=== PATIENT | female | born 1940 | race Caucasian/White ===

== ENCOUNTER 2018-06-25 12:18 | Observation (INO) | payer MEDICARE, OTHER ==
[~2018-06-25] VITALS: Ht 157.5 cm; Wt 79.8 kg
--- NOTE | 2018-06-25 13:24 | Diagnostic Imaging Report ---
EXAMINATION: CHEST SINGLE (PORTABLE) INDICATION: Fall, hit forehead \S\ERMD ORDER \S\[id number] \S\1300 \S\Y COMPARISON: None FINDINGS: AP view TUBES and LINES: None. LUNGS: Lungs are well inflated. Lungs are clear. There is no evidence of pneumonia or pulmonary edema. PLEURA: No pleural effusion or pneumothorax. HEART AND MEDIASTINUM: The cardiomediastinal silhouette is unremarkable. Mild aortic arch calcifications. BONES AND SOFT TISSUES: No acute osseous lesion. Rightward curvature of the visualized lumbar spine. UPPER ABDOMEN: No free air under the diaphragm. IMPRESSION: No acute thoracic abnormality. Signed by: DR. Murray Escobar MD on 06/25/2018 1:20 PM
--- NOTE | 2018-06-25 13:58 | Diagnostic Imaging Report ---
Examination: CT BRAIN WITHOUT CONTRAST History:Dizziness. Fall. Head injury Comparison studies:None Technique: Axial images were obtained from the skull base to the vertex. Coronal and sagittal images reconstructed from the axial data. Dose modulation, iterative reconstruction, and/or weight based adjustment of the mA/kV was utilized to reduce the radiation dose to as low as reasonably achievable. Intravenous contrast: None Findings: Scalp: Small right frontal scalp hematoma. Bones: No fractures, blastic or lytic lesions. Brain sulci: Appropriate for age. Ventricles: The ventricular size is out of proportion with respect to cerebral convexity sulci, concerning for a communicating type of hydrocephalus, such as normal pressure hydrocephalus. Extra-axial space: No abnormalities. Parenchyma: No masses, hemorrhage, or acute or chronic cortical based vascular insults. Sellar/suprasellar region: No abnormalities. Craniocervical junction: Patent foramen magnum. No Chiari one malformation. Incidental findings: Atherosclerotic calcification of the cavernous and supraclinoid internal carotid and V4 segments of the bilateral vertebral arteries. Impression: 1. Small right frontal scalp hematoma without radiopaque foreign body or associated calvarial fracture. 2. No acute intracranial abnormalities. 3. Findings as described above are concerning for normal pressure hydrocephalus. Signed by: Dr. Airam Drew M.D. on 06/25/2018 1:55 PM
[2018-06-25 14:27] LABS: BASOPHILS # (AUTO) 0.1 (0.0-0.1); BASOPHILS % 0.7 % (0.0-1.0); EOSINOPHILS # (AUTO) 0.1 (0.0-0.4); EOSINOPHILS % 1.7 % (0.0-6.0); HEMATOCRIT 42.7 % (34.2-44.1); HEMOGLOBIN 13.7 g/dL (12.0-16.0); LYMPHOCYTES # (AUTO) 1.1 (1.0-3.2); LYMPHOCYTES % 13.9 % (18.0-39.1); MEAN CORPUSCULAR HEMOGLOBIN 29.5 pg (28-32); MEAN CORPUSCULAR HGB CONC 32.1 g/dL (31-35); MONOCYTES # (AUTO) 0.8 (0.2-0.8); MONOCYTES % 9.9 % (4.4-11.3); NEUTROPHILS # (AUTO) 5.9 (2.1-6.9); NEUTROPHILS % 73.6 % (38.7-80.0); PLATELET COUNT 233 x10e3/uL (140-360); RED BLOOD COUNT 4.64 x10e6/uL (3.6-5.1); RED CELL DISTRIBUTION WIDTH 14.7 % (11.7-14.4)
--- NOTE | 2018-06-25 14:35 | Diagnostic Imaging Report ---
CTs of the pelvis and right hip were obtained WITHOUT contrast. TECHNIQUE: Standard departmental protocols were used. Sagittal and coronal reformations were obtained. Coronal and sagittal reconstructions were reformatted separately for each exam. Dose modulation, iterative reconstruction, and/or weight based adjustment of the mA/kV was utilized to reduce the radiation dose to as low as reasonably achievable. Total DLP = 329.47 HISTORY: Fall, hematoma, pain COMPARISON: None. FINDINGS: Bones: No acute displaced fracture. No aggressive osseous lesion. Joints: Multifocal degenerative changes, including moderate of the pubic symphysis, sacroiliac joints. Mild subchondral cystic changes of the right femoral head greater than the left. Trace nonspecific right hip effusion. Also, chondrocalcinosis of the pubic symphysis. Soft tissues: There is no evidence of lymphadenopathy or other soft tissue mass. Other: Severe degenerative disc changes at L4-5 and L5-S1. Severe facet arthrosis at L4-5 and L5-S1. Multiple metallic surgical clips in the posterior aspect of the pelvis. IMPRESSION: 1. No acute displaced fracture. 2. Trace nonspecific right hip effusion. 3. Multifocal degenerative changes, most notably severe of the visualized lumbosacral spine. Signed by: Dr. Ike Khan D.O., M.M.M. on 06/25/2018 2:32 PM
[2018-06-25 14:41] LABS: INR 1.03; PROTHROMBIN TIME 12.7 seconds (11.9-14.5)
[2018-06-25 14:44] LABS: PARTIAL THROMBOPLASTIN TIME 21.6 seconds (23.8-35.5)
[2018-06-25 14:48] LABS: ALANINE AMINOTRANSFERASE 19 IU/L (0-55); ALBUMIN 3.9 g/dL (3.5-5.0); ALBUMIN/GLOBULIN RATIO 1.1 (0.8-2.0); ALKALINE PHOSPHATASE 41 IU/L (40-150); ANION GAP 13.2 mmol/L (8-16); BLOOD UREA NITROGEN 12 mg/dL (7-26); BUN/CREATININE RATIO 15 (6-25); CARBON DIOXIDE 26 mmol/L (22-29); CHLORIDE 102 mmol/L (98-107); CREATINE KINASE 54 IU/L (29-168); CREATININE, SERUM 0.82 mg/dL (0.57-1.11); EST GLOMERULAR FILTRATION RATE > 60 ML/MIN (60-); GLUCOSE 78 mg/dL (74-118); LIPASE 30 U/L (8-78); POTASSIUM 4.2 mmol/L (3.5-5.1); SODIUM 137 mmol/L (136-145)
[2018-06-25] MEDS ORDERED: OMEPRAZOLE40 MG PO (14:51)
[2018-06-25] MEDS ORDERED: FAMOTIDINE20 MG PO (14:51)
[2018-06-25] MEDS ORDERED: FOLIC ACID1 MG PO (14:51)
[2018-06-25] MEDS ORDERED: FERREX 28 TABL1 EACH PO (14:51)
[2018-06-25] MEDS ORDERED: ALPRAZOLAM0.5 MG PO (14:51)
[2018-06-25] MEDS ORDERED: SENNA LAX8.6 MG PO (14:51)
[2018-06-25] MEDS ORDERED: CALTRATE 600 W1 EACH PO (14:51)
[2018-06-25] MEDS ORDERED: FISH OIL 1,0001 EAC3 PO (14:51)
[2018-06-25] MEDS ORDERED: CARVEDILOL3.125 MG PO (14:51)
[2018-06-25] MEDS ORDERED: ATORVASTATIN CA10 MG PO (14:51)
[2018-06-25] MEDS ORDERED: BUPROPION HCL100 MG PO (14:51)
[2018-06-25] MEDS ORDERED: DESLORATADINE5 MG PO (14:51)
[2018-06-25] MEDS ORDERED: LEVOXYL88 MCG PO (14:51)
[2018-06-25] MEDS ORDERED: METFORMIN HCL500 MG PO (14:51)
[2018-06-25] MEDS ORDERED: HYDROCODON-ACE1 EA11 PO (14:51)
[2018-06-25] MEDS ORDERED: METHOTREXATE2.5 MG PO (14:51)
[2018-06-25] MEDS ORDERED: PREDNISONE5 MG PO (14:51)
[2018-06-25] MEDS ORDERED: VITAMIN B-121000 MCG PO (14:51)
[2018-06-25] MEDS ORDERED: VENLAFAXINE H37.5 MG PO (14:51)
[2018-06-25] MEDS ORDERED: OCUVITE TABLET1 EAC1 PO (14:51)
[2018-06-25] MEDS ORDERED: MIRALAX17 GM PO (14:51)
[2018-06-25 14:58] LABS: BILIRUBIN,URINE NEGATIVE (NEGATIVE); CLARITY,URINE SL CLOUDY (CLEAR); COLOR,URINE YELLOW (YELLOW); KETONES,URINE NEGATIVE (NEGATIVE); LEUKOCYTE ESTERASE ,URINE TRACE (NEGATIVE); NITRITE,URINE NEGATIVE (NEGATIVE); PROTEIN,URINE DIPSTICK NEGATIVE (NEGATIVE); URINE UROBILINOGEN 0.2 mg/dL (0.2 - 1)
[2018-06-25 15:03] LABS: EPITHELIAL CELLS,URINE FEW /LPF; RENAL EPITHELIAL CELLS,URINE RARE; TRANSITIONAL EPI CELLS,URINE RARE
[2018-06-25 15:10] LABS: THYROID STIMULATING HORMONE 0.665 uIU/mL (0.350-4.940)
[2018-06-25] MEDS ORDERED: ASPIRIN 81 MG CHEW TAB PO ONE (15:30)
[2018-06-25] MEDS ORDERED: DEXTROSE 50% SYRINGE 50 ML IV PRN (15:45)
--- NOTE | 2018-06-25 15:55 | Diagnostic Imaging Report ---
History: Fall Comparison studies: None Technique: Axial images were obtained through the cervical region.. Coronal and sagittal images reconstructed from the axial data.. Intravenous contrast: None Findings: Fractures: None. Soft tissues: No gross abnormalities. Atlantoaxial articulation: Degenerative changes without acute abnormality. Alignment: Reversal of the cervical spine lordosis at C5. Grade 1 anterolisthesis of C3 over C4 and grade 1 retrolistheses of C5 over C6. No scoliosis. Cervicomedullary junction: No abnormalities. The foramen magnum is patent. Vertebrae: No infection or neoplasm. Degenerative changes: Decreased intervertebral space with endplate sclerosis from C4 through C6. Fused right facet joint at C2-3 At C3-4 right facet hypertrophy results in moderate right foraminal narrowing Uncinate process hypertrophy and facet hypertrophy results in [id number] foraminal narrowing at C4-5 and C5-6. Atherosclerotic calcifications of the carotid bulbs. IMPRESSION: 1. No acute cervical spine abnormalities. 2. Cannot exclude ligament, spinal cord and or vascular abnormalities on the basis of this examination. Signed by: DR Michael Allison M.D. on 06/25/2018 3:51 PM
[2018-06-25] MEDS: INSULIN REGULAR, HUMAN 100 UNIT/1 ML 3ML VIAL SQ SCH ×2 (16:30→21:00)
[2018-06-25 17:00] VITALS: BP 190/74
[2018-06-25 17:40] VITALS: BP_SYST 163; BP_SYST 190; BP_DIAS 70; BP_DIAS 74
[2018-06-25] MEDS: SODIUM CHLORIDE 0.9% 1000ML 1,000 ML IV SCH (19:21)
--- NOTE | 2018-06-25 19:49 | Consultation ---
DATE OF CONSULTATION: June 25, 2018 CARDIOLOGY CONSULTATION ATTENDING PHYSICIAN: Dr. Db Mak CLINICAL HISTORY: This is an 78-year-old white woman, a patient Dr. Db Mak, admitted via the emergency room because of syncope and fall, striking her head. This patient apparently has had near syncopal spells for approximately 20 years. However, she never had an episode where she had to fall to the ground. She has had CT scan of the head in the past which showed normal pressure hydrocephalus. She has had a Holter study done because of palpitations with rapid heart beat, but no specific findings that the patient can tell me. Nevertheless, the patient was placed on Coreg with some symptomatic improvement. Other medical conditions include hypothyroidism, diabetes, indigestion. She is chronically taking prednisone. There is history of hyperlipidemia. MEDICATIONS: Included: 1. Alprazolam 0.5 mg p.o. q.12 h. 2. Atorvastatin 10 mg p.o. daily. 3. Bupropion 100-mg tablet p.o. daily. 4. Calcium carbonate. 5. Coreg 3.125 mg p.o. b.i.d. 6. Vitamin B12. 7. Desloratadine 5 mg p.o. daily. 8. Pepcid 20 mg p.o. daily. 9. Folic acid 1 mg p.o. daily. 10. Hydrocodone q.6 h. p.r.n. 11. Vitamin tablets. 12. Levothyroxine 88 mcg p.o. daily. 13. Metformin 500 mg p.o. b.i.d. 14. Methotrexate 2.5 mg p.o. daily. 15. [place] 3 fatty acid. 16. Omeprazole 40 mg daily. 17. Polyethylene glycol. 18. Prednisone 5 mg p.o. daily. 19. Senna 8.6 mg p.o. daily. 20. Venlafaxine 37.5 mg p.o. daily. 21. Vitamins A and C. PERSONAL / SOCIAL HISTORY: Noncontributory. PHYSICAL EXAMINATION GENERAL: She is alert and coherent. VITALS: Stable. Orthostatic readings are still pending. CARDIAC: Jugular veins are not distended. S1, S2 are regular. There is no appreciable murmur. LUNGS: Clear. ABDOMEN: Soft. Bowel sounds are present. EXTREMITIES: No cyanosis, clubbing or edema. IMPRESSION 1. Syncope, with the patient describing momentary unconsciousness but recovered before she hit the ground. She remembers hitting the ground. 2. History of normal pressure hydrocephalus with chronic imbalance. 3. Chronic pain. 4. Hypothyroidism. 5. Hyperlipidemia. 6. History of rapid palpitations on Coreg. 7. Immunosuppressed with methotrexate and prednisone. 8. Normal pressure hydrocephalus. RECOMMENDATIONS: Cardiac monitoring. Check orthostatic vital signs. Consider electrophysiology testing. Echocardiogram to rule out cardiomyopathy. Carotid Doppler scan. Neurology consultation is pending. Thus far, the CT scans of the head and cervical spine as well as the hip and pelvis were unrevealing. Chest x-ray was negative. EKG showed no acute changes. The patient had no complaint of chest pain. Job#: [id number] cc:DB MAK MD
[2018-06-25 20:00] VITALS: BP 160/72
[2018-06-25 20:52] LABS: CREATINE KINASE 51 IU/L (29-168)
[2018-06-26] VITALS (10 sets, daily range): BP systolic 135–176; BP diastolic 60–77
[2018-06-26] MEDS: SODIUM CHLORIDE 0.9% 1000ML 1,000 ML IV SCH ×2 (05:15→18:08)
[2018-06-26 05:53] LABS: BASOPHILS % 0.5 % (0.0-1.0); EOSINOPHILS # (AUTO) 0.2 (0.0-0.4); EOSINOPHILS % 2.7 % (0.0-6.0); HEMATOCRIT 41.1 % (34.2-44.1); LYMPHOCYTES # (AUTO) 1.4 (1.0-3.2); LYMPHOCYTES % 24.3 % (18.0-39.1); MEAN CORPUSCULAR HEMOGLOBIN 29.3 pg (28-32); MEAN CORPUSCULAR HGB CONC 31.6 g/dL (31-35); MEAN CORPUSCULAR VOLUME 92.8 fL (81-99); MONOCYTES % 16.4 % (4.4-11.3); NEUTROPHILS # (AUTO) 3.3 (2.1-6.9); NEUTROPHILS % 55.9 % (38.7-80.0); PLATELET COUNT 120 x10e3/uL (140-360); RED BLOOD COUNT 4.43 x10e6/uL (3.6-5.1); RED CELL DISTRIBUTION WIDTH 14.6 % (11.7-14.4)
[2018-06-26 06:30] LABS: CREATINE KINASE 57 IU/L (29-168)
[2018-06-26] MEDS: INSULIN REGULAR, HUMAN 100 UNIT/1 ML 3ML VIAL SQ SCH ×4 (07:30→21:00)
[2018-06-26 07:58] LABS: ALANINE AMINOTRANSFERASE 14 IU/L (0-55); ALBUMIN 3.5 g/dL (3.5-5.0); ALBUMIN/GLOBULIN RATIO 1.2 (0.8-2.0); ALKALINE PHOSPHATASE 37 IU/L (40-150); ANION GAP 13.7 mmol/L (8-16); BLOOD UREA NITROGEN 13 mg/dL (7-26); BUN/CREATININE RATIO 18 (6-25); CALCIUM 9.3 mg/dL (8.4-10.2); CARBON DIOXIDE 23 mmol/L (22-29); CHLORIDE 105 mmol/L (98-107); CREATININE, SERUM 0.73 mg/dL (0.57-1.11); EST GLOMERULAR FILTRATION RATE > 60 ML/MIN (60-); GLUCOSE 104 mg/dL (74-118); POTASSIUM 3.7 mmol/L (3.5-5.1); SODIUM 138 mmol/L (136-145)
[2018-06-26 08:48] LABS: PLATELET ESTIMATE SLIGHTLY DECREASED; PLATELET MORPHOLOGY COMMENT NORMAL
[2018-06-26 08:49] LABS: ANISOCYTOSIS SLIGHT; HYPOCHROMASIA SLIGHT; RBC MORPHOLOGY COMMENT NORMAL
[2018-06-26] MEDS: ASPIRIN 325 MG TAB EC PO SCH (09:20)
--- NOTE | 2018-06-26 14:50 | Consultation ---
DATE OF CONSULTATION: June 26, 2018 NEUROLOGY CONSULTATION HISTORY OF PRESENT ILLNESS: Ms. Rainey is an 78-year-old right hand dominant woman with past medical history significant for hyperlipidemia, diabetes mellitus type 2, and previously diagnosed tachycardia, admitted to [facility] on June 25, 2018, status post syncopal event. At approximately 1000 on the morning of admission, the patient was standing at her kitchen counter, taking her vitamins. Ms. Rainey then experienced the abrupt onset of dizziness, which is further described as lightheadedness. The patient does not report chest pain or tightness, shortness of breath, numbness or tingling, or an abnormal abdominal sensation. Immediately after the onset of lightheadedness, the patient briefly lost consciousness and fell towards her right, hitting her head and the right side of her body on ceramic tile. As indicated, the period of unconsciousness was brief, lasting only seconds. Upon regaining consciousness, Ms. Rainey was oriented to person, place, time, and situation. Ms. Rainey reports experiencing similar events over the past several years. The patient does not report a visual field cut or other disturbance, dysarthria, aphasia, facial droop, hemiparesis, hemihypesthesia, or confusion. She does endorse impairment of gait and balance but states these are chronic. At home, she ambulates with a cane. In the community, the patient ambulates with a rolling walker. Upon arrival in the emergency center at [facility], the patient was afebrile with a blood pressure of 161/85 mmHg and a pulse of 73 beats per minute. Her neurological examination was documented as being nonfocal. A CT of the brain without contrast was performed while the patient was in the emergency center. This study did not show evidence of recent large territorial ischemia or hemorrhage. Ms. Rainey was admitted to [facility] for further evaluation and treatment of her symptoms. REVIEW OF SYSTEMS: Palpitations, shortness of breath, chronic constipation, dizziness which is further described as lightheadedness, syncope, and impairment of balance and gait (chronic). Otherwise the 12 point review of systems is negative. PAST MEDICAL HISTORY: Hyperlipidemia, diabetes mellitus type 2, tachycardia, thyroid disease, rheumatoid arthritis, urinary incontinence, chronic constipation, depression, colon cancer (in remission). PAST SURGICAL HISTORY: Partial hysterectomy, cholecystectomy, bilateral knee replacements, colon resection, hemorrhoidectomy, appendectomy, bilateral cataract removal. PAST HOSPITALIZATIONS: Surgeries/procedures as listed, childbirth times 3, pneumonia. FAMILY MEDICAL HISTORY: The patient's paternal and maternal grandparents are . Their medical histories are unknown. The patient's father is from emphysema. Her mother is from breast cancer. Ms. Rainey had 5 brothers and 2 sisters. One sister is from lung cancer. A brother is from metastatic cancer. A second brother is from lung cancer. A second sister is from pulmonary fibrosis. One brother is alive and has chronic obstructive pulmonary disease. Two other brothers are alive and have prostate cancer. Ms. Rainey has 3 children, all boys. All are living. Her eldest son has benign prostatic hypertrophy. Her 2 younger sons are healthy. SOCIAL HISTORY: Ms. Rainey is a . She is retired. She endorses a remote history of tobacco use but quit smoking cigarettes approximately 50 years ago. The patient does not report current or prior alcohol or recreational drug use. HOME MEDICATIONS: Please see the list available on the electronic medical record. ALLERGIES: BACITRACIN, LEVOFLOXACIN. NO KNOWN FOOD ALLERGIES. THE PATIENT DOES REPORT AN ALLERGY TO LATEX. MS. RAINEY REPORTS AN ALLERGY TO IODINE WELL. PHYSICAL EXAMINATION: VITAL SIGNS: Height 62 inches, weight 178 pounds, BMI 32.6 kg per meter squared. Blood pressure 147/66 mmHg. Pulse 101 beats per minute. Respiratory rate 18 breaths per minute. Oxygen saturation 93% on room air. GENERAL: The patient is awake and alert, does not appear distressed. Obese. HEENT: Bruising over the right side of the forehead, above the right eye and near the right methodist. Pupils are surgical. Moist mucous membranes. NECK: Supple. No appreciable thyromegaly. No appreciable carotid bruits. CARDIOVASCULAR: S1, S2, regular rate and rhythm. No murmurs, rubs, or gallops. RESPIRATORY: Clear to auscultation bilaterally. No wheezes, rhonchi, or rales. EXTREMITIES: The skin is warm and dry. No clubbing, cyanosis, or edema. The posterior tibial and dorsalis pedis pulses are 1+ and symmetric. SKIN: No rashes or lesions. NEUROLOGIC: Memory/Attention: The patient is awake and alert. Oriented to person, place, time, and situation. Cranial Nerves: Cranial nerve 1--Not tested. Cranial nerve 2, 3, 4 and 6--Pupils are surgical. Extraocular movements intact. No nystagmus. Cranial nerve 5--Sensation to light touch and pinprick is intact in the bilateral V1 through V3 distributions. Strength of the temporalis and masseter muscles is within normal limits. Cranial nerve 7--The face is symmetric as are all facial movements. Strength is within normal limits. Cranial nerve 8--Hearing is diminished to finger rub bilaterally. Cranial nerve 9, 10--The soft palate elevates equally and symmetrically. Cranial nerve 11--Normal strength of the bilateral sternocleidomastoid and trapezius muscles. Cranial nerve 12--The tongue protrudes midline and moves symmetrically from side to side. Strength: Bulk is normal. Strength is 5/5 in the bilateral deltoids, biceps, triceps, wrist flexors and extensors, finger flexors and extensors, intrinsic hand muscles, hip flexors, knee flexors and extensors, ankle dorsiflexion and plantar flexion, and intrinsic foot muscles. Tone is normal. DTRs: Deep tendon reflexes are 1+ and symmetric at the triceps, biceps, brachial radialis, and patellas. Deep tendon reflexes are absent and symmetric at the Achilles. Plantar responses are flexor bilaterally. Sensation: Sensation is intact to light touch and pinprick in both arms and both legs. Cerebellar: Ymdeix-hsdj-louudt and heel-boyle movements are intact without dysmetria or other impairment. Gait: Deferred. Speech: Spontaneous speech is normal without appreciable dysarthria or aphasia. Repetition is intact. Involuntary Movements: None. Pronator Drift: None. LABORATORY DATA: The patient's complete metabolic panel is unremarkable. Cardiac enzymes are negative times 3. B-natriuretic peptide is 47.6. Lipase 30. TSH 0.665. The CBC with differential and platelets reveals a white blood cell count of 5.92 with 55.9% neutrophils, 24.3% lymphocytes, 16.4% monocytes, 2.7% eosinophils, and 0.5% basophils. The hemoglobin and hematocrit are 13.0 and 41.1, respectively. The platelet count is 120. PT 12.7, INR 1.03, PTT 21.6. A urinalysis reveals trace leukocyte esterase, rare transition epithelials cells, rare renal epithelials cells, no bacteria. A preliminary urine culture reveals no growth at 18 to 24 hours. DIAGNOSTIC STUDIES: Electrocardiogram June 25, 2018: Normal sinus rhythm at 77 beats per minute. Pelvis CT June 25, 2018: (1) No acute displaced fracture. (2) Trace nonspecific right hip effusion. (3) Multifocal degenerative changes, most notably severe of the visualized lumbosacral spine. Hip CT June 25, 2018: (1) No acute displaced fracture. (2) Trace nonspecific right hip effusion. (3) Multifocal degenerative changes, most notably severe of the visualized lumbosacral spine. Chest x-ray June 25, 2018: No acute thoracic abnormality. CT of the brain without contrast June 25, 2008: On my review, there is no evidence of recent large territorial ischemia, hemorrhage, mass, or mass effect. There is diffuse cerebral atrophy which appears appropriate for age. There is ventriculomegaly out of proportion to cerebral atrophy, concerning for normal pressure hydrocephalus. There are no findings suspicious for chronic small vessel ischemic disease. There is a small right frontal scalp hematoma without associated fracture. CT of the cervical spine June 25, 2018: (1) No acute cervical spine abnormalities. (2) Cannot exclude ligament, spinal cord, or vascular abnormalities on the basis of this examination. Echocardiogram June 25, 2018: Ejection fraction 60% to 65%. Trace tricuspid and mitral regurgitation. Bilateral carotid artery ultrasound with Doppler June 25, 2018: There is no atherosclerosis in either carotid artery system. Antegrade flow is present in the bilateral vertebral arteries. ASSESSMENT AND PLAN: Ms. Rainey is an 78-year-old right hand dominant woman with past medical history as detailed, admitted to [facility] on June 25, 2018, following a syncopal event. At present, the patient's neurological examination is nonfocal. Her laboratory data and other diagnostic studies have been reviewed and are documented above. Based on the patient's history and neurological examination, there is very low suspicion for an underlying neurological disorder as the cause of Ms. Rainey's syncopal event. Continued cardiac evaluation is recommended. Thank you for this consultation. There are no recommendations from the neurology service at this time. Time spent: 70 minutes. Job#: [id number] [place]
[2018-06-26] MEDS ORDERED: ACETAMINOPHEN 325 MG TAB PO PRN (21:00)
[2018-06-27] VITALS (7 sets, daily range): BP systolic 125–161; BP diastolic 61–74
[2018-06-27] MEDS: INSULIN REGULAR, HUMAN 100 UNIT/1 ML 3ML VIAL SQ SCH (07:30)
[2018-06-27] MEDS: ASPIRIN 325 MG TAB EC PO SCH (09:40)
[2018-06-27] MEDS ORDERED: ALPRAZOLAM 0.5 MG TAB PO PRN (09:45)
[2018-06-27] MEDS ORDERED: FAMOTIDINE 20 MG TAB PO SCH (17:00)
[2018-06-27] MEDS ORDERED: POLYETHYLENE GLYCOL 3350 17 GM PACK PO SCH (17:00)
[2018-06-27] MEDS ORDERED: CARVEDILOL 3.125 MG TAB PO SCH (17:00)
[2018-06-27] MEDS ORDERED: METFORMIN HCL 500 MG TAB PO SCH (17:00)
[2018-06-27] MEDS ORDERED: ATORVASTATIN 10 MG TAB PO SCH (21:00)
[2018-06-28] MEDS ORDERED: LEVOTHYROXINE SODIUM 88 MCG TAB PO SCH (06:00)
[2018-06-28] MEDS ORDERED: SENNOSIDES 8.6 MG TAB PO SCH (09:00)
[2018-06-28] MEDS ORDERED: OMEGA 3 POLYUNSAT FATTY ACIDS 1000 MG SOFTGEL PO SCH (09:00)
[2018-06-28] MEDS ORDERED: VENLAFAXINE HCL 37.5 MG TAB PO SCH (09:00)
[2018-06-28] MEDS ORDERED: OCUVITE PRESERVISION TABLET PO SCH (09:00)
[2018-06-28] MEDS ORDERED: BUPROPION HCL 100 MG TAB PO SCH (09:00)
[2018-06-28] MEDS ORDERED: PREDNISONE 5 MG TAB PO SCH (09:00)
[2018-06-28] MEDS ORDERED: CYANOCOBALAMIN 1,000 MCG TAB PO SCH (09:00)
[2018-06-28] MEDS ORDERED: PANTOPRAZOLE SOD 40 MG TABEC PO SCH (09:00)
[2018-06-28] MEDS ORDERED: FOLIC ACID 1 MG TAB PO SCH (09:00)
[2018-06-30] MEDS ORDERED: METHOTREXATE SOD 2.5 MG TAB PO SCH (09:00)
== END 2018-06-27 13:00 | disposition home or self-care (01) ==
LOC: ER 12:18 → ERHOLD 15:42 → INTOOBSV 15:42 → MED/SURG 16:44
PROVIDERS: ADMIT Internal Medicine; ATTEND Internal Medicine
DX: R55 Syncope and collapse (principal); S70.01XA Contusion of right hip, initial encounter; S00.83XA Contusion of other part of head, initial encounter; W18.39XA Other fall on same level, initial encounter; Y93.89 Activity, other specified; E11.9 Type 2 diabetes mellitus without complications; M54.9 Dorsalgia, unspecified; M06.9 Rheumatoid arthritis, unspecified; Z79.52 Long term (current) use of systemic steroids; E78.5 Hyperlipidemia, unspecified; Z88.1 Allergy status to other antibiotic agents; Z91.040 Latex allergy status; Z91.048 Other nonmedicinal substance allergy status; E03.9 Hypothyroidism, unspecified; G91.2 (Idiopathic) normal pressure hydrocephalus; G89.29 Other chronic pain; R00.2 Palpitations
CPT/HCPCS: 36415 ×3; 70450; 71045; 72125; 72192; 73700; 80053 ×2; 81001; 82550 ×2; 82553 ×2; 82948 ×3; 83690; 83735; 83880; 84443; 84484 ×2; 85025 ×2; 85610; 85730; 87086; 93005; 93306; 93880; 97116; 97161; 99284; G0378 ×3; J7030 ×2

== ENCOUNTER 2018-09-04 16:35 | Emergency (ER) | payer MEDICARE, OTHER ==
[~2018-09-04] VITALS: Ht 154.9 cm; Wt 79.4 kg
[~2018-09-04 16:35] MED LIST: ALPRAZOLAM0.5 MG PO; ATORVASTATIN CA10 MG PO; BUPROPION HCL100 MG PO; CALTRATE 600 W1 EACH PO; CARVEDILOL3.125 MG PO; DESLORATADINE5 MG PO; FAMOTIDINE20 MG PO; FERREX 28 TABL1 EACH PO; FISH OIL 1,0001 EAC3 PO; FOLIC ACID1 MG PO; HYDROCODON-ACE1 EA11 PO; LEVOXYL88 MCG PO; METFORMIN HCL500 MG PO; METHOTREXATE2.5 MG PO; MIRALAX17 GM PO; OCUVITE TABLET1 EAC1 PO; OMEPRAZOLE40 MG PO; PREDNISONE5 MG PO; SENNA LAX8.6 MG PO; VENLAFAXINE H37.5 MG PO; VITAMIN B-121000 MCG PO
--- OUTSIDE RECORDS SUMMARY | 2018-09-04 16:39 | XMS REPORT | Continuity of Care Document ---
Author Author [facility] Interface Address Unknown Phone Unavailable Problems Problem Status Onset Date Classification Date Reported Comments Source R13.10 Active 08/12/2017 [facility] D64.9 *XRAY ESOPHAGRAM BARIUM SWALLOW W Active 07/05/2017 [facility] D64.9 - "ANEMIA, UNSPECIFIED" Active 06/26/2017 [facility] [place] DIZZINESS AND GIDDINESS Active 05/06/2017 [facility] R09.89 - OTH SYMPTOMS AND SIGNS INVOLVI Active 04/11/2017 [facility] Anemia Resolved Problem 09/06/2017 [facility] Anxiety Resolved Problem 09/06/2017 [facility] Constipation Resolved Problem 09/06/2017 [facility] Diabetes Resolved Problem 09/06/2017 [facility] Gastric reflux Resolved Problem 09/06/2017 [facility] Hyperlipidemia Resolved Problem 09/06/2017 [facility] Hypothyroidism Resolved Problem 09/06/2017 [facility] Cancer of colon Resolved Problem 09/06/2017 [facility] Depression Resolved Problem 09/06/2017 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 Active Problem 08/22/2018 Deven Chand Degenerative arthritis of cervical spine Active Problem 08/22/2018 Deven Chand Encounter for long-term use of other high-risk medications Active Problem 08/22/2018 Deven Ellsworther Pharyngitis Active Problem 03/07/2017 Deven Ellsworther Neck pain Active Problem 08/22/2018 Deven Chand Lumbago with sciatica, unspecified side Active Problem 08/22/2018 Deven Chand Spasm of muscle Active Problem 06/12/2016 Deven Chand Follow-up examination following completed treatment with high-risk medications, not elsewhere classified Active Problem 06/12/2016 Deven Chand Rash and other nonspecific skin eruption Active Problem 06/12/2016 Deven Chand Pain in joint, wrist Active Problem 06/12/2016 Deven Chand Long-term use of other medications - High Risk Active Problem 06/12/2016 Deven Chand Bursitis, Hip Active Problem 06/12/2016 Deven Chand Vasculitis Active Problem 06/12/2016 Deven Chand Osteopenia Active Problem 06/12/2016 Deven Chand Rheumatoid arthritis Active Problem 06/12/2016 Deven Chand Rib pain Active Diagnosis 11/19/2015 Deven Chand Contusion of right hip Active Problem 06/27/2018 [facility] Head injury Active Problem 06/27/2018 [facility] Syncope Active Problem 06/27/2018 [facility] Traumatic hematoma of head Active Problem 06/27/2018 [facility] Medications Medication Details Route Status Patient Instructions Ordering Provider Order Date Source Methotrexate 2 tablets Orally Active 2.5 MG Orally Once a week [place] 08/05/2018 Deven Chand Folic Acid 1 tablet Orally Active 1 MG Orally Once a day [place] 03/26/2018 Deven Chand Methotrexate 2 tablets Orally Active 2.5mg Orally Once a week [place] 03/24/2018 Deven Chand Folic Acid 1 tablet Orally Active 1 MG Orally Once a day [place] 06/21/2017 Deven Chand Hydrocodone-Acetaminophen take 1 tablet by mouth every 6 hours Orally Active 5-325 MG Orally every 6 hrs [place] 01/23/2017 Deven Chand Hydrocodone-Acetaminophen take 1 tablet Orally Active 5-325 MG Orally once a day as needed [place] 01/23/2017 Deven Chand Hydrocodone-Acetaminophen take 1 tablet by mouth every 6 hours Orally Active 5-325 MG Orally every 6 hrs [place] 05/11/2016 Deven Chand Prilosec OTC 1 tablet Orally Active 20 MG Orally Once a day [place] 09/27/2015 Deven Chand Folic Acid 1 tablet Orally Active 1 MG Orally Once a day [place] 09/27/2015 Deven Chand Senokot 2 tablets at bedtime as needed Orally Active 8.6 MG Orally Once a day [place] Deven Chand Ocuvite as directed Orally Active Orally [place] Deven Chand BuPROPion HCl 1 tablet Orally Active 100 MG Orally once a day Chand Deven Chand Effexor XR 1 capsule with food Orally Active 37.5 MG Orally Once a day [facility] Deven Chand Iron 1 tablet Orally Active 325 (65 Fe) MG Orally Once a day [facility] Deven Chand PredniSONE 1 tablet Orally Active 5 MG Orally Once a day [place] Deven Chand Levothyroxine Sodium 1 Orally Active 100 MCG Orally qd [place] Deven Chand Clotrimazole 1 tammy Mouth/Throat Active 10 MG Mouth/Throat Three times a day [facility] Deven Chand Metamucil as directed Orally Active 48.57 % Orally [place] Deven Chand Methotrexate TAKE 3 TABLETS BY MOUTH ONCE A WEEK NA Active 2.5 MG [facility] Deven Chand Folic Acid 1 tablet Orally Active 1 MG Orally Once a day Chand Deven Chand Valsartan 1/2 tablet Orally Active 40 MG Orally Once a day [facility] Deven Chand Xanax 1 tablet Orally Active 0.5 MG Orally twice a day [facility] Deven Chand Citracal + D 1 tablet with meals Orally Active 1500-200 MG-IU Orally Twice a day Chand Deven Chand Rituxan 1000MG IV NA Active 1000MG q 4monthly Chand Deven Chand Tylenol Arthritis Pain 2 tablets as needed Orally Active 650 MG Orally every 8 hrs Chand Deven Chand Mucinex 1 tablet as needed Orally Active 600 MG Orally every 12 hrs Chand Deven Chand Fish Oil 1 CAP Orally Active 1000 MG Orally TWICE DAILY [place] Deven Chand Omeprazole 1 capsule Orally Active 40 MG Orally Once a day [place] Deven Chand Desloratadine 1 tablet Orally Active 5 MG Orally Once a day [place] Deven Chand Famotidine 1 tablet at bedtime Orally Active 20 MG Orally BID Chand Deven Chand Metformin & Diet Manage Prod 1 tablet Orally Active 500 MG Orally BID [place] Deven Chand Carvedilol 1 tablet with food Orally Active 3.125 MG Orally Twice a day Chand Deven Chand MiraLax as directed Orally Active - Orally Chand Deven Chand Alprazolam 1 tablet Orally Active 0.5 MG Orally Twice a day [place] Deven Chand Omeprazole 1 capsule Orally Active 40 MG [facility] Deslorat[facility]ine 1 tablet Orally Active 5 MG Orally Once a day [facility] Fish Oil 1 CAP Orally Active 1000 MG Orally TWICE DAILY [facility] AleksanderTopelon Delica Lancets 33G as directed NA Active - [facility] Tylenol Arthritis Pain 2 tablets as needed Orally Active 650 MG Orally every 8 hrs [facility] Venlafaxine HCl 1 tablet with food Orally Active 37.5 MG Orally Once a day [facility] Atorvastatin Calcium 1 tablet Orally Active 10 MG Orally Once a day [facility] Levothyroxine Sodium 1 Orally Active 100 MCG Orally qd [facility] Famotidine 1 tablet at bedtime Orally Active 20 MG Orally BID [facility] Metamucil as directed Orally Active 48.57 % Orally [facility] Ocuvite as directed Orally Active Orally [facility] Rituxan 1000MG IV NA Active 1000MG q 4monthly [facility] Mucinex 1 tablet as needed Orally Active 600 MG Orally every 12 hrs [facility] Senokot 2 tablets at bedtime as needed Orally Active 8.6 MG Orally Once a day [facility] Methotrexate 2 tablets Orally Active 2.5mg Orally Once a week [facility] Carvedilol 1 tablet with food Orally Active 3.125 MG Orally Twice a day [facility] BuPROPion HCl 1 tablet Orally Active 100 MG Orally once a day [facility] MiraLax as directed Orally Active - Orally [facility] Alprazolam 1 tablet Orally Active 0.5 MG Orally Twice a day [facility] Sandhya Delica Lancets 33G as directed NA Active - [facility] Atorvastatin Calcium 1 tablet Orally Active 10 MG Orally Once a day [facility] Venlafaxine HCl 1 tablet with food Orally Active 37.5 MG Orally Once a day [facility] Vitamin B12 1 tablet Orally Active 1000 MCG Orally Once a day [facility] Naproxen 1 tablet Orally Active 250 MG Orally PRN [facility] Tylenol 1 Orally Active otc Orally prn [facility] Citracal +D3 as directed Orally Active 250-107-500 MG-MG-UNIT Orally [facility] Metformin & Diet Manage Prod as directed Orally Active 500 MG Orally [place] Deven Chand Omeprazole 1 capsule Orally Active 20 MG Orally Once a day Yoav Chand PredniSONE TAKE 1 TO 2 TABLETS WITH FOOD OR MILK ONCE DAILY NA Active 5MG Yoav Chand Biotin 1 tablet Orally Active 300 MCG Orally Once a day Jagruti Chand Xolair INJECTION ONCE A MONTH Subcutaneous Active 150 MG Subcutaneous EVERY MONTH Jagruti Chand Calcium + D 1 tablet Orally Active 600-200 MG-UNIT Orally TWICE A DAY Jagruti Chand Hydrocodone-Acetaminophen TAKE 1 TABLET BY MOUTH EVERY 6 HOURS NA Active 5-325 MG Jagruti Chand Naproxen TAKE 1 TABLET NEEDED EVERY 12 HOURS NA Active 500MG Jagruti Chand Vitamin E 1 capsule Orally Active 100 UNIT Orally Once a day Jagruti Chand Furosemide 1 tablet Orally Active 20 MG Orally Once a day Jagruti Chand Nasonex 2 sprays in each nostril Nasally Active 50 MCG/ACT Nasally Once a day Jagruti Chand Venlafaxine HCl 1 tablet with food Orally Active 75 MG Orally Twice a day Jagruti Chand Mucinex 1 tablet for chest congestion Orally Active 600 MG Orally prn Jagruti Chand Methotrexate once a week Orally Active 2.5 MG Orally once a week Jagruti Chand Citracal + D 1 tablet with meals Orally Active 1500-200 MG-IU Orally Twice a day Karl Chand Hydrocodone-Acetaminophen take 1 tablet by mouth every 6 hours Orally Active 5-325 MG Orally every 6 hrs Yoav Chand Alprazolam 0.5 Mg Tablet Every 12 Hours as needed for Anxiety Active [facility] Atorvastatin Calcium 10 Mg Tablet Bedtime Active [facility] Bupropion Hcl 100 Mg Tablet Daily Active [facility] Calcium Carbonate/Vitamin D3 (Caltrate 600 W-D Tablet) 1 Each Tablet Daily Active [facility] Carvedilol 3.125 Mg Tablet Twice A Day Active [facility] Cyanocobalamin (Vitamin B-12) 1,000 Mcg Tab Daily Active [facility] Desloratadine 5 Mg Tablet Daily Active [facility] Famotidine 20 Mg Tab Twice A Day Active [facility] Folic Acid 1 Mg Tablet Daily Active [facility] Hydrocodone Bit/Acetaminophen (Hydrocodon-Acetaminophen 5-325) 1 Each Tablet Every 6 Hours Active [facility] Iron Ag&Fum/C/Fa/Mv Cmb11/Ca-T (Ferrex 28 Tablet) 1 Each Tablet Daily Active [facility] Levothyroxine Sodium (Levoxyl) 88 Mcg Tablet Daily Active [facility] Metformin Hcl 500 Mg Tablet Twice A Day Active [facility] Methotrexate Sodium (Methotrexate) 2.5 Mg Tablet Q7days Active [facility] [place]-3 Fatty Acids/Fish Oil (Fish Oil 1,000 Mg Softgel) 1 Each Capsule Daily Active [facility] Omeprazole 40 Mg Capsule.dr Daily Active [facility] Polyethylene Glycol 3350 (Miralax) 17 Gm Powd.pack Twice A Day Active [facility] Prednisone 5 Mg Tablet Daily Active [facility] Sennosides (Senna Lax) 8.6 Mg Tablet Daily Active [facility] Venlafaxine Hcl 37.5 Mg Tablet Daily Active [facility] Vit A,C & E/Lutein/Minerals (Ocuvite Tablet) 1 Each Tablet Daily Active [facility] Allergies, Adverse Reactions, Alerts Substance Category Reaction Severity Reaction type Status Date Reported Comments Source Levofloxacin RASH Mild Allergy to Substance Active 11/28/2010 [facility] Iodine Adverse Reaction Info Not Available Adverse Reaction Active 05/13/2018 Deven Chand Daypro Adverse Reaction Info Not Available Adverse Reaction Active 05/13/2018 Deven Chand Levaquin Adverse Reaction Info Not Available Adverse Reaction Active 05/13/2018 Deven Chand Leflunomide Adverse Reaction Info Not Available Adverse Reaction Active 05/13/2018 Deven Chand Xeljanz Adverse Reaction Info Not Available Adverse Reaction Active 05/13/2018 Deven Chand Actemra Adverse Reaction Info Not Available Adverse Reaction Active 05/13/2018 Deven Chand Gold Sodium Thiosulfate Adverse Reaction Info Not Available Adverse Reaction Active 05/13/2018 Deven Chand Thiuram Mix Adverse Reaction Info Not Available Adverse Reaction Active 05/13/2018 Deven Chand Humira Adverse Reaction Info Not Available Adverse Reaction Active 05/13/2018 Deven Chand Remicade Adverse Reaction Info Not Available Adverse Reaction Active 05/13/2018 Deven Chand Enbrel Adverse Reaction Info Not Available Adverse Reaction Active 05/13/2018 Deven Chand Kineret Adverse Reaction Info Not Available Adverse Reaction Active 05/13/2018 Deven Chand Fosamax Adverse Reaction fatigue, dental issues Adverse Reaction Active 05/13/2018 Deven Chand Latex Unknown Allergy to Substance Active 06/25/2018 [facility] Bacitracin Unknown Allergy to Substance Active 06/25/2018 [facility] Bacitracin, Topical Assertion Drug allergy Active [facility] iodine Assertion Drug allergy Active [facility] Immunizations Immunization Date Given Site Status Last Updated Comments Source Results Order Name Results Value Reference Range Date Interpretation Comments Source Ext Lower Venous Doppler [facility] LEFT LOWER EXTREMITY VENOUS DOPPLER DATE: 08/27/2018 9:33 AM [facility]RI[facility] INDICATION: - I80.9 Phlebitis and thrombophlebitis of unspecified site ADDITIONAL INFORMATION: None. COMPARISON: None. TECHNIQUE: Multiplanar grayscale, color Doppler and spectral Doppler ultrasound images of the left lower extremity veins. DISCUSSION: Left Thigh Veins: Common Femoral: Patent. Femoral (SFV): Patent. Popliteal: Patent. Proximal Greater Saphenous: Patent. Deep Femoral Veins: Patent. Left Calf Veins: Paired Peroneal: Patent. Posterior Tibial Calf: Patent. 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 IMPRESSION 1. No left lower extremity deep venous thrombosis (DVT). 2. 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 08/27/2018 - - Read by: Lori Funez MD Dictated Date/time: 08/27/18 11:25 Electronically Signed by: Lori Funez MD 08/27/18 11:28 FINAL REPORT [facility] Barium Swallow w Esophagus Function DX Barium Swallow w Esophagus Function DX Patient Name: EDGARDO HUNTLEY : 1940; Age: 77 years y/o Female MR: [id number] Study: Barium Swallow w Esophagus Function DX 07/11/2017 9:15 AM CDT Clinical Indication: FT: 3.4 min / DOse: 77.31 mGy / DAP: 18.029 Gycm2 - D64.9- Anemia COMPARISON: None TECHNIQUE: Thin barium was utilized for recumbent prone oblique and LPO images. Thick barium was utilized for upright imaging of the esophagus and pharynx. Evangelina cracker mixed with barium was given to evaluate motility with solids. FINDINGS: There is no delay in passage of the barium bolus from the pharynx into the esophagus. The cricopharyngeus relaxes normally. There is a small Zenker's diverticulum. Prone images of the esophagus reveal tertiary waves with mild to moderate delay in contrast passage. LPO image demonstrates severe delay in contrast passage. Upright images demonstrate tertiary waves with minimal delay in contrast passage. Subsequently 2 separate swallows of a small piece of evangelina cracker and barium were fluoroscopically followed through the length of the esophagus. There is no significant delay in passage of both solid boluses from the pharynx to the esophagus and subsequently into the stomach. IMPRESSION: 1. Small Zenker's diverticulum. 2. Esophageal dysmotility with mild to moderate delay in contrast passage on the prone views. 3. Severe delay in contrast passage in the LPO position. [id number] 07/11/2017 - - Read by: Keith Ocampo MD Dictated Date/time: 07/11/17 12:27 Electronically Signed by: Keith Ocampo MD 07/11/17 12:32 FINAL REPORT [facility] Brain wo contrast CT Brain wo contrast CT EXAM: CT BRAIN WITHOUT CONTRAST DATE: 04/19/2017 INDICATION: R42 Dizziness and giddiness COMPARISON: No prior imaging is available for comparison TECHNIQUE: Axial noncontrast CT images of the head were obtained. Sagittal and coronal reconstructions were provided. IV contrast: None. DLP: 471.12 mGy-cm FINDINGS: There is no evidence of mass effect, midline shift or acute intracranial hemorrhage. Martin-white matter differentiation is preserved in the large territorial infarction is identified. The ventricles are diffusely prominent and are in disproportion to the size of the cerebral sulci. No extra-axial fluid collection is identified. The orbits, imaged paranasal sinuses and mastoid air cells are unremarkable. The skull base and calvarium are intact. IMPRESSION: 1. No acute intracranial abnormality. 2. Prominence of the ventricular system in disproportion to the size of the cerebral sulci may indicate a component of normal pressure hydrocephalus. Clinical correlation is recommended. 04/19/2017 - - This report was dictated by a Activities Specialist/Fellow. I have personally reviewed the images as well as the Resident's interpretation and agree with the findings. Read by: Veronica Gomez MD Resident: Veronica Gomez MD Dictated Date/time: 04/19/17 14:13 Electronically Signed by: Damian Herr MD 04/19/17 20:03 FINAL REPORT [facility] Carotid artery Doppler bilat US Carotid artery Doppler bilat US EXAM: US EXTRACRANIAL ARTERIAL DOPPLER DATE: 04/19/2017 12:55 PM CDT INDICATION: - R42 Dizziness and giddiness,R09.89 Other specified symptoms and signs involving the circulatory and respiratory systems, I10 Essential (primary) hypertension ADDITIONAL INFORMATION: None. COMPARISON: None. TECHNIQUE: Multiplanar grayscale, color Doppler and spectral Doppler ultrasound images of the carotid and vertebral arteries. DISCUSSION: Right Carotid System: Normal arterial waveforms. Right Common Carotid Artery (RCCA): 86 / 17 cm/s Right Internal Carotid Artery (MONET): 86 / 22 cm/s calcified atherosclerotic plaque formation in the right carotid bulb. Right External Carotid Artery (RECA): 72 cm/s Right Vertebral Artery (RVA): 50 cm/s. Antegrade flow with normal waveform. Right internal carotid artery/CCA peak systolic velocity ratio: 1.0 Left Carotid System: Normal arterial waveforms. Left Common Carotid Artery (LCCA): 93 / 19] cm/s Left Internal Carotid Artery (LICA): 97 / 22 cm/s calcified hyperechoic plaque formation in the left carotid bulb. Left External Carotid Artery (LECA): 57 cm/s Left Vertebral Artery (LVA): 32 cm/s. Antegrade flow with normal waveform. Left internal carotid artery/CCA peak systolic velocity ratio: 1.0 IMPRESSION: 1. Right internal carotid artery: Mild calcified plaque in the right carotid bulb with no hemodynamically significant stenosis. 2. Left internal carotid artery: Moderate calcified plaque in the left carotid bulb with no hemodynamically significant stenosis. 3. Vertebral arteries: Antegrade flow with normal waveforms bilaterally. According to the 2003 Consensus criteria: <50% stenosis: PSV <125 cm/sec, EDV <40cm/sec, ICA:CCA ratio <2 50-69% stenosis: PSV 125-230cm/sec, EDV 40-100cm/sec, ICA:CCA ratio 2-4 >70% stenosis: PSV >230cm/sec, EDV >100cm/sec, ICA:CCA ratio >4 Reference: Radiology. [phone]:[id number]. Carotid Artery Stenosis: Martin-scale and Doppler US diagnosis- Society of Radiologists in Ultrasound Consensus Conference. Kyle EG, Don CB, Bright GL, et. al. 04/19/2017 - - Read by: Efren Hwang MD Dictated Date/time: 04/19/17 14:03 Electronically Signed by: Efren Hwang MD 04/19/17 14:06 FINAL REPORT [facility] Vital Signs Vital Sign Value Date Comments Source Weight 177.4 05/13/2018 Deven Chand Height 62 05/13/2018 Deven Chand Temperature Oral (F) 97.2 F 05/13/2018 Deven Chand Heart Rate 81 05/13/2018 Deven Chand Diastolic (mm Hg) 83 05/13/2018 Deven Chand Systolic (mm Hg) 145 05/13/2018 Deven Chand Weight 173.9 12/25/2017 Deven Chand Height 62 12/25/2017 Deven Chand Temperature Oral (F) 97.2 F 12/25/2017 Deven Chand Heart Rate 78 12/25/2017 Deven Chand Diastolic (mm Hg) 70 12/25/2017 Deven Chand Systolic (mm Hg) 126 12/25/2017 Deven Chand Weight 174 11/21/2017 Deven Chand Height 62 11/21/2017 Deven Chand Temperature Oral (F) 96.9 F 11/21/2017 Deven Chand Heart Rate 80 11/21/2017 Deven Chand Diastolic (mm Hg) 70 11/21/2017 Deven Chand Systolic (mm Hg) 134 11/21/2017 Deven Chand Weight 171.4 05/28/2017 Deven Chand Height 62 05/28/2017 Deven Chand Temperature Oral (F) 97.9 F 05/28/2017 Deven Chand Heart Rate 80 05/28/2017 Deven Chand Diastolic (mm Hg) 74 05/28/2017 Deven Chand Systolic (mm Hg) 126 05/28/2017 Deven Chand Height 157.48 cm 05/07/2017 [facility] BMI Calculated 30.79 05/07/2017 [facility] Weight 76.364 05/07/2017 [facility] Weight 162.4 01/23/2017 Deven Chand Height 62 01/23/2017 Deven Chand Temperature Oral (F) 99.4 F 01/23/2017 Deven Chand Heart Rate 88 01/23/2017 Deven Chand Diastolic (mm Hg) 72 01/23/2017 Deven Chand Systolic (mm Hg) 128 01/23/2017 Deven Chand Diastolic (mm Hg) 80 05/29/2016 Deven Chand Systolic (mm Hg) 150 05/29/2016 Deven Chand Weight 167 05/29/2016 Deven Chand Temperature Oral (F) 97.6 F 05/29/2016 Deven Chand Heart Rate 78 05/29/2016 Deven Chand Weight 162 04/11/2016 Deven Chand Height 62 04/11/2016 Deven Chand Temperature Oral (F) 98.1 F 04/11/2016 Deven Chand Heart Rate 80 04/11/2016 Deven Chand Diastolic (mm Hg) 67 01/10/2016 Deven Chand Systolic (mm Hg) 145 01/10/2016 Deven Chand Weight 160 01/10/2016 Deven Chand Temperature Oral (F) 97.4 F 01/10/2016 Deven Chand Heart Rate 82 01/10/2016 Deven Chand Weight 162 09/27/2015 Deven Chand Height 62 09/27/2015 Deven Chand Temperature Oral (F) 97.7 F 09/27/2015 Deven Chand Heart Rate 80 09/27/2015 Deven Chand Diastolic (mm Hg) 72 09/27/2015 Deven Chand Systolic (mm Hg) 128 09/27/2015 Deven Chand Encounters Location Location Details Encounter Type Encounter Number Reason For Visit Attending Provider ADM Date DC Date Status Source Chuy Chand MD 3 month follow up [id number] 02/22/2014 02/22/2014 Deven Chand MD 3 month follow up [id number] 02/22/2014 02/22/2014 Deven Chand MD 3 month follow up [id number] 02/22/2014 02/22/2014 Deven Chand MD 3 month follow up [id number] 02/22/2014 02/22/2014 Deven Chand MD 3 month follow up [id number] 02/22/2014 02/22/2014 Deven Chand MD 3 month follow up [id number] 02/22/2014 02/22/2014 Deven Chand MD 3 month follow up [id number] 02/22/2014 02/22/2014 Deven Chand MD 3 month follow up [id number] 02/22/2014 02/22/2014 Deven Chand MD 3 month follow up [id number] 02/22/2014 02/22/2014 Deven Chand MD 3 month follow up [id number] 02/22/2014 02/22/2014 Deven Chand MD 3 month follow up [id number] 02/22/2014 02/22/2014 Deven Chand MD 3 month follow up [id number] 02/22/2014 02/22/2014 Deven Chand MD START Simponi Aria [id number] 02/22/2014 02/22/2014 Deven Chand MD START [facility] 141p7c62-4rs8-047v-kj86-qkl728b0s2y8 02/22/2014 02/22/2014 Deven Chand MD START [employer] [facility] jxoq25f4-mpfr-4723-d06y-t676638xy75f 02/22/2014 02/22/2014 Deven Chand MD START [employer] 904r0ggr-8qr5-670h-q781-jr22h9840ym9 02/22/2014 02/22/2014 Deven Chand MD START [employer] 97x126n7-057w-0i4m-5uq8-36u58putv675 02/22/2014 02/22/2014 Deven Chand MD START [employer]poni [employer] x4jwrv99-7xiv-80w2-pvhp-aw3379428204 02/22/2014 02/22/2014 Deven Chand MD START [employer]poni [employer]ria 2a33q21p-552m-1wh3-33t9-f23l3w55k10i 02/22/2014 02/22/2014 Deven Chand MD START [employer] f65t8915-34w7-4gu0-et69-3k1611zq0068 02/22/2014 02/22/2014 Deven Chand MD START Simponi [employer]ria 01736m4g-9nd5-89m0-mho1-0qc19v2lm5z8 02/22/2014 02/22/2014 Deven Chand MD START [employer] y867g4p9-k439-2649-2k6n-4208bxr57h03 02/22/2014 02/22/2014 Deven Chand MD START [employer]annickp[facility] u4q30u93-0g20-996o-v1u2-161t1765zg4m 02/22/2014 02/22/2014 Deven Chand MD START [facility]annickp[facility] 1g61w40j-j2b2-0329-2729-0a71k7q22tud 02/22/2014 02/22/2014 Deven Chand MD MTX SCRIPT [id number]-xi6m-9972828x16d3 02/24/2014 02/24/2014 Deven Chand MD MTX SCRIPT [id number] 02/24/2014 02/24/2014 Deven Chand MD MTX SCRIPT [id number]-[id number] 02/24/2014 02/24/2014 Deven Chand MD MTX SCRIPT [id number]-914ra8wzr81z 02/24/2014 02/24/2014 Deven Chand MD MTX SCRIPT [id number] 02/24/2014 02/24/2014 Deven Chand MD MTX SCRIPT [id number]-gll5-pf188ts5w597 02/24/2014 02/24/2014 Deven Chand MD MTX SCRIPT [id number]-h7o3n3x690or 02/24/2014 02/24/2014 Deven Chand MD MTX SCRIPT [id number] 02/24/2014 02/24/2014 Deven Chand MD MTX SCRIPT [id number]-i6pp-770r4osn86xo 02/24/2014 02/24/2014 Deven Chand MD MTX SCRIPT [id number]-f3s5-8acd7y246585 02/24/2014 02/24/2014 Deven Chand MD MTX SCRIPT 50r3t8dz-0p83-79q1-ej7q-0b2e1a77f0t9 02/24/2014 02/24/2014 Deven Chand MD MTX SCRIPT [id number]-[id number] 02/24/2014 02/24/2014 Deven Chand MD Vicodin refill [id number]-[id number]-[id number] 03/02/2014 03/02/2014 Deven Chand MD Vicodin refill [id number]-x473-23q7-gye2-n5m011215o3e 03/02/2014 03/02/2014 Deven Chand MD Vicodin refill 2b6d3e73-q008-3dxw-x623-2x315p5694k6 03/02/2014 03/02/2014 Deven Chand MD Vicodin refill 7r174g0j-el65-60l4-cebw-ndew961l9rka 03/02/2014 03/02/2014 Deven Chand MD Vicodin refill [id number]-188y-1xbv-at08-66j376p3mvb8 03/02/2014 03/02/2014 Deven Chand MD Vicodin refill [id number]-i908-[id number] 03/02/2014 03/02/2014 Deven Chand MD Vicodin refill gm4i1b37-9v9i-650g-9x12-7356133k9d73 03/02/2014 03/02/2014 Deven Chand MD Vicodin refill 83cq995e-v862-9577-25at-iq1127q38kb1 03/02/2014 03/02/2014 Deven Chand MD Vicodin refill [id number]-[id number]-ia74-7an81u928963 03/02/2014 03/02/2014 Deven Chand MD Vicodin refill [id number]-8h54-w558-9n5z2h5866yb 03/02/2014 03/02/2014 Deven Chand MD Vicodin refill 0434ppc3-784b-6225-pw73-519fr86d0yy0 03/02/2014 03/02/2014 Deven Chand MD Vicodin refill [id number]-95x2-iy17-c4w6e33pz4sb 03/02/2014 03/02/2014 Deven Chand MD medication dx code [id number] 03/02/2014 03/02/2014 Deven Chand MD medication dx code [id number] 03/02/2014 03/02/2014 Deven Chand MD medication dx code [id number]-w00b-07r0w09t418g 03/02/2014 03/02/2014 Deven Chand MD medication dx code [id number] 03/02/2014 03/02/2014 Deven Chand MD medication dx code [id number] 03/02/2014 03/02/2014 Deevn Chand MD medication dx code [id number] 03/02/2014 03/02/2014 Deven Chand MD medication dx code [id number]-[id number] 03/02/2014 03/02/2014 Deven Chand MD medication dx code [id number]-9a2l-7434-7r62-2v02l26kje25 03/02/2014 03/02/2014 Deven Chand MD medication dx code [id number] 03/02/2014 03/02/2014 Deven Chand MD medication dx code [id number]-6q83-0420-3651-h9uslxb6l30s 03/02/2014 03/02/2014 Deven Chand MD medication dx code [id number]-zur5j9w26f1l 03/02/2014 03/02/2014 Deven Chand MD medication dx code [id number] 03/02/2014 03/02/2014 Deven Chand MD Done with antibiotics [id number]-[id number] 03/03/2014 03/03/2014 Deven Chand MD Done with antibiotics [id number]-vhl7-e9m1c516g36f 03/03/2014 03/03/2014 Deven Chand MD Done with antibiotics 5l06g949-w33j-8l78-p31i-z864898r90s0 03/03/2014 03/03/2014 Deven Chand MD Done with antibiotics -qkb9-5s70-3wd2-685s91n2z82t 03/03/2014 03/03/2014 Deven Chand MD Done with antibiotics [id number]-a91y-5je147l85551 03/03/2014 03/03/2014 Deven Chand MD Done with antibiotics [id number]-s0q4-t0a178x93511 03/03/2014 03/03/2014 Deven Chand MD Done with antibiotics [id number]-3047-2xy1-s9as-703a183132dd 03/03/2014 03/03/2014 Deven Chand MD Done with antibiotics [id number]-rh62-5r98o9093828 03/03/2014 03/03/2014 Deven Chand MD Done with antibiotics d65aw03p-mod8-2h47-r592-0nacg4t09j6x 03/03/2014 03/03/2014 Deven Chand MD Done with antibiotics [id number]-91i3-946l-qn10-9uzrzj338tu9 03/03/2014 03/03/2014 Deven Chand MD Done with antibiotics [id number]-5odu-1042-m85w-d223nc1hj284 03/03/2014 03/03/2014 Deven Chand MD Done with antibiotics [id number]-t033-3827625x0a35 03/03/2014 03/03/2014 Deven Chand MD MRI Bi-WRist [id number]-l7t5-869eg4n9868z 03/04/2014 03/04/2014 Deven Chand MD MRI Bi-WRist [id number]-b2rb-579f01769vb8 03/04/2014 03/04/2014 Deven Chand MD MRI Bi-WR[facility] 49nqd362-8akz-62i6-y269-9954o78x8w96 03/04/2014 03/04/2014 Deven Chand MD MRI Bi-WRist [id number]-p7gm-0o3c-t139-v01g30d8xb2d 03/04/2014 03/04/2014 Deven Chand MD MRI Bi-WR[facility] jvr598zt-73fa-73s3-gb5l-5ioz00107w94 03/04/2014 03/04/2014 Deven Chand MD MRI Bi-WRist 231k9m5i-vmt4-35l6-h4x9-pb1a3935xzn3 03/04/2014 03/04/2014 Deven Chand MD MRI Bi-WR[facility] [id number]-314v-k524-9t3n7n0075ye 03/04/2014 03/04/2014 Deven Chand MD MRI Bi-WR[facility] s7md8rg6-p13w-7i3d-0z83-78s53y1397r2 03/04/2014 03/04/2014 Deven Chand MD MRI Bi-WR[facility] p642uh6h-9885-0040-9k15-54bb8xi362f0 03/04/2014 03/04/2014 Deven Chand MD MRI Bi-WR[facility] 1o4cz2ed-a32j-4860-qfr3-627898i32n89 03/04/2014 03/04/2014 Deven Chand MD MRI Bi-WR[facility] [id number]-20d2-75w7-57411m191205 03/04/2014 03/04/2014 Deven Chand MD MRI Bi-WRist [id number]-h3bh-8xec-qoh8-78ru0649j059 03/04/2014 03/04/2014 Deven Chand MD Refill- xeljanz 40929p07-jo23-2fft-e440-w9do74545r0h 03/04/2014 03/04/2014 Deven Chand MD Refill- xeljanz 1st1019r-8688-82t1-464u-25x11z422437 03/04/2014 03/04/2014 Deven Chand MD Refill- xeljanz wr7486nx-078n-6942-5jx7-e1951698ld3c 03/04/2014 03/04/2014 Deven Chand MD Refill- xeljanz 7n95iwc8-i168-0w0i-83a2-14c0id735wji 03/04/2014 03/04/2014 Deven Chand MD Refill- xeljanz 74ei37r2-77gi-7516-b9j1-vm2x36pf79yz 03/04/2014 03/04/2014 Deven Chand MD Refill- xeljanz m2v40e71-3c81-15v4-lp4a-t9pm6q1qmn0g 03/04/2014 03/04/2014 Deven Chand MD Refill- xeljanz s3iq8e51-5568-7afh-r4lq-49n6fl1962y2 03/04/2014 03/04/2014 Deven Chand MD Refill- xeljanz 42x3j204-5xu2-1405-tl2c-076f250zrs78 03/04/2014 03/04/2014 Deven Chand MD Refill- xeljanz 6ey3568h-t613-4239-dca1-u60056ra0r63 03/04/2014 03/04/2014 Deven Chand MD Refill- prosper 2plg05v4-6om5-164t-7776-541pt5877i60 03/04/2014 03/04/2014 Deven Chand MD Refill- prosper 8985g9kx-0wbz-25h0-f2q0-0425863x073i 03/04/2014 03/04/2014 Deven Chand MD Refill- prosper kc6ts115-990l-7eiz-2h4o-1pg4m808g346 03/04/2014 03/04/2014 MD ANTHONY Krause a4cpf2w3-4k69-063o-36x6-s5d7c2990d50 03/17/2014 03/17/2014 MD ANTHONY Krause 46j88ty7-q476-0756-qze8-565va007248v 03/17/2014 03/17/2014 MD ANTHONY Krause bfv11081-4818-2a2e-5052-0t8wr624h4po 03/17/2014 03/17/2014 MD ANTHONY Krause 415l89f6-8w0v-283q-h37e-054a4e93p4p7 03/17/2014 03/17/2014 MD ANTHONY Krause 7mf6101e-f90w-7857-0r47-9e9uj688e87e 03/17/2014 03/17/2014 MD ANTHONY Krause dy361f9o-3830-7e15-r8e6-26c60l19360w 03/17/2014 03/17/2014 MD ANTHONY Krause s8ju90rn-i16o-1556-j49j-y60301n15un9 03/17/2014 03/17/2014 MD ANTHONY KrauseA rx8ih3n8-m9f4-7q4f-1n35-3v68a9i833vi 03/17/2014 03/17/2014 MD ANTHONY Krause 9720u609-5ri7-9660-g913-1w2o8121u626 03/17/2014 03/17/2014 MD ANTHONY Krause 2588331u-6992-4351-f928-p12q7u67hr68 03/17/2014 03/17/2014 MD ANTHONY Krause bl6a0530-rz4q-4800-6942-825a70261u79 03/17/2014 03/17/2014 MD ANTHONY Krause 90592we9-836c-8521-xn8y-021656hk449z 03/17/2014 03/17/2014 Deven Chand MD high BP 5s99gr1l-u642-13qg-a152-5b8l26g8d30m 03/19/2014 03/19/2014 Deven Chand MD high BP 700i802x-334q-17w3-4eoi-505t8973542a 03/19/2014 03/19/2014 Deven Chand MD high BP 568706e7-3w6l-34af-5172-0mbz48833fek 03/19/2014 03/19/2014 Deven Chand MD high BP 6o8w1806-601z-64xs-8d12-161jkj932351 03/19/2014 03/19/2014 Deven Chand MD high BP 396f42ln-ip64-6ix1-8398-gh43c1663g55 03/19/2014 03/19/2014 Deven Chand MD high BP k9955znp-4559-5vs1-k770-uw85s5jaa3yj 03/19/2014 03/19/2014 Deven Chand MD high BP j8r6z54j-9604-07x9-p112-9d437lszyi66 03/19/2014 03/19/2014 Deven Chand MD high BP 97y98011-v874-9u5q-g450-9q0r36465476 03/19/2014 03/19/2014 Deven Chand MD high BP 72lm98h4-7sz0-6qe3-s71i-8pd18u46898k 03/19/2014 03/19/2014 Deven Chand MD high BP hy9ggcr7-wo05-7680-00i3-5fz84qia763u 03/19/2014 03/19/2014 Deven Chand MD high BP 36064du0-6d4o-5014-tc33-861qw8e3moro 03/19/2014 03/19/2014 Deven Chand MD high BP ud4rlx49-021h-0e36-6z67-3j96v40586fb 03/19/2014 03/19/2014 Deven Chand MD 3 month follow up 2k77w60y-45ey-5891-8335-2o3l21pv0lrj 04/27/2014 04/27/2014 Deven Chand MD 3 month follow up 758j8n7z-896v-7892-942t-2ik9b9171i85 04/27/2014 04/27/2014 Deven Chand MD 3 month follow up m9i4r29y-24to-6952-l551-wm71yc9466e1 04/27/2014 04/27/2014 Deven Chand MD 3 month follow up ffz50292-7hb2-4y0f-746q-4xe902928943 04/27/2014 04/27/2014 Deven Chand MD 3 month follow up kbx14340-d6g1-8u42-b4t4-06s8210c8643 04/27/2014 04/27/2014 Deven Chand MD 3 month follow up 5hqn4co9-zy4u-0995-7854-80w788382ibv 04/27/2014 04/27/2014 Deven Chand MD 3 month follow up 424q4vx8-2923-6j33-1rps-9v0940yh048h 04/27/2014 04/27/2014 Deven Chand MD 3 month follow up s4092oe7-06x8-0396-0443-804wi2m612k5 04/27/2014 04/27/2014 Deven Chand MD 3 month follow up 5k64y666-2088-3fo8-5v6m-t2o22a0577k4 04/27/2014 04/27/2014 Deven Chand MD 3 month follow up r5dfh91d-gm53-6633-8o9t-3496602558w0 04/27/2014 04/27/2014 Deven Chand MD 3 month follow up 53g4cl00-l247-5c9l-5s6n-1s9hj0rs57yq 04/27/2014 04/27/2014 Deven Chand MD 3 month follow up 937660jw-9sol-25s4-77mg-3io77u0n3j33 04/27/2014 04/27/2014 Deven Chand MD PATIENT QUESTION 40846d8p-7752-3ph7-94bb-w8hh0276ic9q 07/08/2014 07/08/2014 Deven Chand MD PATIENT QUESTION [id number]-2949-120o-374jgu5c0i65 07/08/2014 07/08/2014 Deven Chadn MD PATIENT QUESTION [id number]-321c-332d-6zf3w5z50931 07/08/2014 07/08/2014 Deven Chand MD PATIENT QUESTION e9ugxy3z-ig72-541q-u37z-d6a1nz452q6b 07/08/2014 07/08/2014 Deven Chand MD PATIENT QUESTION [id number]-lp09-18707u8slw96 07/08/2014 07/08/2014 Deven Chand MD PATIENT QUESTION [id number]-2fbf-uw35-63bv93329d01 07/08/2014 07/08/2014 Deven Chand MD PATIENT QUESTION [id number]-7cu4-2p4r-46z6r0l806l8 07/08/2014 07/08/2014 Deven Chand MD PATIENT QUESTION q413v5x2-13vd-79a3-wg72-lk04pp34001b 07/08/2014 07/08/2014 Deven Chand MD PATIENT QUESTION [id number]-82c14n4b4228 07/08/2014 07/08/2014 Deven Chand MD PATIENT QUESTION nnqpa7o0-750w-96h0-19za-vrjt337c652k 07/08/2014 07/08/2014 Deven Chand MD PATIENT QUESTION [id number]-z7470kw66q9o 07/08/2014 07/08/2014 Deven Chand MD PATIENT QUESTION [id number]-o73j-25sp-gy2m-141z12806333 07/08/2014 07/08/2014 Deven Chand MD Unknown [id number]-y9e7-0533-lkr4-71663r42111v 07/13/2014 07/13/2014 Deven Chand MD Unknown 1fc0u4b3-5i31-9il4-j115-538rzlw74f14 07/13/2014 07/13/2014 Deven Chand MD Unknown 83d9xa17-k1r1-6135-6a38-wjj0ftbs3209 07/13/2014 07/13/2014 Deven Chand MD Unknown [id number]-15w0-03y1-wk67-cs88791rw56m 07/13/2014 07/13/2014 Deven Chand MD Unknown 8f96r34g-2305-1w01-fosf-5n1j647m9g69 07/13/2014 07/13/2014 Deven Chand MD Unknown [id number] 07/13/2014 07/13/2014 Deven Chand MD Unknown [id number]-x8i3-a34049f38nqi 07/13/2014 07/13/2014 Deven Chand MD Unknown [id number]-31q3-[id number] 07/13/2014 07/13/2014 Deven Chand MD Unknown shj7u61z-0ozn-9o00-[id number] 07/13/2014 07/13/2014 Deven Chand MD Unknown [id number]-69k6-06vj-2vn7-0343147qh0x4 07/13/2014 07/13/2014 Deven Chand MD Unknown 02u3815g-ot9o-720s-3839-6z04yj869a4r 07/13/2014 07/13/2014 Deven Chand MD Unknown [id number]-0144-uk0d-t59c8w80221b 07/13/2014 07/13/2014 Deven Chand MD Prednisone Start xn3k0467-z265-9cki-880d-0r85bza9090t 08/02/2014 08/02/2014 Deven Chand MD Prednisone Start 5l6w6bq3-x52h-1356-mssw-ohugc7vi8zv1 08/02/2014 08/02/2014 Deven Chand MD Prednisone Start 4csei560-08m5-1721-vpz6-h7x3935mn471 08/02/2014 08/02/2014 Deven Chand MD Prednisone Start b1vn1w91-lx0m-3486-vy0j-60i3t244182s 08/02/2014 08/02/2014 Deven Chand MD Prednisone Start 3ng8v3c8-h54t-6866-64e0-3682qc0j0118 08/02/2014 08/02/2014 Deven Chand MD Prednisone Start 5q36xl7h-743n-85kr-waz5-4pq67jm58y17 08/02/2014 08/02/2014 Deven Chand MD Prednisone Start j4f357t1-7952-4659-981t-4ki8r5hx1y9v 08/02/2014 08/02/2014 Deven Chand MD Prednisone Start 8254ilcv-060v-57hc-9777-a497aj9n9772 08/02/2014 08/02/2014 Deven Chand MD Prednisone Start 5kh850d0-744v-4m25-uh27-918a55fqt140 08/02/2014 08/02/2014 Deven Chand MD Prednisone Start q67tb52v-nw85-2k7o-f1s9-7t15lno01v32 08/02/2014 08/02/2014 Deven Chand MD Prednisone Start 96p40167-wk6e-4717-drr2-u9bm11ms0436 08/02/2014 08/02/2014 Deven Chand MD Prednisone Start 0t9212j6-6750-5044-7yx1-xv0437862522 08/02/2014 08/02/2014 Deven Chand MD Predisone Update/ [facility] rp9p7k59-8m70-7683-mc76-ji2rt8j38738 08/09/2014 08/09/2014 Deven Chand MD Predisone Update/ [facility] 64632id0-2oy4-7431-0269-195knl1399t7 08/09/2014 08/09/2014 Deven Chand MD Predisone Update/ [facility] 585p5g0n-3x36-36x8-u45d-k6r09e1v25j8 08/09/2014 08/09/2014 Deven Chand MD Predisone Update/ [facility] [id number]-s602-3414-p3q7-j702728s7554 08/09/2014 08/09/2014 Deven Chand MD Predisone Update/ [facility] [id number]-358z-a676-1366p63l5327 08/09/2014 08/09/2014 Deven Chand MD Predisone Update/ [facility] [id number]-x128-69sg-9k64-0ad9b6g7c135 08/09/2014 08/09/2014 Deven Chand MD Predisone Update/ [facility] [id number]-hp77-ki8u153482i2 08/09/2014 08/09/2014 Deven Chand MD Predisone Update/ [facility] hm49k4to-kc00-54l3-3j76-t7v37v508717 08/09/2014 08/09/2014 Deven Chand MD Predisone Update/ [facility] 3s04yod3-5o65-41rz-4mt7-y796899o1836 08/09/2014 08/09/2014 Deven Chand MD Predisone Update/ [facility] [id number]-0z0wf4017fp4 08/09/2014 08/09/2014 Deven Chand MD Predisone Update/ [facility] 13g685j0-y733-0n02-cd85-wv25993qho34 08/09/2014 08/09/2014 Deven Chand MD Predisone Update/ [facility] 4z1782d1-vv3a-9k32-0kwa-8e6xql7a1grk 08/09/2014 08/09/2014 Deven Chand MD F/U [id number]-u5k8xu4435k7 09/13/2014 09/13/2014 Deven Chand MD F/U 52u4l914-ju6d-309t-f039-23gx827015p9 09/13/2014 09/13/2014 Deven Chand MD F/U 2tb17hd6-b72h-8665-046v-1h8w39o1jf66 09/13/2014 09/13/2014 Dveen Chand MD F/U o4059b7g-2mf8-877p-s6ou-095lnr4l73oa 09/13/2014 09/13/2014 Deven Chand MD F/U 6k6tz0t7-z020-404g-s3dz-3ji6r8110ui2 09/13/2014 09/13/2014 Deven Chand MD F/U fk2o588s-834b-7u92-6332-h5y4495o8n4t 09/13/2014 09/13/2014 Deven Chand MD F/U [id number]-t8k2-t3h4rx47421v 09/13/2014 09/13/2014 Deven Chand MD F/U 4od65354-l2q5-63u6-t28v-f341j8u49060 09/13/2014 09/13/2014 Deven Chand MD F/U 6430m03p-88oj-1583-wm36-75y66xmstbn0 09/13/2014 09/13/2014 Deven Chand MD F/U [id number]-[id number] 09/13/2014 09/13/2014 Deven Chand MD F/U 79wd3dz3-fy6l-0b4a-5z02-g0958b7v1665 09/13/2014 09/13/2014 Deven Chand MD F/U 21f389gw-o2dc-601c-5757-w31p1s3yy776 09/13/2014 09/13/2014 Deven Chand MD dexa 4w3f2t0x-29eu-3911-wh0z-805w7h9f28id 11/02/2014 11/02/2014 Deven Chand MD dexa 16l9wyi6-bzkp-3295-le80-0d3k2i38n3z3 11/02/2014 11/02/2014 Deven Chand MD dexa 944szqmo-62ec-4w4z0j8o-s881-417qm4g3pq9f 11/02/2014 11/02/2014 Deven Chand MD dexa 25yp9t49-567i-581i-63i1-0q598n91j7u7 11/02/2014 11/02/2014 Deven Chand MD dexa 06jj5354-4u5k-25i1-00g0-18u38te9xsy7 11/02/2014 11/02/2014 Deven Chand MD dexa 3494319b-54r6-7z04-j31d-f8xwt62p904h 11/02/2014 11/02/2014 Deven Chand MD dexa 4x9eg04m-7171-8995-sd4m-n6mv3nebm01r 11/02/2014 11/02/2014 Deven Chand MD dexa [id number] 11/02/2014 11/02/2014 Deven Chand MD dexa [id number] 11/02/2014 11/02/2014 Deven Chand MD dexa [id number] 11/02/2014 11/02/2014 Deven Chand MD dexa [id number] 11/02/2014 11/02/2014 Deven Chand MD dexa [id number] 11/02/2014 11/02/2014 Deven Chand MD F/U [id number] 11/08/2014 11/08/2014 Deven Chand MD F/U [id number]-gb608bcn789i 11/08/2014 11/08/2014 Deven Chand MD F/U [id number] 11/08/2014 11/08/2014 Deven Chand MD F/U [id number] 11/08/2014 11/08/2014 Deven Chand MD F/U [id number] 11/08/2014 11/08/2014 Deven Chand MD F/U [id number] 11/08/2014 11/08/2014 Deven Chand MD Unknown [id number] 11/08/2014 11/08/2014 Deven Chand MD Unknown [id number] 11/08/2014 11/08/2014 Deven Chand MD Unknown [id number] 11/08/2014 11/08/2014 Deven Chand MD Unknown [id number] 11/08/2014 11/08/2014 Deven Chand MD Unknown [id number] 11/08/2014 11/08/2014 Deven Chand MD Unknown [id number] 11/08/2014 11/08/2014 Deven Chand MD F/U [id number] 11/08/2014 11/08/2014 Deven Chand MD F/U [id number] 11/08/2014 11/08/2014 Deven Chand MD F/U [id number] 11/08/2014 11/08/2014 Deven Chand MD F/U [id number] 11/08/2014 11/08/2014 Deven Chand MD F/U [id number] 11/08/2014 11/08/2014 Deven Chand MD F/U [id number] 11/08/2014 11/08/2014 Deven Chand MD Unknown [id number] 11/08/2014 11/08/2014 Deven Chand MD Unknown [id number] 11/08/2014 11/08/2014 Deven Chand MD Unknown [id number] 11/08/2014 11/08/2014 Deven Chand MD Unknown [id number] 11/08/2014 11/08/2014 Deven Chand MD Unknown [id number] 11/08/2014 11/08/2014 Deven Chand MD Unknown [id number] 11/08/2014 11/08/[address] [id number] 11/23/2014 11/23/[address] [id number]-m3mn315s657z 11/23/2014 11/23/[address] [id number]-[id number] 11/23/2014 11/23/[address] [id number] 11/23/2014 11/23/[address] [id number] 11/23/2014 11/23/[address] [id number] 11/23/2014 11/23/[address] [id number] 11/23/2014 11/23/[address] [id number] 11/23/2014 11/23/[address] [id number]-[id number] 11/23/2014 11/23/[address] [id number] 11/23/2014 11/23/[address] [id number] 11/23/2014 11/23/[address] [id number]-19g7m3l3itbr 11/23/2014 11/23/2014 Deven Chand MD U/S abdomen [id number] 12/16/2014 12/16/2014 Deven Chand MD U/S abdomen [id number] 12/16/2014 12/16/2014 Deven Chand MD U/S abdomen [id number]-[id number] 12/16/2014 12/16/2014 Deven Chand MD U/S abdomen [id number] 12/16/2014 12/16/2014 Deven Chand MD U/S abdomen [id number]-[id number] 12/16/2014 12/16/2014 Deven Chand MD U/S abdomen [id number]-[id number] 12/16/2014 12/16/2014 Deven Chand MD U/S abdomen [id number] 12/16/2014 12/16/2014 Deven Chand MD U/S abdomen [id number] 12/16/2014 12/16/2014 Deven Chand MD U/S abdomen [id number] 12/16/2014 12/16/2014 Deven Chand MD U/S abdomen [id number]-no23n054ff65 12/16/2014 12/16/2014 Deevn Chand MD U/S abdomen [id number]-j338gev842nh 12/16/2014 12/16/2014 Deven Chand MD U/S abdomen [id number] 12/16/2014 12/16/2014 Deven Chand MD PT Update [id number] 12/27/2014 12/27/2014 Deven Chand MD PT Update [id number]-6n9m-520w-2az28735bli2 12/27/2014 12/27/2014 Deven Chand MD PT Update [id number]-0h27-1254-5t391y4t255l 12/27/2014 12/27/2014 Deven Chand MD PT Update [id number]-5862-2e7x-3840dx2979v9 12/27/2014 12/27/2014 Deven Chand MD PT Update cut7ifuy-0n13-52p6-c51e-840uxc33078x 12/27/2014 12/27/2014 Deven Chand MD PT Update [id number]-3312c9d75g48 12/27/2014 12/27/2014 Deven Chand MD PT Update zjqe78nh-1gfl-3cdp-q78b-1kf40r679me5 12/27/2014 12/27/2014 Deven Chand MD PT Update [id number] 12/27/2014 12/27/2014 Deven Chand MD PT Update [id number]-84s3-23g8-3aa9ji57hg0o 12/27/2014 12/27/2014 Deven Chand MD PT Update 103c1z4m-1ftu-1s29-bz31-485313xl5tfe 12/27/2014 12/27/2014 Deven Chand MD PT Update [id number]-rl6g52qg3891 12/27/2014 12/27/2014 Deven Chand MD PT Update [id number]-32d5-7670-s2j5-b6n23r475h2d 12/27/2014 12/27/2014 Deven Chand MD Unknown [id number] 01/03/2015 01/03/2015 Deven Chand MD Unknown [id number] 01/03/2015 01/03/2015 Deven Chand MD Unknown [id number] 01/03/2015 01/03/2015 Deven Chand MD Unknown [id number] 01/03/2015 01/03/2015 Deven Chand MD Unknown [id number] 01/03/2015 01/03/2015 Deven Chand MD Unknown [id number] 01/03/2015 01/03/2015 Deven Chand MD Unknown [id number] 01/03/2015 01/03/2015 Deven Chand MD Unknown [id number] 01/03/2015 01/03/2015 Deven Chand MD Unknown [id number]-je3y-[id number] 01/03/2015 01/03/2015 Deven Chand MD Unknown [id number] 01/03/2015 01/03/2015 Deven Chand MD Unknown [id number] 01/03/2015 01/03/2015 Deven Chand MD [facility] [id number] 01/03/2015 01/03/2015 Deven Chand MD Abdominal US/Rit[facility] [id number] 01/11/2015 01/11/2015 Deven Chand MD Abdominal US/[facility] [id number]-[id number] 01/11/2015 01/11/2015 Deven Chand MD Abdominal US/[facility] [id number]-[id number] 01/11/2015 01/11/2015 Deven Chand MD Abdominal US/[facility] [id number] 01/11/2015 01/11/2015 Deven Chand MD Abdominal US/[facility] [id number] 01/11/2015 01/11/2015 Deven Chand MD Abdominal US/[facility] [id number] 01/11/2015 01/11/2015 Deven Chand MD Abdominal US/[facility] [id number] 01/11/2015 01/11/2015 Deven Chand MD Abdominal US/[facility] [id number] 01/11/2015 01/11/2015 Deven Chand MD Abdominal US/[facility] 5uu56t2g-[id number] 01/11/2015 01/11/2015 Deven Chand MD Abdominal US/Rituxan 196a6f69-42k8-03j4-9x0d-24928t9a92v4 01/11/2015 01/11/2015 Deven Chand MD Abdominal US/Rituxan k81b6954-68tx-5717-d981-535v05e88a9m 01/11/2015 01/11/2015 Deven Chand MD Abdominal US/Rituxan wj82pb7p-07xq-4l1a-42zy-7d6qp5o70r00 01/11/2015 01/11/2015 Deven Cahnd MD Rituxan [id number]-pu6h-9pk726030h6i 01/17/2015 01/17/2015 Deven Chand MD Rituxan av112e0q-9s82-9784-80k9-2715zh3b4011 01/17/2015 01/17/2015 Deven Chand MD Rituxan 129yhs92-3e97-36e8-05my-1i2628cm19t3 01/17/2015 01/17/2015 Deven Chand MD Rituxan 551qcr7k-7774-6aw1-5sw8-519398n58963 01/17/2015 01/17/2015 Deven Chand MD Rituxan a67f8y32-hitp-2780-0hg9-8112041vb721 01/17/2015 01/17/2015 Deven Chand MD Rituxan 44ijk82d-7769-7f3b-o1h9-45sps52v9300 01/17/2015 01/17/2015 Deven Chand MD Rituxan 3u32is07-t327-6qmx-b63l-j8m56492v5uj 01/17/2015 01/17/2015 Deven Chand MD Rituxan 519b80fc-257g-1893-v3b8-7z5soz3yk07w 01/17/2015 01/17/2015 Deven Chand MD Rituxan 1825pf10-8991-0309-sh96-lyfz00881809 01/17/2015 01/17/2015 Deven Chand MD Ritualec 4q03o53o-fnx1-61u8-5ki6-5c4910mnf7h8 01/17/2015 01/17/2015 Deven Chand MD Rituxan 2709r096-4ip0-2xzg-8861-291n621xyrxr 01/17/2015 01/17/2015 Deven Chand MD Ritujuliocesarn 5c9ud425-2b99-1m6r-lx89-o6zmacn7g63y 01/17/2015 01/17/2015 Deven Chand MD Pt on antibiotics 243w07e2-c0po-6025-9u11-5jk6510v19js 01/28/2015 01/28/2015 Deven Chand MD Pt on antibiotics yl180313-438i-262p-8k9d-rz4w29yd97x1 01/28/2015 01/28/2015 Deven Chand MD Pt on antibiotics 14y53381-3r65-5fy0-cos9-668miw92mpd5 01/28/2015 01/28/2015 Deven Chnad MD Pt on antibiotics gg690q93-119x-0cz8-e792-1n18t2i9f548 01/28/2015 01/28/2015 Deven Chand MD Pt on antibiotics 0or9xz61-434n-6t25-6dir-nxyj6wi9u1k3 01/28/2015 01/28/2015 Deven Chand MD Pt on antibiotics 3s59p8su-9709-98v9-2527-06e0id369sef 01/28/2015 01/28/2015 Deven Chand MD Pt on antibiotics 2p20h8d3-0849-8rnp-8310-86c20hxz001y 01/28/2015 01/28/2015 Deven Chand MD Pt on antibiotics 5632lcs3-03si-75y8-9693-3k7wfjj86z48 01/28/2015 01/28/2015 Deven Chand MD Pt on antibiotics 567n0f1e-48e2-4f13-t8i0-4207v1ah8zb8 01/28/2015 01/28/2015 Deven Chand MD Pt on antibiotics 0202ka0m-wfu7-31h3-t06y-c50c345g56h2 01/28/2015 01/28/2015 Deven Chand MD Pt on antibiotics n471560p-9e3d-33c5-v114-a8p5r419l926 01/28/2015 01/28/2015 Dveen Chand MD Pt on antibiotics s7ut556s-1d6x-4a96-t7h6-z393z40c4742 01/28/2015 01/28/2015 Deven Chand MD 1 mo f/u 550mrkq9-3051-7f2f-5061-h3uo5ev042h2 02/02/2015 02/02/2015 Deven Chand MD 1 mo f/u 51585zb7-2788-1286-k157-076m1t1163iy 02/02/2015 02/02/2015 Deven Chand MD 1 mo f/u 194vd2y1-r8j9-03ry-h6zh-y57u4923f224 02/02/2015 02/02/2015 Deven Chand MD 1 mo f/u 94k23502-9134-90u4-wj9y-m5c2r74g83e8 02/02/2015 02/02/2015 Deven Chand MD 1 mo f/u gv9k767z-d72e-1m08-328a-11617fh2d8eu 02/02/2015 02/02/2015 Deven Chand MD 1 mo f/u 44j13jyu-231g-4b2o-oc61-91prp118i71h 02/02/2015 02/02/2015 Deven Chand MD 1 mo f/u 81q2h87s-053c-592s-yz43-967wmm6m83p6 02/02/2015 02/02/2015 Deven Chand MD 1 mo f/u q9e83n2f-d214-58ne-9111-d4v2a6gld6v2 02/02/2015 02/02/2015 Deven Chand MD 1 mo f/u 84488n25-0m32-2924-ri3f-2731gl414539 02/02/2015 02/02/2015 Deven Chand MD 1 mo f/u 4l096f41-xnka-53xa-19j8-7dd23cw1837z 02/02/2015 02/02/2015 Deven Chand MD 1 mo f/u 264n3d54-9e54-8406-p7p4-296149w70977 02/02/2015 02/02/2015 Deven Chand MD 1 mo f/u du2kl6kh-0419-908j-h8r5-427156q57957 02/02/2015 02/02/2015 Deven Chand MD MRI x7zj0gdo-l1tc-3d4d-4xo8-760b29guzg20 02/08/2015 02/08/2015 Deven Chand MD MRI 508158q7-66o0-7824-um10-bgj53d6nnke5 02/08/2015 02/08/2015 Deven Chand MD MRI 0f2m0829-87c4-0465-9hi6-15bk76871982 02/08/2015 02/08/2015 Deven Chand MD MRI u6a379i4-g729-3252-928i-2svz3718lev4 02/08/2015 02/08/2015 Deven Chand MD MRI 687uk30k-596p-968r-84g2-4c8okhbd54qu 02/08/2015 02/08/2015 Deven Chand MD MRI 4k547ocp-9008-7x61-7i9w-wrt641obw8w8 02/08/2015 02/08/2015 Deven Chand MD MRI 730213w3-r788-6o71-c557-348254h9c60y 02/08/2015 02/08/2015 Deven Chand MD MRI 5gobo254-k719-0702-6993-9419707d9i94 02/08/2015 02/08/2015 Deven Chand MD MRI 7mv7s286-n37y-4ig1-9520-u63174y041sx 02/08/2015 02/08/2015 Deven Chand MD MRI s561iv96-75q3-2pwd-3arj-062426o83s88 02/08/2015 02/08/2015 Deven Chand MD MRI 235p5361-4g90-9212-0c6h-415p2739qri7 02/08/2015 02/08/2015 Deven Chand MD MRI 6543s907-8o4c-2573-1kh3-owp02s4618c1 02/08/2015 02/08/2015 Deven Chand MD MRI 4j0s8686-45y8-37f9-t17x-8e868i676202 02/08/2015 02/08/2015 Deven Chand MD MRI 1gtt7g96-6271-0c47-x74q-x7s2b7620ulh 02/08/2015 02/08/2015 Deven Chand MD MRI qwgec1y6-6138-687p-1453-i801xr9k7963 02/08/2015 02/08/2015 Deven Chand MD MRI 1n95886x-5fa9-0600-h845-o2s124792231 02/08/2015 02/08/2015 Deven Chand MD MRI mh6qw89e-l5f2-2s8q-z141-c80029h035n4 02/08/2015 02/08/2015 Deven Chand MD MRI 2cu59342-q7f8-60p2-i38p-467522q672ap 02/08/2015 02/08/2015 Deven Chand MD MRI xm7xmwn9-6874-9327-mr0p-t6djt948066i 02/08/2015 02/08/2015 Deven Chand MD MRI 50xl496u-p7cb-9p30-iw20-160o3qfrof36 02/08/2015 02/08/2015 Deven Chand MD MRI 9sx27s3s-o941-6649-9p9k-zb81k13vf966 02/08/2015 02/08/2015 Deven Chand MD MRI q652dorp-5x2t-24i9-xn8m-92yeoo0y9157 02/08/2015 02/08/2015 Deven Chand MD MRI 7ts68v5w-b7w1-3v7k-4ecx-br6004837237 02/08/2015 02/08/2015 Deven Chand MD MRI 9543g248-ftx2-8okh-4980-u646832tk580 02/08/2015 02/08/2015 Deven Chand MD Research 3k7ogc7y-8a41-7dn2-622d-0d85uw8yw45m 02/21/2015 02/21/2015 Deven Chand MD Research 60f7s307-jlz4-360m-1301-054s891v57ld 02/21/2015 02/21/2015 Deven Chand MD Research 8opf4j74-651y-65aq-827h-p9467oem0put 02/21/2015 02/21/2015 Deven Chand MD Research [id number]-950c-3xb2-g6f92tgh806h 02/21/2015 02/21/2015 Deven Chand MD Research [id number]-c49g-12v1088h1456 02/21/2015 02/21/2015 Deven Chand MD Research [id number]-p1aj-9w04-txa5-m24b1i9e687y 02/21/2015 02/21/2015 Deven Chand MD Right wrist pain and swelling y713r777-68ne-9128-1719-xc486l4qu43v 02/21/2015 02/21/2015 Deven Chand MD Right wrist pain and swelling gpq8ox6p-5k41-2l2w-uon9-b172p2rb986u 02/21/2015 02/21/2015 Deven Chand MD Right wrist pain and swelling dj3s5b8i-sn15-7188-oi54-m601448h4b83 02/21/2015 02/21/2015 Deven Chand MD Right wrist pain and swelling 0ebp3gxx-kn52-8j89-13be-wd824p0302z7 02/21/2015 02/21/2015 Deven Chand MD Right wrist pain and swelling 66s00m20-97u4-2502-z4g4-xg3ki5b3zfj2 02/21/2015 02/21/2015 Deven Chand MD Right wrist pain and swelling 831179y9-56p3-12se-8s34-428bdyj8p7i5 02/21/2015 02/21/2015 Deven Chand MD Research 41dwp171-n24i-3837-6d93-a10p1e059u28 02/21/2015 02/21/2015 Deven Chand MD Research [id number]-x08y-6878-7143-cz1807m0mzey 02/21/2015 02/21/2015 Deven Chand MD Research [id number]-03gh-1ky3-o4j9-mb424ijn2582 02/21/2015 02/21/2015 Deven Chand MD Research [id number]-z60q-x1p776wz2326 02/21/2015 02/21/2015 Deven Chand MD Research [id number] 02/21/2015 02/21/2015 Deven Chand MD Research [id number] 02/21/2015 02/21/2015 Deven Chand MD Right wrist pain and swelling 027fnk14-8295-326g-57o9-c00ny4f4ww7v 02/21/2015 02/21/2015 Deven Chand MD Right wrist pain and swelling 1d49lvj8-ze79-9m79-e7r3-mty03tpj1918 02/21/2015 02/21/2015 Deven Chand MD Right wrist pain and swelling 495838s8-gq30-3613-72qm-1606p4br976m 02/21/2015 02/21/2015 Deven Chand MD Right wrist pain and swelling 1zfe5o91-4543-5191-u0m8-1e6v7316p925 02/21/2015 02/21/2015 Deven Chand MD Right wrist pain and swelling 369pj77q-p7s9-5454-2485-53a811f48tj9 02/21/2015 02/21/2015 Deven Chand MD Right wrist pain and swelling f14j54j5-0ta0-4001-18do-047q70ldk820 02/21/2015 02/21/2015 Deven Chand MD Unknown ddo0cyb4-p791-6tv0-7vr3-z6g0dzp7lw8q 02/22/2015 02/22/2015 Deven Chand MD Unknown df85k99x-7086-02u3-8b14-18g9u86sw754 02/22/2015 02/22/2015 Deven Chand MD Unknown 23m821y7-dj0r-2409-4ch8-06hs45l1p2q5 02/22/2015 02/22/2015 Deven Chand MD Unknown 1b29s080-dd16-2721-79zw-v08nlt5mb6ms 02/22/2015 02/22/2015 Deven Chand MD Unknown [id number] 02/22/2015 02/22/2015 Deven Chand MD Unknown 0yj1xhc8-0195-2o32-i6c4-k7s19n319e1t 02/22/2015 02/22/2015 Deven Chand MD Unknown n0z9v39x-lta9-7925-4968-8uk8k8ngt504 02/22/2015 02/22/2015 Deven Chand MD Unknown 4pb1o770-9490-5t7i-m255-405b958760o6 02/22/2015 02/22/2015 Deven Chand MD Unknown [id number]-0137-346k-z475-17a9b8zc7n65 02/22/2015 02/22/2015 Deven Chand MD Unknown [id number]-1680-600o-t4gm57909qo3 02/22/2015 02/22/2015 Deven Chand MD Unknown 5h6xam8e-5170-2921-pc7l-u9h44t2g1953 02/22/2015 02/22/2015 Deven Chand MD Unknown 3x0wxi85-qt4k-2p17-s0d3-t161s9268n42 02/22/2015 02/22/2015 Deven Chand MD [facility] Injection c7nb9wqt-tw03-4d01-5jt2-o2870306upp5 03/09/2015 03/09/2015 Deven Chand MD [facility] Injection r7jo4u32-i9k7-6vn3-a9pg-p021i7l799s7 03/09/2015 03/09/2015 Deven Chand MD [facility] Injection if83g173-ope0-8137-0h9k-6n19j2ib7744 03/09/2015 03/09/2015 Deven Chand MD [facility] Injection vz34w463-84b9-0k14-q6o2-y938l814js68 03/09/2015 03/09/2015 Deven Chand MD [facility] Injection 192khy4h-s2ns-7x9h-1s81-2b123bww1094 03/09/2015 03/09/2015 Deven Chand MD [facility] Injection f7j655c6-zit5-8744-n30j-fmt067q970ce 03/09/2015 03/09/2015 Deven Chand MD [facility] Injection 79799r35-61cv-71hp-8847-552602y06e7e 03/09/2015 03/09/2015 Deven Chand MD [facility] Injection r3gngs73-lzrk-873m-f1l9-p6q6595ye61w 03/09/2015 03/09/2015 Deven Chand MD [facility] Injection t1s7g9jf-6m8l-9265-97j4-uybfcie98743 03/09/2015 03/09/2015 Deven Chand MD [facility] Injection 8z4487it-718q-35c3-yp90-5o2rv907g373 03/09/2015 03/09/2015 Deven Chand MD [facility] Injection dq0716i5-48wz-75qi-mt93-918h24334243 03/09/2015 03/09/2015 Deven Chand MD [facility] Injection 4k1046h7-eh82-027j-33b1-fq1p9015t354 03/09/2015 03/09/2015 Deven Chand MD Refill 2t7k0732-819c-0598-u351-73u0l3a82d53 05/05/2015 05/05/2015 Deven Chand MD Refill 5w3g701w-2hpj-0dl4-gsge-2l8g606vdvp1 05/05/2015 05/05/2015 Deven Chand MD Refill vqj6r959-g9f2-4111-4sq4-69549z7e526w 05/05/2015 05/05/2015 Deven Chand MD Refill 8d46991b-5ud8-5y10-szl7-1982q46t0t58 05/05/2015 05/05/2015 Deven Chand MD Refill 18028702-i2a0-6031-20n6-0pi56t2wf98z 05/05/2015 05/05/2015 Deven Chand MD Refill b8c66181-0f7k-021p-i332-m6vv0g6002i6 05/05/2015 05/05/2015 Deven Chand MD add on p125n9ii-o3hs-770v-poj4-48h8gy61h9ct 05/05/2015 05/05/2015 Deven Chand MD add on y6vj0oup-9593-4m36-p7p0-i19868d0mywj 05/05/2015 05/05/2015 Deven Chand MD add on 9960318q-927b-8pm2-7y72-2652u7h6808r 05/05/2015 05/05/2015 Deven Chand MD add on 614bm846-6417-43mb-fl0t-7wxt37n80mx8 05/05/2015 05/05/2015 Deven Chand MD add on 9k9t5q1n-109q-0u59-q605-22795232q56h 05/05/2015 05/05/2015 Deven Chand MD add on 482g8220-cd58-762v-0583-87370t7ohb18 05/05/2015 05/05/2015 Deven Chand MD Refill pw176o19-l141-2909-03rw-o74s2c37806u 05/05/2015 05/05/2015 Deven Chand MD Refill 7p333f00-1o20-3e1p-v2wi-060n3q2nu6v2 05/05/2015 05/05/2015 Deven Chand MD Refill 8mr9m549-5804-3137-m158-0843h941s898 05/05/2015 05/05/2015 Deven Chand MD Refill 16oe7630-0991-533a-3y99-4544573d0115 05/05/2015 05/05/2015 Deven Chand MD Refill 64bd3e84-okc7-43b0-3o42-c6361249o7mv 05/05/2015 05/05/2015 Deven Chand MD Refill 8ig2602k-37a3-9wq3-808o-wz9s8f1tv147 05/05/2015 05/05/2015 Deven Chand MD add on 67p69i32-0e20-0x59-55l4-06690825bd0z 05/05/2015 05/05/2015 Deven Chand MD add on 4p7i8265-u7o4-2658-4r63-4n95l570817d 05/05/2015 05/05/2015 Deven Chand MD add on 1383g7ph-o6o4-985h-6nc6-4st1709dwrfz 05/05/2015 05/05/2015 Deven Chand MD add on 93w180cv-8p95-9bx0-8qu1-9yw1gd99gn7t 05/05/2015 05/05/2015 Deven Chand MD add on 3uw0v0k0-96zk-68hx-x3wu-698h5op1640z 05/05/2015 05/05/2015 Deven Chand MD add on c0bh31ei-9603-453e-fuv3-ijrb1s09d425 05/05/2015 05/05/2015 Deven hCand MD Unknown w15fn2h6-sch3-2433-sx27-4t12f71u2208 05/09/2015 05/09/2015 Deven Chand MD Unknown [id number]-58n3684u922o 05/09/2015 05/09/2015 Deven Chand MD Unknown [id number]-74jc-[id number] 05/09/2015 05/09/2015 Deven Chand MD Unknown [id number]-al6k013o72n7 05/09/2015 05/09/2015 Deven Chand MD Unknown [id number] 05/09/2015 05/09/2015 Deven Chand MD Unknown [id number]-0a05-3001-f48078908xve 05/09/2015 05/09/2015 Deven Chand MD Unknown [id number] 05/09/2015 05/09/2015 Deven Chand MD Unknown [id number] 05/09/2015 05/09/2015 Deven Chand MD Unknown [id number] 05/09/2015 05/09/2015 Deven Chand MD Unknown [id number]-[id number]-[id number] 05/09/2015 05/09/2015 Deven Chand MD Unknown f262se0h-xc12-5g8n-4fi1-33362k74l9pf 05/09/2015 05/09/2015 Deven Chand MD Unknown [id number]-p6mhd9pyf6ke 05/09/2015 05/09/2015 Deven Chand MD Unknown [id number]-[id number]-wt1k-05w7e9t07v22 05/09/2015 05/09/2015 Deven Chand MD Unknown [id number]-[id number] 05/09/2015 05/09/2015 Deven Chand MD Unknown [id number] 05/09/2015 05/09/2015 Deven Chand MD Unknown [id number]-[id number] 05/09/2015 05/09/2015 Deven Chand MD Unknown [id number]-740z-7ur0-nz42-z9kd3403yd06 05/09/2015 05/09/2015 Deven Chand MD Unknown [id number] 05/09/2015 05/09/2015 Deven Chand MD Unknown gm0bxq1g-795s-0520-u8vi-m43slfpil494 05/09/2015 05/09/2015 Deven Chand MD Unknown [id number]-v19i-1536l4m0x9dr 05/09/2015 05/09/2015 Deven Chand MD Unknown [id number]-3r2u-6mp2-f214-0towyv4nyhh1 05/09/2015 05/09/2015 Deven Chand MD Unknown [id number]-767s-ik3i-64tazh0jt4vt 05/09/2015 05/09/2015 Deven Chand MD Unknown [id number]-k4p4-24a7lu10622s 05/09/2015 05/09/2015 Deven Chand MD Unknown [id number] 05/09/2015 05/09/2015 Deven Chand MD Unknown [id number]-588h-g1f7446o0016 05/09/2015 05/09/2015 Deven Chand MD Unknown [id number] 05/09/2015 05/09/2015 Deven Chand MD Unknown [id number]-[id number] 05/09/2015 05/09/2015 Deven Chand MD Unknown [id number]-f6z8-1k9h-0773-ud33bby06dj1 05/09/2015 05/09/2015 Deven Chand MD Unknown [id number]-w71ts4t45eh9 05/09/2015 05/09/2015 Deven Chand MD Unknown [id number] 05/09/2015 05/09/2015 Deven Chand MD Unknown [id number]-[id number] 05/09/2015 05/09/2015 Deven hCand MD Unknown [id number] 05/09/2015 05/09/2015 Deven Chand MD Unknown [id number] 05/09/2015 05/09/2015 Deven Chand MD Unknown [id number]-[id number]-4847q5u5i9d5 05/09/2015 05/09/2015 Deven Chand MD Unknown [id number] 05/09/2015 05/09/2015 Deven Chand MD Unknown [id number]-duoeu08c107r 05/09/2015 05/09/2015 Deven Chand MD sodium 43317vp1-8042-4ep4-6720-z244h5o0u47k 05/18/2015 05/18/2015 Deven Chand MD sodium 9127z4ne-7yq9-9657-9zbs-30dx75h35io7 05/18/2015 05/18/2015 Deven Chand MD sodium 46u24q77-3i7i-1dg3-q645-00t8ihq3558g 05/18/2015 05/18/2015 Deven Chand MD sodium t917s107-600l-1106-4108-75961nw683m8 05/18/2015 05/18/2015 Deven Chand MD sodium mn3rz8v0-9395-9q7d-crbi-7jhn80l9p1m3 05/18/2015 05/18/2015 Deven Chand MD sodium 2711zhl7-54m0-346g-aa9v-66kg967q2mwa 05/18/2015 05/18/2015 Deven Chand MD sodium lh3np998-4wq2-7nf3-x407-216mv4126328 05/18/2015 05/18/2015 Deven Chand MD sodium p3534447-3365-1991-29u3-i45e8fj9l317 05/18/2015 05/18/2015 Deven Chand MD sodium x57v5101-k78v-9393-ns87-7e7i65h8unlq 05/18/2015 05/18/2015 Deven Chand MD sodium l0a89nnc-859s-057r-9367-z93bbo9c07ld 05/18/2015 05/18/2015 Deven Chand MD sodium 7885q1bz-540p-6h50-8028-7x0y8a4nqk29 05/18/2015 05/18/2015 Deven Chand MD sodium mnt17hz6-x4f3-828i-7d66-v4w71242451s 05/18/2015 05/18/2015 Deven Chand MD MRI x179jzs0-wk84-9ts5-6i25-imogfj500012 06/02/2015 06/02/2015 Deven Chand MD MRI 7gkm960t-h8y9-4122-h6m3-025ita5n051o 06/02/2015 06/02/2015 Deven Chand MD MRI 3zld76l9-3408-15wx-kq80-26u9m271j338 06/02/2015 06/02/2015 Deven Chand MD MRI ff62252v-6205-09c0-x646-38c58n5839e4 06/02/2015 06/02/2015 Deven Chand MD MRI [id number]-j0k6-131l6q2x2113 06/02/2015 06/02/2015 Deven Chand MD MRI q45590es-k683-6m9q-bs73-n159ug21at99 06/02/2015 06/02/2015 Deven Chand MD MRI 1d9i6byr-411p-6sl8-se5x-4rdg33b6f3tf 06/02/2015 06/02/2015 Deven Chand MD MRI 4bp90rxp-360k-2o07-z36p-4n03eemx682s 06/02/2015 06/02/2015 Deven Chand MD MRI 8hna5ig7-0701-2qhy-3xst-7620980t70vv 06/02/2015 06/02/2015 Deven Chand MD MRI n3c6d150-41f9-798l-12m1-s3z328317404 06/02/2015 06/02/2015 Devne Chand MD MRI [id number]-766q-d21f-097g3j4vov97 06/02/2015 06/02/2015 Deven Chand MD MRI 48kniu7h-e9wd-2hv7-jwb7-8j285rl24jx4 06/02/2015 06/02/2015 Deven Chand MD Unknown [id number]-5ou6-k22873qw0whh 06/28/2015 06/28/2015 Deven Chand MD Unknown [id number]-225q-355j-[id number] 06/28/2015 06/28/2015 Deven Chand MD Unknown [id number] 06/28/2015 06/28/2015 Deven Chand MD Unknown [id number] 06/28/2015 06/28/2015 Deven Chand MD Unknown [id number] 06/28/2015 06/28/2015 Deven Chand MD Unknown [id number] 06/28/2015 06/28/2015 Deven Chand MD Unknown [id number] 06/28/2015 06/28/2015 Deven Chand MD Unknown [id number] 06/28/2015 06/28/2015 Deven Chand MD Unknown [id number] 06/28/2015 06/28/2015 Deven Chand MD Unknown [id number] 06/28/2015 06/28/2015 Deven Chand MD Unknown [id number] 06/28/2015 06/28/2015 Deven Chand MD Unknown [id number] 06/28/2015 06/28/2015 Deven Chand MD Unknown [id number] 09/27/2015 09/27/2015 Deven Chand MD Unknown [id number] 09/27/2015 09/27/2015 Deven Chand MD Unknown [id number] 09/27/2015 09/27/2015 Deven Chand MD Unknown [id number] 09/27/2015 09/27/2015 Deven Chand MD Unknown [id number] 09/27/2015 09/27/2015 Deven Chand MD Unknown [id number] 09/27/2015 09/27/2015 Deven Chand MD Unknown [id number] 09/27/2015 09/27/2015 Deven Chand MD Unknown [id number] 09/27/2015 09/27/2015 Deven Chand MD Unknown [id number] 09/27/2015 09/27/2015 Deven Chand MD Unknown [id number] 09/27/2015 09/27/2015 Deven Chand MD Unknown [id number] 09/27/2015 09/27/2015 Deven Chand MD [facility] [id number] 09/27/2015 09/27/2015 Deven Chand MD [facility] order [id number] 10/10/2015 10/10/2015 Deven Chand MD [facility] order [id number] 10/10/2015 10/10/2015 Deven Chand MD [facility] order [id number] 10/10/2015 10/10/2015 Deven Chand MD [facility] order [id number] 10/10/2015 10/10/2015 Deven Chand MD [facility] order [id number] 10/10/2015 10/10/2015 Deven Chand MD [facility] order [id number] 10/10/2015 10/10/2015 Deven Chand MD [facility] order [id number] 10/10/2015 10/10/2015 Deven Chand MD [facility] order [id number] 10/10/2015 10/10/2015 Deven Chand MD [facility] order [id number] 10/10/2015 10/10/2015 Deven Chand MD [facility] order [id number] 10/10/2015 10/10/2015 Deven Chand MD [facility] order [id number] 10/10/2015 10/10/2015 Deven Chand MD [facility] lab order [id number] 10/10/2015 10/10/2015 Deven Chand MD Refill- MTX [id number] 10/24/2015 10/24/2015 Deven Chand MD Refill- MTX [id number] 10/24/2015 10/24/2015 Deven Chand MD Refill- MTX [id number] 10/24/2015 10/24/2015 Deven Chand MD Refill- MTX [id number] 10/24/2015 10/24/2015 Deven Chand MD Refill- MTX [id number] 10/24/2015 10/24/2015 Deven Chand MD Refill- MTX [id number] 10/24/2015 10/24/2015 Deven Chand MD Refill- MTX [id number] 10/24/2015 10/24/2015 Deven Chand MD Refill- MTX [id number] 10/24/2015 10/24/2015 Deven Chand MD Refill- MTX [id number] 10/24/2015 10/24/2015 Deven Chand MD Refill- MTX [id number] 10/24/2015 10/24/2015 Deven Chand MD Refill- MTX [id number] 10/24/2015 10/24/2015 Deven Chand MD Refill- MTX [id number] 10/24/2015 10/24/2015 Deven Chand MD repeat cmp [id number] 10/26/2015 10/26/2015 Deven Chand MD repeat cmp [id number] 10/26/2015 10/26/2015 Deven Chand MD repeat cmp [id number] 10/26/2015 10/26/2015 Deven Chand MD repeat cmp [id number] 10/26/2015 10/26/2015 Deven Chand MD repeat cmp [id number] 10/26/2015 10/26/2015 Deven Chand MD repeat cmp [id number] 10/26/2015 10/26/2015 Deven Chand MD repeat [facility] [id number] 10/26/2015 10/26/2015 Deven Chand MD repeat [facility] [id number] 10/26/2015 10/26/2015 Deven Chand MD repeat [facility] [id number] 10/26/2015 10/26/2015 Deven Chand MD repeat [facility] [id number] 10/26/2015 10/26/2015 Deven Chand MD repeat [facility] [id number] 10/26/2015 10/26/2015 Deven Chand MD repeat [facility] [id number] 10/26/2015 10/26/2015 Deven Chand MD MRI [id number] 10/30/2015 10/30/2015 Deven Chand MD MRI [id number] 10/30/2015 10/30/2015 Deven Chand MD MRI [id number] 10/30/2015 10/30/2015 Deven Chand MD MRI [id number] 10/30/2015 10/30/2015 Deven Chand MD MRI [id number] 10/30/2015 10/30/2015 Deven Chand MD MRI [id number] 10/30/2015 10/30/2015 Deven Chand MD MRI [id number] 10/30/2015 10/30/2015 Deven Chand MD MRI [id number] 10/30/2015 10/30/2015 Deven Chand MD [facility] [id number] 10/30/2015 10/30/2015 Deven Chand MD [facility] [id number] 10/30/2015 10/30/2015 Deven Chand MD [facility] [id number] 10/30/2015 10/30/2015 Deevn Chand MD [facility] [id number] 10/30/2015 10/30/2015 Deven Chand MD Unknown [id number] 01/10/2016 01/10/2016 Deven Chand MD Unknown [id number] 01/10/2016 01/10/2016 Deven Chand MD Unknown [id number] 01/10/2016 01/10/2016 Deven Chand MD Unknown [id number] 01/10/2016 01/10/2016 Deven Chand MD Unknown [id number] 01/10/2016 01/10/2016 Deven Chand MD labs [id number] 01/10/2016 01/10/2016 Deven Chand MD labs [id number] 01/10/2016 01/10/2016 Deven Chand MD labs [id number] 01/10/2016 01/10/2016 Deven Chand MD labs [id number] 01/10/2016 01/10/2016 Deven Chand MD labs [id number] 01/10/2016 01/10/2016 Deven Chand MD labs [id number] 01/10/2016 01/10/2016 Deven Chand MD Unknown [id number] 01/10/2016 01/10/2016 Deven Chand MD Unknown [id number] 01/10/2016 01/10/2016 Deven Chand MD Unknown [id number] 01/10/2016 01/10/2016 Deven Chand MD labs [id number] 01/10/2016 01/10/2016 Deven Chand MD labs [id number] 01/10/2016 01/10/2016 Deven Chand MD labs [id number] 01/10/2016 01/10/2016 Deven Chand MD Unknown [id number] 04/11/2016 04/11/2016 Deven Chand MD Unknown [id number] 04/11/2016 04/11/2016 Deven Chand MD Unknown [id number] 04/11/2016 04/11/2016 Deven Chand MD Unknown [id number] 04/11/2016 04/11/2016 Deven Chand MD Unknown [id number] 04/11/2016 04/11/2016 Deven Chand MD Unknown [id number] 04/11/2016 04/11/2016 MD Alexa Krausexafelipe [id number] 04/11/2016 04/11/2016 MD Alexa Krausexafelipe [id number] 04/11/2016 04/11/2016 MD Alexa Krausexafelipe [id number] 04/11/2016 04/11/2016 Deven Chand MD Rit[employer] [id number] 04/11/2016 04/11/2016 Deven Chand MD R[employer]an [id number] 04/11/2016 04/11/2016 Deven Chand MD Rituxan [id number] 04/11/2016 04/11/2016 Deven Chand MD R[employer] [id number] 04/11/2016 04/11/2016 Deven Chand MD Unknown [id number] 05/29/2016 05/29/2016 Deven Chand MD Unknown [id number] 05/29/2016 05/29/2016 Deven Chand MD Unknown [id number] 05/29/2016 05/29/2016 Deven Chand MD Unknown [id number] 05/29/2016 05/29/2016 Deven Chand MD 3 mth follow up [id number] 10/03/2016 10/03/2016 Deven Chand MD 3 mth follow up [id number] 10/03/2016 10/03/2016 Deven Chand MD 3 mth follow up [id number] 10/03/2016 10/03/2016 Deven Chand MD NEW INSURANCE [id number] 10/26/2016 10/26/2016 Deven Chand MD [employer] INS[employer]ANCE [id number] 10/26/2016 10/26/2016 Deven Chand MD [id number] 10/30/2016 10/30/2016 Deven Chand [facility] Outpatient Imaging - [facility] Diag Services [id number] Juve Collins 04/19/2017 04/20/2017 [facility] Outpatient [id number] Alphonso Horner 05/07/2017 05/08/2017 [facility] Outpatient [id number] Gabrielle Carrero 07/11/2017 07/12/2017 [facility] Bedded Outpatient [id number] Ike Casas 09/03/2017 09/03/2017 [facility] Discharged Inpatient (obs) [id number] JUVE COLLINS MD 06/25/2018 06/27/2018 [facility] Procedures Procedure Code Date Perfomer Comments Source Computed tomography of brain without radiopaque contrast 012268069 06/25/2018 [facility] Computed tomography of pelvis without contrast 149116205831013 06/25/2018 [facility] [address] extremity lower wo contrast 436399178974963 06/25/2018 [facility] Computed tomography of cervical spine without contrast 550773531280191 06/25/2018 [facility] Right hemicolectomy 074454310 10/14/1989 [facility] Right hemicolectomy 456469013 10/14/1989 [facility] Right hemicolectomy 836010759 10/14/1989 [facility] Colonoscopy [id number] [facility] Colonoscopy [id number] [facility] Colonoscopy [id number] [facility]
--- OUTSIDE RECORDS SUMMARY | 2018-09-04 16:40 | XMS REPORT ---
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 Problem Neck pain M54.2 Active Problem Normal pressure hydrocephalus G91.2 Active Problem Lumbago with sciatica, unspecified side M54.40 Active Problem Degenerative arthritis of cervical spine M47.812 Active Problem Encounter for long-term (current) use of other high-risk medications Z79.899 Active Problem Pain in throat R07.0 Active Problem Osteoarthritis M19.90 Active Medications Medication Code System Code Instructions Start Date End Date Status Dosage Methotrexate [facility] 66843594731 2.5 MG Orally Once a week Aug 05, 2018 Active 2 tablets Results No Known Results Summary Purpose [employer] Submission
--- OUTSIDE RECORDS SUMMARY | 2018-09-04 16:40 | XMS REPORT ---
Author Author Chuy Chand Organization [employer] Address Unknown Phone Unavailable Care Team Providers Care Metal Fitter Name Role Phone Chuy Chand CP Unavailable [...] R07.0 Active Problem Osteoarthritis M19.90 Active Medications No Known Medications Results No Known Results Summary Purpose [employer] Submission
--- OUTSIDE RECORDS SUMMARY | 2018-09-04 16:40 | XMS REPORT ---
Author Author Chuy Chand Organization [employer] Address Unknown Phone Unavailable Care Team Providers Care Singing Telegram Performer Name Role Phone Chuy Chand CP Unavailable [...] Instructions Start Date End Date Status Dosage Folic Acid [facility] 08608063998 1 MG Orally Once a day Active 1 tablet Results No Known Results Summary Purpose [employer] Submission
--- OUTSIDE RECORDS SUMMARY | 2018-09-04 16:41 | XMS REPORT ---
Author Author [facility] Address Unknown Phone Unavailable Care Team Providers Care High [employer] Art Teacher Name Role Phone Jarvis HITCHCOCK Unavailable Unavailable Payers Payer Name Policy Type Policy Number Effective Date Expiration Date Problems This patient has no known problems. Allergies, Adverse Reactions, Alerts Allergy Name Allergy Type Status Severity Reaction(s) Onset Date Inactive Date Treating Clinician Comments levofloxacin DA Active U 2018-07-22 00:00:00 iodine DA Active U 2018-07-22 00:00:00 gold sodium thiomalate DA Active U 2018-07-22 00:00:00 bacitracin DA Active U 2018-07-22 00:00:00 latex DA Active U 2018-07-22 00:00:00 sulfamethoxazole DA Active U 2018-07-21 00:00:00 trimethoprim DA Active U 2018-07-21 00:00:00 iodine DA Active U 2018-04-23 00:00:00 gold sodium thiomalate DA Active U 2018-04-23 00:00:00 bacitracin DA Active U 2018-04-23 00:00:00 latex DA Active U 2018-04-23 00:00:00 .TUNA DA Active U 2005-11-12 00:00:00 LEVAQUIN DA Active U 2005-11-12 00:00:00 PEPPERS DA Active U 2005-11-12 00:00:00 WHEAT DA Active U 2005-11-12 00:00:00 Medications This patient has no known medications. Results Test Description Test Time Test Comments Text Results Atomic Results Result Comments SCR MAMM BILATERAL KANU CAD DIGITAL 2018-08-29 14:09:22 - SCR MAMM BILATERAL KANU CAD DIGITALBILATERAL DIGITAL SCREENING MAMMOGRAM 3D/2D WITH CAD: 08/28/2018CLINICAL: Asymptomatic. Digital breast tomosynthesis was performed in addition to routine CC and MLO views. Current mammographic images were evaluated by either a [employer] M-Vu or a [employer] Image[employer]er CAD (computer aided detection system). Comparison is made to exams dated 08/19/2017 mammogram, 08/15/2016 mammogram, and 08/11/2015 mammogram - [facility]-. The tissue of both breasts is heterogeneously dense. This may lower the sensitivity of mammography. There are benign vascular calcifications and calcifications in both breasts. No suspicious mass, architectural distortion, malignant type calcification, or lymph node abnormality detected. Breast architecture is stable compared to prior exams.IMPRESSION: BENIGNThere is no mammographic evidence of malignancy. Resume annual screening mammography in one year. Ofe zuniga/manasa:08/29/2018 14:09:22 Attending Technologist: Cici MEANS, [facility]-Imaging Technologist: Rika MEANS, [facility]-letter sent: BIRADS 1-2 Normal Mammogram BI-RADS: [address] CERVICAL SPINE WO 2018-06-25 15:36:00 [place] [address] Patient Name: ZULEYKA RAINEY MR #: [id number] : 1940 Age/Sex: 78/F Req #: [id number] Adm Physician: RANJIT HITCHCOCK MD Ordered by: EDA GOMEZ SENIOR MASTER SCHEDULER Report #: [id number] Location: [facility] Room/Bed: [place] [address] Procedure: CT/CT CERVICAL SPINE WO Exam Date: 06/25/18 Exam Time: 1447 REPORT STATUS: Signed History: Fall Comparison studies: None Technique: Axial images were obtained through the cervical region.. Coronal and sagittal images reconstructed from the axial data.. Intravenous contrast: None Findings: Fractures: None. Soft tissues: No gross abnormalities. Atlantoaxial articulation: Degenerative changes without acute abnormality. Alignment: Reversal of the cervical spine lordosis at C5. Grade 1 anterolisthesis of C3 over C4 and grade 1 retrolistheses of C5 over C6. No scoliosis. Cervicomedullary junction: No abnormalities. The foramen magnum is patent. Vertebrae: No infection or neoplasm. Degenerative changes: Decreased intervertebral space with endplate sclerosis from C4 through C6. Fused right facet joint at C2-3 At C3-4 right facet hypertrophy results in moderate right foraminal narrowing Uncinate process hypertrophy and facet hypertrophy results in [id number]-ur-lfmiafug foraminal narrowing at C4-5 and C5-6. Atherosclerotic calcifications of the carotid bulbs. IMPRESSION: 1. No acute cervical spine abnormalities. 2. Cannot exclude ligament, spinal cord and or vascular abnormalities on the basis of this exami nation. Signed by: DR Michael Allison M.D. on 06/25/2018 3:51 PM Dictated By: MICHAEL SULLIVAN MD 50 Transcribed By: KATHY on 06/25/181550 COPY TO: EDA GOMEZ SENIOR MASTER SCHEDULER CT HIP RIGHT WO 2018-06-25 14:25:00 [place] [address] Patient Name: ZULEYKA RAINEY MR #: [id number] : 1940 Age/Sex: 78/F Req #: [id number] Adm Physician: Ordered by: EDA GOMEZ NP Report #: [id number] Location: ER Room/Bed: Procedure: [id number] CT/CT HIP RIGHT WO Exam Date: 06/25/18 Exam Time: 1300 REPORT STATUS: Signed CTs of the pelvis and right hip were obtained WITHOUT contrast. TECHNIQUE: Standard departmental protocols were used. Sagittal and coronal reformations were obtained. Coronal and sagittal reconstructions were reformatted separately for each exam. Dose modulation, iterative reconstruction, and/or weight based adjustment of the mA/kV was utilized to reduce the radiation dose to as low as reasonably achievable. Total DLP=3 29.47 HISTORY: Fall, hematoma, pain COMPARISON: None. FINDINGS: Bones: No acute displaced fracture. No aggressive osseous lesion. Joints: Multifocal degenerative changes, including moderate of the pubic symphysis, sacroiliac joints. Mild subchondral cystic changes of the right femoral head greater than the left. Trace nonspecific right hip effusion. Also, chondrocalcinosis of the pubic symphysis. Soft tissues: There is no evidence of lymphadenopathy or other soft tissue mass. Other: Severe degenerative disc changes at L4-5 and L5-S1. Severe facet arthrosis at L4-5 and L5-S1. Multiple metallic surgical clips in the posterior aspect of the pelvis. IMPRESSION: 1. No acute displaced fracture. 2. Trace nonspecific right hip effusion. 3. Multifocal degenerative changes, most notably severe of the visualized lumbosacral spine. Signed by: Dr. Ike Mendez D.O., M.M.M. on 06/25/2018 2:32 PM Dictated By: IKE MENDEZ DO 1432 Transcribed By: KATHY on 06/25/18 1432 COPY TO: EDA GOMEZ SENIOR MASTER SCHEDULER CT PELVIS WO 2018-06-25 14:25:00 [place] [address] Patient Name: ZULEYKA RAINEY MR #: [id number] : 1940 Age/Sex: 78/F Req #: [id number] Adm Physician: Ordered by: EDA GOMEZ SENIOR MASTER SCHEDULER Report #: [id number] Location: ER Room/Bed: Procedure: [id number] CT/CT PELVIS WO Exam Date: 06/25/18 Exam Time: 1300 REPORT STATUS: Signed CTs of the pelvis and right hip were obtained WITHOUT contrast. TECHNIQUE: Standard departmental protocols were used. Sagittal and coronal reformations were obtained. Coronal and sagittal reconstructions were reformatted separately for each exam. Dose modulation, iterative reconstruction, and/or weight based adjustment of the mA/kV was utilized to reduce the radiation dose to as low as reasonably achievable. Total CRN=551. 47 HISTORY: Fall, hematoma, pain COMPARISON: None. FINDINGS: Bones: No acute displaced fracture. No aggressive osseous lesion. Joints: Multifocal degenerative changes, including moderate of the pubic symphysis, sacroiliac joints. Mild subchondral cystic changes of the right femoral head greater than the left. Trace nonspecific right hip effusion. Also, chondrocalcinosis of the pubic symphysis. Soft tissues: There is no evidence of lymphadenopathy or other soft tissue mass. Other: Severe degenerative disc changes at L4-5 and L5-S1. Severe facet arthrosis at L4-5 and L5-S1. Multiple metallic surgical clips in the posterior aspect of the pelvis. IMPRESSION: 1. No acute displaced fracture. 2. Trace nonspecific right hip effusion. 3. Multifocal degenerative changes, most notably severe of the visualized lumbosacral spine. Signed by: Catrachito TranORena, M.M.M. on 06/25/2018 2:32 PM Dictated By: IKE MENDEZ DO 1432 Transcribed By: KATHY on 06/25/18 1432 COPY TO: EDA GOMEZ NP CT BRAIN WO 2018-06-25 13:53:00 [place] [address] Patient Name: ZULEYKA RAINEY MR #: [id number] : 1940 Age/Sex: 78/F Req #: [id number] Adm Physician: Ordered by: EDA GOMEZ NP Report #: [id number] Location: Room/Bed: Procedure: [id number] CT/CT BRAIN WO Exam Date: 06/25/18 Exam Time: 1300 REPORT STATUS: Signed Examination: CT BRAIN WITHOUT CONTRAST History:Dizziness. Fall. Head injury Comparison studies:None Technique: Axial images were obtained from the skull base to the vertex. Coronal and sagittal images reconstructed from the axial data. Dose modulation, iterative reconstruction, and/or weight based adjustment of the mA/kV was utilized to reduce the radiation dose to as low as reasonably achievable. Intravenous contrast: None Findings: Scalp: Small right frontal scalp hematoma. Bones: No fractures, blastic or lytic lesions. Brain sulci: Appropriate for age. Ventricles: The ventricular size is out of proportion with respect to cerebral convexity sulci, concerning for a communicating type of hydrocephalus, such as normal pressure hydrocephalus. Extra-axial space: No abnormalities. Pa renchyma: No masses, hemorrhage, or acute or chronic cortical based vascular insults. Sellar/suprasellar region: No abnormalities. Craniocervical junction: Patent foramen magnum. No Chiari one malformation. Incidental findings: Atherosclerotic calcification of the cavernous and supraclinoid internal carotid and V4 segments of the bilateral vertebral arteries. Impression: 1. Small right frontal scalp hematoma without radiopaque foreign body or associated calvarial fracture. 2. No acute intracranial abnormalities. 3. Findings as described above are concerning for normal pressure hydrocephalus. Signed by: Dr. Kanchan Drew M.D. on 06/25/2018 1:55 PM Dictated By: KANCHAN MILLER MD 1355 Transcribed By: KATHY on 06/25/18 1355 COPY TO: EDA GOMEZ NP CHEST SINGLE (PORTABLE) 2018-06-25 13:18:00 [place] [address] Patient Name: ZULEYKA RAINEY MR #: [id number] : 1940 Age/Sex: 78/F Req #: [id number] Adm Physician: Ordered by: EDA GOMEZ NP Report #: [id number] Location: ER Room/Bed: Procedure: [id number] DX/CHEST SINGLE (PORTABLE) Exam Date: 06/25/18 Exam Time: 1300 REPORT STATUS: Signed EXAMINATION: CHEST SINGLE (PORTABLE) INDICATION: Fall, hit forehead COMPARISON: None FINDINGS: AP view TUBES and LINES: None. LUNGS: Lungs are well inflated. Lungs are clear. There is no evidence of pneumonia or pulmonary edema. PLEURA: No pleural effusion or pneumothorax. HEART AND MEDIASTINUM: The cardiomediastinal silhouette is unremarkable. Mild aortic arch calcifications. BONES AND SOFT TISSUES: No acute osseous lesion. Rightward curvature of the visualized lumbar spine. UPPER ABDOMEN: No free air under the diaphragm. IMPRESSION: No acute thoracic abnormality. Signed by: DR. Murray Auguste MD on 06/25/2018 1:20 PM Dictated By: MURRAY AUGUSTE MD 1320 Transcribed By: KATHY on 06/25/18 1320 COPY TO: EDA GOMEZ NP
[2018-09-04] MEDS ORDERED: TRAMADOL HCL 50 MG TAB PO ONE (17:00)
[2018-09-04 17:16] LABS: BASOPHILS # (AUTO) 0.1 (0.0-0.1); BASOPHILS % 0.6 % (0.0-1.0); EOSINOPHILS % 0.3 % (0.0-6.0); HEMOGLOBIN 13.5 g/dL (12.0-16.0); LYMPHOCYTES # (AUTO) 1.1 (1.0-3.2); LYMPHOCYTES % 10.8 % (18.0-39.1); MEAN CORPUSCULAR HEMOGLOBIN 28.5 pg (28-32); MEAN CORPUSCULAR HGB CONC 30.7 g/dL (31-35); MONOCYTES # (AUTO) 0.5 (0.2-0.8); MONOCYTES % 4.6 % (4.4-11.3); NEUTROPHILS # (AUTO) 8.2 (2.1-6.9); NEUTROPHILS % 83.2 % (38.7-80.0); PLATELET COUNT 337 x10e3/uL (140-360); RED BLOOD COUNT 4.73 x10e6/uL (3.6-5.1); RED CELL DISTRIBUTION WIDTH 15.4 % (11.7-14.4)
[2018-09-04 17:28] LABS: INR 0.89; PARTIAL THROMBOPLASTIN TIME 26.4 seconds (23.8-35.5); PROTHROMBIN TIME 12.9 seconds (11.9-14.5)
[2018-09-04 17:35] LABS: ALBUMIN/GLOBULIN RATIO 1.1 (0.8-2.0); ANION GAP 15.1 mmol/L (8-16); CALCIUM 10.2 mg/dL (8.4-10.2); POTASSIUM 4.1 mmol/L (3.5-5.1)
[2018-09-04 17:41] LABS: CREATINE KINASE MB 1.6 ng/mL (0-5.0)
--- NOTE | 2018-09-04 18:08 | Diagnostic Imaging Report ---
Exam: Left Knee Series. History: Left medial posterior knee pain for 3 weeks Comparison: None. Findings: 3 views of the left knee. There is decreased bone mineralization. Status post left total knee replacement, with orthopedic hardware in satisfactory alignment. No associated lucencies. No abnormal soft tissue calcification or mass. No significant effusion. Impression: 1. Status post total knee replacement. No acute abnormalities. Signed by: Dr. Greg Lopez M.D. on 09/04/2018 6:05 PM
[2018-09-04] MEDS ORDERED: ULTRAM 50MG50 MG PO (19:05)
[2018-09-04] MEDS ORDERED: CLINDAMYCIN HC150 MG PO (19:05)
[2018-09-04 19:06] VITALS: BP 154/88
== END 2018-09-04 19:12 | disposition home or self-care (01) ==
LOC: ER 16:35
DX: M25.562 Pain in left knee (principal); L03.116 Cellulitis of left lower limb; R26.2 Difficulty in walking, not elsewhere classified; I10 Essential (primary) hypertension; E11.9 Type 2 diabetes mellitus without complications
CPT/HCPCS: 36415; 80053; 82550; 82553; 84484; 85025; 85379; 85610; 85730; 93971; 99284

== ENCOUNTER → 2018-10-13 | Outpatient (RCR) | payer MEDICARE, OTHER ==
[~2018-10-13] MED LIST changes: +CLINDAMYCIN HC150 MG PO; +ULTRAM 50MG50 MG PO
== END ==
LOC: PT 09-30 14:55
PROVIDERS: ATTEND Internal Medicine
DX: R26.81 Unsteadiness on feet (principal); R26.89 Other abnormalities of gait and mobility
CPT/HCPCS: 97110 ×3; 97162; 97530; G8978; G8979

== ENCOUNTER → 2018-11-13 | Outpatient (RCR) | payer MEDICARE | LOC: PT 10-15 11:03 | PROVIDERS: ATTEND Internal Medicine | DX: R26.89 Other abnormalities of gait and mobility (principal); R26.81 Unsteadiness on feet; M62.81 Muscle weakness (generalized); R26.2 Difficulty in walking, not elsewhere classified | CPT/HCPCS: 97139 ==

== ENCOUNTER 2018-12-08 11:00 | Outpatient (RCR) | payer MEDICARE | END 2018-12-11 | LOC: PT 11:00 | PROVIDERS: ATTEND Internal Medicine | DX: R26.89 Other abnormalities of gait and mobility (principal); R26.81 Unsteadiness on feet; R26.2 Difficulty in walking, not elsewhere classified; M62.81 Muscle weakness (generalized) | CPT/HCPCS: 97139 ==

== ENCOUNTER 2018-12-19 14:00 | Outpatient (RCR) | payer MEDICARE ==
[2019-01-09] MEDS ORDERED: CEFUROXIME250 MG PO (09:14)
[2019-01-09] MEDS ORDERED: MUCINEX600 MG PO (09:14)
== END 2019-01-11 ==
LOC: PT 14:00
PROVIDERS: ATTEND Internal Medicine
DX: R26.89 Other abnormalities of gait and mobility (principal); R26.81 Unsteadiness on feet; R26.2 Difficulty in walking, not elsewhere classified; M62.81 Muscle weakness (generalized)
CPT/HCPCS: 97139

== ENCOUNTER 2019-01-05 08:06 | Observation (INO) | payer MEDICARE, OTHER ==
[~2019-01-05] VITALS: Ht 162.6 cm; Wt 79.2 kg
--- OUTSIDE RECORDS SUMMARY | 2019-01-05 08:12 | XMS REPORT | Continuity of Care Document ---
Author Author [facility] Organization Interface Address Unknown Phone Unavailable Problems Problem Status Onset Date Classification Date Reported Comments Source R13.10 Active 08/12/2017 [facility] D64.9 *XRAY ESOPHAGRAM BARIUM SWALLOW W Active 07/05/2017 [facility] D64.9 - "ANEMIA, UNSPECIFIED" Active 06/26/2017 MIKAEL [place] DIZZINESS AND GIDDINESS Active 05/06/2017 [facility] R09.89 - OTH SYMPTOMS AND SIGNS INVOLVI Active 04/11/2017 [facility] Anemia Resolved Problem 11/23/2018 MIKAEL [place],[facility] Anxiety Resolved Problem 11/23/2018 MIKAEL [place],[facility] Constipation Resolved Problem 11/23/2018 [facility] [place] Diabetes Resolved Problem 11/23/2018 [facility] [place] Gastric reflux Resolved Problem 11/23/2018 [facility] BarriosDass[place],[facility] Hyperlipidemia Resolved Problem 11/23/2018 [facility] [place] Hypothyroidism Resolved Problem 11/23/2018 [facility] [place] Cancer of colon Resolved Problem 11/23/2018 MIKAEL Mckeon,[facility] Depression Resolved Problem 11/23/2018 MIKAEL [place],[facility] Pain in throat Active Problem 12/20/2018 Deven Chand Osteoarthritis Active Problem 12/20/2018 Deven Chand Normal pressure hydrocephalus Active Problem 12/20/2018 Deven Chand Degenerative arthritis of cervical spine Active Problem 12/20/2018 Deven Chand 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 Active Problem 12/20/2018 Deven Chand Encounter for long-term use of other high-risk medications Active Problem 12/20/2018 Deven Chand Pharyngitis Active Problem 03/07/2017 Deven Chand Neck pain Active Problem 12/20/2018 Deven Chand Lumbago with sciatica, unspecified side Active Problem 12/20/2018 Deven Chand Osteopenia of multiple sites Active Problem 12/20/2018 Deven Chand Spasm of muscle Active Problem [...] Chand Contusion of right hip Active Problem 09/05/2018 [facility] Head injury Active Problem 09/05/2018 [facility] Syncope Active Problem 09/05/2018 [facility] Traumatic hematoma of head Active Problem 09/05/2018 [facility] Medications Medication Details Route Status Patient Instructions Ordering Provider Order Date Source PredniSONE 1 tablet Orally Active 5 Orally Once a day Chand 12/18/2018 Deven Chand Methotrexate 2 tablets Orally Active 2.5 MG Orally Once a week Chand 10/23/2018 Deven Chand Methotrexate 2 tablets Orally Active 2.5 MG Orally Once a week Chand 08/05/2018 Deven Chand Folic Acid 1 tablet Orally Active 1 MG Orally Once a day Chand 03/26/2018 Deven Chand Methotrexate 2 tablets Orally Active 2.5mg Orally Once a week Chand 03/24/2018 Deven Chand Methotrexate 2 tablets Orally Active 2.5mg Orally Once a week Chand 03/24/2018 Deven Chand Folic Acid 1 tablet Orally Active 1 MG Orally Once a day Chand 06/21/2017 Deven Chand Hydrocodone-Acetaminophen take 1 tablet Orally Active 5-325 MG Orally once a day as needed [place] 01/23/2017 Deven Chand Hydrocodone-Acetaminophen take 1 tablet by mouth every 6 hours Orally Active 5-325 MG Orally every 6 hrs [place] 01/23/2017 Deven Chand Hydrocodone-Acetaminophen take 1 tablet by mouth every 6 hours Orally Active 5-325 MG Orally every 6 hrs [place] 05/11/2016 Devenveronica Chand Folic Acid 1 tablet Orally Active 1 MG Orally Once a day [place] 09/27/2015 Deven Chand Prilosec OTC 1 tablet Orally Active 20 MG Orally Once a day [place] 09/27/2015 Deven Chand MiraLax as directed Orally Active - Orally [place] Deven Chand Alprazolam 1 tablet Orally Active 0.5 MG Orally Twice a day [place] Deven Chand Omeprazole 1 capsule Orally Active 40 MG Orally Once a day [place] Deven Chand Desloratadine 1 tablet Orally Active 5 MG Orally Once a day [place] Deven Chand Fish Oil 1 CAP Orally Active 1000 MG Orally TWICE DAILY [place] Deven Chand OneTouch Delica Lancets 33G as directed NA Active - [place] Deven Chand Tylenol Arthritis Pain 2 tablets as needed Orally Active 650 MG Orally every 8 hrs [place] Deven Chand Venlafaxine HCl 1 tablet with food Orally Active 37.5 MG Orally Once a day [place] Deven Chand Folic Acid 1 tablet Orally Active 1 MG Orally Once a day [place] Deven Chand Atorvastatin Calcium 1 tablet Orally Active 10 MG Orally Once a day [place] Deven Chand Levothyroxine Sodium 1 Orally Active 100 MCG Orally qd [place] Deven Chand Famotidine 1 tablet at bedtime Orally Active 20 MG Orally BID [place] Deven Chand PredniSONE 1 tablet Orally Active 5 MG Orally Once a day [place] Deven Chand Metamucil as directed Orally Active 48.57 % Orally [place] Deven Chand Ocuvite as directed Orally Active Orally [place] Deven Chand Rituxan 1000MG IV NA Active 1000MG q 4monthly [place] Deven Chand Citracal + D 1 tablet with meals Orally Active 1500-200 MG-IU Orally Twice a day [place] Deven Chand Mucinex 1 tablet as needed Orally Active 600 MG Orally every 12 hrs [place] Deven Chand Senokot 2 tablets at bedtime as needed Orally Active 8.6 MG Orally Once a day [place] Deven Chand Metformin & Diet Manage Prod 1 tablet Orally Active 500 MG Orally BID [facility] Methotrexate 2 tablets Orally Active 2.5mg Orally Once a week [facility] Carvedilol 1 tablet with food Orally Active 3.125 MG Orally Twice a day [facility] BuPROPion HCl 1 tablet Orally Active 100 MG Orally once a day [facility] Vitamin B12 1 tablet Orally Active 1000 MCG Orally Once a day [facility] Mucinex 1 tablet as needed Orally Active 600 MG Orally every 12 hrs [facility] Senokot 2 tablets at bedtime as needed Orally Active 8.6 MG Orally Once a day [facility] BuPROPion HCl 1 tablet Orally Active 100 MG Orally once a day [facility] Ocuvite as directed Orally Active Orally [facility] Fish Oil 1 CAP Orally Active 1000 MG Orally TWICE DAILY [facility] MiraLax as directed Orally Active - Orally [facility] Alprazolam 1 tablet Orally Active 0.5 MG Orally Twice a day [facility] Tylenol Arthritis Pain 2 tablets as needed Orally Active 650 MG Orally every 8 hrs [facility] Metamucil as directed Orally Active 48.57 % Orally [facility] OneTouch Delica Lancets 33G as directed NA Active - [facility] Levothyroxine Sodium 1 Orally Active 100 MCG Orally qd [facility] Atorvastatin Calcium 1 tablet Orally Active 10 MG Orally Once a day [facility] Rituxan 1000MG IV NA Active 1000MG q 4monthly [facility] Desloratadine 1 tablet Orally Active 5 MG Orally Once a day [facility] Venlafaxine HCl 1 tablet with food Orally Active 37.5 MG Orally Once a day [facility] Carvedilol 1 tablet with food Orally Active 3.125 MG Orally Twice a day [facility] Famotidine 1 tablet at bedtime Orally Active 20 MG Orally BID [facility] Omeprazole 1 capsule Orally Active 40 MG Orally Once a day [facility] Effexor XR 1 capsule with food Orally Active 37.5 MG Orally [facility] a [facility] Iron 1 tablet Orally Active 325 (65 Fe) MG Orally Once a day [facility] Clotrimazole 1 tammy Mouth/Throat Active 10 MG Mouth/Throat Three times a day [facility] Deven Chand Methotrexate TAKE 3 TABLETS BY MOUTH ONCE A WEEK NA Active 2.5 MG [facility] Deven Chand Valsartan 1/2 tablet Orally Active 40 MG Orally Once a day [facility] Deven Chand Xanax 1 tablet Orally Active 0.5 MG Orally twice a day [facility] Deven Chand Rituxan 1000mg Intravenous Active 500 MG/50ML Intravenous at day 1 and 15 then repeat q 4 mths Jagruti Chand Mucinex 1 tablet for chest congestion Orally Active 600 MG Orally prn Jagruti Chand Furosemide 1 tablet Orally Active 20 MG Orally Once a day Jagruti Chand Methotrexate once a week Orally Active 2.5 MG Orally once a week Jagruti Chand Xolair INJECTION ONCE A MONTH Subcutaneous Active 150 MG Subcutaneous EVERY MONTH Jagruti Chand Naproxen TAKE 1 TABLET NEEDED EVERY 12 HOURS NA Active 500MG Jagruti Chand Nasonex 2 sprays in each nostril Nasally Active 50 MCG/ACT Nasally Once a day Jagruti Chand Venlafaxine HCl 1 tablet with food Orally Active 75 MG Orally Twice a day Jagruti Chand Hydrocodone-Acetaminophen TAKE 1 TABLET BY MOUTH EVERY 6 HOURS NA Active 5-325 MG Jagruti Chand Metformin & Diet Manage Prod as directed Orally Active 500 MG Orally [facility] Deven Chand Calcium + D 1 tablet Orally Active 600-200 MG-UNIT Orally TWICE A DAY Jagruti Chand Biotin 1 tablet Orally Active 300 MCG Orally Once a day Jagruti Chand Tylenol 1 Orally Active otc Orally prn Yoav Chand PredniSONE TAKE 1 TO 2 TABLETS WITH FOOD OR MILK ONCE DAILY NA Active 5MG Yoav Chand Vitamin E 1 capsule Orally Active 100 UNIT Orally Once a day Jagruti Chand Naproxen 1 tablet Orally Active 250 MG Orally PRN Yoav Chand Citracal +D3 as directed Orally Active 250-107-500 MG-MG-UNIT Orally Yoav Chand Omeprazole 1 capsule Orally Active 20 MG Orally Once a day Yoav Chand Citracal + D 1 tablet with meals Orally Active 1500-200 MG-IU Orally Twice a day [facility] Deven Chand Hydrocodone-Acetaminophen take 1 tablet by mouth every 6 hours Orally Active 5-325 MG Orally every 6 hrs Yoav Chand Alprazolam 0.5 Mg Tablet Every 12 Hours as needed for Anxiety Active [facility] Atorvastatin Calcium 10 Mg Tablet Bedtime Active [facility] Bupropion Hcl 100 Mg Tablet Daily Active [facility] Calcium Carbonate/Vitamin D3 (Caltrate 600 W-D Tablet) 1 Each Tablet Daily Active [facility] Carvedilol 3.125 Mg Tablet Twice A Day Active [facility] Cyanocobalamin (Vitamin B-12) 1,000 Mcg Tab Daily Active [facility] Desloratadine 5 Mg Tablet Daily Active [facility] Famotidine 20 Mg Tab Twice A Day Active [facility] Folic Acid 1 Mg Tablet Daily Active [facility] Hydrocodone Bit/Acetaminophen (Hydrocodon-Acetaminophen 5-325) 1 Each Tablet Every 6 Hours Active [facility] Iron Ag&Fum/C/Fa/Mv Cmb11/Ca-T (Ferrex 28 Tablet) 1 Each Tablet Daily Active [facility] Levothyroxine Sodium (Levoxyl) 88 Mcg Tablet Daily Active [facility] Metformin Hcl 500 Mg Tablet Twice A Day Active [facility] Methotrexate Sodium (Methotrexate) 2.5 Mg Tablet Q7days Active [facility] [place]-3 Fatty Acids/Fish Oil (Fish Oil 1,000 Mg Softgel) 1 Each Capsule Daily Active [facility] Omeprazole 40 Mg Capsule. Daily Active [facility] Polyethylene Glycol 3350 (Miralax) 17 Gm Powd.pack Twice A Day Active [facility] Prednisone 5 Mg Tablet Daily Active [facility] Sennosides (Senna Lax) 8.6 Mg Tablet Daily Active [facility] Venlafaxine Hcl 37.5 Mg Tablet Daily Active [facility] Vit A,C & E/Lutein/Minerals (Ocuvite Tablet) 1 Each Tablet Daily Active [facility] Alprazolam 0.5 Mg Tablet Every 12 Hours as needed for Anxiety Active [facility] Atorvastatin Calcium 10 Mg Tablet Bedtime Active [facility] Bupropion Hcl 100 Mg Tablet Daily Active [facility] Calcium Carbonate/Vitamin D3 (Caltrate 600 W-D Tablet) 1 Each Tablet Daily Active [facility] Carvedilol 3.125 Mg Tablet Twice A Day Active [facility] Clindamycin Hcl 150 Mg Capsule Four Times Daily Active [facility] Cyanocobalamin (Vitamin B-12) 1,000 Mcg Tab Daily Active [facility] Desloratadine 5 Mg Tablet Daily Active [facility] Famotidine 20 Mg Tab Twice A Day Active [facility] Folic Acid 1 Mg Tablet Daily Active [facility] Hydrocodone Bit/Acetaminophen (Hydrocodon-Acetaminophen 5-325) 1 Each Tablet Every 6 Hours Active [facility] Levothyroxine Sodium (Levoxyl) 88 Mcg Tablet Daily Active [facility] Metformin Hcl 500 Mg Tablet Twice A Day Active [facility] Methotrexate Sodium (Methotrexate) 2.5 Mg Tablet Q7days Active [facility] Omeprazole 40 Mg Capsule.dr Daily Active [facility] Polyethylene Glycol 3350 (Miralax) 17 Gm Powd.pack Twice A Day Active [facility] Prednisone 5 Mg Tablet Daily Active [facility] Sennosides (Senna Lax) 8.6 Mg Tablet Daily Active [facility] Tramadol Hcl (Ultram 50MG*) 50 Mg Tab Every 6 Hours as needed for Pain Active 1-2 tablets [facility] Venlafaxine Hcl 37.5 Mg Tablet Daily Active [facility] Allergies, Adverse Reactions, Alerts Substance Category Reaction Severity Reaction type Status Date Reported Comments Source Levofloxacin RASH Mild Allergy to Substance Active 09/04/2018 [facility] GOLD Unknown Allergy to Substance Active 09/04/2018 [facility] Iodine Adverse Reaction Info Not Available Adverse Reaction Active 10/02/2018 Deven Chand Daypro Adverse Reaction Info Not Available Adverse Reaction Active 10/02/2018 Deven Chand Levaquin Adverse Reaction Info Not Available Adverse Reaction Active 10/02/2018 Deven Chand Leflunomide Adverse Reaction Info Not Available Adverse Reaction Active 10/02/2018 Deven Chand Xeljanz Adverse Reaction Info Not Available Adverse Reaction Active 10/02/2018 Deven Chand Actemra Adverse Reaction Info Not Available Adverse Reaction Active 10/02/2018 Deven Chand Gold Sodium Thiosulfate Adverse Reaction Info Not Available Adverse Reaction Active 10/02/2018 Deven Chand Thiuram Mix Adverse Reaction Info Not Available Adverse Reaction Active 10/02/2018 Deven Chand Bacitracin Adverse Reaction Info Not Available Adverse Reaction Active 10/02/2018 Deven Chand Humira Adverse Reaction Info Not Available Adverse Reaction Active 10/02/2018 Deven Chand Remicade Adverse Reaction Info Not Available Adverse Reaction Active 10/02/2018 Deven Chand Enbrel Adverse Reaction Info Not Available Adverse Reaction Active 10/02/2018 Deven Chand Kineret Adverse Reaction Info Not Available Adverse Reaction Active 10/02/2018 Deven Chand Fosamax Adverse Reaction fatigue, dental issues Adverse Reaction Active 10/02/2018 Deven Chand Bacitracin, Topical Assertion Drug allergy Active OPID [place] iodine Assertion Drug allergy Active [facility]ID [place] Latex Assertion Drug allergy Active [facility] [place] Immunizations Immunization Date Given Site Status Last Updated Comments Source Results Order Name Results Value Reference Range Date Interpretation Comments Source Chest 2 views DX Chest 2 views DX EXAM: XR CHEST 2 VIEWS DATE: 11/20/2018 3:46 PM ADMINISTRATIVE ASSISTANT DATA ENTRY INDICATION: - J20.9 Acute bronchitis, unspecified COMPARISON: None TECHNIQUE: PA and lateral chest radiographs FINDINGS: Lungs are symmetrically well expanded. Probable bibasilar atelectasis. No pulmonary or pleural-based abnormality is identified. The cardiomediastinal silhouette is normal. The descending thoracic aorta is ectatic and tortuous. No acute osseous abnormality is identified. IMPRESSION: No acute cardiopulmonary abnormality. Probable bibasilar atelectatic changes. 11/20/2018 - - Read by: Riccardo Rubalcava MD Dictated Date/time: 11/20/18 17:25 Electronically Signed by: Riccardo Rubalcava MD 11/20/18 17:26 FINAL REPORT [facility] Blood leukocytes automated count (number/volume) 9.86 4.8 - 10.8 09/04/2018 [facility] Blood erythrocytes automated count (number/volume) 4.73 3.6 - 5.1 09/04/2018 [facility] Blood hemoglobin measurement (moles/volume) 13.5 12.0 - 16.0 09/04/2018 [facility] Automated blood hematocrit (volume fraction) 44.0 34.2 - 44.1 09/04/2018 [facility] Automated erythrocyte mean corpuscular volume 93.0 81 - 99 09/04/2018 [facility] Automated erythrocyte mean corpuscular hemoglobin (mass per erythrocyte) 28.5 28 - 32 09/04/2018 [facility] Automated erythrocyte mean corpuscular hemoglobin concentration measurement (mass/volume) 30.7 31 - 35 09/04/2018 [facility] RDW BldCo-Rto 15.4 11.7 - 14.4 09/04/2018 [facility] Automated blood platelet count (count/volume) 337 140 - 360 09/04/2018 [facility] Automated blood segmented neutrophil count as percentage of total leukocytes 83.2 38.7 - 80.0 09/04/2018 [facility] Automated blood lymphocyte count as percentage ot total leukocytes 10.8 18.0 - 39.1 09/04/2018 [facility] Automated blood monocyte count as percentage of total leukocytes 4.6 4.4 - 11.3 09/04/2018 [facility] Automated blood eosinophil count as percentage of total leukocytes 0.3 0.0 - 6.0 09/04/2018 [facility] Automated blood basophil count as percentage of total leukocytes 0.6 0.0 - 1.0 09/04/2018 [facility] IM GRANULOCYTES % 0.5 0.0 - 1.0 09/04/2018 [facility] Automated blood neutrophil count 8.2 2.1 - 6.9 09/04/2018 [facility] Blood lymphocytes count (number/volume) 1.1 1.0 - 3.2 09/04/2018 [facility] Blood monocytes automated count (number/volume) 0.5 0.2 - 0.8 09/04/2018 [facility] Automated blood eosinophil count 0.0 0.0 - 0.4 09/04/2018 [facility] Automated blood basophil count (count/volume) 0.1 0.0 - 0.1 09/04/2018 [facility] Absolute Immature Granulocyte (auto 0.05 0 - 0.1 09/04/2018 [facility] Prothrombin time (PT) in platelet poor plasma by coagulation assay 12.9 11.9 - 14.5 09/04/2018 [facility] INR in Platelet poor plasma by Coagulation assay 0.89 09/04/2018 [facility] Activated partial thromboplastin time (aPTT) in platelet poor plasma bycoagulation assay 26.4 23.8 - 35.5 09/04/2018 [facility] Fibrin D-dimer DDU measurement in platelet poor plasma (mass/volume) 1.06 0.00 - 0.45 09/04/2018 [facility] Serum or plasma sodium measurement (moles/volume) 141 136 - 145 09/04/2018 [facility] Serum or plasma potassium measurement (moles/volume) 4.1 3.5 - 5.1 09/04/2018 [facility] Serum or plasma chloride measurement (moles/volume) 102 98 - 107 09/04/2018 [facility] Serum or plasma carbon dioxide, total measurement (moles/volume) 28 22 - 29 09/04/2018 [facility] Serum or plasma anion gap 15.1 8 - 16 09/04/2018 [facility] Serum or plasma urea nitrogen measurement (mass/volume) 16 7 - 26 09/04/2018 [facility] Serum or plasma creatinine measurement (mass/volume) 1.00 0.57 - 1.11 09/04/2018 [facility] Serum or plasma urea nitrogen/creatinine mass ratio 16 6 - 25 09/04/2018 [facility] Estimated glomerular filtration rate (GFR) determination 53 60 09/04/2018 [facility] Glucose measurement 153 74 - 118 09/04/2018 [facility] Serum or plasma calcium measurement (mass/volume) 10.2 8.4 - 10.2 09/04/2018 [facility] Serum or plasma total bilirubin measurement (mass/volume) 0.4 0.2 - 1.2 09/04/2018 [facility] Aspartate Amino Transf (AST/SGOT) 19 5 - 34 09/04/2018 [facility] Serum or plasma alanine aminotransferase measurement (enzymatic activity/volume) 14 0 - 55 09/04/2018 [facility] Serum or plasma protein measurement (mass/volume) 7.8 6.5 - 8.1 09/04/2018 [facility] Serum or plasma albumin measurement (mass/volume) 4.0 3.5 - 5.0 09/04/2018 [facility] Plasma globulin measurement (mass/volume) 3.8 2.3 - 3.5 09/04/2018 [facility] Serum or plasma albumin/globulin mass ratio 1.1 0.8 - 2.0 09/04/2018 [facility] Serum or plasma alkaline phosphatase measurement (enzymatic activity/volume) 44 40 - 150 09/04/2018 [facility] Serum or plasma creatine kinase measurement (enzymatic activity/volume) 107 29 - 168 09/04/2018 [facility] Serum or plasma creatine kinase MB measurement (mass/volume) 1.60 0 - 5.0 09/04/2018 [facility] Troponin I measurement by highly sensitive enzyme immunoassay 0.003 0 - 0.300 09/04/2018 [facility] Ext Lower Venous Doppler Unilat US Ext Lower Venous Doppler Unilat US EXAM: US LEFT LOWER EXTREMITY VENOUS DOPPLER DATE: 08/27/2018 9:33 AM ADMINISTRATIVE ASSISTANT DATA ENTRY INDICATION: - I80.9 Phlebitis and thrombophlebitis of [...] Lori Funez MD 08/27/18 11:28 FINAL REPORT [facility] Capillary blood glucose measurement by glucometer (mass/volume) 107 70 - 120 06/27/2018 [facility] Capillary blood glucose measurement by glucometer (mass/volume) Capillary blood glucose measurement by glucometer (mass/volume) 107 70 - 120 06/27/2018 [facility] Estimated glomerular filtration rate (GFR) determination Estimated glomerular filtration rate (GFR) determination null 60 06/26/2018 [facility] Glucose measurement Glucose measurement 104 74 - 118 06/26/2018 [facility] Plasma globulin measurement (mass/volume) Plasma globulin measurement (mass/volume) 2.9 2.3 - 3.5 06/26/2018 [facility] Serum or plasma alanine aminotransferase measurement (enzymatic activity/volume) Serum or plasma alanine aminotransferase measurement (enzymatic activity/volume) 14 0 - 55 06/26/2018 [facility] Serum or plasma albumin measurement (mass/volume) Serum or plasma albumin measurement (mass/volume) 3.5 3.5 - 5.0 06/26/2018 [facility] Serum or plasma albumin/globulin mass ratio Serum or plasma albumin/globulin mass ratio 1.2 0.8 - 2.0 06/26/2018 [facility] Serum or plasma alkaline phosphatase measurement (enzymatic activity/volume) Serum or plasma alkaline phosphatase measurement (enzymatic activity/volume) 37 40 - 150 06/26/2018 [facility] [facility] Serum or plasma anion gap Serum or plasma anion gap 13.7 8 - 16 06/26/2018 [facility] Serum or plasma calcium measurement (mass/volume) Serum or plasma calcium measurement (mass/volume) 9.3 8.4 - 10.2 06/26/2018 [facility] Serum or plasma carbon dioxide, total measurement (moles/volume) Serum or plasma carbon dioxide, total measurement (moles/volume) 23 22 - 29 06/26/2018 [facility] Serum or plasma chloride measurement (moles/volume) Serum or plasma chloride measurement (moles/volume) 105 98 - 107 06/26/2018 [facility] Serum or plasma creatine kinase MB measurement (mass/volume) Serum or plasma creatine kinase MB measurement (mass/volume) 1.00 0 - 5.0 06/26/2018 [facility] Serum or plasma creatine kinase measurement (enzymatic activity/volume) Serum or plasma creatine kinase measurement (enzymatic activity/volume) 57 29 - 168 06/26/2018 [facility] Serum or plasma creatinine measurement (mass/volume) Serum or plasma creatinine measurement (mass/volume) 0.73 0.57 - 1.11 06/26/2018 [facility] Serum or plasma potassium measurement (moles/volume) Serum or plasma potassium measurement (moles/volume) 3.7 3.5 - 5.1 06/26/2018 [facility] Serum or plasma protein measurement (mass/volume) Serum or plasma protein measurement (mass/volume) 6.4 6.5 - 8.1 06/26/2018 [facility] Serum or plasma sodium measurement (moles/volume) Serum or plasma sodium measurement (moles/volume) 138 136 - 145 06/26/2018 [facility] Serum or plasma total bilirubin measurement (mass/volume) Serum or plasma total bilirubin measurement (mass/volume) 0.6 0.2 - 1.2 06/26/2018 [facility] Serum or plasma urea nitrogen measurement (mass/volume) Serum or plasma urea nitrogen measurement (mass/volume) 13 7 - 26 06/26/2018 [facility] Serum or plasma urea nitrogen/creatinine mass ratio Serum or plasma urea nitrogen/creatinine mass ratio 18 6 - 25 06/26/2018 [facility] Troponin I measurement by highly sensitive enzyme immunoassay Troponin I measurement by highly sensitive enzyme immunoassay null 0 - 0.300 06/26/2018 [facility] Aspartate Amino Transf (AST/SGOT) 16 5 - 34 06/26/2018 [facility] Blood platelets count by estimate (number/volume) SLIGHTLY DECREASED 06/26/2018 [facility] Platelet morphology NORMAL 06/26/2018 [facility] Blood hypochromia detection by light microscopy SLIGHT 06/26/2018 [facility] Blood anisocytosis detection by light microscopy SLIGHT 06/26/2018 [facility] RBC morphology NORMAL 06/26/2018 [facility] Automated blood basophil count (count/volume) Automated blood basophil count (count/volume) 0.0 0.0 - 0.1 06/26/2018 [facility] Automated blood basophil count as percentage of total leukocytes Automated blood basophil count as percentage of total leukocytes 0.5 0.0 - 1.0 06/26/2018 [facility] Automated blood eosinophil count Automated blood eosinophil count 0.2 0.0 - 0.4 06/26/2018 [facility] Automated blood eosinophil count as percentage of total leukocytes Automated blood eosinophil count as percentage of total leukocytes 2.7 0.0 - 6.0 06/26/2018 [facility] Automated blood hematocrit (volume fraction) Automated blood hematocrit (volume fraction) 41.1 34.2 - 44.1 06/26/2018 [facility] Automated blood lymphocyte count as percentage ot total leukocytes Automated blood lymphocyte count as percentage ot total leukocytes 24.3 18.0 - 39.1 06/26/2018 [facility] Automated blood monocyte count as percentage of total leukocytes Automated blood monocyte count as percentage of total leukocytes 16.4 4.4 - 11.3 06/26/2018 [facility] Automated blood neutrophil count Automated blood neutrophil count 3.3 2.1 - 6.9 06/26/2018 [facility] Automated blood platelet count (count/volume) Automated blood platelet count (count/volume) 120 140 - 360 06/26/2018 [facility] Automated blood segmented neutrophil count as percentage of total leukocytes Automated blood segmented neutrophil count as percentage of total leukocytes 55.9 38.7 - 80.0 06/26/2018 [facility] Automated erythrocyte mean corpuscular hemoglobin (mass per erythrocyte) Automated erythrocyte mean corpuscular hemoglobin (mass per erythrocyte) 29.3 28 - 32 06/26/2018 [facility] Automated erythrocyte mean corpuscular hemoglobin concentration measurement (mass/volume) Automated erythrocyte mean corpuscular hemoglobin concentration measurement (mass/volume) 31.6 31 - 35 06/26/2018 [facility] Automated erythrocyte mean corpuscular volume Automated erythrocyte mean corpuscular volume 92.8 81 - 99 06/26/2018 [facility] Blood anisocytosis detection by light microscopy Blood anisocytosis detection by light microscopy SLIGHT 06/26/2018 [facility] Blood erythrocytes automated count (number/volume) Blood erythrocytes automated count (number/volume) 4.43 3.6 - 5.1 06/26/2018 [facility] Blood hemoglobin measurement (moles/volume) Blood hemoglobin measurement (moles/volume) 13.0 12.0 - 16.0 06/26/2018 [facility] Blood hypochromia detection by light microscopy Blood hypochromia detection by light microscopy SLIGHT 06/26/2018 [facility] Blood leukocytes automated count (number/volume) Blood leukocytes automated count (number/volume) 5.92 4.8 - 10.8 06/26/2018 [facility] Blood lymphocytes count (number/volume) Blood lymphocytes count (number/volume) 1.4 1.0 - 3.2 06/26/2018 [facility] Blood monocytes automated count (number/volume) Blood monocytes automated count (number/volume) 1.0 0.2 - 0.8 06/26/2018 [facility] Blood platelets count by estimate (number/volume) Blood platelets count by estimate (number/volume) SLIGHTLY DECREASED 06/26/2018 [facility] Platelet morphology Platelet morphology NORMAL 06/26/2018 [facility] RBC morphology RBC morphology NORMAL 06/26/2018 [facility] Red Cell Distribution Width 14.6 11.7 - 14.4 06/26/2018 [facility] IM GRANULOCYTES % 0.2 0.0 - 1.0 06/26/2018 [facility] Absolute Immature Granulocyte (auto 0.01 0 - 0.1 06/26/2018 [facility] Serum or plasma magnesium measurement (mass/volume) 2.0 1.3 - 2.1 06/25/2018 [facility] BNP Bld-mCnc 47.6 0 - 100 06/25/2018 [facility] Serum or plasma lipase measurement (enzymatic activity/volume) 30 8 - 78 06/25/2018 [facility] Serum or plasma thyrotropin measurement by detection limit <=0.005 miu/l (units/volume) 0.665 0.350 - 4.940 06/25/2018 [facility] Activated partial thromboplastin time (aPTT) in platelet poor plasma bycoagulation assay Activated partial thromboplastin time (aPTT) in platelet poor plasma bycoagulation assay 21.6 23.8 - 35.5 06/25/2018 [facility] INR in Platelet poor plasma by Coagulation assay INR in Platelet poor plasma by Coagulation assay 1.03 06/25/2018 [facility] Prothrombin time (PT) in platelet poor plasma by coagulation assay Prothrombin time (PT) in platelet poor plasma by coagulation assay 12.7 11.9 - 14.5 06/25/2018 [facility] Serum or plasma lipase measurement (enzymatic activity/volume) Serum or plasma lipase measurement (enzymatic activity/volume) 30 8 - 78 06/25/2018 [facility] Serum or plasma magnesium measurement (mass/volume) Serum or plasma magnesium measurement (mass/volume) 2.0 1.3 - 2.1 06/25/2018 [facility] Serum or plasma thyrotropin measurement by detection limit <=0.005 miu/l (units/volume) Serum or plasma thyrotropin measurement by detection limit <=0.005 miu/l (units/volume) 0.665 0.350 - 4.940 06/25/2018 [facility] B-Type Natriuretic Peptide 47.6 0 - 100 06/25/2018 [facility] Urine color determination YELLOW YELLOW 06/25/2018 [facility] Urine clarity SL CLOUDY CLEAR 06/25/2018 [facility] Specific gravity of Urine by Test strip 1.005 1.010 - 1.025 06/25/2018 [facility] Urine pH measurement by automated test strip 7 5 - 7 06/25/2018 [facility] Urine leukocyte esterase detection by dipstick TRACE NEGATIVE 06/25/2018 [facility] Urine nitrite detection NEGATIVE NEGATIVE 06/25/2018 [facility] Urine protein measurement by test strip (mass/volume) NEGATIVE NEGATIVE 06/25/2018 [facility] Urine glucose detection NEGATIVE NEGATIVE 06/25/2018 [facility] Urine ketones detection by automated test strip NEGATIVE NEGATIVE 06/25/2018 [facility] Urine urobilinogen measurement by test strip (mass/volume) 0.2 0.2 - 1 06/25/2018 [facility] Urine total bilirubin measurement (mass/volume) NEGATIVE NEGATIVE 06/25/2018 [facility] Urine erythrocytes detection NEGATIVE NEGATIVE 06/25/2018 [facility] Automated urine sediment leukocyte count by microscopy (number/high power field) NONE 0 - 5 06/25/2018 [facility] Erythrocytes detection in urine sediment by light microscopy NONE 0 - 5 06/25/2018 [facility] Bacteria detection in urine sediment by light microscopy NONE NONE 06/25/2018 [facility] Epithelial cells detection in urine sediment by light microscopy FEW NONE 06/25/2018 [facility] Transitional cells detection in urine sediment by light microscopy RARE NONE 06/25/2018 [facility] Renal epithelial cells detection in urine sediment by light microscopy RARE NONE 06/25/2018 [facility] Automated urine sediment leukocyte count by microscopy (number/high power field) Automated urine sediment leukocyte count by microscopy (number/high power field) NONE 0 - 5 06/25/2018 [facility] Bacteria detection in urine sediment by light microscopy Bacteria detection in urine sediment by light microscopy NONE NONE 06/25/2018 [facility] Epithelial cells detection in urine sediment by light microscopy Epithelial cells detection in urine sediment by light microscopy FEW NONE 06/25/2018 [facility] Erythrocytes detection in urine sediment by light microscopy Erythrocytes detection in urine sediment by light microscopy NONE 0 - 5 06/25/2018 [facility] Renal epithelial cells detection in urine sediment by light microscopy Renal epithelial cells detection in urine sediment by light microscopy RARE NONE 06/25/2018 [facility] Specific gravity of Urine by Test strip Specific gravity of Urine by Test strip 1.005 1.010 - 1.025 06/25/2018 [facility] Transitional cells detection in urine sediment by light microscopy Transitional cells detection in urine sediment by light microscopy RARE NONE 06/25/2018 [facility] Urine clarity Urine clarity SL CLOUDY CLEAR 06/25/2018 [facility] Urine color determination Urine color determination YELLOW YELLOW 06/25/2018 [facility] Urine erythrocytes detection Urine erythrocytes detection NEGATIVE NEGATIVE 06/25/2018 [facility] Urine glucose detection Urine glucose detection NEGATIVE NEGATIVE 06/25/2018 [facility] Urine ketones detection by automated test strip Urine ketones detection by automated test strip NEGATIVE NEGATIVE 06/25/2018 [facility] Urine leukocyte esterase detection by dipstick Urine leukocyte esterase detection by dipstick TRACE NEGATIVE 06/25/2018 [facility] Urine nitrite detection Urine nitrite detection NEGATIVE NEGATIVE 06/25/2018 [facility] Urine pH measurement by automated test strip Urine pH measurement by automated test strip 7 5 - 7 06/25/2018 [facility] Urine protein measurement by test strip (mass/volume) Urine protein measurement by test strip (mass/volume) NEGATIVE NEGATIVE 06/25/2018 [facility] Urine total bilirubin measurement (mass/volume) Urine total bilirubin measurement (mass/volume) NEGATIVE NEGATIVE 06/25/2018 [facility] Urine urobilinogen measurement by test strip (mass/volume) Urine urobilinogen measurement by test strip (mass/volume) 0.2 0.2 - 1 06/25/2018 [facility] Barium Swallow w Esophagus Function DX Barium Swallow w Esophagus Function DX Patient Name: EDGARDO HUNTLEY : 1940; Age: 77 years y/o Female MR: [id number] Study: Barium Swallow w Esophagus Function DX [...] in contrast passage in the LPO position. [id number] 07/11/2017 - - Read by: Keith Ocampo [...] - This report was dictated by a Extra Hand/Fellow. I have personally reviewed the images as well as the Resident's interpretation and agree with the findings. Read by: Veronica Gomez MD Resident: Veronica Gomez MD Dictated Date/time: 04/19/17 14:13 Electronically Signed by: Dmaian Herr MD 04/19/17 20:03 FINAL REPORT [facility] Carotid artery Doppler bilat US Carotid artery [...] Efren Hwang MD 04/19/17 14:06 FINAL REPORT [facility] Vital Signs Vital Sign Value Date Comments Source Weight 171.3 10/02/2018 [facility] Height 62 10/02/2018 [facility] Temperature Oral (F) 97.7 F 10/02/2018 [facility] Heart Rate 79 10/02/2018 [facility] Diastolic (mm Hg) 81 10/02/2018 [facility] Systolic (mm Hg) 140 10/02/2018 [facility] Weight 177.4 05/13/2018 [facility]en Chand Height 62 [...] 05/28/2017 Deven Chand Height 157.48 cm 05/07/2017 [facility] BMI Calculated 30.79 05/07/2017 [facility] Weight 76.364 05/07/2017 [facility] Weight 162.4 01/23/2017 [facility]en Chand Height 62 [...] Chuy Chand MD 3 month follow up [id number] 02/22/2014 02/22/2014 Deven Chand MD 3 month follow up [id number] 02/22/2014 02/22/2014 Deven Chand MD 3 month follow up [id number] 02/22/2014 02/22/2014 Deven Chand MD 3 month follow up [id number] 02/22/2014 02/22/2014 Deven Chand MD 3 month follow up [id number] 02/22/2014 02/22/2014 Deven Chand MD 3 month follow up [id number] 02/22/2014 02/22/2014 Deven Chand MD 3 month follow up [id number] 02/22/2014 02/22/2014 Deven Chand MD 3 month follow up [id number] 02/22/2014 02/22/2014 Deven Chand MD 3 month follow up [id number] 02/22/2014 02/22/2014 Deven Chand MD 3 month follow up [id number] 02/22/2014 02/22/2014 Deven Chand MD 3 month follow up [id number] 02/22/2014 02/22/2014 Deven Chand MD 3 month follow up [id number] 02/22/2014 02/22/2014 Deven Chand MD START Simponi Aria [id number] 02/22/2014 02/22/2014 Deven Chand MD START Simponi Aria [id number] 02/22/2014 02/22/2014 Deven Chand MD START Simponi Aria [id number] 02/22/2014 02/22/2014 Deven Chand MD START Simponi Aria [id number] 02/22/2014 02/22/2014 Deven Chand MD START Simponi Aria [id number] 02/22/2014 02/22/2014 Deven Chand MD START Simponi Aria [id number] 02/22/2014 02/22/2014 Deven Chand MD START Simponi Aria [id number] 02/22/2014 02/22/2014 Deven Chand MD START Simponi Aria [id number] 02/22/2014 02/22/2014 Deevn Chand MD START Simponi Aria [id number] 02/22/2014 02/22/2014 Deven Chand MD START Simponi Aria [id number] 02/22/2014 02/22/2014 Deven Chand MD START Simponi Aria [id number] 02/22/2014 02/22/2014 Deven Chand MD START Anthony Wright [id number] 02/22/2014 02/22/2014 Deven Chand MD MTX SCRIPT [id number] 02/24/2014 02/24/2014 Deven Chand MD MTX SCRIPT [id number] 02/24/2014 02/24/2014 Deven Chand MD MTX SCRIPT [id number] 02/24/2014 02/24/2014 Deven Chand MD MTX SCRIPT [id number] 02/24/2014 02/24/2014 Deven Chand MD MTX SCRIPT [id number] 02/24/2014 02/24/2014 Deven Chand MD MTX SCRIPT [id number] 02/24/2014 02/24/2014 Deven Chand MD MTX SCRIPT [id number] 02/24/2014 02/24/2014 Deven Chand MD MTX SCRIPT [id number] 02/24/2014 02/24/2014 Deven Chand MD MTX SCRIPT [id number] 02/24/2014 02/24/2014 Deven Chand MD MTX SCRIPT [id number] 02/24/2014 02/24/2014 Deven Chand MD MTX SCRIPT [id number] 02/24/2014 02/24/2014 Deven Chand MD MTX SCRIPT [id number] 02/24/2014 02/24/2014 Deven Chand MD Vicodin refill [id number] 03/02/2014 03/02/2014 Deven Chand MD Vicodin refill [id number] 03/02/2014 03/02/2014 Deven Chand MD Vicodin refill [id number] 03/02/2014 03/02/2014 Deven Chand MD Vicodin refill [id number] 03/02/2014 03/02/2014 Deven Chand MD Vicodin refill [id number] 03/02/2014 03/02/2014 Deven Chand MD Vicodin refill [id number] 03/02/2014 03/02/2014 Deven Chand MD Vicodin refill [id number] 03/02/2014 03/02/2014 Deven Chand MD Vicodin refill [id number] 03/02/2014 03/02/2014 Deven Chand MD Vicodin refill [id number] 03/02/2014 03/02/2014 Deven Chand MD Vicodin refill [id number] 03/02/2014 03/02/2014 Deven Chand MD Vicodin refill [id number] 03/02/2014 03/02/2014 Deven Chand MD Vicodin refill [id number] 03/02/2014 03/02/2014 Deven Chand MD medication dx code [id number] 03/02/2014 03/02/2014 Deven Chand MD medication dx code [id number] 03/02/2014 03/02/2014 Deven Chand MD medication dx code [id number] 03/02/2014 03/02/2014 Deven Chand MD medication dx code [id number] 03/02/2014 03/02/2014 Deven Chand MD medication dx code [id number] 03/02/2014 03/02/2014 Deven Chand MD medication dx code [id number] 03/02/2014 03/02/2014 Deven Chand MD medication dx code [id number] 03/02/2014 03/02/2014 Deven Chand MD medication dx code [id number] 03/02/2014 03/02/2014 Deven Chand MD medication dx code [id number] 03/02/2014 03/02/2014 Deven Chand MD medication dx code [id number] 03/02/2014 03/02/2014 Deven Chand MD medication dx code [id number] 03/02/2014 03/02/2014 Deven Chand MD medication dx code [id number] 03/02/2014 03/02/2014 Deven Chand MD Done with antibiotics [id number] 03/03/2014 03/03/2014 Deven Chand MD Done with antibiotics [id number] 03/03/2014 03/03/2014 Deven Chand MD Done with antibiotics [id number] 03/03/2014 03/03/2014 Deven Chand MD Done with antibiotics [id number] 03/03/2014 03/03/2014 Deven Chand MD Done with antibiotics [id number] 03/03/2014 03/03/2014 Deven Chand MD Done with antibiotics [id number] 03/03/2014 03/03/2014 Deven Chand MD Done with antibiotics [id number] 03/03/2014 03/03/2014 Deven Chand MD Done with antibiotics [id number] 03/03/2014 03/03/2014 Deven Chand MD Done with antibiotics [id number] 03/03/2014 03/03/2014 Deven Chand MD Done with antibiotics [id number] 03/03/2014 03/03/2014 Deven Chand MD Done with antibiotics [id number] 03/03/2014 03/03/2014 Deven Chand MD Done with antibiotics [id number] 03/03/2014 03/03/2014 Deven Chand MD MRI Bi-WRist [id number] 03/04/2014 03/04/2014 Deven Chand MD MRI Bi-WRist [id number] 03/04/2014 03/04/2014 Deven Chand MD MRI Bi-WRist [id number] 03/04/2014 03/04/2014 Deven Chand MD MRI Bi-WRist [id number] 03/04/2014 03/04/2014 Deven Chand MD MRI Bi-WRist [id number] 03/04/2014 03/04/2014 Deven Chand MD MRI Bi-WRist [id number] 03/04/2014 03/04/2014 Deven Chand MD MRI Bi-WR[facility] [id number] 03/04/2014 03/04/2014 Deven Chand MD MRI Bi-WR[facility] [id number] 03/04/2014 03/04/2014 Deven Chand MD MRI Bi-WR[facility] [id number] 03/04/2014 03/04/2014 Deven Chand MD MRI Bi-WR[facility] [id number] 03/04/2014 03/04/2014 Deven Chand MD MRI Bi-WR[facility] [id number] 03/04/2014 03/04/2014 Deven Chand MD MRI Bi-WRist [id number] 03/04/2014 03/04/2014 Deven Chand MD Refill- prosper [id number] 03/04/2014 03/04/2014 Deven Chand MD Refill- prosper [id number] 03/04/2014 03/04/2014 Deven Chand MD Refill- xeljanz [id number] 03/04/2014 03/04/2014 Deven Chand MD Refill- xeljanz [id number] 03/04/2014 03/04/2014 Deven Chand MD Refill- xeljanz [id number] 03/04/2014 03/04/2014 Deven Chand MD Refill- xeljanz [id number] 03/04/2014 03/04/2014 Deven Chand MD Refill- xeljanz [id number] 03/04/2014 03/04/2014 Deven Chand MD Refill- xeljanz [id number] 03/04/2014 03/04/2014 Deven Chand MD Refill- xeljanz [id number] 03/04/2014 03/04/2014 Deven Chand MD Refill- xeljanz [id number] 03/04/2014 03/04/2014 Deven Chand MD Refill- xeljanz [id number] 03/04/2014 03/04/2014 Deven Chand MD Refill- xeljanz [id number] 03/04/2014 03/04/2014 MD ANTHONY Krause [id number] 03/17/2014 03/17/2014 MD ANTHONY Krause [id number] 03/17/2014 03/17/2014 MD ANTHONY Krause [id number] 03/17/2014 03/17/2014 MD ANTHONY Krause [id number] 03/17/2014 03/17/2014 MD ANTHONY Krause [id number]-7522-3g3kc261w9qq 03/17/2014 03/17/2014 MD ANTHONY Krause eu595g8c-[id number]-o1l3-51f57d32638e 03/17/2014 03/17/2014 MD ANTHONY Krause ce6xx4h5-x5l2-6k6m-0n58-0c86u2q619xs 03/17/2014 03/17/2014 MD ANTHONY Krause [id number]-r14d-8745-v45d-m98000g49pw0 03/17/2014 03/17/2014 MD ANTHONY Krause [id number]-y818-2y5f3962n493 03/17/2014 03/17/2014 MD ANTHONY Krause [id number]-3088-6020-270o91702a89 03/17/2014 03/17/2014 MD ANTHONY Krause [id number]-0450-4551-n681-g88w1t24ef19 03/17/2014 03/17/2014 MD ANTHONY Krause 31409wr4-999k-5371-dk5i-699712dn460i 03/17/2014 03/17/2014 Deven Chand MD high BP 3r17ca5u-g628-60jg-j883-8m7j70c5n21e 03/19/2014 03/19/2014 Deven Chand MD high BP 2g0z0913-175r-36rg-8x36-438uux792577 03/19/2014 03/19/2014 Deven Chand MD high BP 209l841e-760z-09g5-7izx-524f1283990m 03/19/2014 03/19/2014 Deven Chand MD high BP [id number]-ha06-6yh0-5981-kl27g3336d30 03/19/2014 03/19/2014 Deven Chand MD high BP 572609m3-0h1k-07la-2485-6jrk74824kpj 03/19/2014 03/19/2014 Deven Chand MD high BP r2807tkc-5967-3sd7-j855-ah04v6krw7ol 03/19/2014 03/19/2014 Deven Chand MD high BP 53n98598-j031-1o8d-z413-4c2h99685239 03/19/2014 03/19/2014 Deven Chand MD high BP w2d0i77u-9804-12m2-u219-1z260jzebr62 03/19/2014 03/19/2014 Deven Chand MD high BP 99rz57j8-7it6-8iy6-w67y-7mv45q13027l 03/19/2014 03/19/2014 Deven Chand MD high BP 70339va7-0a4g-7326-cx35-469eg7v4flvo 03/19/2014 03/19/2014 Deven Chand MD high BP ln9ptsk4-rn36-6239-19i4-7rt66gcl680f 03/19/2014 03/19/2014 Deven Chand MD high BP el8qyx38-249l-8q40-1w69-2g90l34522zn 03/19/2014 03/19/2014 Deven Chand MD 3 month follow up 9c81w16c-10yz-3641-7010-8t0m08vn3jwr 04/27/2014 04/27/2014 Deven Chand MD 3 month follow up [id number]-956j-4vi743424076 04/27/2014 04/27/2014 Deven Chand MD 3 month follow up 692y8r7x-632g-7462-341l-1zh2l5430o64 04/27/2014 04/27/2014 Deven Chand MD 3 month follow up [id number]-n7z7-41n6256n9111 04/27/2014 04/27/2014 Deven Chand MD 3 month follow up t9w9w75l-52nd-3903-a516-hi03zi3314e0 04/27/2014 04/27/2014 Deven Chand MD 3 month follow up 2ndr8fm9-cc7p-4537-5332-28l139629sxw 04/27/2014 04/27/2014 Deven Chand MD 3 month follow up v4225hs3-72u2-3929-9113-957jf6p048l9 04/27/2014 04/27/2014 Deven Chand MD 3 month follow up 037c5az8-7569-4p31-7pme-9r5798xt980p 04/27/2014 04/27/2014 Deven Chand MD 3 month follow up 6g75w975-4251-4um4-8o0l-x7o73k3274f7 04/27/2014 04/27/2014 Deven Chand MD 3 month follow up 61a6pq85-j920-7d0x-5v8y-6c2zu2tw47ar 04/27/2014 04/27/2014 Deven Chand MD 3 month follow up e4jvc41x-wp95-2029-2u1o-6355785447n4 04/27/2014 04/27/2014 Deven Chand MD 3 month follow up [id number]-86z2-01fz-7cy77h7k2z13 04/27/2014 04/27/2014 Deven Chand MD PATIENT QUESTION [id number]-h0cz1181bw4q 07/08/2014 07/08/2014 Deven Chand MD PATIENT QUESTION f5btpl3s-oh97-727z-s23k-p6x7vf003i1i 07/08/2014 07/08/2014 Deven Chand MD PATIENT QUESTION [id number]-284sti3l0a73 07/08/2014 07/08/2014 Deven Chand MD PATIENT QUESTION [id number]-zn87-79129j0apx31 07/08/2014 07/08/2014 Deven Chand MD PATIENT QUESTION [id number]-328r-6it9k2l42818 07/08/2014 07/08/2014 Deven Chand MD PATIENT QUESTION [id number]-[id number] 07/08/2014 07/08/2014 Deven Chand MD PATIENT QUESTION f091m5a5-03ke-51q1-yc60-dy90ot75731n 07/08/2014 07/08/2014 Deven Chand MD PATIENT QUESTION [id number]-07q6s2x628f5 07/08/2014 07/08/2014 Deven Chand MD PATIENT QUESTION [id number]-[id number] 07/08/2014 07/08/2014 Deven Chand MD PATIENT QUESTION [id number]-j1095cu02q0i 07/08/2014 07/08/2014 Deven Chand MD PATIENT QUESTION esbkh2y2-628a-97r9-45lq-dzcy653t114d 07/08/2014 07/08/2014 Deven Chand MD PATIENT QUESTION [id number] 07/08/2014 07/08/2014 Deven Chand MD Unknown [id number]-c6x7-9379-bii1-46350y29217s 07/13/2014 07/13/2014 Deven Chand MD Unknown [id number] 07/13/2014 07/13/2014 Deven hCand MD Unknown [id number]-t560-365btwc67i58 07/13/2014 07/13/2014 Deven Chand MD Unknown [id number]-[id number]-mfxj-0y5q746b6m61 07/13/2014 07/13/2014 Deven Chand MD Unknown [id number]-bsv7ydqx7619 07/13/2014 07/13/2014 Deven Chand MD Unknown [id number] 07/13/2014 07/13/2014 Deven Chand MD Unknown [id number]-t32y-[id number] 07/13/2014 07/13/2014 Deven Chand MD Unknown [id number]-j83014l06eed 07/13/2014 07/13/2014 Deven Chand MD Unknown [id number]-5mnj-1p76-a7s7-1309r086a638 07/13/2014 07/13/2014 Deven Chand MD Unknown [id number]-pu5b-374x-9618-3z15oc728t9c 07/13/2014 07/13/2014 Deven Chand MD Unknown [id number]-[id number] 07/13/2014 07/13/2014 Deven Chand MD Unknown [id number]-096q-[id number]-v28g6t80809b 07/13/2014 07/13/2014 Deven Chand MD Prednisone Start ub1p3106-h527-5mey-193y-0l98evs7119h 08/02/2014 08/02/2014 Deven Chand MD Prednisone Start o6ip3w47-is7o-0830-dd8b-46b4i225930h 08/02/2014 08/02/2014 Deven Chand MD Prednisone Start 5m1e0ic0-c21n-0230-trez-tvyza4yw1rj5 08/02/2014 08/02/2014 Deven Chand MD Prednisone Start 5hr3e5y3-j54j-4684-15r1-0378dt6v5129 08/02/2014 08/02/2014 Deven Chand MD Prednisone Start 1wawj436-76d5-3538-rjc4-e2w4962ev350 08/02/2014 08/02/2014 Deven Chand MD Prednisone Start 9h75wf1a-857v-13mm-kga1-6ma42ow90e94 08/02/2014 08/02/2014 Deven Chand MD Prednisone Start 2133bcmm-673y-80nk-9777-v920nq3y6291 08/02/2014 08/02/2014 Deven Chand MD Prednisone Start z3s787j2-2662-8239-504k-5py2l9cf9c2j 08/02/2014 08/02/2014 Deven Chand MD Prednisone Start 8rj254p9-869y-7e28-kg44-510g75nns456 08/02/2014 08/02/2014 Deven Chand MD Prednisone Start 24y49861-ry1l-5938-ceu4-y2mi94ly3546 08/02/2014 08/02/2014 Deven Chand MD Prednisone Start d59co50c-bs85-8n5w-o9q2-7h15lwe25g81 08/02/2014 08/02/2014 Deven Chand MD Prednisone Start 7c2590u0-2295-3568-0hx3-vd9262137710 08/02/2014 08/02/2014 Deven Chand MD Predisone Update/ [facility] mi5v9w35-1x83-2730-ox98-ml8iq6g33588 08/09/2014 08/09/2014 Deven Chand MD Predisone Update/ [facility] [id number]-r123-8514-e2x2-l251004q0681 08/09/2014 08/09/2014 Deven Chand MD Predisone Update/ [facility] [id number] 08/09/2014 08/09/2014 Deven Chand MD Predisone Update/ [facility] [id number]-[id number] 08/09/2014 08/09/2014 Deven Chand MD Predisone Update/ [facility] 808f1j3d-4j15-20t5-i24z-i6d07t9d27e6 08/09/2014 08/09/2014 Deven Chand MD Predisone Update/ [facility] [id number] 08/09/2014 08/09/2014 Deven Chand MD Predisone Update/ [facility] [id number]-p2j89s466610 08/09/2014 08/09/2014 Deven Chand MD Predisone Update/ [facility] [id number]-lv08-ii2i902525x5 08/09/2014 08/09/2014 Deven Chand MD Predisone Update/ [facility] [id number]-4yq6-u012351s6515 08/09/2014 08/09/2014 Deven Chand MD Predisone Update/ [facility] [id number]-[id number]-gq39-km00308uyw19 08/09/2014 08/09/2014 Deven Chand MD Predisone Update/ [facility] [id number]-5o1mb7499ni7 08/09/2014 08/09/2014 Deven Chand MD Predisone Update/ [facility] 3t3096w8-et6o-9p96-4ioh-8q8xyy6v0sqp 08/09/2014 08/09/2014 Deven Chand MD F/U [id number]-1o46-o9j9xu9365k3 09/13/2014 09/13/2014 Deven Chand MD F/U e4175g0o-6ld8-990k-l1vp-371kmq3k35ze 09/13/2014 09/13/2014 Deven Chand MD F/U 20v7h047-fo0v-744v-b330-60kc890157z1 09/13/2014 09/13/2014 Deven Chand MD F/U 4c7vg8e0-q519-449v-r5fd-7lm3u4133qk4 09/13/2014 09/13/2014 Deven Chand MD F/U 2ot49me4-d58x-9699-350f-0q2t78z1mh37 09/13/2014 09/13/2014 Deven Chand MD F/U jy9z681d-843p-3r63-4411-q9x4787h9w3a 09/13/2014 09/13/2014 Deven Chand MD F/U 9ie66846-t4n1-21b1-f04e-m684d4a63350 09/13/2014 09/13/2014 Deven Chand MD F/U [id number]-a3x6-n2d1za34934q 09/13/2014 09/13/2014 Deven Chand MD F/U 8943j86x-79vh-8466-pp27-74k36jllinc4 09/13/2014 09/13/2014 Deven Chand MD F/U 72bf5mh8-kf0b-8c5a-1z41-v2136u2z7580 09/13/2014 09/13/2014 Deven Chand MD F/U ij430uv3-769v-9889-6uj5-526xt5fy1b29 09/13/2014 09/13/2014 Deven Chand MD F/U 82z028qi-y0em-457j-3759-u62p3r7oe321 09/13/2014 09/13/2014 Deven Chand MD dexa 2r6g0z0z-69jm-6714-md1n-286y6u0x33fu 11/02/2014 11/02/2014 Deven Chand MD dexa 57ku7z10-168t-496g-10z9-8j433w23d4z8 11/02/2014 11/02/2014 Deven Chand MD dexa 81o3qvx2-xain-9943-pv36-5h1o4s47a9v2 11/02/2014 11/02/2014 Deven Chand MD dexa 83vp7833-6j0z-55n6-01q8-32t26zj8hzd1 11/02/2014 11/02/2014 Deven Chand MD dexa 963hdtvu-46zz-3n3b2w7e-e857-167rk5t6zg8h 11/02/2014 11/02/2014 Deven Chand MD dexa [id number]-19y3-6l94-b00e-v0ryk70g076s 11/02/2014 11/02/2014 Deven Chand MD dexa 4736z601-7q49-87x5-y856-958qibs8d92b 11/02/2014 11/02/2014 Deven Chand MD dexa 8x3lc72t-3872-2327-cb7q-e0mn0napo12h 11/02/2014 11/02/2014 Deven Chand MD dexa 93te5oi8-l921-1845-9i36-12brd9z57898 11/02/2014 11/02/2014 Deven Chand MD dexa 990c5vku-7k6n-08k6-w4fy-99r5j4u4944p 11/02/2014 11/02/2014 Deven Chand MD dexa lb4xy4t0-262l-1414-n424-22843l1o24y7 11/02/2014 11/02/2014 MD jeffrey Krause eq881g0o-cer7-450h-273c-9nb92m164536 11/02/2014 11/02/2014 Deven Chand MD F/U y9t3o968-329q-535q-0b7a-1roh5917oh19 11/08/2014 11/08/2014 Deven Chand MD F/U 4961115e-k081-8fl5-63le-6cnid8pol9kh 11/08/2014 11/08/2014 Deven Chand MD F/U 81s0sq0v-8191-6l26-37f8-wg778oik872f 11/08/2014 11/08/2014 Deven Chand MD F/U 3hn6ohi9-9878-4127-1hpz-8ab459589q05 11/08/2014 11/08/2014 Deven Chand MD F/U l0c8567h-l4fg-08xm-8qa6-18gw95095k74 11/08/2014 11/08/2014 Deven Chand MD F/U 58ko388h-acs4-4360-lf4r-c8a889383405 11/08/2014 11/08/2014 Deven Chand MD Unknown 5x563h5y-t73x-16us-o5g7-6935fv8508zs 11/08/2014 11/08/2014 Deven Chand MD Unknown xw6m5w85-3822-9o27-xmk8-n9i0460320k5 11/08/2014 11/08/2014 Deven Chand MD Unknown [id number]-0934g75f6t2x 11/08/2014 11/08/2014 Deven Chand MD Unknown [id number]-8e4u-[id number] 11/08/2014 11/08/2014 Deven Chand MD Unknown b3nx1ir1-4984-00w1-2582-6450n58nvs46 11/08/2014 11/08/2014 Deven Chand MD Unknown [id number]-n6d0-8c46-p5st-8h4r17o81060 11/08/2014 11/08/2014 Deven Chand MD F/U 2a996p5x-8y37-1n65-4pl6-7sg337gyj90d 11/08/2014 11/08/2014 Deven Chand MD F/U 22kw286j-3v17-5206-l56p-5ip5c827alv8 11/08/2014 11/08/2014 Deven Chand MD F/U 66u50849-06tt-7557-64h5-53p60me5n00u 11/08/2014 11/08/2014 Deven Chand MD F/U 2360z56n-2157-3264-7n1s-02oi3u875177 11/08/2014 11/08/2014 Deven Chand MD F/U n6s52516-6x2h-58m6-4us9-79r293p09ff1 11/08/2014 11/08/2014 Deven Chand MD F/U r94391e3-v1v0-9e50-4n16-2md3ta61b2j2 11/08/2014 11/08/2014 Deven Chand MD Unknown 78n6wll3-do8l-6gh0-fra9-77g4vqi0455u 11/08/2014 11/08/2014 Deven Chand MD Unknown g2rc6e80-29o4-51n8-70d4-05f5sdw29yi3 11/08/2014 11/08/2014 Deven Chand MD Unknown 2d47ooye-8d42-84a3-4u7i-5ix8iqejb05h 11/08/2014 11/08/2014 Deven Chand MD Unknown 7w5t95sa-5s56-2c93-3zai-4x73cpzw618i 11/08/2014 11/08/2014 Deven Chand MD Unknown 5lbnh85b-05tl-1jn5-4b9b-21k6512qdbk8 11/08/2014 11/08/2014 Deven Chand MD Unknown mso6fd3x-0ghp-22bw-002r-00370552m097 11/08/2014 11/08/[address] cw816b92-o2e5-9epu-629z-6lo02uu731p6 11/23/2014 11/23/[address] 06h2pp52-3656-6213-738f-6k235ioy8z90 11/23/2014 11/23/[address] h88m4rx6-3c64-96w2-w90y-o0tn796z189r 11/23/2014 11/23/[address] 05x008ua-40gq-578v-504h-8dxx5630l283 11/23/2014 11/23/[address] 402u241s-06pp-942s-h875-5uns61w301l3 11/23/2014 11/23/[address] 7591gb86-4c95-7940-935b-ji6m21z8p765 11/23/2014 11/23/[address] 445v76a7-uq9m-65ft-t928-pul550ou3z3c 11/23/2014 11/23/[address] x479g004-6u8g-9a13-ptf8-ru453e499d0e 11/23/2014 11/23/[address] 2154j794-1p93-0tr2-q3fy-31250wa48992 11/23/2014 11/23/[address] 3sn7y543-9w87-40n6-l7q4-5a22aivbh79y 11/23/2014 11/23/[address] [id number]-914a-4o66968548c8 11/23/2014 11/23/[address] 4f2s596w-o3dv-9359-6i5w-25n5c1d7ockq 11/23/2014 11/23/2014 Deven Chand MD U/S abdomen j4r75039-35nw-7773-eg37-9731440v3090 12/16/2014 12/16/2014 Deven Chand MD U/S abdomen fr3zlt64-j0c6-5026-0y5q-0232075e3x50 12/16/2014 12/16/2014 Deven Chand MD U/S abdomen 0545g1mc-x750-2365-19w7-97xa08a115mz 12/16/2014 12/16/2014 Deven Chand MD U/S abdomen t1a649wi-c473-44q0-e670-64xf4725k046 12/16/2014 12/16/2014 Deven Chand MD U/S abdomen 3t54m3p3-598p-665c-r345-712zr429721o 12/16/2014 12/16/2014 Deven Chand MD U/S abdomen 24cra731-9d23-34c5-j8su-309252271ygu 12/16/2014 12/16/2014 Deven Chand MD U/S abdomen 89jr1ra3-t16m-1136-0957-9ua20418ixwf 12/16/2014 12/16/2014 Deven Chand MD U/S abdomen m7261676-1884-8ymy-1dk2-mh046rx5n88k 12/16/2014 12/16/2014 Deven Chand MD U/S abdomen 2r259220-s042-2494-c093-1tm66a5z8105 12/16/2014 12/16/2014 Deven Chand MD U/S abdomen 08h773o7-8569-026b-82x5-z742amh483ut 12/16/2014 12/16/2014 Deven Chand MD U/S abdomen 78cye76x-20ok-9l2y-1em1-jy60k003td21 12/16/2014 12/16/2014 Deven Chand MD U/S abdomen 098jreon-e220-9a14o493-8l76-t073-y9j8239672f9 12/16/2014 12/16/2014 Deven Chand MD PT Update 839142jw-9ki9-0mci-ns80-7w724349941e 12/27/2014 12/27/2014 Deven Chand MD PT Update jz2u67jj-391a-8804-6m7r-0484kr7486u3 12/27/2014 12/27/2014 Deven Chand MD PT Update 00562d1z-tycm-1g8f-544k-5qp45134bep2 12/27/2014 12/27/2014 Deven Chand MD PT Update udy9mpxp-3j85-31k3-o55x-924nxt11523k 12/27/2014 12/27/2014 Deven Chand MD PT Update 4415hm4k-311w-5q73-1474-7p428g1f959i 12/27/2014 12/27/2014 Deven Chand MD PT Update 7id4w166-6666-82f6-5r4v-4360g1c30p97 12/27/2014 12/27/2014 Deven Chand MD PT Update n8767093-994v-612w-yob3-80rn4ek4g812 12/27/2014 12/27/2014 Deven Chand MD PT Update pcpf53hz-7wba-6alt-f83s-4iu14r656bb8 12/27/2014 12/27/2014 Deven Chand MD PT Update 8g9c3508-40ta-98i8-90u9-9sg2xr21nm8b 12/27/2014 12/27/2014 Deven Chand MD PT Update 1x77f27i-5930-4r38-2xm1-cj6f73mz0397 12/27/2014 12/27/2014 Deven Chand MD PT Update 010l8s2z-4ilm-6e89-sz12-535239jv7ztd 12/27/2014 12/27/2014 Deven Chand MD PT Update q9k2hcmy-77b2-0788-e7v8-r0c02p064a6w 12/27/2014 12/27/2014 Deven Chand MD Unknown k2j35w93-5ab0-0451-66n3-386m052304s6 01/03/2015 01/03/2015 Deven Chand MD Unknown [id number]-814p-035e-3i21x96hj5h6 01/03/2015 01/03/2015 Deven Chand MD Unknown [id number] 01/03/2015 01/03/2015 Deven Chand MD Unknown [id number]-tx2i-v638yl61pn44 01/03/2015 01/03/2015 Deven Chand MD Unknown [id number]-8d24-f9093275xv88 01/03/2015 01/03/2015 Deven Chand MD Unknown [id number]-qz5fx8854q29 01/03/2015 01/03/2015 Deven Chand MD Unknown iy9q6p67-964z-379a-pg8c-au4pr79f8i48 01/03/2015 01/03/2015 Deven Chand MD Unknown pu05g971-be78-2m3g-2v91-9981587d6cs4 01/03/2015 01/03/2015 Deven Chand MD Unknown ljyxj7y7-0j4r-03n5-pb2z-a478o5jb9a14 01/03/2015 01/03/2015 Deven Chand MD Unknown 216mib87-8w19-64wt-051n-2i1shwaxwtvn 01/03/2015 01/03/2015 Deven Chand MD Unknown [id number]-jm9x-7k4z-x91k-lq825t142v8m 01/03/2015 01/03/2015 Deven Chand MD Unknown 4s725kz6-0c83-195s-2c0v-6247376gdhx3 01/03/2015 01/03/2015 Deven Chand MD Abdominal US/[facility] 472190k1-a668-2289-fo09-ib97937op2jh 01/11/2015 01/11/2015 Deven Chand MD Abdominal US/[facility] 7780ou45-r2s5-5r47-6862-g42104633x28 01/11/2015 01/11/2015 Deven Chand MD Abdominal US/[facility] 8nx33913-4186-9v7m-76k1-zcvf6d95953x 01/11/2015 01/11/2015 Deven Chand MD Abdominal US/[facility] 3mm1j6lx-y1d9-373p-k662-g8wl4t5xv3s6 01/11/2015 01/11/2015 Deven Chand MD Abdominal US/[facility] 55da8lr3-t9w2-3b05-j2g3-z69ui50u8955 01/11/2015 01/11/2015 Deven Chand MD Abdominal US/[facility] 8803h3o3-gp56-0704-0029-8t2899l34c68 01/11/2015 01/11/2015 Deven Chand MD Abdominal US/[facility] [id number]-s96n69ug46nd 01/11/2015 01/11/2015 Deven Chand MD Abdominal US/[facility] 6583254h-97z2-297s-7j7t-96xneu14catl 01/11/2015 01/11/2015 Deven Chand MD Abdominal US/[facility] 9qm75g9q-8739-9a36-kdh9-752yir97ea6u 01/11/2015 01/11/2015 Deven Chand MD Abdominal US/[facility] e11j5951-55ny-0353-m506-073s52w71w6n 01/11/2015 01/11/2015 Deven Chand MD Abdominal US/[facility] 952g2e66-28m6-96d6-0i9a-25632b4m38a5 01/11/2015 01/11/2015 Deven Chand MD Abdominal US/[facility] qu71ar4y-99vi-8a2b-74eu-7p0ha1x24z16 01/11/2015 01/11/2015 Deven Chand MD [facility] 80791803-8fp5-407g-ic1m-6uw685871s4o 01/17/2015 01/17/2015 Deven Chand MD [facility] 764khv9r-4935-3ov7-2ga5-045336p45842 01/17/2015 01/17/2015 Deven Chand MD [facility] wd500z2s-4k81-0218-09p5-2038tx8m0960 01/17/2015 01/17/2015 Deven Chand MD [facility] [id number]-[id number] 01/17/2015 01/17/2015 Deven Chand MD [facility] [id number]-5r9887gm00d4 01/17/2015 01/17/2015 Deven Chand MD [facility] 39xtb43t-4424-4b5o-d1l4-25uuw12t3916 01/17/2015 01/17/2015 Deven Chand MD [facility] 312h56rt-442k-9366-o2y7-5z6eho8nh16a 01/17/2015 01/17/2015 Deven Chand MD [facility] [id number]-k186-1iir-u93x-w0z41684k6qz 01/17/2015 01/17/2015 Deven Chand MD [facility] [id number]-[id number] 01/17/2015 01/17/2015 Deven Chand MD [facility] [id number]-[id number] 01/17/2015 01/17/2015 Deven Chand MD [facility] 2j19x51c-emf2-32q0-4gm7-9s9011qhf2p7 01/17/2015 01/17/2015 Deven Chand MD [facility] 3w8ln495-4h12-6f5x-dx96-p8qkxvs8v28r 01/17/2015 01/17/2015 Deven Chand MD Pt on antibiotics 634s28p7-m6xz-[id number] 01/28/2015 01/28/2015 Deven Chand MD Pt on antibiotics [id number]-[id number] 01/28/2015 01/28/2015 Deven Chand MD Pt on antibiotics [id number]-yq4f50jf85o3 01/28/2015 01/28/2015 Deven Chand MD Pt on antibiotics 4rw3dy68-373s-5y52-7fcy-lcho0nn7t1k9 01/28/2015 01/28/2015 Deven Chand MD Pt on antibiotics [id number]-pww4-822qch23ylz2 01/28/2015 01/28/2015 Deven Chand MD Pt on antibiotics [id number]-1482-30u0-1571-32f0ks688qwj 01/28/2015 01/28/2015 Deven Chand MD Pt on antibiotics 0610flb3-66tt-27f4-8888-9j4anqy57z65 01/28/2015 01/28/2015 Deven Chand MD Pt on antibiotics [id number]-8862-15a83twm045p 01/28/2015 01/28/2015 Deven Chand MD Pt on antibiotics 379t6e8x-75s2-9o00-k2n5-7104t2eg2zy1 01/28/2015 01/28/2015 Deven Chand MD Pt on antibiotics [id number]-r3f5n636s411 01/28/2015 01/28/2015 Deven Chand MD Pt on antibiotics [id number]-rqe6-54x4-c72j-e32z655i96y3 01/28/2015 01/28/2015 Deven Chand MD Pt on antibiotics [id number]-7y67-e0k4-x815m71g3392 01/28/2015 01/28/2015 Deven Chand MD 1 mo f/u 917wpxe2-1146-8t3f-2296-n1rc7wt378u0 02/02/2015 02/02/2015 Deven Chand MD 1 mo f/u [id number]-hx3r-v1r3l70u55g2 02/02/2015 02/02/2015 Deven Chand MD 1 mo f/u 71938uy9-1924-3627-q508-050a4w5190gi 02/02/2015 02/02/2015 Deven Chand MD 1 mo f/u [id number]-h58z-5y85-572p-52999wu9t5mr 02/02/2015 02/02/2015 Deven Chand MD 1 mo f/u 424du3e6-h9g5-69hf-o8gi-a68t6699r339 02/02/2015 02/02/2015 Deven Chand MD 1 mo f/u 21i88vfl-607h-8w4n-dv18-22umx570n59h 02/02/2015 02/02/2015 Deven Chand MD 1 mo f/u u0j40l2e-v530-46vo-4993-v1l1l3zyn6w5 02/02/2015 02/02/2015 Deven Chand MD 1 mo f/u 00v7p77m-774d-248h-ko13-947kdo3z38w1 02/02/2015 02/02/2015 Deven Chand MD 1 mo f/u 13828f78-9p32-3442-to1o-5128vz892830 02/02/2015 02/02/2015 Deven Chand MD 1 mo f/u [id number]-k7e3-461935b25409 02/02/2015 02/02/2015 Deven Chand MD 1 mo f/u 8d017w65-ippx-10xm-50r1-2lx81rw2372j 02/02/2015 02/02/2015 Deven Chand MD 1 mo f/u fi3uc4ra-9458-070m-l7q5-298911l87983 02/02/2015 02/02/2015 Deven Chand MD MRI [id number]-[id number] 02/08/2015 02/08/2015 Deven Chand MD MRI [id number] 02/08/2015 02/08/2015 Deven Chand MD MRI [id number]-zsp63v8hfdu2 02/08/2015 02/08/2015 Deven Chand MD MRI 331tg50e-956s-982o-16l3-5z5wjkow60ok 02/08/2015 02/08/2015 Deven Chand MD MRI [id number] 02/08/2015 02/08/2015 Deven Chand MD MRI 3p487jwz-3008-4u11-9g0a-klw668mqu1u8 02/08/2015 02/08/2015 Deven Chand MD MRI [id number] 02/08/2015 02/08/2015 Deven Chand MD MRI [id number]-[id number] 02/08/2015 02/08/2015 Deven Chand MD MRI [id number]-y46v-1mb7-7568-i13624a525hx 02/08/2015 02/08/2015 Deven Chand MD MRI [id number] 02/08/2015 02/08/2015 Deven Chand MD MRI [id number] 02/08/2015 02/08/2015 Deven Chand MD MRI [id number]-[id number]-omk85o2880w7 02/08/2015 02/08/2015 Deven Chand MD MRI [id number]-c75i-3y728e876870 02/08/2015 02/08/2015 Deven Chand MD MRI [id number]-[id number] 02/08/2015 02/08/2015 Deven Chand MD MRI [id number]-b04v-x0p7c4847vhm 02/08/2015 02/08/2015 Deven Chand MD MRI [id number]-b0r4-0n2j-w062-[id number] 02/08/2015 02/08/2015 Deven Chand MD MRI kzgti9v6-6572-907c-2532-g253kl5z2080 02/08/2015 02/08/2015 Deven Chand MD MRI [id number]-r5j1-11p5-l30g-271629f036pg 02/08/2015 02/08/2015 Deven Chand MD MRI 08sv213c-z5sy-1j68-ki87-512z8liwbk61 02/08/2015 02/08/2015 Deven Chand MD MRI [id number]-qd3l-m1hux895969m 02/08/2015 02/08/2015 Deven Chand MD MRI [id number]-[id number]-yx53d87ce871 02/08/2015 02/08/2015 Deven Chand MD MRI [id number]-7bsm-[id number] 02/08/2015 02/08/2015 Deven Chand MD MRI i959mhzf-0f6p-28v7-vr7h-40wdip8b3217 02/08/2015 02/08/2015 Deven Chand MD MRI [id number] 02/08/2015 02/08/2015 Deven Chand MD Research [id number] 02/21/2015 02/21/2015 Deven Chand MD Research [id number] 02/21/2015 02/21/2015 Deven Chand MD Research [id number] 02/21/2015 02/21/2015 Deven Chand MD Research [id number] 02/21/2015 02/21/2015 Deven Chand MD Research [id number] 02/21/2015 02/21/2015 Deven Chand MD Research [id number] 02/21/2015 02/21/2015 Deven Chand MD Right wrist pain and swelling [id number] 02/21/2015 02/21/2015 Deven Chand MD Right wrist pain and swelling 3hbj1kxr-gq43-5a45-22gh-li882d9418f7 02/21/2015 02/21/2015 Deven Chand MD Right wrist pain and swelling jse2fl4s-8b91-9v3r-rsp2-n370c2za221z 02/21/2015 02/21/2015 Deven Chand MD Right wrist pain and swelling 19x81z60-54l0-1148-s4z0-cj5wu3t8gfx7 02/21/2015 02/21/2015 Deven Chand MD Right wrist pain and swelling uv2k4z5k-yo09-5168-pp36-w064724u9n59 02/21/2015 02/21/2015 Deven Chand MD Right wrist pain and swelling [id number]-6d45-959kgwl0b2b8 02/21/2015 02/21/2015 Deven Chand MD Research [id number] 02/21/2015 02/21/2015 Deven Chand MD Research [id number] 02/21/2015 02/21/2015 Deven Chand MD Research [id number] 02/21/2015 02/21/2015 Deven Chand MD Research [id number] 02/21/2015 02/21/2015 Deven Chand MD Research [id number] 02/21/2015 02/21/2015 Deven Chand MD Research [id number] 02/21/2015 02/21/2015 Deven Chand MD Right wrist pain and swelling 2t40flz5-nk73-3z18-m0e6-vcq03xgv6274 02/21/2015 02/21/2015 Deven Chand MD Right wrist pain and swelling [id number]-92m2-j19as5q6wz7w 02/21/2015 02/21/2015 Deven Chand MD Right wrist pain and swelling [id number] 02/21/2015 02/21/2015 Deven Chand MD Right wrist pain and swelling [id number] 02/21/2015 02/21/2015 Deven Chand MD Right wrist pain and swelling [id number] 02/21/2015 02/21/2015 Deven Chand MD Right wrist pain and swelling [id number]-664c57lvr759 02/21/2015 02/21/2015 Deven Chand MD Unknown [id number] 02/22/2015 02/22/2015 Deven Chand MD Unknown [id number] 02/22/2015 02/22/2015 Deven Chand MD Unknown [id number] 02/22/2015 02/22/2015 Deven Chand MD Unknown [id number] 02/22/2015 02/22/2015 Deven Chand MD Unknown [id number] 02/22/2015 02/22/2015 Deven Chand MD Unknown [id number] 02/22/2015 02/22/2015 Deven Chand MD Unknown [id number] 02/22/2015 02/22/2015 Deven Chand MD Unknown [id number] 02/22/2015 02/22/2015 Deven Chand MD Unknown [id number] 02/22/2015 02/22/2015 Deven Chand MD Unknown [id number]-k6g05a9n9830 02/22/2015 02/22/2015 Deven Chand MD Unknown [id number] 02/22/2015 02/22/2015 Deven Chand MD Unknown [id number]-z335q0923k21 02/22/2015 02/22/2015 Deven Chand MD [facility] q6ff5hws-nr45-9y92-7mb5-n8757527qds0 03/09/2015 03/09/2015 Deven Chand MD [facility] [id number]-n9f1-m632h955ts39 03/09/2015 03/09/2015 Deven Chand MD [facility] z1zb0e21-e1h9-8qr8-v6td-a784f7y561g4 03/09/2015 03/09/2015 Deven Chand MD [facility] 654idw2u-n5to-1a5y-8h79-5i578myo9586 03/09/2015 03/09/2015 Deven Chand MD [facility] [id number]-9z17b6pe4101 03/09/2015 03/09/2015 Deven Chand MD [facility] [id number]-e74f-ucm905c611gc 03/09/2015 03/09/2015 Deven Chand MD [facility] j4gime81-twri-554z-p4g1-r7i3966mz82t 03/09/2015 03/09/2015 Deven Chand MD [facility] [id number]-[id number] 03/09/2015 03/09/2015 Deven Chand MD [facility] t3b1e9rw-4r2s-0336-91z5-doupqhn15434 03/09/2015 03/09/2015 Deven Chand MD [facility] [id number]-[id number] 03/09/2015 03/09/2015 Deven Chand MD [facility] [id number]-752o-32i7-aw02-6e7fq855o123 03/09/2015 03/09/2015 Deven Chand MD [facility] [id number]-09o2-mo6m6357h405 03/09/2015 03/09/2015 Deven Chand MD Refill [id number]-0898-u070-65c0d1j38e37 05/05/2015 05/05/2015 Deven Chand MD Refill [id number]-gvl4-7196j42l7h06 05/05/2015 05/05/2015 Deven Chand MD Refill [id number]-4yp7-xkxc-5c3v208wanb9 05/05/2015 05/05/2015 Deven Chand MD Refill [id number] 05/05/2015 05/05/2015 Deven Chadn MD Refill [id number]-h4j2-0431-7aj0-40370s8s154l 05/05/2015 05/05/2015 Deven Chand MD Refill [id number]-476m-w666-i5vm5w7072t1 05/05/2015 05/05/2015 Deven Chand MD add on x306l6mp-a7sn-286s-cdp1-97a4rv28x5xe 05/05/2015 05/05/2015 Deven Chand MD add on 185xf852-2899-70pt-fp6v-3zop52f64le7 05/05/2015 05/05/2015 Deven Chand MD add on z2em9lhi-6453-0j92-t9t5-z53216f7nnnz 05/05/2015 05/05/2015 Deven Chand MD add on 9n6v8r9j-951v-1a17-i629-39284920x24j 05/05/2015 05/05/2015 Deven Chand MD add on [id number]-4cz5-0x93-0418y0t9958o 05/05/2015 05/05/2015 Deven Chand MD add on [id number]-8900-81565q3jmp63 05/05/2015 05/05/2015 Deven Chand MD Refill [id number]-c5tu-315z2o6iv7d8 05/05/2015 05/05/2015 Deven Chand MD Refill qu532p40-[id number]-z69l1r39881u 05/05/2015 05/05/2015 Deven Chand MD Refill [id number]-[id number] 05/05/2015 05/05/2015 Deven Chand MD Refill [id number]-uhp8-73l5-9r94-h4223191s7qf 05/05/2015 05/05/2015 Deven Chand MD Refill [id number] 05/05/2015 05/05/2015 Deven Chand MD Refill [id number]-lk1c4i2nb785 05/05/2015 05/05/2015 Deven Chand MD add on [id number]-m6h4-8617-4y68-9b69r580574y 05/05/2015 05/05/2015 Deven Chand MD add on 61r02l36-8c99-6w93-32n5-42914717un0u 05/05/2015 05/05/2015 Deven Chand MD add on 2821m7cd-n1c4-982c-6ke2-8sv8900ozash 05/05/2015 05/05/2015 Deven Chand MD add on 8tk2w8b3-89yr-51pf-d3ww-083n3rd7833d 05/05/2015 05/05/2015 Deven Chand MD add on [id number]-0l71-4vb1-4gh2-8un9va56gl6u 05/05/2015 05/05/2015 Deven Chand MD add on r6ha74qz-4403-138r-xto5-aaog5x31r985 05/05/2015 05/05/2015 Deven Chand MD Unknown [id number]-[id number] 05/09/2015 05/09/2015 Deven Chand MD Unknown [id number] 05/09/2015 05/09/2015 Deven Chand MD Unknown [id number] 05/09/2015 05/09/2015 Deven Chand MD Unknown [id number] 05/09/2015 05/09/2015 Deven Chand MD Unknown [id number]-5786-86endc9ko181 05/09/2015 05/09/2015 Deven Chand MD Unknown [id number]-j51351552spp 05/09/2015 05/09/2015 Deven Chand MD Unknown [id number] 05/09/2015 05/09/2015 Deven Chand MD Unknown [id number] 05/09/2015 05/09/2015 Deven Chand MD Unknown [id number] 05/09/2015 05/09/2015 Deven Chand MD Unknown [id number] 05/09/2015 05/09/2015 Deven Chand MD Unknown [id number] 05/09/2015 05/09/2015 Deven Chand MD Unknown [id number]-e5epa6dzg0kv 05/09/2015 05/09/2015 Deven Chand MD Unknown [id number] 05/09/2015 05/09/2015 Deven Chand MD Unknown [id number] 05/09/2015 05/09/2015 Deven Chand MD Unknown [id number] 05/09/2015 05/09/2015 Deven Chand MD Unknown [id number]-[id number] 05/09/2015 05/09/2015 Deven Chand MD Unknown [id number] 05/09/2015 05/09/2015 Deven Chand MD Unknown [id number] 05/09/2015 05/09/2015 Deven Chand MD Unknown [id number] 05/09/2015 05/09/2015 Deven Chand MD Unknown [id number]-e3rj-f69dnjnae189 05/09/2015 05/09/2015 Deven Chand MD Unknown [id number]-4dw9-x972-8kvxeu1mqgy3 05/09/2015 05/09/2015 Deven Chand MD Unknown [id number] 05/09/2015 05/09/2015 Deven Chand MD Unknown [id number] 05/09/2015 05/09/2015 Deven Chand MD Unknown [id number] 05/09/2015 05/09/2015 Deven Chand MD Unknown [id number] 05/09/2015 05/09/2015 Deven Chand MD Unknown [id number] 05/09/2015 05/09/2015 Deven Chand MD Unknown [id number] 05/09/2015 05/09/2015 Deven Chand MD Unknown [id number]-[id number] 05/09/2015 05/09/2015 Deven Chand MD Unknown [id number]-[id number] 05/09/2015 05/09/2015 Deven Chand MD Unknown [id number]-v4lac9auj657 05/09/2015 05/09/2015 Deven Chand MD Unknown [id number] 05/09/2015 05/09/2015 Deven Chand MD Unknown [id number] 05/09/2015 05/09/2015 Deven Chand MD Unknown [id number] 05/09/2015 05/09/2015 Deven Chand MD Unknown [id number] 05/09/2015 05/09/2015 Deven Chand MD Unknown [id number]-[id number]-0930u0h7b3p0 05/09/2015 05/09/2015 Deven Chand MD Unknown [id number] 05/09/2015 05/09/2015 Deven Chand MD sodium [id number]-n128y0u0n18f 05/18/2015 05/18/2015 Deven Chand MD sodium [id number] 05/18/2015 05/18/2015 Deven Chand MD sodium 7413r7qy-9qp6-4882-6lxv-42gu40u09as0 05/18/2015 05/18/2015 Deven Chand MD sodium gs3vb5l1-9504-5d8p-ikzb-0snl02f2n9j9 05/18/2015 05/18/2015 Deven Chand MD sodium 22x63k15-8k6k-7id4-s024-10w5utp1586w 05/18/2015 05/18/2015 Deven Chand MD sodium 1592ubs9-07b1-948o-mn0o-09cz383w5ael 05/18/2015 05/18/2015 Deven Chand MD sodium [id number]-t33r6lk5u983 05/18/2015 05/18/2015 Deven Chand MD sodium po9dd719-0pm3-7in6-z444-415wy2569447 05/18/2015 05/18/2015 Deven Chand MD sodium f92h2630-f77k-9586-xz32-8i7e15d6huoi 05/18/2015 05/18/2015 Deven Chand MD sodium 3113t9aw-701a-0n66-2543-7i7v3v6fnw42 05/18/2015 05/18/2015 Deven Chand MD sodium i3e02kkr-622i-385y-6753-d58htm9j05uy 05/18/2015 05/18/2015 Deven Chand MD sodium zdt61mt2-p5a0-598x-4p79-i3s61322416w 05/18/2015 05/18/2015 Deven Chand MD [facility] [id number] 06/02/2015 06/02/2015 Deven Chand MD MRI [id number] 06/02/2015 06/02/2015 Deven Chand MD MRI 7gqb143o-h9e5-4030-q0e5-777luh6w921t 06/02/2015 06/02/2015 Deven Chand MD MRI [id number]-b0z2-708x5m7x6058 06/02/2015 06/02/2015 Deven Chand MD MRI 3kys75m7-1597-85ii-yx43-93x3k017l198 06/02/2015 06/02/2015 Deven Chand MD MRI a16113gn-x855-2e2u-zb18-m240jj38zk59 06/02/2015 06/02/2015 Deven Chand MD MRI 5je05cfs-026g-8o70-m36s-0o04gmvv102k 06/02/2015 06/02/2015 Deven Chand MD MRI 4w5j5yrb-973z-7qy1-df2a-1chn00y8h2mn 06/02/2015 06/02/2015 Deven Chand MD MRI 2bre2jy4-1623-0mbl-2qqy-7276681g85bd 06/02/2015 06/02/2015 Deven Chand MD MRI [id number]-x78n-893x8h0ten33 06/02/2015 06/02/2015 Deven Chand MD [facility] [id number] 06/02/2015 06/02/2015 Deven Chand MD [facility] 04ugbm2r-m5xz-8ks0-pct3-5l686mt64ps2 06/02/2015 06/02/2015 Deven Chand MD Unknown [id number]-[id number] 06/28/2015 06/28/2015 Deven Chand MD Unknown [id number]-g19z55q2k4du 06/28/2015 06/28/2015 Deven Chand MD Unknown [id number]-o9a1-219g09h5czfi 06/28/2015 06/28/2015 Deven Chand MD Unknown [id number]-[id number] 06/28/2015 06/28/2015 Deven Chand MD Unknown [id number]-7j1226zv05z9 06/28/2015 06/28/2015 Deven Chand MD Unknown [id number] 06/28/2015 06/28/2015 Deven Chand MD Unknown [id number]-b163-88xpe885qxsk 06/28/2015 06/28/2015 Deven Chand MD Unknown [id number] 06/28/2015 06/28/2015 Deven Chand MD Unknown [id number]-[id number]-3937-j43jp8nt355w 06/28/2015 06/28/2015 Deven Chand MD Unknown [id number]-[id number] 06/28/2015 06/28/2015 Deven Chand MD Unknown [id number]-[id number] 06/28/2015 06/28/2015 Deven Chand MD Unknown [id number] 06/28/2015 06/28/2015 Deven Chand MD Unknown [id number] 09/27/2015 09/27/2015 Deven Chand MD Unknown [id number] 09/27/2015 09/27/2015 Deven Chand MD Unknown [id number] 09/27/2015 09/27/2015 Deven Chand MD Unknown [id number]-[id number]-a907-v196mamn1k59 09/27/2015 09/27/2015 Deven Chand MD Unknown [id number] 09/27/2015 09/27/2015 Deven Chand MD Unknown [id number]-[id number]-hsx97hmj74n8 09/27/2015 09/27/2015 Deven Chand MD Unknown [id number] 09/27/2015 09/27/2015 Deven Chand MD Unknown [id number] 09/27/2015 09/27/2015 Deven Chand MD Unknown [id number]-2221-30oz5928ef17 09/27/2015 09/27/2015 Deven Chand MD Unknown [id number]-83gc-7h85-la74-r2pr80id22n8 09/27/2015 09/27/2015 Deven Chand MD Unknown [id number] 09/27/2015 09/27/2015 Deven Chand MD Unknown [id number]-vmt0-62x3-37su-e26453040ce5 09/27/2015 09/27/2015 Deven Chand MD [facility] [id number]-g2l2kd8uq84y 10/10/2015 10/10/2015 Deven Chand MD [facility] [id number] 10/10/2015 10/10/2015 Deven Chand MD [facility] [id number]-i77c-b9p93iy5dor5 10/10/2015 10/10/2015 Deven Chand MD [facility] [id number] 10/10/2015 10/10/2015 Deven Chand MD [facility] [id number] 10/10/2015 10/10/2015 Deven Chand MD [facility] [id number] 10/10/2015 10/10/2015 Deven Chand MD [facility] [id number]-7x23-17m615kx7v81 10/10/2015 10/10/2015 Deven Chand MD [facility] [id number] 10/10/2015 10/10/2015 Deven Chand MD [facility] [id number]-c1kt195h10o8 10/10/2015 10/10/2015 Deven Chand MD [facility] [id number]-mbi4-02f45z4ez56n 10/10/2015 10/10/2015 Deven Chand MD [facility] [id number]-5msl4bk26h1n 10/10/2015 10/10/2015 Deven Chand MD [facility] [id number] 10/10/2015 10/10/2015 Deven Chand MD Refill- MTX [id number]-o9lo-25w4ek38r9z6 10/24/2015 10/24/2015 Deven Chand MD Refill- MTX [id number]-3202-h132-gn14aw34pq26 10/24/2015 10/24/2015 Deven Chand MD Refill- MTX [id number]-19278b87431y 10/24/2015 10/24/2015 Deven Chand MD Refill- MTX [id number]-a212-8861-1493-73150g4g521d 10/24/2015 10/24/2015 Deven Chand MD Refill- MTX 933z0hau-jm74-9x06-stv3-3zilhn6lv676 10/24/2015 10/24/2015 Deven Chand MD Refill- MTX [id number]-xn65-09s7q0863ivg 10/24/2015 10/24/2015 Deven Chand MD Refill- MTX [id number]-y534-67o6-l7f3-54e3in6r17h5 10/24/2015 10/24/2015 Deven Chand MD Refill- MTX [id number]-902u-4p5r-nqhsbw93t41n 10/24/2015 10/24/2015 Deven Chand MD Refill- MTX e4py224e-8cxk-35c2-4g1u-99909l6b1k1g 10/24/2015 10/24/2015 Deven Chand MD Refill- MTX [id number]-w232-8j3k-7911-5480x9d5k1x1 10/24/2015 10/24/2015 Deven Chand MD Refill- MTX 56u5o327-w411-825p-agp7-793ohw754vh0 10/24/2015 10/24/2015 Deven Chand MD Refill- MTX [id number]-b7c0-011197rs4b51 10/24/2015 10/24/2015 Deven Chand MD repeat cmp [id number]-r035-99o44x013681 10/26/2015 10/26/2015 Deven Chand MD repeat cmp [id number] 10/26/2015 10/26/2015 Deven Chand MD repeat cmp [id number]-ersk-p8n3x7r8809i 10/26/2015 10/26/2015 eDven Chand MD repeat cmp [id number] 10/26/2015 10/26/2015 Deven Chand MD repeat cmp h7tlpr6g-t8pt-9977-o75c-337pfuj20599 10/26/2015 10/26/2015 Deven Chand MD repeat cmp q8na4c71-[id number]-bv4d-70g6b7103703 10/26/2015 10/26/2015 Deven Chand MD repeat cmp [id number] 10/26/2015 10/26/2015 Deven Chand MD repeat cmp [id number]-fp9x-1nst85986w01 10/26/2015 10/26/2015 Deven Chand MD repeat cmp [id number]-r91j07j0153l 10/26/2015 10/26/2015 Deven Chand MD repeat [facility] [id number]-05k8-553p-44191fj416j9 10/26/2015 10/26/2015 Deven Chand MD repeat [facility] [id number]-9m03-02v0-6y496hzml6c8 10/26/2015 10/26/2015 Deven Chnad MD repeat [facility] [id number]-w817-i13131q51c76 10/26/2015 10/26/2015 Deven Chand MD MRI v3gbdjbw-7d66-38kd-0576-zz4hae203410 10/30/2015 10/30/2015 Deven Chand MD MRI 234p6tuz-s7y7-36c9-j43p-351q02534e5o 10/30/2015 10/30/2015 Deven Chand MD MRI 61ik8256-v13k-3997-u08h-847569xx3nh6 10/30/2015 10/30/2015 Deven Chand MD MRI 53856ggj-sir1-90nb-76e2-3512m826c8u8 10/30/2015 10/30/2015 Deven Chand MD MRI 60n86kq2-v4yw-7360-3k3h-16m028395604 10/30/2015 10/30/2015 Deven Chand MD MRI [id number] 10/30/2015 10/30/2015 Deven Chand MD MRI 39gyx207-rt68-8m5v-6l34-mb8554g407c2 10/30/2015 10/30/2015 Deven Chand MD MRI 3s99867k-7568-93t2-vf95-69xl8h7rto1n 10/30/2015 10/30/2015 Deven Chand MD MRI f50ke02c-h1j7-2078-09mr-r98w7o1qpe0y 10/30/2015 10/30/2015 Deven Chand MD MRI [id number]-h8jr68r6bvl8 10/30/2015 10/30/2015 Deven Chand MD MRI 52q6sx03-92l4-418u-1711-y98a5vr1f54s 10/30/2015 10/30/2015 Deven Chand MD MRI n5ow2140-70ur-46d1-aja4-455857n57778 10/30/2015 10/30/2015 Deven Chand MD Unknown 850esx3l-56i6-8m78-sop9-v5411kya8758 01/10/2016 01/10/2016 Deven Chand MD Unknown [id number]-difj-7764br3nub41 01/10/2016 01/10/2016 Deven Chand MD Unknown [id number]-iu38-gd024060qdun 01/10/2016 01/10/2016 Deven Chand MD Unknown [id number]-9330-86j9r749v913 01/10/2016 01/10/2016 Deven Chand MD Unknown [id number]-[id number]-[id number] 01/10/2016 01/10/2016 Deven Chand MD labs [id number] 01/10/2016 01/10/2016 Deven Chand MD labs [id number]-897bb08g11rk 01/10/2016 01/10/2016 Deven Chand MD labs [id number]-w776-ta5848ny4s2k 01/10/2016 01/10/2016 Deven Chand MD labs [id number]-b37j-mw50q0549it7 01/10/2016 01/10/2016 Deven Chand MD labs [id number]-699r-4c9i34u860yc 01/10/2016 01/10/2016 Deven Chand MD labs [id number]-zq0v877tnb0h 01/10/2016 01/10/2016 Deven Chand MD Unknown [id number]-21s6-221c-79b3-8l8ai035356e 01/10/2016 01/10/2016 Deven Chand MD Unknown [id number] 01/10/2016 01/10/2016 Deven Chand MD Unknown [id number]-bhy3z0o6cw02 01/10/2016 01/10/2016 Deven Chand MD labs [id number] 01/10/2016 01/10/2016 Deven Chand MD labs [id number]-w6b15p3cr236 01/10/2016 01/10/2016 Deven Chand MD labs [id number] 01/10/2016 01/10/2016 Deven Chand MD Unknown [id number]-1646-[id number] 04/11/2016 04/11/2016 Deven Chand MD Unknown [id number]-[id number] 04/11/2016 04/11/2016 Deven Chand MD Unknown [id number]-0j0g-59z4-6f58dr6z0mn9 04/11/2016 04/11/2016 Deven Chand MD Unknown [id number] 04/11/2016 04/11/2016 Deven Chand MD Unknown [id number]-[id number] 04/11/2016 04/11/2016 Deven Chand MD Unknown 92p2w0i4-2g6y-739u-0173-8m578gcnvat6 04/11/2016 04/11/2016 Deven Chand MD [facility] 83lkk771-56mf-9qtp-mneb-wx07d13kg5yr 04/11/2016 04/11/2016 Deven Chand MD [facility] uan870sw-44h5-6x8l-d55x-zx8e291a46b0 04/11/2016 04/11/2016 Deven Chand MD Rituxan [id number] 04/11/2016 04/11/2016 Deven Chand MD Rituxan [id number] 04/11/2016 04/11/2016 Deven Chand MD Rituxan [id number] 04/11/2016 04/11/2016 Deven Chand MD Rituxan [id number] 04/11/2016 04/11/2016 Deven Chand MD Rituxan [id number] 04/11/2016 04/11/2016 Deven Chand MD Unknown [id number] 05/29/2016 05/29/2016 Deven Chand MD Unknown [id number] 05/29/2016 05/29/2016 Deven Chand MD Unknown [id number] 05/29/2016 05/29/2016 Deven Chand MD Unknown [id number] 05/29/2016 05/29/2016 Deven Chand MD 3 mth follow up [id number] 10/03/2016 10/03/2016 Deven Chand MD 3 mth follow up [id number] 10/03/2016 10/03/2016 Deven Chand MD 3 mth follow up [id number] 10/03/2016 10/03/2016 Deven Chand MD NEW INSURANCE [id number] 10/26/2016 10/26/2016 Deven Chand MD NEW INSURANCE [id number] 10/26/2016 10/26/2016 Deven Chand MD OV [id number] 10/30/2016 10/30/2016 Deven Chand [facility] [place] [facility] [id number] Juve Collins 04/19/2017 04/20/2017 [facility] Outpatient [id number] Alphonso Horner 05/07/2017 05/08/2017 [facility] Outpatient [id number] Gabrielle Carrero 07/11/2017 07/12/2017 [facility] Bedded Outpatient [id number] Ike Casas 09/03/2017 09/03/2017 [facility] Discharged Inpatient (obs) [id number] JUVE COLLINS MD 06/25/2018 06/27/2018 [facility] Departed Emergency Room [id number] BETO SANCHEZ MD 09/04/2018 09/04/2018 [facility] [place] [facility] [id number] Juve Collins 11/20/2018 11/21/2018 [facility] Procedures Procedure Code Date Perfomer Comments Source Computed tomography of brain without radiopaque contrast [id number] 06/25/2018 [facility] Computed tomography of pelvis without contrast [id number] 06/25/2018 [facility] CT extremity lower wo contrast [id number] 06/25/2018 [facility] Computed tomography of cervical spine without contrast [id number] 06/25/2018 [facility] Right hemicolectomy [id number] 10/14/1989 [facility] Right hemicolectomy [id number] 10/14/1989 [facility] Right hemicolectomy [id number] 10/14/1989 [facility] Colonoscopy [id number] [facility] Colonoscopy [id number] [facility] Colonoscopy [id number] [facility]
--- OUTSIDE RECORDS SUMMARY | 2019-01-05 08:12 | XMS REPORT | Summary of Care ---
Author Author [facility] Outpatient Imaging [facility] Outpatient Imaging [facility] Address Unknown Phone Unavailable Encounter HQ Tino(FIN) [id number] Date(s): 11/20/18 - 11/20/18 [facility] Outpatient Imaging [facility] [address] [facility], [address] [place] [phone] Discharge Disposition: Home or Self Care Attending Physician: Db Collnis MD Referring Physician: Db Collins MD Vital Signs No data available for this section Problem List Condition Effective Dates Status Health Status Informant Anemia(Confirmed) Resolved Anxiety(Confirmed) Resolved Constipation(Confirm Resolved ed) Diabetes(Confirmed) Resolved Gastric Resolved reflux(Confirmed) Hyperlipidemia(Confi Resolved rmed) Hypothyroidism(Confi Resolved rmed) Cancer of Resolved colon(Confirmed) Depression(Confirmed Resolved ) Allergies, Adverse Reactions, Alerts Substance Reaction Severity Status Bacitracin, Topical Active iodine Active Latex Active Medications No data available for this section Results No data available for this section Immunizations No data available for this section Procedures Procedure Date Related Diagnosis Body Site Status Right hemicolectomy 1989 Completed Colonoscopy Completed Social History Social History Type Response Smoking Status Former smoker; Lives with someone who smokes; Cigarette Smoking Last 365 Days No; Reg Smoking Cessation Counseling No entered on: 12/03/16 Assessment and Plan No data available for this section
--- OUTSIDE RECORDS SUMMARY | 2019-01-05 08:13 | XMS REPORT ---
Author Author Chuy Chand Organization [employer] Address Unknown Phone Unavailable Care Team Providers Care Poultry Farm Supervisor Name Role Phone Chuy Chand CP Unavailable [...] Instructions Start Date End Date Status Dosage Rituxan [facility] [id number] 500 MG/50ML Intravenous at day 1 and 15 then repeat q 4 mths Active 1000mg Results No Known Results Summary Purpose [employer] Submission
--- OUTSIDE RECORDS SUMMARY | 2019-01-05 08:13 | XMS REPORT ---
Author Author Chuy Chand Organization [employer] Address Unknown Phone Unavailable Care Team Providers Care Log Cut Off Sawyer Name Role Phone Chuy Chand CP Unavailable [...]
--- OUTSIDE RECORDS SUMMARY | 2019-01-05 08:13 | XMS REPORT ---
Author Author Chuy Chand [facility] eClinicalWorks Address Unknown Phone Unavailable Care Team Providers Care Oil Well Shooter Name Role Phone Chuy Chand CP Unavailable Allergies, Adverse Reactions, Alerts Substance Reaction Event Type Iodine Info Not Available Drug Allergy Daypro Info Not Available Drug Allergy Levaquin Info Not Available Drug Allergy Leflunomide Info Not Available Drug Allergy Xeljanz Info Not Available Non Drug Allergy Actemra Info Not Available Non Drug Allergy Gold Sodium Thiosulfate Info Not Available Non Drug Allergy Thiuram Mix Info Not Available Non Drug Allergy Bacitracin Info Not Available Non Drug Allergy Humira Info Not Available Non Drug Allergy Remicade Info Not Available Non Drug Allergy Enbrel Info Not Available Non Drug Allergy Kineret Info Not Available Non Drug Allergy Fosamax fatigue, dental issues Non Drug Allergy Problems Problem Type Condition Code Onset Dates Condition Status Assessment 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 Problem Rheumatoid arthritis of multiple sites without [...] throat R07.0 Active Problem Osteoarthritis M19.90 Active Assessment Neck pain M54.2 Active Assessment Lumbago with sciatica, unspecified side M54.40 Active Assessment Encounter for long-term (current) use of other high-risk medications Z79.899 Active Assessment Osteoarthritis M19.90 Active Medications Medication Code System Code Instructions Start Date End Date Status Dosage Desloratadine [facility] 00944585244 5 MG Orally Once a day Active 1 tablet Fish Oil ND 68475182591 1000 MG Orally TWICE DAILY Active 1 CAP Carvedilol ND 17645990582 3.125 MG Orally Twice a day Active 1 tablet with food Omeprazole ND 18689610830 40 MG Orally Once a day Active 1 capsule Rituxan [facility] 77900315195 1000MG q 4monthly Active 1000MG IV MiraLax ND 40316445312 - Orally Active as directed Ocuvite ND 38806972573 Orally Active as directed Atorvastatin Calcium ND 13399020821 10 MG Orally Once a day Active 1 tablet Metformin & Diet Manage Prod NDC 0 500 MG Orally BID Active 1 tablet Methotrexate NDC 0 2.5mg Orally Once a week March 24, 2018 Active 2 tablets Metamucil ND 81766874494 48.57 % Orally Active as directed Venlafaxine HCl ND 67371521675 37.5 MG Orally Once a day Active 1 tablet with food PredniSONE ND 94672303490 5 MG Orally Once a day Active 1 tablet BuPROPion HCl ND 41655182874 100 MG Orally once a day Active 1 tablet Senokot [facility] 10093566381 8.6 MG Orally Once a day Active 2 tablets at bedtime as needed Famotidine ND 99692128713 20 MG Orally BID Active 1 tablet at bedtime Citracal + D ND 0 1500-200 MG-IU Orally Twice a day Active 1 tablet with meals Alprazolam ND 08904297692 0.5 MG Orally Twice a day Active 1 tablet OneTouch Delica Lancets 33G [facility] 76106223479 - Active as directed Folic Acid [facility] 37173333424 1 MG Orally Once a day Active 1 tablet Vitamin B12 [facility] 52779896376 1000 MCG Orally Once a day Active 1 tablet Levothyroxine Sodium ND 60156185648 100 MCG Orally qd Active 1 Tylenol Arthritis Pain ND 17181241537 650 MG Orally every 8 hrs Active 2 tablets as needed Mucinex ND 43528261960 600 MG Orally every 12 hrs Active 1 tablet as needed Vital Signs Date/Time: Oct 02, 2018 BMI 31.33 Index Weight 171.3 lbs Height 62 in Temperature 97.7 F Cardiac Monitoring Heart Rate 79 /min Blood Pressure Diastolic 81 mm Hg Blood Pressure Systolic 140 mm Hg Results No Known Results Summary Purpose eClinicalWorks Submission
--- OUTSIDE RECORDS SUMMARY | 2019-01-05 08:13 | XMS REPORT ---
Author Author Chuy Chand Organization eClinicalWorks Address Unknown Phone Unavailable Care Team Providers Care Research Manufacturing Operator Name Role Phone Chuy Chand CP Unavailable [...] Start Date End Date Status Dosage Methotrexate [facility] 49166122446 2.5 MG Orally Once a week Oct 23, 2018 Active 2 tablets Results No Known Results Summary Purpose eClinicalWorks Submission
--- OUTSIDE RECORDS SUMMARY | 2019-01-05 08:13 | XMS REPORT ---
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 Problem Degenerative arthritis of cervical spine M47.812 Active Problem Neck pain M54.2 Active Problem Lumbago with sciatica, unspecified side M54.40 Active Problem Osteopenia of multiple sites M85.89 Active Problem Osteoarthritis M19.90 Active Problem Encounter for long-term (current) use of other high-risk medications Z79.899 Active Problem Normal pressure hydrocephalus G91.2 Active Problem Pain in throat R07.0 Active Medications Medication Code System Code Instructions Start Date End Date Status Dosage PredniSONE [facility] 46402631740 5 Orally Once a day December 18, 2018 Active 1 tablet Results No Known Results Summary Purpose eClinicalWorks Submission
--- OUTSIDE RECORDS SUMMARY | 2019-01-05 08:13 | XMS REPORT ---
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 Problem Degenerative arthritis of cervical spine M47.812 Active Assessment Osteopenia of multiple sites M85.89 Active Problem Neck pain M54.2 Active Problem Lumbago with sciatica, unspecified side M54.40 Active Problem Osteopenia of multiple sites M85.89 Active Problem Osteoarthritis M19.90 Active Problem Encounter for long-term (current) use of other high-risk medications Z79.899 Active Problem Normal pressure hydrocephalus G91.2 Active Problem Pain in throat R07.0 Active Medications Medication Code System Code Instructions Start Date End Date Status Dosage Citracal + D ND 0 1500-200 MG-IU Orally Twice a day Active 1 tablet with meals Omeprazole ND 38352155586 40 MG Orally Once a day Active 1 capsule Levothyroxine Sodium ND 10261747082 100 MCG Orally qd Active 1 Methotrexate ND 04257828439 2.5mg Orally Once a week March 24, 2018 Active 2 tablets BuPROPion HCl ND 14978454239 100 MG Orally once a day Active 1 tablet PredniSONE ND 70490930800 5 MG Orally Once a day Active 1 tablet Ocuvite ND 03376003267 Orally Active as directed Alprazolam ND 41680698418 0.5 MG Orally Twice a day Active 1 tablet Desloratadine ND 61225894143 5 MG Orally Once a day Active 1 tablet Vitamin B12 ND 91443133044 1000 MCG Orally Once a day Active 1 tablet Senokot ND 27015201111 8.6 MG Orally Once a day Active 2 tablets at bedtime as needed Mucinex ND 78261267785 600 MG Orally every 12 hrs Active 1 tablet as needed Folic Acid [facility] 48835362967 1 MG Orally Once a day Active 1 tablet Methotrexate ND 13392316718 2.5 MG Orally Once a week Aug 05, 2018 Active 2 tablets Venlafaxine HCl ND 08721983300 37.5 MG Orally Once a day Active 1 tablet with food Carvedilol ND 85868637405 3.125 MG Orally Twice a day Active 1 tablet with food Metamucil [facility] 65565719680 48.57 % Orally Active as directed Metformin & Diet Manage Prod NDC 0 500 MG Orally BID Active 1 tablet Fish Oil ND 09011045185 1000 MG Orally TWICE DAILY Active 1 CAP Atorvastatin Calcium ND 52217680758 10 MG Orally Once a day Active 1 tablet Rituxan [facility] 75056987600 1000MG q 4monthly Active 1000MG IV OneTouch Delica Lancets 33G [facility] 79428481619 - Active as directed Tylenol Arthritis Pain ND 53349902037 650 MG Orally every 8 hrs Active 2 tablets as needed MiraLax ND 49845841179 - Orally Active as directed Famotidine [facility] 92589441363 20 MG Orally BID Active 1 tablet at bedtime Results No Known Results Summary Purpose eClinicalWorks Submission
[2019-01-05] MEDS ORDERED: SODIUM CHLORIDE 0.9% 1000ML 1,000 ML ONE (09:26)
[2019-01-05] MEDS ORDERED: SODIUM CHLORIDE 0.9% 1000ML 1,000 ML IV SCH (09:30)
[2019-01-05 09:43] LABS: BASOPHILS % 0.8 % (0.0-1.0); HEMATOCRIT 41.2 % (34.2-44.1); LYMPHOCYTES # (AUTO) 0.5 (1.0-3.2); LYMPHOCYTES % 19.4 % (18.0-39.1); MEAN CORPUSCULAR HGB CONC 31.6 g/dL (31-35); MEAN CORPUSCULAR VOLUME 91.8 fL (81-99); MONOCYTES # (AUTO) 0.7 (0.2-0.8); MONOCYTES % 28.9 % (4.4-11.3); NEUTROPHILS # (AUTO) 1.3 (2.1-6.9); NEUTROPHILS % 49.3 % (38.7-80.0); PLATELET COUNT 186 x10e3/uL (140-360); RED BLOOD COUNT 4.49 x10e6/uL (3.6-5.1); RED CELL DISTRIBUTION WIDTH 15.9 % (11.7-14.4)
[2019-01-05 09:57] LABS: ALANINE AMINOTRANSFERASE 11 IU/L (0-55); ALBUMIN 3.5 g/dL (3.5-5.0); ALBUMIN/GLOBULIN RATIO 1.1 (0.8-2.0); ALKALINE PHOSPHATASE 34 IU/L (40-150); ANION GAP 14.8 mmol/L (8-16); BLOOD UREA NITROGEN 10 mg/dL (7-26); BUN/CREATININE RATIO 13 (6-25); CALCIUM 8.7 mg/dL (8.4-10.2); CARBON DIOXIDE 23 mmol/L (22-29); CHLORIDE 98 mmol/L (98-107); EST GLOMERULAR FILTRATION RATE > 60 ML/MIN (60-); GLUCOSE 112 mg/dL (74-118); POTASSIUM 3.8 mmol/L (3.5-5.1); SODIUM 132 mmol/L (136-145)
[2019-01-05] MEDS ORDERED: IBUPROFEN 600 MG TAB PO STA (09:57)
[2019-01-05 09:58] LABS: CLARITY,URINE CLEAR (CLEAR); COLOR,URINE YELLOW (YELLOW); LEUKOCYTE ESTERASE ,URINE NEGATIVE (NEGATIVE); NITRITE,URINE NEGATIVE (NEGATIVE); PROTEIN,URINE DIPSTICK NEGATIVE (NEGATIVE)
[2019-01-05 09:59] LABS: BILIRUBIN,URINE NEGATIVE (NEGATIVE); KETONES,URINE 3+ (NEGATIVE); URINE UROBILINOGEN 0.2 mg/dL (0.2 - 1)
[2019-01-05] MEDS ORDERED: IBUPROFEN 400 MG TAB PO ONE (10:15)
[2019-01-05 10:23] LABS: EPITHELIAL CELLS,URINE FEW /LPF
[2019-01-05 10:24] LABS: WBC,URINE (MAN) 0-5 /HPF (0-5)
[2019-01-05 10:25] LABS: MUCUS,URINE FEW (RARE)
--- NOTE | 2019-01-05 10:51 | Diagnostic Imaging Report ---
EXAMINATION: PA and lateral views of the chest. COMPARISON: 06/25/2018 CLINICAL HISTORY: Cough, fever DISCUSSION: The lungs are well-inflated. No focal airspace consolidation, pleural effusion, or pneumothorax. Stable cardiomediastinal contour with tortuosity and atherosclerotic calcification of the thoracic aorta. No overt pulmonary edema. No acute osseous abnormality. IMPRESSION: No acute cardiopulmonary abnormality. No consolidative pneumonia. Signed by: Dr. Nickolas Melendez M.D. on 01/05/2019 10:47 AM
[2019-01-05] MEDS ORDERED: CEFTRIAXONE SOD 1 GM/NS 50 ML 50 ML IV ONE (11:00)
--- NOTE | 2019-01-05 12:29 | NUR ---
Emir banegas in [facility] - 01/05/19 at 1229 by JIMMY PT BREIF CHANGED
[2019-01-05] MEDS ORDERED: AZITHROMYCIN 500MG/SOD CHL 0.9% 250ML BAG IV SCH (13:15)
[2019-01-05] MEDS ORDERED: ALBUTEROL SULF 0.083% NEB SOLN 3 ML NEB NEB SCH (13:15)
[2019-01-05] MEDS: OSELTAMIVIR PHOSPHATE 75 MG CAP PO SCH ×2 (13:38→18:23)
[2019-01-05] MEDS: SODIUM CHLORIDE 0.9% 1000ML 1,000 ML IV SCH (13:54)
[2019-01-05] MEDS: AZITHROMYCIN 500MG/NS 250 ML 250 ML IV SCH (13:54)
[2019-01-05 14:04] LABS: CREATINE KINASE MB 0.7 ng/mL (0-5.0)
[2019-01-05] MEDS: IPRATROPIUM BROMIDE 0.02% 2.5 ML NEB NEB SCH ×2 (14:20→20:00)
[2019-01-05] MEDS: ALBUTEROL SULF 0.083% NEB SOLN 3 ML NEB NEB SCH ×2 (14:20→20:00)
[2019-01-05] MEDS ORDERED: ONDANSETRON HCL INJ 2MG/ML 2ML 2 MG/ML VIAL IV STA (15:03)
[2019-01-05] MEDS ORDERED: ONDANSETRON HCL INJ 2MG/ML 2ML 2 MG/ML VIAL IV PRN (15:15)
[2019-01-05 15:54] VITALS: BP 133/97
--- NOTE | 2019-01-05 16:10 | NUR ---
Recvd patient from ER, AAOx3, assisted her to bed, on O2 2L NC, denies any pain or SOB, skin intact, call light in reach
[2019-01-05 16:17] VITALS: BP 133/97
[2019-01-05] MEDS ORDERED: ALPRAZOLAM 0.5 MG TAB PO PRN (17:45)
[2019-01-05] MEDS ORDERED: IPRATROPIUM BROMIDE 0.02% 2.5 ML NEB NEB SCH (18:00)
[2019-01-05] MEDS: CARVEDILOL 3.125 MG TAB PO SCH (18:19)
[2019-01-05] MEDS: FAMOTIDINE 20 MG TAB PO SCH (18:20)
[2019-01-05 18:25] LABS: CREATINE KINASE MB 1.3 ng/mL (0-5.0)
--- NOTE | 2019-01-05 19:00 | NUR ---
Report and rounds completed. In bed with family at bedside. No issues or concerns at this time. Call light within reach. Will continue to monitor.
[2019-01-05 20:00] VITALS: BP 145/64
--- NOTE | 2019-01-05 22:00 | NUR ---
Resting in bed, resp even and unlabored, Call light within reach. Will continue to monitor.
[2019-01-06] VITALS (7 sets, daily range): BP systolic 141–166; BP diastolic 64–93
[2019-01-06] MEDS: IPRATROPIUM BROMIDE 0.02% 2.5 ML NEB NEB SCH ×4 (00:30→20:15)
[2019-01-06] MEDS: ALBUTEROL SULF 0.083% NEB SOLN 3 ML NEB NEB SCH ×6 (00:30→20:15)
[2019-01-06] MEDS: LEVOTHYROXINE SODIUM 88 MCG TAB PO SCH (05:45)
--- NOTE | 2019-01-06 07:03 | Diagnostic Imaging Report ---
EXAMINATION: CHEST SINGLE (PORTABLE) INDICATION: Pneumonia. COMPARISON: Chest x-ray 01/05/2019 FINDINGS: AP view TUBES and LINES: None. LUNGS: Mild bibasilar atelectasis. There is no evidence of pneumonia or pulmonary edema. PLEURA: No pleural effusion or pneumothorax. HEART AND MEDIASTINUM: The cardiomediastinal silhouette is unremarkable. There are atherosclerotic calcifications within the aorta. BONES AND SOFT TISSUES: No acute osseous lesion. Soft tissues are unremarkable. UPPER ABDOMEN: No free air under the diaphragm. IMPRESSION: No acute thoracic abnormality. Signed by: DR. Murray Escobar MD on 01/06/2019 7:00 AM
--- NOTE | 2019-01-06 07:20 | NUR ---
PATIENT IN BED WITH HEAD OF BED ELEVATED RECEIVING NEB TREATMENT. DENIED PAIN AT THIS TIME. SHABAZZ IN PLACE WITH CLEAR YELLOW URINE. BED IN LOWER POSITION, CALL LIGHT AT REACH.
[2019-01-06] MEDS: FAMOTIDINE 20 MG TAB PO SCH ×2 (08:00→16:30)
[2019-01-06] MEDS: PANTOPRAZOLE SOD 40 MG TABEC PO SCH (08:00)
[2019-01-06 08:43] LABS: BASOPHILS % 0.4 % (0.0-1.0); LYMPHOCYTES # (AUTO) 0.9 (1.0-3.2); LYMPHOCYTES % 35.9 % (18.0-39.1); MEAN CORPUSCULAR HEMOGLOBIN 28.6 pg (28-32); MEAN CORPUSCULAR HGB CONC 30.8 g/dL (31-35); MEAN CORPUSCULAR VOLUME 92.9 fL (81-99); MONOCYTES # (AUTO) 0.9 (0.2-0.8); MONOCYTES % 35.5 % (4.4-11.3); NEUTROPHILS # (AUTO) 0.7 (2.1-6.9); PLATELET COUNT 171 x10e3/uL (140-360); RED CELL DISTRIBUTION WIDTH 16.1 % (11.7-14.4)
[2019-01-06 08:58] LABS: ANION GAP 10.4 mmol/L (8-16); BLOOD UREA NITROGEN 5 mg/dL (7-26); BUN/CREATININE RATIO 8 (6-25); CALCIUM 8.1 mg/dL (8.4-10.2); CARBON DIOXIDE 24 mmol/L (22-29); CHLORIDE 100 mmol/L (98-107); CREATININE, SERUM 0.61 mg/dL (0.57-1.11); EST GLOMERULAR FILTRATION RATE > 60 ML/MIN (60-); GLUCOSE 83 mg/dL (74-118); POTASSIUM 3.4 mmol/L (3.5-5.1); SODIUM 131 mmol/L (136-145)
[2019-01-06] MEDS: DESLORATADINE 5 MG PO SCH (09:00)
[2019-01-06] MEDS ORDERED: VENLAFAXINE HCL PO SCH (09:00)
[2019-01-06] MEDS: SODIUM CHLORIDE 0.9% 1000ML 1,000 ML IV SCH (09:11)
[2019-01-06] MEDS: CEFTRIAXONE SOD 1 GM/NS 50 ML 50 ML IV SCH (09:11)
[2019-01-06] MEDS: PREDNISONE 5 MG TAB PO SCH (09:12)
[2019-01-06] MEDS: BUPROPION HCL 100 MG TAB PO SCH (09:12)
[2019-01-06] MEDS: CARVEDILOL 3.125 MG TAB PO SCH ×2 (09:12→17:35)
[2019-01-06] MEDS: SENNOSIDES 8.6 MG TAB PO SCH (09:12)
[2019-01-06] MEDS: CYANOCOBALAMIN 1,000 MCG TAB PO SCH (09:12)
[2019-01-06] MEDS: VENLAFAXINE HCL 75 MG TAB PO SCH (09:12)
[2019-01-06] MEDS: FOLIC ACID 1 MG TAB PO SCH (09:12)
[2019-01-06] MEDS ORDERED: POTASSIUM CHLORIDE 20 MEQ TAB CR PO STA (09:23)
[2019-01-06] MEDS ORDERED: POTASSIUM CHLORIDE 20 MEQ TAB CR PO ONE (10:18)
[2019-01-06] MEDS: OSELTAMIVIR PHOSPHATE 75 MG CAP PO SCH ×2 (10:26→20:40)
[2019-01-06 10:58] LABS: BAND NEUTROPHILS % (MANUAL) 1 %; LYMPHOCYTES % (MANUAL) 37 % (19-48); MONOCYTES % (MANUAL) 36 % (3.4-9.0); NEUTROPHILS % (MANUAL) 22 % (40-74); PLATELET ESTIMATE ADEQUATE; PLATELET MORPHOLOGY COMMENT NORMAL; RBC MORPHOLOGY COMMENT NORMAL
--- NOTE | 2019-01-06 11:16 | NUR ---
SHABAZZ CATHETER DISCONTINUE ORDERED, PATIENT IS DUE TO VOID. PO FLUID ENCOURAGED. BED IN LOWER POSITION, CALL LIGHT AT REACH.
[2019-01-06] MEDS: AZITHROMYCIN 500MG/NS 250 ML 250 ML IV SCH (14:25)
--- NOTE | 2019-01-06 14:27 | NUR ---
PATIENT VOIDED CLEAR YELLOW URINE TO TOILET. BACK IN BED WITH CALL LIGHT AT REACH.
--- NOTE | 2019-01-06 15:33 | NUR ---
SOCIAL WORK INITIAL ASSESSMENT [employer] Officer to bedside to discuss plan of care with patient/family. CM/SW role and care transitions discussed. Anticipated discharge plan discussed along with duration of care. CM/SW discussed patients right to make decisions in care. CM/SW work hours given. Patient lives: HOUSE WITH GRAND DAUGHTER Admit/Transfer: NONE POA/Emergency contact: AYANNA HUNTLEY [phone] Current/Previous Home Health: [facility] PCP/Follow-up Care: AUBREE Current/Previous DME:[facility] Other Services: NONE Employment Status: RETIRED Areas of Concerns: NONE Referral Needs: NONE Education Needs: NONE IMM/SEGOVIA given and signed (if applicable): UPON ADMISSION Goal for discharge: RETURN HOME CM/SW left business card at the bedside with contact information. Name and number was also written on the patients whiteboard. Patient verbalized understanding of discussion. CM will follow-up with ongoing discharge and transition of care needs.
[2019-01-07] VITALS (8 sets, daily range): BP systolic 120–156; BP diastolic 59–73
[2019-01-07] MEDS: ALBUTEROL SULF 0.083% NEB SOLN 3 ML NEB NEB SCH ×7 (01:30→22:00)
[2019-01-07] MEDS: IPRATROPIUM BROMIDE 0.02% 2.5 ML NEB NEB SCH ×4 (01:30→19:08)
[2019-01-07] MEDS: SODIUM CHLORIDE 0.9% 1000ML 1,000 ML IV SCH ×2 (04:28→23:55)
[2019-01-07 05:58] LABS: BASOPHILS % 0.8 % (0.0-1.0); EOSINOPHILS % 1.1 % (0.0-6.0); HEMATOCRIT 35.3 % (34.2-44.1); LYMPHOCYTES # (AUTO) 1.1 (1.0-3.2); LYMPHOCYTES % 41.1 % (18.0-39.1); MEAN CORPUSCULAR HEMOGLOBIN 28.8 pg (28-32); MEAN CORPUSCULAR HGB CONC 31.2 g/dL (31-35); MEAN CORPUSCULAR VOLUME 92.4 fL (81-99); MONOCYTES # (AUTO) 0.9 (0.2-0.8); MONOCYTES % 32.5 % (4.4-11.3); NEUTROPHILS # (AUTO) 0.5 (2.1-6.9); NEUTROPHILS % 19.6 % (38.7-80.0); PLATELET COUNT 162 x10e3/uL (140-360); RED BLOOD COUNT 3.82 x10e6/uL (3.6-5.1); RED CELL DISTRIBUTION WIDTH 15.9 % (11.7-14.4)
[2019-01-07] MEDS: LEVOTHYROXINE SODIUM 88 MCG TAB PO SCH (05:59)
[2019-01-07 06:17] LABS: ANION GAP 9.4 mmol/L (8-16); BLOOD UREA NITROGEN 7 mg/dL (7-26); BUN/CREATININE RATIO 11 (6-25); CALCIUM 8.3 mg/dL (8.4-10.2); CARBON DIOXIDE 25 mmol/L (22-29); CHLORIDE 107 mmol/L (98-107); CREATININE, SERUM 0.61 mg/dL (0.57-1.11); EST GLOMERULAR FILTRATION RATE > 60 ML/MIN (60-); GLUCOSE 124 mg/dL (74-118); POTASSIUM 3.4 mmol/L (3.5-5.1); SODIUM 138 mmol/L (136-145)
--- NOTE | 2019-01-07 07:10 | NUR ---
Walking rounds done and report received. patient is awake and alertx3 in NAD. POC discussed. Patient instructed to call for assistance as needed and verbalized understanding. Isolation maintained for Flu.
[2019-01-07 07:51] LABS: LYMPHOCYTES % (MANUAL) 52 % (19-48); METAMYELOCYTES % (MANUAL) 5 % (0-0); MONOCYTES % (MANUAL) 3 % (3.4-9.0); NEUTROPHILS % (MANUAL) 40 % (40-74); RBC MORPHOLOGY COMMENT NORMAL
[2019-01-07 07:52] LABS: ANISOCYTOSIS SLIGHT
[2019-01-07 07:53] LABS: HYPOCHROMASIA SLIG
[2019-01-07 07:54] LABS: PLATELET ESTIMATE ADEQUATE; PLATELET MORPHOLOGY COMMENT FEW LARGE
[2019-01-07] MEDS: FAMOTIDINE 20 MG TAB PO SCH ×2 (08:19→16:52)
[2019-01-07] MEDS: VENLAFAXINE HCL 75 MG TAB PO SCH (08:19)
[2019-01-07] MEDS: CYANOCOBALAMIN 1,000 MCG TAB PO SCH (08:19)
[2019-01-07] MEDS: PANTOPRAZOLE SOD 40 MG TABEC PO SCH (08:19)
[2019-01-07] MEDS: SENNOSIDES 8.6 MG TAB PO SCH (08:19)
[2019-01-07] MEDS: PREDNISONE 5 MG TAB PO SCH (08:19)
[2019-01-07] MEDS: CARVEDILOL 3.125 MG TAB PO SCH ×2 (08:19→16:52)
[2019-01-07] MEDS: DESLORATADINE 5 MG PO SCH (08:19)
[2019-01-07] MEDS: BUPROPION HCL 100 MG TAB PO SCH (08:19)
[2019-01-07] MEDS: FOLIC ACID 1 MG TAB PO SCH (08:19)
[2019-01-07] MEDS: OSELTAMIVIR PHOSPHATE 75 MG CAP PO SCH ×2 (08:19→20:18)
[2019-01-07] MEDS: CEFTRIAXONE SOD 1 GM/NS 50 ML 50 ML IV SCH (08:19)
[2019-01-07] MEDS ORDERED: POTASSIUM CHLORIDE 20 MEQ TAB CR PO STA (11:35)
[2019-01-07] MEDS: AZITHROMYCIN 500MG/NS 250 ML 250 ML IV SCH (14:44)
[2019-01-08] VITALS (8 sets, daily range): BP systolic 122–165; BP diastolic 58–78
[2019-01-08] MEDS: IPRATROPIUM BROMIDE 0.02% 2.5 ML NEB NEB SCH ×5 (02:55→23:00)
[2019-01-08] MEDS: ALBUTEROL SULF 0.083% NEB SOLN 3 ML NEB NEB SCH ×5 (02:55→23:00)
[2019-01-08] MEDS: LEVOTHYROXINE SODIUM 88 MCG TAB PO SCH (05:21)
[2019-01-08] MEDS: CARVEDILOL 3.125 MG TAB PO SCH ×2 (08:00→16:30)
[2019-01-08] MEDS: BUPROPION HCL 100 MG TAB PO SCH (08:05)
[2019-01-08] MEDS: PANTOPRAZOLE SOD 40 MG TABEC PO SCH (08:05)
[2019-01-08] MEDS: FAMOTIDINE 20 MG TAB PO SCH ×2 (08:05→16:30)
[2019-01-08] MEDS: CYANOCOBALAMIN 1,000 MCG TAB PO SCH (08:05)
[2019-01-08] MEDS: CEFTRIAXONE SOD 1 GM/NS 50 ML 50 ML IV SCH (08:05)
[2019-01-08] MEDS: OSELTAMIVIR PHOSPHATE 75 MG CAP PO SCH ×2 (08:05→21:40)
[2019-01-08] MEDS: SENNOSIDES 8.6 MG TAB PO SCH (08:05)
[2019-01-08] MEDS: FOLIC ACID 1 MG TAB PO SCH (08:05)
[2019-01-08] MEDS: PREDNISONE 5 MG TAB PO SCH (08:05)
[2019-01-08] MEDS: VENLAFAXINE HCL 75 MG TAB PO SCH (08:05)
[2019-01-08] MEDS: DESLORATADINE 5 MG PO SCH (08:10)
[2019-01-08] MEDS ORDERED: ACETAMINOPHEN 325 MG TAB PO PRN ×2 (09:15→09:30)
[2019-01-08] MEDS: ALPRAZOLAM 0.5 MG TAB PO SCH ×2 (10:20→21:40)
[2019-01-08] MEDS: AZITHROMYCIN 500MG/NS 250 ML 250 ML IV SCH (14:48)
[2019-01-08] MEDS: SODIUM CHLORIDE 0.9% 1000ML 1,000 ML IV SCH (19:03)
--- NOTE | 2019-01-08 19:10 | NUR ---
received patient aaox3, amb with walker- refusing assistance. denies any needs at this time. bed locked and in lowest position, call light within easy reach. will continue to monitor the patient.
[2019-01-09 00:30] VITALS: BP 149/68
[2019-01-09] MEDS: ALBUTEROL SULF 0.083% NEB SOLN 3 ML NEB NEB SCH ×3 (03:00→11:35)
[2019-01-09 04:30] VITALS: BP 147/67
[2019-01-09] MEDS: LEVOTHYROXINE SODIUM 88 MCG TAB PO SCH (05:28)
[2019-01-09 05:52] LABS: BASOPHILS % 0.6 % (0.0-1.0); EOSINOPHILS # (AUTO) 0.1 (0.0-0.4); HEMATOCRIT 42.7 % (34.2-44.1); HEMOGLOBIN 13.2 g/dL (12.0-16.0); LYMPHOCYTES # (AUTO) 2.3 (1.0-3.2); LYMPHOCYTES % 48.2 % (18.0-39.1); MEAN CORPUSCULAR HEMOGLOBIN 28.3 pg (28-32); MEAN CORPUSCULAR HGB CONC 30.9 g/dL (31-35); MEAN CORPUSCULAR VOLUME 91.6 fL (81-99); MONOCYTES % 21.6 % (4.4-11.3); NEUTROPHILS # (AUTO) 1.3 (2.1-6.9); NEUTROPHILS % 26.4 % (38.7-80.0); PLATELET COUNT 206 x10e3/uL (140-360); RED BLOOD COUNT 4.66 x10e6/uL (3.6-5.1); RED CELL DISTRIBUTION WIDTH 15.6 % (11.7-14.4)
[2019-01-09 06:15] LABS: ANION GAP 11.7 mmol/L (8-16); BLOOD UREA NITROGEN 7 mg/dL (7-26); BUN/CREATININE RATIO 10 (6-25); CALCIUM 9.3 mg/dL (8.4-10.2); CARBON DIOXIDE 29 mmol/L (22-29); CHLORIDE 103 mmol/L (98-107); CREATININE, SERUM 0.68 mg/dL (0.57-1.11); EST GLOMERULAR FILTRATION RATE > 60 ML/MIN (60-); GLUCOSE 90 mg/dL (74-118); POTASSIUM 3.7 mmol/L (3.5-5.1); SODIUM 140 mmol/L (136-145)
[2019-01-09] MEDS: IPRATROPIUM BROMIDE 0.02% 2.5 ML NEB NEB SCH (06:55)
[2019-01-09] MEDS: DESLORATADINE 5 MG PO SCH (09:00)
[2019-01-09] MEDS ORDERED: CEFUROXIME250 MG PO (09:14)
[2019-01-09] MEDS ORDERED: MUCINEX600 MG PO (09:14)
[2019-01-09] MEDS: CEFTRIAXONE SOD 1 GM/NS 50 ML 50 ML IV SCH (09:17)
[2019-01-09] MEDS: FAMOTIDINE 20 MG TAB PO SCH (09:17)
[2019-01-09] MEDS: PANTOPRAZOLE SOD 40 MG TABEC PO SCH (09:17)
[2019-01-09] MEDS: SENNOSIDES 8.6 MG TAB PO SCH (09:18)
[2019-01-09] MEDS: FOLIC ACID 1 MG TAB PO SCH (09:18)
[2019-01-09] MEDS: VENLAFAXINE HCL 75 MG TAB PO SCH (09:18)
[2019-01-09] MEDS: OSELTAMIVIR PHOSPHATE 75 MG CAP PO SCH (09:18)
[2019-01-09] MEDS: CARVEDILOL 3.125 MG TAB PO SCH (09:18)
[2019-01-09] MEDS: PREDNISONE 5 MG TAB PO SCH (09:18)
[2019-01-09] MEDS: BUPROPION HCL 100 MG TAB PO SCH (09:19)
[2019-01-09] MEDS: CYANOCOBALAMIN 1,000 MCG TAB PO SCH (09:19)
[2019-01-09 09:27] VITALS: BP 139/73
--- NOTE | 2019-01-09 10:05 | NUR ---
ORDERS REC'D FOR HOME HEALTH CARE CHOICE LETTER SIGNED FOR [facility]ING [phone]; [phone] COPY OF CHOICE LETTER GIVEN TO PT FAXED CLINICALS; CONFIRMATION REC'D
[2019-01-09 10:18] LABS: EOSINOPHILS % (MANUAL) 3 % (0-7); LYMPHOCYTES % (MANUAL) 47 % (19-48); MONOCYTES % (MANUAL) 17 % (3.4-9.0); NEUTROPHILS % (MANUAL) 33 % (40-74); PLATELET ESTIMATE ADEQUATE; PLATELET MORPHOLOGY COMMENT NORMAL; RBC MORPHOLOGY COMMENT NORMAL
[2019-01-09 12:00] VITALS: BP 136/72
[2019-01-09] MEDS: ALPRAZOLAM 0.5 MG TAB PO SCH (12:33)
--- NOTE | 2019-01-10 04:15 | Discharge Summary ---
DISCHARGE DIAGNOSES: 1. Influenza type A, improving. 2. Immunosuppressed status. 3. Rheumatoid arthritis. 4. Weakness and frailty. HOSPITAL COURSE: Ms. Rainey is a pleasant [id number], well known to me from the office, who was brought to the emergency department because of increasing weakness, malaise, and nonproductive cough. According to the patient, she was exposed to the flu from her great granddaughter the week before admission. At the time of presentation, it was positive for influenza A. The patient looked quiet ill, having nonproductive cough and subjective fever. She was admitted to the hospital. She was treated with Tamiflu and IV ceftriaxone and Zithromax. She also received her usual home medications with the exception of methotrexate. She was placed in isolation and was followed over the next few days. She had significant decrease of her white cell count to 2500. She was slightly hyponatremic and hypokalemic. Both electrolyte derangements were corrected and the patient has slowly improved. She worked with Physical Therapy with significant limitations because of her isolation status. She was offered the opportunity to go to a senior living facility to continue with physical therapy and occupational therapy, but she declined this option and asked to go home with home health. She is being discharged home in stable condition. She is getting prescription for 5 days of Cefuroxime Axetil and she is to follow up in the office on January 14. MD CHARLES Garcia/JULIOL /[id number]
== END 2019-01-09 13:01 ==
LOC: ER 08:06 → ERHOLD 13:15 → IMCU 15:32
PROVIDERS: ADMIT Internal Medicine; ATTEND Internal Medicine
DX: J11.1 Influenza due to unidentified influenza virus with other respiratory manifestations (principal); M06.9 Rheumatoid arthritis, unspecified; E86.0 Dehydration; E87.8 Other disorders of electrolyte and fluid balance, not elsewhere classified; E87.1 Hypo-osmolality and hyponatremia; E87.6 Hypokalemia
CPT/HCPCS: 36415 ×5; 71045; 71046; 80048 ×3; 80053; 81001; 82550 ×2; 82553 ×2; 82948 ×5; 84484 ×2; 85025 ×4; 87040; 87086; 87400; 93005; 94640 ×10; 97116; 97161; 99285; G0378 ×5; J0456 ×4; J0696 ×5; J7030 ×3; J7512 ×4; S0164 ×4

== ENCOUNTER 2020-02-23 18:09 | Inpatient (IN) | payer MEDICARE, OTHER ==
[~2020-02-23] VITALS: Ht 157.5 cm; Wt 76.3 kg
[~2020-02-23 18:09] MED LIST changes: +CEFUROXIME250 MG PO; +MUCINEX600 MG PO
--- OUTSIDE RECORDS SUMMARY | 2020-02-23 18:15 | XMS REPORT | Summary of Care ---
Author Author [facility] Organization [facility] Address Unknown Phone Unavailable Encounter ZULEMA Jiménez(FIN) [id number] Date(s): 03/04/19 - 03/04/19 [facility] [address], [address] [place] [phone] Discharge Disposition: Home or Self Care Attending Physician: Db Collins MD Referring Physician: Db Collins MD Vital Signs No data available for this section Problem List Condition Effective Dates Status Health Status Informan t Anemia(Confirmed) Resolved Anxiety(Confirmed) Resolved Constipation(Confirm Resolved ed) [...] Response Smoking Status Former smoker; Lives with s omeone who smokes; Cigarette Smoking Last 365 Days No; Reg Smoking Cessation Counseli ng No entered on: 12/03/16 Assessment and Plan No data available for this section
--- OUTSIDE RECORDS SUMMARY | 2020-02-23 18:15 | XMS REPORT ---
Author Author EDGARDO LOREDO Organization Unknown Address Unknown Phone Care Team Providers Care Threading Machine Operator Name Role Phone LOREDO, ETHEL PP Unavailable Reason for Referral No Reason for Referral was given. History of Present Illness No HPI available. Problems * Normal Routine History And Physical Senior Citizen (65-80) (V70.0); ( Active) * Thrombocytopenia (287.5); (Active) * Rheumatoid Arthritis (714.0); (Active) * Essential Hypertension (401.9); (Active) * Hypothyroidism (244.9); (Active) * Age-related Cognitive Decline (780.93); (Active) * Allergic Rhinitis (477.9); (Active) * Vaccines Prophylactic Need Against Influenza (V04.81); (Active) * Anxiety (Symptom) (300.00); (Active) Medication * ALPRAZolam 0.5 MG Oral Tablet; TAKE 1 TABLET Every twelve hours PRN anxiety; Start Date: 06/12/2013 (Active) * Levoxyl 100 MCG TABS; TAKE 1 TABLET DAILY. (Active) * Omeprazole 20 MG Oral Capsule Delayed Release; TAKE 1 CAPSULE DAILY (Active) * ALPRAZolam 0.5 MG Oral Tablet (Active) * Folic Acid 1 MG Oral Tablet; TAKE 1 TABLET TWICE DAILY (Active) * Carvedilol 3.125 MG Oral Tablet; TAKE 1 TABLET TWICE DAILY (Active) * Clarinex 5 MG Oral Tablet; TAKE 1 TABLET DAILY (Active) * Furosemide 20 MG Oral Tablet; TAKE 1 TABLET DAILY as needed (Active) * Arava 20 MG Oral Tablet; TAKE 1 TABLET DAILY. (Active) * Actemra SOLN; INFUSTION ONCE A MONTH (Active) * SM Vitamin E 200 UNIT Oral Capsule; TAKE 1 CAPSULE DAILY. (Active) * Caltrate 600 TABS; TAKE 1 TABLET TWICE DAILY (Active) * Fish Oil CAPS; 1400mg TAKE 1 CAPSULE TWICE DAILY (Active) * Ocuvite Oral Tablet; TAKE 1 TABLET DAILY. (Active) * MiraLax PACK; 1 SCOOP NEEDED (Active) * Biotin 5000 CAPS; TAKE 1 CAPSULE DAILY. (Active) * Citrucel Oral Powder; 1 TSP DAILY (Active) * Venlafaxine HCl ER 75 MG Oral Capsule Extended Release 24 Hour; TAKE 1 CAPSULE DAILY.; Start Date: 07/20/2013 (Active) * Nasonex 50 MCG/ACT Nasal Suspension; USE 1 SPRAY IN EACH NOSTRIL ONCE DAILY.; Start Date: 07/20/2013 (Active) Allergies and Adverse Reactions * Levaquin TABS (Active) * Iodine (Active) * Bacitracin OINT (Active) * Gold Sodium Thiomalate SOLN (Active) Past Medical History * History of Anxiety (Symptom) (300.00); (Resolved) * History of Colon Cancer (V10.05); (Resolved) * History of Rheumatoid Arthritis (714.0); (Resolved) * History of Hypothyroidism (244.9); (Resolved) * History of Esophageal Reflux (530.81); (Resolved) Procedures Procedure Procedure Date Date Completed Status Cholecystectomy - - Resolved Arthroscopy Knee - - Resolved Knee Replacement - - Resolved Colon Surgery - - Resolved Knee Replacement - - Resolved Hemorrhoidectomy - - Resolved Hysterectomy - - Resolved Immunization * Influenza * Fluzone Intramuscular Injectable (Lot #: [id number]) - Administered on: 07/20/2013 Family History * Maternal history of Breast Cancer (V16.3); (Active) * Sororal history of Pulmonary Fibrosis (Active) * Sororal history of Lung Cancer (V16.1); (Active) * Fraternal history of Esophageal Cancer (V16.0); (Active) Social History * Former Smoker (V15.82); (Active) * Marital History - (Active) Advance Directives * No Advance Directives available. Encounters * AUDIT 08/13/2013 * [facility], Provider: JUVE MAK, Status: Dieudonne, Time: 1:15 PM 11/18/2013
--- OUTSIDE RECORDS SUMMARY | 2020-02-23 18:15 | XMS REPORT | Summary of Care ---
Author Author [facility] - [facility] Organization [facility] Address Unknown Phone Unavailable Encounter HQ Alex_ana(FIN) [id number] Date(s): 08/27/18 - 08/27/18 [facility] Out[facility] [place] [id number] [facility] [address] [place] [phone] Encounter Diagnosis Phlebitis and thrombophlebitis of other sites (Final) - 09/02/18 Discharge Disposition: Home or Self Care Attending [...] Smoking Cessation Counseli ng No entered on: 03/16/19 Assessment and Plan No data available for this section
--- OUTSIDE RECORDS SUMMARY | 2020-02-23 18:15 | XMS REPORT | Summary of Care ---
Author Author [facility] Organization [facility] Address Unknown Phone Unavailable Encounter ZULEMA Jiménez(FIN) [id number] Date(s): 04/29/19 - 04/29/19 [facility] [address] [address]- [phone] Discharge Disposition: Home or Self Care Attending Physician: Godwin Jaimes MD Vital Signs No data available for [...] No data available for this section Results Most recent to 1 oldest [Reference Range]: POC UA Bili Negative [Negative] *NA* (04/29/19 10:43 AM) POC UA Bld Trace [Negative] *NA* (04/29/19 10:43 AM) POC UA Color Yellow [Yellow] *NA* (04/29/19 10:43 AM) POC UA Glu [Negative Negative mg/dL mg/dL] *NA* (04/29/19 10:43 AM) POC UA Ket [Negative Negative mg/dL mg/dL] *NA* (04/29/19 10:43 AM) POC UA LeukEst Negative [Negative] *NA* (04/29/19 10:43 AM) POC UA Nit Negative [Negative] *NA* (04/29/19 10:43 AM) POC UA pH [5.0-8.0] 7.0 (04/29/19 10:43 AM) POC UA Prot Negative mg/dL [Negative mg/dL] *NA* (04/29/19 10:43 AM) POC UA SG [<=1.030] 1.010 (04/29/19 10:43 AM) POC UA Turbidity Clear [Clear] *NA* (04/29/19 10:43 AM) POC UA Uro [0.1-1.0 0.2 EU/dL EU/dL] (04/29/19 10:43 AM) Immunizations No data available for this section [...]
--- OUTSIDE RECORDS SUMMARY | 2020-02-23 18:15 | XMS REPORT | Summary of Care ---
Author Author [facility] Organization [facility] Address Unknown Phone Unavailable Encounter HQ Tino(FIN) [id number] Date(s): 11/20/18 - 11/20/18 [facility] Outpatient Imaging [facility] [address] [facility], [address] [place], [place] [address] [phone] Encounter Diagnosis Acute bronchitis, unspecified (Final) - 11/27/18 Discharge Disposition: Home or Self Care Attending [...] Smoking Cessation Counseli ng No entered on: 05/05/19 Assessment and Plan No data available for this section
--- OUTSIDE RECORDS SUMMARY | 2020-02-23 18:15 | XMS REPORT ---
Author Author EDGARDO La Teliss a Organization Unknown Address Unknown Phone Care Team Providers Care Regional Geodetic Advisor Name Role Phone Pratik La PP Reason for Referral No Reason for Referral was given. History of Present Illness No HPI available. Problems * Normal Routine History And Physical Senior Citizen (65-80) (V70.0); ( Active) * Anxiety (Symptom) (300.00); (Active) Medication * ALPRAZolam 0.5 MG Oral Tablet; TAKE 1 TABLET Every twelve hours PRN anxiety; Start Date: 06/12/2013 (Active) * Plaquenil 200 MG Oral Tablet (Active) * Levoxyl 100 MCG TABS (Active) * Omeprazole 20 MG Oral Capsule Delayed Release (Active) * Effexor XR 75 MG Oral Capsule Extended Release 24 Hour (Active) * ALPRAZolam 0.5 MG Oral Tablet (Active) * Folic Acid 1 MG Oral Tablet (Active) * Carvedilol 3.125 MG Oral Tablet (Active) * Clarinex 5 MG Oral Tablet (Active) * Furosemide 20 MG Oral Tablet (Active) * Leflunomide 10 MG Oral Tablet (Active) * Actemra SOLN (Active) * Vitamin B-3 TABS (Active) * Vitamin E CAPS (Active) * Caltrate 600 TABS (Active) * Fish Oil CAPS (Active) * Ocuvite Oral Tablet (Active) * MiraLax PACK (Active) * Biotin CAPS (Active) * Citrucel Oral Powder (Active) Allergies and Adverse Reactions * Levaquin TABS (Active) * Iodine (Active) Past Medical History * History of Anxiety (Symptom) (300.00); (Resolved) * History of Colon Cancer (V10.05); (Resolved) * History of Rheumatoid Arthritis (714.0); (Resolved) Procedures Procedure Procedure Date Date Completed Status Cholecystectomy - - Resolved Arthroscopy Knee - - Resolved Immunization * Influenza Advance Directives * No Advance Directives available. Encounters * AUDIT 07/17/2013 * [facility], Provider: JUVE MAK, Status: Dieudonne, Time: 1:15 PM 07/20/2013
--- OUTSIDE RECORDS SUMMARY | 2020-02-23 18:15 | XMS REPORT ---
Author Author EDGARDO LOREDO Organization Unknown Address Unknown Phone Care Team Providers Care Personnel Research Scientist Name Role Phone ETHEL LOREDO PP Unavailable Reason for Referral No Reason for Referral was given. History of Present Illness No HPI available. Problems * Thrombocytopenia (287.5); (Active) * Allergic Rhinitis (477.9); (Active) * Vaccines Prophylactic Need Against Influenza (V04.81); (Active) * Anxiety (Symptom) (300.00); (Active) * Fatigue (780.79); (Active) * Palpitations (785.1); (Active) * Essential Hypertension (401.9); (Active) * Hypothyroidism (244.9); (Active) * Normal Routine History And Physical Senior Citizen (65-80) (V70.0); ( Active) * Rheumatoid Arthritis (714.0); (Active) * Age-related Cognitive Decline (780.93); (Active) Medication * ALPRAZolam 0.5 MG Oral Tablet; TAKE 1 TABLET BY MOUTH EVERY 12 HOURS NEEDED FOR ANXIETY; Start Date: 06/12/2013 (Active) * Levoxyl 100 MCG Oral Tablet; TAKE 1 TABLET DAILY. (Active) * Omeprazole 20 MG Oral Capsule Delayed Release; TAKE 1 CAPSULE DAILY; Start Date: ; End Date: (Active) * Furosemide 20 MG Oral Tablet; TAKE 1 TABLET DAILY as needed (Active) * SM Vitamin E 200 UNIT Oral Capsule; TAKE 1 CAPSULE DAILY. (Active) * Desloratadine 5 MG Oral Tablet; TAKE 1 TABLET DAILY (Active) * Carvedilol 3.125 MG Oral Tablet; TAKE ONE TABLET BY MOUTH DAILY; Start Date: ; End Date: (Active) * Caltrate 600 TABS; TAKE 1 TABLET TWICE DAILY (Active) * Fish Oil CAPS; 1400mg TAKE 1 CAPSULE TWICE DAILY (Active) * Ocuvite Oral Tablet; TAKE 1 TABLET DAILY. (Active) * Biotin 5000 CAPS; TAKE 1 CAPSULE DAILY. (Active) * Citrucel Oral Powder; 1 TSP DAILY (Active) * Venlafaxine HCl ER 75 MG Oral Capsule Extended Release 24 Hour; TAKE 1 CAPSULE DAILY.; Start Date: 07/20/2013 (Active) * Nasonex 50 MCG/ACT Nasal Suspension; USE 1 SPRAY IN EACH NOSTRIL ONCE DAILY.; Start Date: 07/20/2013 (Active) * Xeljanz 5 MG Oral Tablet; TAKE 1 TABLET TWICE DAILY (Active) * Xolair 150 MG Subcutaneous Solution Reconstituted; INJECT 150 MG SUBCUTANEOUSLY EVERY 4 WEEKS. (Active) * Vitamin D 2000 UNIT Oral Capsule; TAKE 1 CAPSULE DAILY (Active) Allergies and Adverse Reactions * Levaquin [...] Influenza * Fluzone Intramuscular Injectable (Lot #: [id number]) - Administered on: 07/20/2013 Family History * Maternal history of Breast Cancer (V16.3); (Active) * Sororal history of Pulmonary Fibrosis (Active) * Sororal history of Lung Cancer (V16.1); (Active) * Fraternal history of Esophageal Cancer (V16.0); (Active) Social History * Former Smoker (V15.82); (Active) * Marital History - (Active) * Occupation: Retired (Active) Advance Directives * No Advance Directives available. Encounters * AUDIT 02/05/2014 * [facility], Provider: JUVE MAK, Status: Pen, Time: 2:45 PM 03/30/2014
--- OUTSIDE RECORDS SUMMARY | 2020-02-23 18:15 | XMS REPORT ---
Author Author EDGARDO LOREDO Organization Unknown Address Unknown Phone Care Team Providers Care Embedded Software Engineer Name Role Phone ETHEL LOREDO PP Reason for Referral No Reason for Referral was given. History of Present Illness No HPI available. Problems * Anxiety (Symptom) (300.00); (Active) * Normal Routine History And Physical Senior Citizen (65-80) (V70.0); ( Active) Medication * ALPRAZolam 0.5 MG Oral Tablet; TAKE 1 TABLET Every twelve hours PRN anxiety; Start Date: 06/12/2013 (Active) Allergies and Adverse Reactions * Not Known Past Medical History * No Significant Medical History Advance Directives * No Advance Directives available. Encounters * AUDIT 06/13/2013 * [facility], Provider: JUVE MAK, Status: Dieudonne, Time: 1:15 PM 07/20/2013
--- OUTSIDE RECORDS SUMMARY | 2020-02-23 18:15 | XMS REPORT ---
Author Author EDGARDO LOREDO Organization Unknown Address Unknown Phone Care Team Providers Care Digital Sales Assistant Name Role Phone ETHEL LOREDO PP Unavailable Reason for Referral No Reason for Referral was given. History of Present Illness No HPI available. Problems * Normal Routine History And Physical Senior Citizen (65-80) (V70.0); ( Active) * Thrombocytopenia (287.5); (Active) * Allergic Rhinitis (477.9); (Active) * Vaccines Prophylactic Need Against Influenza (V04.81); (Active) * Anxiety (Symptom) (300.00); (Active) * Fatigue (780.79); (Active) * Age-related Cognitive Decline (780.93); (Active) * Essential Hypertension (401.9); (Active) * Hypothyroidism (244.9); (Active) * Rheumatoid Arthritis (714.0); (Active) * Palpitations (785.1); (Active) Medication * ALPRAZolam 0.5 MG Oral Tablet; TAKE 1 TABLET BY MOUTH EVERY 12 HOURS NEEDED FOR ANXIETY; Start Date: 06/12/2013 (Active) * Levoxyl 100 MCG Oral Tablet; TAKE 1 TABLET DAILY. (Active) * Omeprazole 20 MG Oral Capsule Delayed Release; TAKE 1 CAPSULE DAILY (Active) * Furosemide 20 MG Oral Tablet; TAKE 1 TABLET DAILY as needed (Active) * Arava 20 MG Oral Tablet; TAKE 1 TABLET DAILY. (Active) * SM Vitamin E 200 UNIT Oral Capsule; TAKE 1 CAPSULE DAILY. (Active) * Carvedilol 3.125 MG Oral Tablet; TAKE 1 TABLET TWICE DAILY (Active) * Desloratadine 5 MG Oral Tablet; TAKE 1 TABLET DAILY (Active) * Caltrate 600 TABS; TAKE 1 [...] Influenza * Fluzone Intramuscular Injectable (Lot #: [id number]) - Administered on: 07/20/2013 Family History * Maternal history of Breast Cancer (V16.3); (Active) * Sororal history of Pulmonary Fibrosis (Active) * Sororal history of Lung Cancer (V16.1); (Active) * Fraternal history of Esophageal Cancer (V16.0); (Active) Social History * Former Smoker (V15.82); (Active) * Marital History - (Active) * Occupation: Retired (Active) Advance Directives * No Advance Directives available. Encounters * AUDIT 12/11/2013 * [facility], Provider: JUVE MAK, Status: Pen, Time: 2:15 PM 12/30/2013
--- OUTSIDE RECORDS SUMMARY | 2020-02-23 18:15 | XMS REPORT | Summary of Care ---
Author Author [facility] Organization [facility] Address Unknown Phone Unavailable Encounter HQ Tino(FIN) [id number] Date(s): 02/05/19 - 02/05/19 [facility] Outpatient Imaging - [place] [address] [phone] Discharge Disposition: Home or Self Care Attending Physician: Yesica Erwin MD Referring Physician: Yesica Erwin MD Vital Signs No data available for [...]
--- OUTSIDE RECORDS SUMMARY | 2020-02-23 18:15 | XMS REPORT | Summary of Care ---
Author Author [facility] khadijah Organization [facility] ton Address Unknown Phone Unavailable Encounter ZULEMA Jiménez(FIN) [id number] Date(s): 11/03/19 - 11/03/19 [facility] [place] [address] [place] [address]- Attending Physician: Godwin Jaimes MD Vital Signs [...] Smoking Cessation Counseli ng No entered on: 08/04/19 Assessment and Plan No data available for this section
--- OUTSIDE RECORDS SUMMARY | 2020-02-23 18:15 | XMS REPORT ---
Author Author EDGARDO Rod Organization Unknown Address Unknown Phone Care Team Providers Care Seal Mixing Operator Name Role Phone Marcelina Rod PP Unavailable Reason for Referral No Reason [...] TABS; TAKE 1 TABLET DAILY. (Active) * ALPRAZolam 0.5 MG Oral Tablet (Active) * Omeprazole 20 MG Oral Capsule Delayed Release; TAKE 1 CAPSULE DAILY (Active) * Furosemide 20 MG Oral Tablet; TAKE 1 TABLET DAILY as needed (Active) * Arava 20 MG Oral Tablet; TAKE 1 TABLET DAILY. (Active) * Actemra SOLN; INFUSTION ONCE A MONTH (Active) * SM Vitamin E 200 UNIT Oral Capsule; TAKE 1 CAPSULE DAILY. (Active) * Folic Acid 1 MG Oral [...] Influenza * Fluzone Intramuscular Injectable (Lot #: [id number]) - Administered on: 07/20/2013 Family History * Maternal history of Breast Cancer (V16.3); (Active) * Sororal history of Pulmonary Fibrosis (Active) * Sororal history of Lung Cancer (V16.1); (Active) * Fraternal history of Esophageal Cancer (V16.0); (Active) Social History * Former Smoker (V15.82); (Active) * Marital History - (Active) Advance Directives * No Advance Directives available. Encounters * AUDIT 10/12/2013 * [facility], Provider: JUVE MAK, Status: Dieudonne, Time: 1:15 PM 11/18/2013
--- OUTSIDE RECORDS SUMMARY | 2020-02-23 18:15 | XMS REPORT | Summary of Care ---
Author Author [facility] - [facility] Organization [facility] Address Unknown Phone Unavailable Encounter HQ Tino(FIN) [id number] Date(s): 02/05/19 - 02/05/19 [facility] Outpatient Imaging - [place] [address] [phone] Discharge Disposition: Home or Self Care Attending [...]
--- OUTSIDE RECORDS SUMMARY | 2020-02-23 18:15 | XMS REPORT ---
Author Author EDGARDO LOREDO Organization Unknown Address Unknown Phone Care Team Providers Care National Coverage Specialist Name Role Phone LOREDO, ETHEL PP Unavailable Reason for Referral No Reason for Referral was given. History of Present Illness No HPI available. Problems * Normal Routine History And Physical Senior Citizen (65-80) (V70.0); ( Active) * Rheumatoid Arthritis (714.0); (Active) * Essential Hypertension (401.9); (Active) * Hypothyroidism (244.9); (Active) * Thrombocytopenia (287.5); (Active) * Allergic Rhinitis (477.9); (Active) * Vaccines Prophylactic Need Against Influenza (V04.81); (Active) * Age-related Cognitive Decline (780.93); (Active) * Anxiety (Symptom) (300.00); (Active) Medication [...] Influenza * Fluzone Intramuscular Injectable (Lot #: [id number]) - Administered on: 07/20/2013 Family History * Maternal history of Breast Cancer (V16.3); (Active) * Sororal history of Pulmonary Fibrosis (Active) * Sororal history of Lung Cancer (V16.1); (Active) * Fraternal history of Esophageal Cancer (V16.0); (Active) Social History * Former Smoker (V15.82); (Active) * Marital History - (Active) Advance Directives * No Advance Directives available. Encounters * AUDIT 09/09/2013 * [facility], Provider: JUVE MAK, Status: Dieudonne, Time: 1:15 PM 11/18/2013
--- OUTSIDE RECORDS SUMMARY | 2020-02-23 18:15 | XMS REPORT ---
Author Author EDGARDO Chand Organization [employer] Address Unknown Phone Unavailable Care Team Providers Care Gas Main Fitter Helper Name Role Phone Chuy Chand CP Unavailable Allergies No Known Allergies Problems Problem Type Condition Code Onset Dates Condition Statu s Problem Rheumatoid arthritis of mult iple sites without organ or system involvement with [...] Problem Pain in throat R07.0 Active Medications No Known Medications Results No Known Results Summary Purpose [employer] Submission
--- OUTSIDE RECORDS SUMMARY | 2020-02-23 18:15 | XMS REPORT | Summary of Care ---
Author Author [facility] - [facility] Organization [facility] Address Unknown Phone Unavailable Encounter HQ Tino(FIN) [id number] Date(s): 11/05/19 - 11/05/19 [facility] Outpatient Imaging [facility] [address], [address] [place], [place] [address] [phone] Discharge Disposition: Home or Self Care Attending [...]
--- OUTSIDE RECORDS SUMMARY | 2020-02-23 18:15 | XMS REPORT | Summary of Care ---
Author Author [facility] khadijah Organization [facility] khadijah Address Unknown Phone Unavailable Encounter ZULEMA Jiménez(FIN) [id number] Date(s): 05/05/19 - 05/05/19 [facility] [place] [address] [place] [address]- Discharge Disposition: Home or Self Care Attending [...] Active iodine Active Latex Active Medications No Known Medications Results No data available for this section Immunizations No data available for this section Procedures Procedure Date Related Diagnosis Body Site Status Complex cystometrogram (ie, calibrated 05/05/19 Completed electronic equipment); with voiding pre ssure studies (ie, bladder voiding pressure), any technique Complex uroflowmetry (eg, calibrated 05/05/19 C ompleted electronic equipment) Cystourethroscopy (separate procedure) 05/05/19 Completed Cystourethroscopy, with calibration and/or 05/05/19 Completed dilation of urethral stricture or steno sis, with or without meatotomy, with or with out injection procedure for cystography, ma le or female Electromyography studies (EMG) of anal or 05/05/19 Completed urethral sphincter, other than needle, any technique Voiding pressure studies, intra-abdominal 05/05/19 Completed (ie, rectal, gastric, intraperitoneal) (List separately in addition to code for prim daksha procedure) Right hemicolectomy 1989 Completed Colonoscopy Completed Social History Social History Type Response Smoking Status Former smoker; Lives with s omeone who smokes; Cigarette Smoking Last 365 Days No; Reg Smoking Cessation Counseli raven No entered on: 05/05/19 Assessment and Plan No data available for this section
--- OUTSIDE RECORDS SUMMARY | 2020-02-23 18:15 | XMS REPORT ---
Author Author EDGARDO Meadows Organization Unknown Address Unknown Phone Care Team Providers Care Oxygen Furnace Operator Name Role Phone Susan Meadows PP Unavailable Reason for Referral No Reason [...] Influenza * Fluzone Intramuscular Injectable (Lot #: [id number]) - Administered on: 07/20/2013 Family History * Maternal history of Breast Cancer (V16.3); (Active) * Sororal history of Pulmonary Fibrosis (Active) * Sororal history of Lung Cancer (V16.1); (Active) * Fraternal history of Esophageal Cancer (V16.0); (Active) Social History * Former Smoker (V15.82); (Active) * Marital History - (Active) Advance Directives * No Advance Directives available. Encounters * AUDIT 07/20/2013 * [facility], Provider: JUVE MAK, Status: Dieudonne, Time: 1:15 PM 11/18/2013
--- OUTSIDE RECORDS SUMMARY | 2020-02-23 18:15 | XMS REPORT | Summary of Care ---
Author Author [facility] khadijah Organization [facility] khadijah Address Unknown Phone Unavailable Encounter ZULEMA Jiménez(FIN) [id number] Date(s): 03/16/19 - 03/16/19 [facility] [place] [address] [place] [address]- Discharge Disposition: Home or Self Care Attending Physician: Godwin Jaimes MD Vital Signs Most recent to 1 oldest [Reference Range]: Blood Pressure 167/96 mmHg [90-140/60-90 mmHg] *HI* (03/16/19 3:22 PM) Peripheral Pulse 96 bpm Rate [60-100 bpm] (03/16/19 3:22 PM) Problem List Condition Effective Dates Status Health [...]
--- OUTSIDE RECORDS SUMMARY | 2020-02-23 18:15 | XMS REPORT | Summary of Care ---
Author Author [facility] khadijah Organization [facility] ton Address Unknown Phone Unavailable Encounter ZULEMA Jiménez(FIN) [id number] Date(s): 08/04/19 - 08/04/19 [facility] [place] [address] [place] [address]- Discharge Disposition: Home or Self Care Attending Physician: Godwin Jaimes MD Vital Signs Most recent to 1 oldest [Reference Range]: Height 157.48 cm (08/04/19 8:38 AM) Weight 77.727 kg (08/04/19 8:38 AM) Body Mass Index 31.34 m2 (08/04/19 8:38 AM) Problem List Condition Effective Dates Status Health [...]
--- OUTSIDE RECORDS SUMMARY | 2020-02-23 18:15 | XMS REPORT ---
Author Author EDGARDO Chand Organization [employer] Address Unknown Phone Unavailable Care Team Providers Care Hrbp Name Role Phone Chuy Chand CP Unavailable [...] Start Date End Date Status Dosage Methotrexate [facility] [id number] 2.5mg Orally Once a week Jun 01, 2019 Active 2 tablets Results No Known Results Summary Purpose [employer] Submission
--- OUTSIDE RECORDS SUMMARY | 2020-02-23 18:15 | XMS REPORT | Summary of Care ---
Author Author [facility] khadijah Organization [facility] khadijah Address Unknown Phone Unavailable Encounter HQ Alexanderntr_ana(FIN) [id number] Date(s): 05/05/19 - 05/05/19 [facility] [place] [address] [place] [address]- Discharge Disposition: Home or Self Care Attending Physician: VISIT, MED_ASST UAHT Vital Signs No data available for this [...]
--- OUTSIDE RECORDS SUMMARY | 2020-02-23 18:15 | XMS REPORT | Continuity of Care Document ---
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 H Active 01/21/2019 [facility] Ramón Acute bronchitis, unspecified 11/27/2018 06/10/2019 MIKAEL Mckeon J20.9 - ACUTE BRONCHITIS, UNSPECIFIED Active 11/20/2018 [facility] Ramón Phlebitis and thrombophlebitis of other sites 09/02/2018 03/17/2019 MIKAEL Mckeon R13.10 Active 08/12/2017 [facility] D64.9 *XRAY ESOPHAGRAM BARIUM SWALLOW W Active 07/05/2017 [facility] D64.9 - "ANEMIA, UNSPECIFIED" Active 06/26/2017 MIKAEL Bianchi DIZZINESS AND GIDDINESS Active 05/06/2017 [facility] R09.89 - OTH SYMPTOMS AND SIGNS INVOLVI Active 04/11/2017 [facility] Anxiety (Symptom) Active 02/18/2014 [facility] Thrombocytopenia Active 02/18/2014 [facility] Rheumatoid Arthritis Active 02/18/2014 [facility] Essential Hypertension Active 02/18/2014 [facility] Hypothyroidism Active 02/18/2014 [facility] Age-related Cognitive Decline Active 02/18/2014 [facility] Allergic Rhinitis Active 02/18/2014 [facility] Vaccines Prophylactic Need Against Influenza Active 02/18/2014 [facility] Fatigue Active 02/18/2014 [facility] Palpitations Active 02/18/2014 [facility] Pain During Urination (Dysuria) Active 02/18/2014 [facility] Urinary Tract Infection Active 02/18/2014 [facility] Vaginitis Active 02/18/2014 [facility] Anemia (disorder) Resolved Problem 11/08/2019 [facility], MIKAEL Bianchi,[facility] MIKAEL Mckeon Anxiety (finding) Resolved Problem 11/08/2019 [facility], [facility] [place] [place] [place] Constipation (disorder) Resolv ed Problem [facility], [facility] [place] [place] [place] Diabetes mellitus (disorder) R esolved Problem [facility], [facility] [place] [place] [place] Gastric reflux (finding) Resol devin Problem [facility], [facility] [place] [place], [facility] [place] Hyperlipidemia (disorder) Reso lved Problem [facility], [facility] [place] [place], [facility] [place] Hypothyroidism (disorder) Reso lved Problem [facility], [facility] [place] [place], [facility] [place] Malignant tumor of colon (disorder) Resolved Problem [facility], [facility] [place] [place] [place] Depressive disorder (disorder) Resolved Problem [facility], [facility] [place] [place], [facility] [place] Pain in throat Active Problem 08/26/2019 Deven Jagruti Osteoarthritis Active Problem 01/22/2020 Deven Chand Normal pressure hydrocephalus Active Problem 07/2020 Deven Chand Degenerative arthritis of cervical spine Active Problem 01/22/2020 Deven Chand Rheumatoid arthritis of multiple sites w [facility] organ or system involvement with positive rheumatoid factor Active Problem 07/2020 Deven Chand Encounter for long-term (current) use of other high-risk medications Active Prob uche 01/22/2020 Deven Chand Pharyngitis Active Problem 03/07/2017 Deven Chand Neck pain Active Problem 01/22/2020 Deven Chand Lumbago with sciatica, unspecified side Active Problem 01/22/2020 Deven Chand Osteopenia of multiple sites A ctive Problem 07/2020 Deven Chand Rheumatoid arthritis Active Problem 06/12/2016 Deven Chand Rash and other nonspecific skin eruption Active Problem 06/12/2016 Deven Ellsworther Spasm of muscle Active Problem 06/12/2016 Deven Chand Long-term (current) use of other medicat ions - High Risk Active Prob uche 06/12/2016 Deven Jagruti Follow-up examination following complete d treatment with high-risk medications, not elsewhere classified Active Problem 06/12/2016 Deven Jagruti Bursitis, Hip Active Problem 06/12/2016 Deven Jagruti Pain in joint, wrist Active Problem 06/12/2016 Deven Chand Vasculitis Active Problem 06/12/2016 Deven Jagruti Osteopenia Active Problem 06/12/2016 Deven Jagruti Rib pain Active Diagnosis 11/19/2015 Deven Chand Medications Medication Details Route Status Patient Instructions Ordering Provider Order Date Source PredniSONE 2 tablets Orally Active 5 MG Orally q am with f ood Chand 05/15/2020 Deven Chand Methotrexate 2 tablets Orally Active 2.5mg Orally Once a wee k Chand 06/01/2019 Deven Chand PredniSONE 1 tablet Orally Active 5 Orally Once a day Chand 12/18/2018 Deven Chand Methotrexate 2 tablets Orally Active 2.5 MG Orally Once a we ek Chand 10/23/2018 Deven Chand Methotrexate 2 tablets Orally Active 2.5 MG Orally Once a we ek Chand 08/05/2018 Deven Chand Folic Acid 1 tablet Orally Active 1 MG Orally Once a day Chand 03/26/2018 Deven Chand Methotrexate 2 tablets Orally Active 2.5mg Orally Once a wee k Chand 03/24/2018 Deven Chand Methotrexate 2 tablets Orally Active 2.5mg Orally Once a wee k Cason 03/24/2018 Deven Chand Folic Acid 1 tablet Orally Active 1 MG Orally Once a day Chand 06/21/2017 Deven Chand Hydrocodone-Acetaminophen take 1 tablet by mouth every 6 hours Orally Active 5-325 MG Orally every [facility] Deven Chand Hydrocodone-Acetaminophen take 1 tablet Orally Active 5-325 MG Orally once a day as needed Cason 01/23/2017 Deven Chand Hydrocodone-Acetaminophen take 1 tablet by mouth every 6 hours Orally Active 5-325 MG Orally every 6 hrs [facility] 05/11[facility]2016 Deven Chand Prilosec OTC 1 tablet Orally Active 20 MG Orally Once a day Chand 09/27/2015 Deven Chand Folic Acid 1 tablet Orally Active 1 MG Orally Once a day Chand 09/27/2015 Deven Chand Fluconazole 150 MG Oral Tablet ; Start Date: 02/09/2014; End Date: (Active) Active 02/09/2014 [facility] MetroNIDAZOLE 0.75 % Vaginal Gel ; Start Date: 02/09/2014; End Date: (Active) Active 02/09/2014 [facility] Venlafaxine HCl ER 75 MG Oral Capsule Ex tended Release 24 Hour ; Start Date: 07/20/2013 (Active) Active 07/20/2013 [facility] Nasonex 50 MCG/ACT Nasal Suspension ; Start Date: 07/20/2013 (Active) Active 07/20/2013 [facility] Venlafaxine HCl ER 75 MG Oral Capsule Ex tended Release 24 Hour ; Start Date: 07/20/2013 (Active) Active 07/20/2013 [facility] ALPRAZolam 0.5 MG Oral Tablet ; Start Date: 06/12/2013 (Active) Active 06/12/2013 [facility] Omeprazole 20 MG Oral Capsule Delayed Release ; Start Date: ; End Date: (Active) Inactive [facility] Carvedilol 3.125 MG Oral Tablet ; Start Date: ; End Date: (Active) Inactive [facility] Levoxyl 100 MCG Oral Tablet ; Start Date: ; End Date: (Active) Inactive [facility] Plaquenil 200 MG Oral Tablet (Active) Active [facility] Levoxyl 100 MCG TABS (Active) Active [facility] Omeprazole 20 MG Oral Capsule Delayed Release (Active) Active [facility] Effexor XR 75 MG Oral Capsule Extended Release 24 Hour (Active) Active [facility] ALPRAZolam 0.5 MG Oral Tablet (Active) Active [facility] Folic Acid 1 MG Oral Tablet ( Active) Active [facility] Carvedilol 3.125 MG Oral Tablet (Active) Active [facility] Clarinex 5 MG Oral Tablet (Ac tive) Active [facility] Furosemide 20 MG Oral Tablet (Active) Active [facility] Leflunomide 10 MG Oral Tablet (Active) Active [facility] Actemra SOLN (Active) Active [facility] Vitamin B-3 TABS (Active) Active [facility] Vitamin E CAPS (Active) Active [facility] Caltrate 600 TABS (Active) Active [facility] Fish Oil CAPS (Active) Active [facility] Ocuvite Oral Tablet (Active) Active [facility] MiraLax PACK (Active) Active [facility] Biotin CAPS (Active) Active [facility] Citrucel Oral Powder (Active) Active [facility] Arava 20 MG Oral Tablet (Acti ve) Active [facility] SM Vitamin E 200 UNIT Oral Capsule (Active) Active [facility] Biotin 5000 CAPS (Active) Active [facility] Levoxyl 100 MCG Oral Tablet ( Active) Active [facility] Desloratadine 5 MG Oral Tablet (Active) Active [facility] Citrucel Oral Powder (Active) Active [facility] Xeljanz 5 MG Oral Tablet (Act amanda) Active [facility] Xolair 150 MG Subcutaneous Solution Reconstituted (Active) Active [facility] Vitamin D 2000 UNIT Oral Capsule (Active) Active [facility] Citracal/Vitamin D TABS (Acti ve) Active [facility] Metamucil POWD (Active) Active [facility] Tylenol Arthritis Pain 650 MG Oral Table t Extended Release (Active) A ctive [facility] Mucinex 1 tablet as needed Orally Active 600 MG Orally every 12 hrs Jagruti Chand Senokot 2 tablets at bedtime a s needed Orally Active 8.6 MG Orally Once a day Jagruti Chand BuPROPion HCl 1 tablet Orally Active 100 MG Orally once a da y Jagruti Chand Ocuvite as directed Orally Active Orally Jagruti Chand Fish Oil 1 CAP Orally Active 1000 MG Orally TWICE DA SHAUN Jagruti Chand MiraLax as directed Orally Active - Orally Jagruti Chand Alprazolam 1 tablet Orally Active 0.5 MG Orally Twice a d ay Jagruti Chand Tylenol Arthritis Pain 2 table ts as needed Orally Active 650 MG Orally every 8 hrs Jagruti Chand Metamucil as directed Orally Active 48.57 % Orally Jagruti Chand OneTouch Delica Lancets 33G as directed NA Active - Jagruti Chand Levothyroxine Sodium 1 Orally Active 100 MCG Orally qd Jagruti Chand PredniSONE 1 tablet Orally Active 5 MG Orally Once a day Jagruti Chand Atorvastatin Calcium 1 tablet Orally Active 10 MG Orally Once a day Chand Devenveronica Chand Rituxan 1000MG IV NA Active 1000MG q 4monthly Chand Humble harshil Ellsworther Citracal + D 1 tablet with caroline ls Orally Active 1500-200 MG-IU Orally Twice a day Jagruti Chand Metformin & Diet Manage Prod 1 tablet Orally Active 500 MG Orally BID Chand Deven Chand Desloratadine 1 tablet Orally Active 5 MG Orally Once a day Chand Deven Chand Methotrexate 2 tablets Orally Active 2.5mg Orally Once a wee k Yoav Chand Venlafaxine HCl 1 tablet with food Orally Active 37.5 MG Orally Once a day Chand Deven Chand Carvedilol 1 tablet with food Orally Active 3.125 MG Orally Twice a day Chand Deven Chand Famotidine 1 tablet at bedtime Orally Active 20 MG Orally BID Chand Deven Chand Omeprazole 1 capsule Orally Active 40 MG Orally Once a day Chand Humble Chand Folic Acid 1 tablet Orally Active 1 MG Orally Once a day Chand Humble Chand MiraLax as directed Orally Active - Orally Chand Humble Ellsworther Alprazolam 1 tablet Orally Active 0.5 MG Orally Twice a d ay Chand Deven Chand Omeprazole 1 capsule Orally Active 40 MG Orally Once a day Chand Humble Ellsworther Desloratadine 1 tablet Orally Active 5 MG Orally Once a day Chand Deven Chand Fish Oil 1 CAP Orally Active 1000 MG Orally TWICE DA SHAUN Chand Humble Chand OneTouch Delica Lancets 33G as directed NA Active - Cahnd [place] Chand Tylenol Arthritis Pain 2 table ts as needed Orally Active 650 MG Orally every 8 hrs Chand Deven Chand Venlafaxine HCl 1 tablet with food Orally Active 37.5 MG Orally Once a day Chand Deven Chand Atorvastatin Calcium 1 tablet Orally Active 10 MG Orally Once a day Chand Deven Chand Levothyroxine Sodium 1 Orally Active 100 MCG Orally qd Chand Humble Chand Famotidine 1 tablet at bedtime Orally Active 20 MG Orally BID Jagruti Chand Metamucil as directed Orally Active 48.57 % Orally Chand Humble Chand Ocuvite as directed Orally Active Orally Chand Deven Chand Rituxan 1000MG IV NA Active 1000MG q 4monthly Jagruti Chand Mucinex 1 tablet as needed Orally Active 600 MG Orally every 12 hrs Jagruti Chand Senokot 2 tablets at bedtime a s needed Orally Active 8.6 MG Orally Once a day Jagruti Chand Carvedilol 1 tablet with food Orally Active 3.125 MG Orally Twice a day Jagruti Chand BuPROPion HCl 1 tablet Orally Active 100 MG Orally once a da y Jagruti Chand Vitamin B12 1 tablet Orally Active 1000 MCG Orally Once a day Jagruti Chand Rituxan 1000mg Intravenous Active 500 MG/50ML Intravenous at day 1 and 15 then repeat q 4 mths Jagruti Chand Biotin 1 tablet Orally Active 300 MCG Orally Once a d ay Jagruti Chand Xolair INJECTION ONCE A MONTH Subcutaneous Active 150 MG Subcutaneous EVERY MONTH Jagruti Chand Calcium + D 1 tablet Orally Active 600-200 MG-UNIT Orally TWICE A DAY Jagruti Chand Hydrocodone-Acetaminophen TAKE 1 TABLET BY MOUTH EVERY 6 HOURS NA Active 5-325 MG Jagruti Chand Naproxen TAKE 1 TABLET NEED ED EVERY 12 HOURS NA Active 50 0MG Jagruti Chand Vitamin E 1 capsule Orally Active 100 UNIT Orally Once a day Jagruti Chand Furosemide 1 tablet Orally Active 20 MG Orally Once a day Jagruti Chand Effexor XR 1 capsule with food Orally Active 37.5 MG Orally Once a day Karl Chand Methotrexate TAKE 3 TABLETS BY MOUTH ONCE A WEEK NA Active 2. 5 MG Karl Deven Chand PredniSONE TAKE 1 TO 2 TABLETS WITH FOOD OR MILK ONCE DAILY NA Active 5MG Yoav Chand Tylenol 1 Or ally Active otc Orally prn Yoav Chand Valsartan 1/2 tablet Orally Active 40 MG Orally Once a day Karl [place] Chand Nasonex 2 sprays in each nostr il Nasally Active 50 MCG/ACT Nasally Once a day Jagruti Chand Venlafaxine HCl 1 tablet with food Orally Active 75 MG Orally Twice a day Jagruti Chand Mucinex 1 tablet for chest con gestion Orally Active 600 MG Orally prn Jagruti Chand Xanax 1 tablet Orally Active 0.5 MG Orally twice a d ay [facility] Humble Chand Naproxen 1 tablet Orally Active 250 MG Orally PRN Cason Phi ervin Chand Citracal +D3 as directed Orally Active 250-107-500 MG-MG-UNIT Orally Cason Deven Chand Metformin & Diet Manage Prod a s directed Orally Active 500 MG Orally Karl Deven Chand Omeprazole 1 capsule Orally Active 20 MG Orally Once a day Cason Deven Chand Iron 1 tablet Orally Active 325 (65 Fe) MG Orally O nce a day Karl Deven Chand Methotrexate once a week Orally Active 2.5 MG Orally once a we ek Chand Deven Chand Hydrocodone-Acetaminophen take 1 tablet by mouth every 6 hours Orally Active 5-325 MG Orally every 6 hrs [place] Deven Chand Clotrimazole 1 tammy Mouth/Throat Active 10 MG Mouth/Throat Three times a day Karl Deven Chand Citracal + D 1 tablet with caroline ls Orally Active 1500-200 MG-IU Orally Twice a day Karl Deven Chand Folic Acid 1 tablet Orally Active 1 MG Orally Once a day Chand Humble Chand Furosemide 1 tablet Orally Active 20 MG Orally Once a day Chand Humble Chand Metformin HCl 1 tablet with a meal Orally Active 500 MG Orally BID Chand Deven Chand Allergies, Adverse Reactions, Alerts Substance Category Reaction Severity Reaction type Status Date Reported Comments Source Iodine Adverse Reaction Info Not Available Adverse Reaction Active 11/17/2019 Deven Chand Daypro Adverse Reaction Info Not Available Adverse Reaction Active 11/17/2019 Deven Chand Levaquin Adverse Reaction Info Not Available Adverse Reaction Active 11/17/2019 Deven Chand Leflunomide Adverse Reaction Info Not Available Adverse Reaction Active 11/17/2019 Deven Chand Xeljanz Adverse Reaction Info Not Available Adverse Reaction Active 11/17/2019 Deven Chand Actemra Adverse Reaction Info Not Available Adverse Reaction Active 11/17/2019 Deven Chand Humira Adverse Reaction Info Not Available Adverse Reaction Active 11/17/2019 Deven Chand Remicade Adverse Reaction Info Not Available Adverse Reaction Active 11/17/2019 Deven Chand Enbrel Adverse Reaction Info Not Available Adverse Reaction Active 11/17/2019 Deven Chand Kineret Adverse Reaction Info Not Available Adverse Reaction Active 11/17/2019 Deven Chand Fosamax Adverse Reaction fatigue, dental issues Adverse Reaction Active 11/17/2019 Deven Chand Thiuram Mix Adverse Reaction Info Not Available Adverse Reaction Active 11/17/2019 Deven Chand Bacitracin Adverse Reaction Info Not Available Adverse Reaction Active 11/17/2019 Deven Chand Gold Sodium Thiosulfate Advers e Reaction Info Not Available Adverse Reaction Active 11/17/2019 Deven Chand Not Known [facility] Levaquin TABS drug allergy drug allergy Active [facility] Bacitracin OINT drug allergy drug allergy Active [facility] Gold Sodium Thiomalate PUNEETN dr ug allergy drug aller gy Active [facility] Bacitracin, Topical Assertion Drug allergy Active [facility] [place] iodine Assertion Drug allergy Active [facility] [place] Latex Assertion Drug allergy Active [facility] [place] Immunizations Immunization Date Given Site Status Last Updated Comments Source Fluzone Intramuscular Injectable 07/20/2013 completed [facility] Influenza completed [facility] Results Order Name Results Value Reference Range Date Interpretation Comments Source URINE AND STOOL POC UA LeukEst Negative *NA* (04/29/19 10:43 AM) Negative 04/29/2019 [facility] URINE AND STOOL POC UA Nit Negative *NA* (04/29/19 10:43 AM) Negative 04/29/2019 [facility] URINE AND STOOL POC UA Uro 0.2 0.1 - 1.0 04/29/2019 [facility] URINE AND STOOL POC UA Bld Trace *NA* (04/29/19 10:43 AM) Negative 04/29/2019 [facility] URINE AND STOOL POC UA Bili Negative *NA* (04/29/19 10:43 AM) Negative 04/29/2019 [facility] URINE AND STOOL POC UA Ket Negative mg/dL Negative mg/dL 04/29/2019 [facility] URINE AND STOOL POC UA Glu Negative mg/dL Negative mg/dL 04/29/2019 [facility] URINE AND STOOL POC UA pH 7.0 5.0 - 8.0 04/29/2019 [facility] URINE AND STOOL POC UA Prot Negative mg/dL Negative mg/dL 04/29/2019 [facility] URINE AND STOOL POC UA SG 1.010 <=1.030 04/29/2019 [facility] URINE AND STOOL POC UA Turbidity Clear *NA* (04/29/19 10:43 AM) Clear 04/29/2019 [facility] URINE AND STOOL POC UA Color Yellow *NA* (7/17/19 10:43 AM) Yellow 04/29/2019 [facility] No Data Provided for This Section Diagnostic Reports Report Value Date Source Abdomen 2 views DX EXAM: XR AB DOMEN 1 VIEW DATE: 11/05/2019 13:07 CORRECTIONAL CASE MANAGER INDICATION: - constipation COMPARISON: None. TECHNIQUE: AP view of the abdomen. FINDINGS: Surgical clips in the pelvis. Stomach is partially gas distended. Bowel: No dilated small bowel loops. Moderate volume colonic stool. Solid organs: No organomegaly. Atheromatous vascular calcification seen. Bones: Moderate degenerative changes involving the lumbar spine with the mild dextroscoliosis in the thoracolumbar junction. IMPRESSION: Moderate volume colonic stool. 11/05/2019 [facility] Pelvis w Pelvis Transvaginal US EXAM: US PELVIS DATE: 03/04/2019 13:40 CDT INDICATION: Occasional pelvic discomfort. Increased abdominal girth. Status post partial hysterectomy. COMPARISON: None TECHNIQUE: Multiplanar grayscale and color Doppler ultrasound of the pelvis were obtained: Transabdominally through a distended urinary bladder. Transvaginally postvoid. FINDINGS: Uterus: Absent Right ovary: Not identified Left ovary: Not identified Adnexa: Normal. Free fluid: None. Note is a prevoid bladder volume of 404 cc. The post void bladder volume was 241 cc. IMPRESSION: 1. The uterus and ovaries were not evide nt. 2. The prevoid bladder volume was unrema rkable. However, the post void bladder volume is greater than that expected. 03/04/2019 [facility] Brain w/wo contrast MRI Brain w/wo contrast MRI 02/05/2019 10:34 CDT Clinical Indication: - R26.81 Unsteadiness on feet; Comparison: 04/19/2017 CT TECHNIQUE: Multiplanar MRI of the brain is performed without and with contrast. 15 mL of intravenous gadolinium was given. FINDINGS: BRAIN: No restricted diffusion is identified. Mild white matter FLAIR and T2- weighted signal abnormalities are seen, likely due to microvascular ischemia. The brainstem is unremarkable. Mild cerebral atrophy is seen. There is no extra- axial fluid collection or intraparenchymal hemorrhage. No abnormal enhancement is seen. CEREBELLOPONTINE REGIONS, SELLA, AND SKULL: The cerebellopontine angles appear unremarkable. No skull abnormality is seen. The pituitary gland appears unremarkable. VENTRICLES: Stable [id number] lateral ventricular dilatation, slightly disproportionate to the mild cerebral atrophy. The 4th ventricle appears unremarkable. The cerebral aqueduct appears unremarkable. VISUALIZED VESSELS: Major intracranial flow voids are preserved. ORBITS, VISUALIZED PARANASAL SINUSES/MASTOIDS/CERVICAL SPINE: Paranasal sinuses are clear. The mastoid air cells are clear. No orbital pathology is seen. IMPRESSION: 1. No intracranial hemorrhage, mass, or acute infarct. 2. Stable mild chronic microvascular isc hemia. 3. Stable mild to moderate lateral ventr iculomegaly, may be due to communicating or normal pressure hydrocephalus. 02/05/2019 [facility] [place] Spine cervical wo contrast MRI Spine cervical wo contrast MRI 02/05/2019 10:34 CDT CLINICAL: - R26.81 Unsteadiness on feet TECHNIQUE: Multiplanar multisequence imaging of the cervical spine was performed without administration of intravenous gadolinium. COMPARISON: No prior exam. FINDINGS: Multilevel disc desiccation is seen. C1-C2: No spinal stenosis or neural foraminal stenosis. C2-C3: 1 mm anterolisthesis. Severe right facet arthrosis with facet joint ankylosis is present. No central canal or foraminal stenosis. C3-C4: Severe right facet arthrosis. 3 mm ligamenta flava thickening and 2 mm anterolisthesis are present with mild central canal stenosis. Severe right foraminal stenosis is present. C4-C5: Severe disc narrowing. 2 mm retrolisthesis with mild central canal stenosis and minimal cord indentation. Bilateral foraminal osteophytes are present, with moderate left foraminal stenosis and mild right foraminal stenosis. C5-C6: Severe disc narrowing. 1 mm retrolisthesis is present, with mild central canal stenosis. Bilateral foraminal osteophytes are present with severe left foraminal stenosis, moderate right foraminal stenosis. C6-C7: Severe disc narrowing. No central canal stenosis. Bilateral foraminal osteophytes and uncovertebral joint arthrosis with severe left foraminal stenosis and moderate right foraminal stenosis. C7-T1: There is preservation of the disc height, with no bulging, herniation, spinal stenosis, or neural foraminal stenosis. The cervical cord signal is normal. IMPRESSION: 1. Multilevel severe degenerative change s. 2. C3-C4 2 mm anterolisthesis. C4-C5, C5 -C6 grade 1 retrolisthesis. 3. Several levels of mild central canal stenosis. C4-C5 minimal cord indentation. Normal cervical cord signal. 4. Multilevel moderate to severe foramin al stenosis. 02/05/2019 [facility] MIKAEL Bianchi Chest 2 views DX EXAM: XR CHES T 2 VIEWS DATE: 11/20/2018 3:46 PM CORRECTIONAL CASE MANAGER INDICATION: - J20.9 Acute bronchitis, unspecified COMPARISON: None TECHNIQUE: PA and lateral chest radiographs FINDINGS: Lungs are symmetrically well expanded. Probable bibasilar atelectasis. No pulmonary or pleural-based abnormality is identified. The cardiomediastinal silhouette is normal. The descending thoracic aorta is ectatic and tortuous. No acute osseous abnormality is identified. IMPRESSION: No acute cardiopulmonary abnormality. Probable bibasilar atelectatic changes. 11/20/2018 [facility] Ext Lower Venous Doppler Unilat US EXAM: US LEFT LOWER EXTREMITY VENOUS DOPPLER DATE: 08/27/2018 9:33 AM CORRECTIONAL CASE MANAGER INDICATION: - I80.9 Phlebitis and thrombophlebitis of [...] calf, likely a thrombosed varicose vein. 08/27/2018 [facility] Barium Swallow w Esophagus Function DX Patient Name: EDGARDO HUNTLEY : 1940; Age: 77 years y/o Female MR: [id number] Study: Barium Swallow w Esophagus Function DX [...] in contrast passage in the LPO position. [id number] 07/11/2017 [facility] wo contrast CT EXAM: CT BRAIN WITHOUT [...] pressure hydrocephalus. Clinical correlation is recommended. 04/19/2017 [facility] Carotid artery Doppler bilat US EXAM: US [...] significant stenosis. 2. Left internal carotid artery: Modera te calcified plaque in the left carotid bulb with no hemodynamically significant stenosis. 3. Vertebral arteries: Antegrade flow w ith normal waveforms bilaterally. According to the 2003 [...] Don CB, Bright GL, et. al. 04/19/2017 [facility] Consultation Notes No Data Provided for This Section Discharge Summaries No Data Provided for This Section History and Physicals No Data Provided for This Section Vital Signs Vital Sign Value Date Comments Source Weight 169.3 11/17/2019 Deven Chand Height 62 0 11/17/2019 Deven Chand Temperature Oral (F) 97.4 F 11/17/2019 Deven Chand Heart Rate 81 11/17/2019 Deven Chand Diastolic (mm Hg) 77 11/17/2019 Deven Chand Systolic (mm Hg) 135 11/17/2019 Deven Chand Height 157.48 cm [facility] Weight 77.727 [facility] BMI Calculated 31.34 08/04/2019 [facility] Heart Rate 96 03/16/2019 [facility] Systolic (mm Hg) 167 03/16/2019 [facility] Diastolic (mm Hg) 96 03/16/2019 [facility] Weight 169.6 02/12/2019 Deven Chand Height 62 0 02/12/2019 Deven Chand Temperature Oral (F) 97.3 F 02/12/2019 Deven Chand Heart Rate 84 02/12/2019 Deven Chand Diastolic (mm Hg) 75 02/12/2019 Deven Chand Systolic (mm Hg) 143 02/12/2019 Deven Chand Weight 171.3 10/02/2018 Deven Chand Height 62 1 12/03/2017 Deven Chand Temperature Oral (F) 97.7 F 10/02/2018 Deven Chand Heart Rate 79 10/02/2018 Deven Chand Diastolic (mm Hg) 81 10/02/2018 Deven Chand Systolic (mm Hg) 140 10/02/2018 Deven Chand Weight 177.4 05/13/2018 Deven Chand Height 62 0 05/13/2018 Deven Chand Temperature Oral (F) 97.2 F 05/13/2018 Deven Chand Heart Rate 81 05/13/2018 Deven Chand Diastolic (mm Hg) 83 05/13/2018 Deven Chand Systolic (mm Hg) 145 05/13/2018 Deven Chand Weight 173.9 12/25/2017 Deven Chand Height 62 0 12/25/2017 Deven Chand Temperature Oral (F) 97.2 F 12/25/2017 Deven Chand Heart Rate 78 12/25/2017 Deven Chnad Diastolic (mm Hg) 70 12/25/2017 Deven Chand Systolic (mm Hg) 126 12/25/2017 Deven Chand Weight 174 11/21/2017 Deven Chand Height 62 0 11/21/2017 Deven Chand Temperature Oral (F) 96.9 F 11/21/2017 Deven Chand Heart Rate 80 11/21/2017 Deven Chand Diastolic (mm Hg) 70 11/21/2017 Deven Chand Systolic (mm Hg) 134 11/21/2017 Deven Chand Weight 171.4 05/28/2017 Deven Chand Height 62 0 05/28/2017 Deven Chand Temperature Oral (F) 97.9 F 05/28/2017 Deven Chand Heart Rate 80 05/28/2017 Deven Chand Diastolic (mm Hg) 74 05/28/2017 Deven Chand Systolic (mm Hg) 126 05/28/2017 Deven Chand Height 157.48 cm 05/07/2017 [facility] BMI Calculated 30.79 05/07/2017 [facility] Weight 76.364 05/07/2017 [facility] Weight 162.4 01/23/2017 Deven Chand Height 62 0 01/23/2017 Deven Chand Temperature Oral (F) 99.4 [...] Weight 162 04/11/2016 Deven Chand Height 62 0 04/11/2016 Deven Chand Temperature Oral (F) 98.1 F 04/11/2016 Deven Chand Heart Rate 80 04/11/2016 Deven Chand Diastolic (mm Hg) 67 01/10/2016 Deven Chand Systolic (mm Hg) 145 01/10/2016 Deven Chand Weight 160 01/10/2016 Deven Chand Temperature Oral (F) 97.4 F 01/10/2016 Deven Chand Heart Rate 82 01/10/2016 Deven Chand Weight 162 09/27/2015 Deven Chand Height 62 1 11/28/2014 Deven Chand Temperature Oral (F) 97.7 F 09/27/2015 Deven Chand Heart Rate 80 09/27/2015 Deven Chand Diastolic (mm Hg) 72 09/27/2015 Deven Chand Systolic (mm Hg) 128 09/27/2015 Deven Chand Encounters Location Location Details Encounter Type Encounter Number Reason For Visit Attending Provider ADM Date DC Date Status Source AUDIT [id number] 06/13/2013 06/13/2013 [facility] AUDIT [id number] 07/17/2013 07/17/2013 [facility] Rebecca CARRASCO liam: JUVE COLLINS, Status: Pen, Time: 1:15 PM [id number] 07/20/20 13 07/17/2013 [facility] AUDIT [id number] 07/20/2013 07/20/2013 [facility] AUDIT [id number] 08/13/2013 08/13/2013 [facility] AUDIT [id number] 09/09/2013 09/09/2013 [facility] AUDIT [id number] 10/12/2013 10/12/2013 [facility] Rebecca CARRASCO liam: JUVE COLLINS, Status: Pen, Time: 1:15 PM [id number] 11/18/19 14 10/12/2013 [facility] AUDIT [id number] 12/11/2013 12/11/2013 [facility] Rebecca CARRASCO liam: JUVE COLLINS, Status: Pen, Time: 2:15 PM [id number] 12/31/19 14 12/11/2013 [facility] AUDIT [id number] 02/05/2014 02/05/2014 [facility] AUDIT [id number] 02/18/2014 02/18/2014 [facility] Chuy Chand MD 3 month follow up [id number] 02/23/20 14 02/22/2014 Deven Chand MD 3 month follow up [id number] 02/23/20 14 02/22/2014 Deven Chand MD 3 month follow up [id number] 02/23/20 14 02/22/2014 Deven Chand MD 3 month follow up [id number] 02/23/20 14 02/22/2014 Deven Chand MD 3 month follow up [id number] 02/23/20 14 02/22/2014 Deven Chand MD 3 month follow up [id number] 02/23/20 14 02/22/2014 Deven Chand MD 3 month follow up [id number] 02/23/20 14 02/22/2014 Deven Chand MD 3 month follow up [id number] 02/23/20 14 02/22/2014 Deven Chand MD 3 month follow up [id number] 02/23/20 14 02/22/2014 Deven Chand MD 3 month follow up [id number] 02/23/20 14 02/22/2014 Deven Chand MD 3 month follow up [id number] 02/23/20 14 02/22/2014 Deven Chand MD 3 month follow up [id number] 02/23/20 14 02/22/2014 Deven Chand MD START Simcandacei Nika [id number] 02/23/20 14 02/22/2014 Deven Chand MD START Simponi Aria [id number] 02/23/20 14 02/22/2014 Deven Chand MD START Simponi Aria [id number] 02/23/20 14 02/22/2014 Deven Chand MD START Simponi Aria [id number]-[id number] 02/23/20 14 02/22/2014 Deven Chand MD START Simponi Aria [id number] 02/23/20 14 02/22/2014 Deven Chand MD START Simponi Aria [id number] 02/23/20 14 02/22/2014 Deven Chand MD START Simponi Aria [id number] 02/23/20 14 02/22/2014 Deven Chand MD START Simponi Aria [id number]-[id number] 02/23/20 14 02/22/2014 Deven Chand MD START Simponi Aria [id number] 02/23/20 14 02/22/2014 Deven Chand MD START Simponi Aria [id number] 02/23/20 14 02/22/2014 Deven Chand MD START Simponi Aria [id number] 02/23/20 14 02/22/2014 Deven Chand MD START Simponi Aria [id number] 02/23/20 14 02/22/2014 Deven GRIFFITH, Provi liam: ETHEL LOREDO, Status: Dieudonne, Time: 9:45 AM [id number] 02/24/2014 02/18/2014 [facility] Chuy Chand MD MTX SCRIPT [id number] 02/25/20 14 02/24/2014 Deven Chand MD MTX SCRIPT [id number] 02/25/20 14 02/24/2014 Deven Chand MD MTX SCRIPT [id number] 02/25/20 14 02/24/2014 Deven Chand MD MTX SCRIPT [id number] 02/25/20 14 02/24/2014 Deven Chand MD MTX SCRIPT [id number] 02/25/20 14 02/24/2014 Deven Chand MD MTX SCRIPT [id number] 02/25/20 14 02/24/2014 Deven Chand MD MTX SCRIPT [id number] 02/25/20 14 02/24/2014 Deven Chand MD MTX SCRIPT [id number] 02/25/20 14 02/24/2014 Deven Chand MD MTX SCRIPT [id number] 02/25/20 14 02/24/2014 Deven Chand MD MTX SCRIPT [id number] 02/25/20 14 02/24/2014 Deven Chand MD MTX SCRIPT [id number] 02/25/20 14 02/24/2014 Deven Chand MD MTX SCRIPT [id number] 02/25/20 14 02/24/2014 Deven Chand MD Vicodin refill [id number]-[id number] 03/02/20 14 03/02/2014 Deven Chand MD Vicodin refill [id number] 03/02/20 14 03/02/2014 Deven Chand MD Vicodin refill [id number]-[id number] 03/02/20 14 03/02/2014 Deevn Chand MD Vicodin refill [id number]-eq27-12l5-ryxk-goyc022c9bju 03/02/20 14 03/02/2014 Deven Chand MD Vicodin refill [id number]-706n-5ddu-wo26-39l278j5pur0 03/02/20 14 03/02/2014 Deven Chand MD Vicodin refill [id number] 03/02/20 14 03/02/2014 Deven Chand MD Vicodin refill [id number]-[id number]-mg6117t02wm0 03/02/20 14 03/02/2014 Deven Chand MD Vicodin refill [id number] 03/02/20 14 03/02/2014 Deven Chand MD Vicodin refill [id number] 03/02/20 14 03/02/2014 Deven Chand MD Vicodin refill [id number]-a7z1l13qs8wj 03/02/20 14 03/02/2014 Deven Chand MD Vicodin refill [id number] 03/02/20 14 03/02/2014 Deven Chand MD Vicodin refill [id number] 03/02/20 14 03/02/2014 Deven Chand MD medication dx code [id number] 03/02/20 14 03/02/2014 Deven Chand MD medication dx code [id number] 03/02/20 14 03/02/2014 Deven Chand MD medication dx code [id number] 03/02/20 14 03/02/2014 Deven Chand MD medication dx code [id number] 03/02/20 14 03/02/2014 Deven Chand MD medication dx code [id number] 03/02/20 14 03/02/2014 Deven Chand MD medication dx code [id number] 03/02/20 14 03/02/2014 Deven Chand MD medication dx code [id number] 03/02/20 14 03/02/2014 Deven Chand MD medication dx code [id number] 03/02/20 14 03/02/2014 Deven Chand MD medication dx code [id number] 03/02/20 14 03/02/2014 Deven Chand MD medication dx code [id number] 03/02/20 14 03/02/2014 Deven Chand MD medication dx code [id number] 03/02/20 14 03/02/2014 Deven Chand MD medication dx code [id number]-n8onubu7a47s 03/02/20 14 03/02/2014 Deven Chand MD Done with antibiotics [id number]-p8l0e191x10w 03/03/20 14 03/03/2014 Deven Chand MD Done with antibiotics [id number] 03/03/20 14 03/03/2014 Deven Chand MD Done with antibiotics [id number]-[id number] 03/03/20 14 03/03/2014 Deven Chand MD Done with antibiotics -[id number] 03/03/20 14 03/03/2014 Deven Chand MD Done with antibiotics [id number]-[id number] 03/03/20 14 03/03/2014 Deven Chand MD Done with antibiotics [id number]-[id number]-[id number] 03/03/20 14 03/03/2014 Deven Chand MD Done with antibiotics [id number] 03/03/20 14 03/03/2014 Deven Chand MD Done with antibiotics [id number]-[id number] 03/03/20 14 03/03/2014 Deven Chand MD Done with antibiotics o20fz91b-qfl9-1k21-k409-7ybny8h01v1m 03/03/20 14 03/03/2014 Deven Chand MD Done with antibiotics [id number] 03/03/20 14 03/03/2014 Deven Chand MD Done with antibiotics [id number]-[id number]-h825ra0px483 03/03/20 14 03/03/2014 Deven Chand MD Done with antibiotics [id number]-[id number] 03/03/20 14 03/03/2014 Deven Chand MD MRI Bi- WRist [id number]-z3ha-214g90813df6 03/04/20 14 03/04/2014 Deven Chand MD MRI Bi- WRist [id number]-q6y3-993dp2z8173v 03/04/20 14 03/04/2014 Deven Chand MD MRI Bi- WRist [id number]-31y4-t388-7837s83h0w88 03/04/20 14 03/04/2014 Deven Chand MD MRI Bi- WRist [id number]-[id number]-w225-z80m28r4cw7m 03/04/20 14 03/04/2014 Deven Chand MD MRI Bi- WRist [id number]-62b3-xc6r-3xit79742c36 03/04/20 14 03/04/2014 Deven Chand MD MRI Bi- WRist [id number]-aiz3-94s1-b5f1-mj6b5761uys2 03/04/20 14 03/04/2014 Deven Chand MD MRI Bi- WRist [id number]-q75t-8d2l-5k53-30s62a6445e3 03/04/20 14 03/04/2014 Deven Chand MD MRI Bi- WRist [id number]-g967-8w7w9e7667jc 03/04/20 14 03/04/2014 Deven Chand MD MRI Bi- WRist [id number] 03/04/20 14 03/04/2014 Deven Chand MD MRI Bi- WRist [id number]-ewu1-67ll3778x332 03/04/20 14 03/04/2014 Deven Chand MD MRI Bi- WRist [id number] 03/04/20 14 03/04/2014 Deven Chand MD MRI Bi- WRist [id number]-[id number] 03/04/20 14 03/04/2014 Deven Chand MD [facility]- xeljanz [id number]-[id number] 03/04/20 14 03/04/2014 Deven Chand MD Refill- xeljanz [id number]-c125-l3ef23224y1i 03/04/20 14 03/04/2014 Deven Chand MD Refill- xeljanz [id number]-[id number] 03/04/20 14 03/04/2014 Deven Chand MD Refill- xeljanz 1x60mrx6-h515-1q1r-19s2-13n7if887mit 03/04/20 14 03/04/2014 Deven Chand MD Refill- xeljanz 57ml62i9-93es-9394-l6g1-yu6k70ug72sk 03/04/20 14 03/04/2014 Deven Chand MD Refill- xeljanz [id number]-hx2q-m4pk5n9uhi6p 03/04/20 14 03/04/2014 Deven Chand MD Refill- xeljanz [id number]-xu0c-444c567rgq01 03/04/20 14 03/04/2014 Deven Chand MD Refill- xeljanz [id number]-i5qg-55z2jp4709o7 03/04/20 14 03/04/2014 Deven Chand MD Refill- xeljanz [id number]-w257-3575-mfo5-c23065zy5e44 03/04/20 14 03/04/2014 Deven Chand MD Refill- xeljanz [id number]-0isz-0s9d-0vd7e162n117 03/04/20 14 03/04/2014 Deven Chand MD Refill- xetiffanie 4356o5nq-1hjq-75m6-c7p7-6786527m258c 03/04/20 14 03/04/2014 MD Casey Krause- xetiffanie 1qlc37v3-1mj6-330f-5165-327jp8934q53 03/04/20 14 03/04/2014 MD ANTHONY Krause [id number]-uun6-846en895098w 03/17/20 14 03/17/2014 MD ANTHONY Krause f0uif4x1-4s27-091f-13p7-h6c0v1699z48 03/17/20 14 03/17/2014 MD ANTHONY Krause [id number]-0826-0u0hm937r2pq 03/17/20 14 03/17/2014 MD ANTHONY Krause 275f66h9-6i1z-679u-j83b-804u2j49e2v1 03/17/20 14 03/17/2014 MD ANTHONY Krause 3uo6563b-k17r-[id number] 03/17/20 14 03/17/2014 MD ANTHONY Krause [id number]-r0k1-38r73d37284x 03/17/20 14 03/17/2014 MD ANTHONY Krause ad1wn8b1-v2p2-7c9i-9s88-5y00h5q036bp 03/17/20 14 03/17/2014 MD ANTHONY Krause [id number]-k28f-8027-n02y-h80381t28pt0 03/17/20 14 03/17/2014 DevenMD ANTHONY Zuluaga [id number]-x299-8b7f5844v924 03/17/20 14 03/17/2014 MD ANTHONY Krause 12668tj3-586c-1552-ly3r-355494dp480h 03/17/20 14 03/17/2014 MD ANTHONY Krause [id number]-[id number] 03/17/20 14 03/17/2014 MD ANTHONY Krause [id number]-[id number]-s702-s60z9z96oa31 03/17/20 14 03/17/2014 Deven Chand MD high BP 156q175n-206j-46x7-4dvi-995t6121249j 03/19/20 14 03/19/2014 Deven Chand MD high BP 4i37rz1x-k470-42fq-e125-3x3b73m5r54n 03/19/20 14 03/19/2014 Deven Chand MD high BP 660995i1-3i5d-92jt-1263-3odq21873mkr 03/19/20 14 03/19/2014 Deven Chand MD high BP [id number]-51hu-3y09-439dcu384492 03/19/20 14 03/19/2014 Deven Chand MD high BP [id number]-kx82-6tr1-9101-ns13g8851p90 03/19/20 14 03/19/2014 Deven Chand MD high BP x4679jvm-8289-6ya0-m662-kj08u0fxd4bd 03/19/20 14 03/19/2014 Deven Chand MD high BP [id number]-x911-2d2o-f058-6f3f54379742 03/19/20 14 03/19/2014 Deven Chand MD high BP d2u7a34h-6482-18d9-i243-3l736tltco22 03/19/20 14 03/19/2014 Deven Chand MD high BP 16zb91d9-4vl8-9ek5-c43n-7ae78r26122c 03/19/20 14 03/19/2014 Deven Chand MD high BP jz4kkt04-781w-9t16-2t27-6u70k64665tn 03/19/20 14 03/19/2014 Deven Chand MD high BP 11511kt1-9u8l-1549-xm88-506ej4e0mcbz 03/19/20 14 03/19/2014 Deven Chand MD high BP cm8cjyt7-is74-7115-78b7-2xx94agl995j 03/19/20 14 03/19/2014 Deven Chand FU, Provi liam: JUVE COLLINS, Status: Dieudonne, Time: 2:45 PM [id number] 03/30/20 14 02/18/2014 [facility] Chuy Chand MD 3 month follow up [id number]-8nh6e4216g42 04/27/20 14 04/27/2014 Deven Chand MD 3 month follow up 6m03k16k-09dk-2446-1456-6t5c33tp9zfq 04/27/20 14 04/27/2014 Deven Chand MD 3 month follow up [id number]-93lk-4093-r417-cq22mh9923s6 04/27/20 14 04/27/2014 Deven Chand MD 3 month follow up [id number]-259u-[id number] 04/27/20 14 04/27/2014 Deven Chand MD 3 month follow up [id number] 04/27/20 14 04/27/2014 Deven Chand MD 3 month follow up [id number]-cf1j-[id number] 04/27/20 14 04/27/2014 Deven Chand MD 3 month follow up [id number] 04/27/20 14 04/27/2014 Deven Chand MD 3 month follow up [id number]-3r3142om526e 04/27/20 14 04/27/2014 Deven Chand MD 3 month follow up [id number]-o6m51t1732l8 04/27/20 14 04/27/2014 Deven Chand MD 3 month follow up [id number] 04/27/20 14 04/27/2014 Deven Chand MD 3 month follow up [id number]-m390-2f7s-0k9j-9w8sh1bs26vo 04/27/20 14 04/27/2014 Deven Chand MD 3 month follow up [id number]-[id number] 04/27/20 14 04/27/2014 Deven Chand MD PATIENT QUESTION [id number] 07/08/20 14 07/08/2014 Deven Chand MD PATIENT QUESTION [id number]-[id number] 07/08/20 14 07/08/2014 Deven Chand MD PATIENT QUESTION [id number] 07/08/20 14 07/08/2014 Deven Chand MD PATIENT QUESTION [id number]-[id number] 07/08/20 14 07/08/2014 Deven Chand MD PATIENT QUESTION [id number] 07/08/20 14 07/08/2014 Deven Chand MD PATIENT QUESTION [id number] 07/08/20 14 07/08/2014 Deven Chand MD PATIENT QUESTION [id number] 07/08/20 14 07/08/2014 Deven Chand MD PATIENT QUESTION [id number]-26p2x7r779p8 07/08/20 14 07/08/2014 Deven Chand MD PATIENT QUESTION [id number] 07/08/20 14 07/08/2014 Deven Chand MD PATIENT QUESTION [id number] 07/08/20 14 07/08/2014 Deven Chand MD PATIENT QUESTION [id number] 07/08/20 14 07/08/2014 Deven Chand MD PATIENT QUESTION [id number]-maim256p907d 07/08/20 14 07/08/2014 Deven Chand MD Unknown [id number] 07/13/20 14 07/13/2014 Deven Chand MD Unknown [id number] 07/13/20 14 07/13/2014 Deven Chand MD Unknown [id number] 07/13/20 14 07/13/2014 Deven Chand MD Unknown [id number] 07/13/20 14 07/13/2014 Deven Chand MD Unknown [id number]-4n8y196w4h48 07/13/20 14 07/13/2014 Deven Chand MD Unknown [id number] 07/13/20 14 07/13/2014 Deven Chand MD Unknown [id number] 07/13/20 14 07/13/2014 Deven Chand MD Unknown [id number] 07/13/20 14 07/13/2014 Deven Chand MD Unknown [id number] 07/13/20 14 07/13/2014 Deven Chand MD Unknown [id number] 07/13/20 14 07/13/2014 Deven Chand MD Unknown [id number] 07/13/20 14 07/13/2014 Deven Chand MD Unknown [id number] 07/13/20 14 07/13/2014 Deven Chand MD Prednisone Start [id number] 08/02/20 14 08/02/2014 Deven Chand MD Prednisone Start [id number] 08/02/20 14 08/02/2014 Deven Chand MD Prednisone Start [id number] 08/02/20 14 08/02/2014 Deven Chand MD Prednisone Start [id number] 08/02/20 14 08/02/2014 Deven Chand MD Prednisone Start [id number] 08/02/20 14 08/02/2014 Deven Chand MD Prednisone Start [id number] 08/02/20 14 08/02/2014 Deven Chand MD Prednisone Start [id number] 08/02/20 14 08/02/2014 Deven Chand MD Prednisone Start [id number] 08/02/20 14 08/02/2014 Deven Chand MD Prednisone Start [id number] 08/02/20 14 08/02/2014 Deven Chand MD Prednisone Start [id number] 08/02/20 14 08/02/2014 Deven Chand MD Prednisone Start [id number] 08/02/20 14 08/02/2014 Deven Chand MD [facility] [id number] 08/02/20 14 08/02/2014 Deven Chand MD Predisone Update/ [facility] [place] [id number] 08/09/2014 08/09/2014 Deven Chand MD Predisone Update/ [facility] [place] [id number] 08/09/2014 08/09/2014 Deven Chand MD Predisone Update/ [facility] [place] [id number] 08/09/2014 08/09/2014 Deven Chand MD Predisone Update/ [facility] [place] [id number] 08/09/2014 08/09/2014 Deven Chand MD Predisone Update/ [facility] [place] [id number] 08/09/2014 08/09/2014 Deven Chand MD Predisone Update/ [facility] [place] [id number] 08/09/2014 08/09/2014 Deven Chand MD Predisone Update/ [facility] [place] [id number] 08/09/2014 08/09/2014 Deven Chand MD Predisone Update/ [facility] [place] [id number] 08/09/2014 08/09/2014 Deven Chand MD Predisone Update/ [facility] [place] [id number] 08/09/2014 08/09/2014 Deven Chand MD Predisone Update/ [facility] [place] [id number] 08/09/2014 08/09/2014 Deven Chand MD Predisone Update/ [facility] [place] [id number] 08/09/2014 08/09/2014 Deven Chand MD Predisone Update/ [facility] [place] [id number] 08/09/2014 08/09/2014 Deven Chand MD F/U [id number] 09/13/2014 09/13/2014 Deven Chand MD F/U [id number] 09/13/2014 09/13/2014 Deven Chand MD F/U [id number] 09/13/2014 09/13/2014 Deven Chand MD F/U [id number] 09/13/2014 09/13/2014 Deven Chand MD F/U [id number] 09/13/2014 09/13/2014 Deven Chand MD F/U [id number] 09/13/2014 09/13/2014 Deven Chand MD F/U [id number] 09/13/2014 09/13/2014 Deven Chand MD F/U [id number] 09/13/2014 09/13/2014 Deven Chand MD F/U [id number] 09/13/2014 09/13/2014 Deven Chand MD F/U [id number] 09/13/2014 09/13/2014 Deven Chand MD F/U [id number] 09/13/2014 09/13/2014 Deven Chand MD F/U [id number] 09/13/2014 09/13/2014 Deven Chadn MD dexa [id number] 11/02/2014 11/02/2014 Deven Chand MD dexa [id number] 11/02/2014 11/02/2014 Deven Chand MD dexa [id number] 11/02/2014 11/02/2014 Deven Chand MD dexa [id number] 11/02/2014 11/02/2014 Deven Chand MD dexa [id number] 11/02/2014 11/02/2014 Deven Chand MD dexa [id number] 11/02/2014 11/02/2014 Deven Chand MD dexa [id number] 11/02/2014 11/02/2014 Deven Chand MD dexa [id number] 11/02/2014 11/02/2014 Deven Chand MD dexa [id number] 11/02/2014 11/02/2014 Deven Chand MD dexa [id number] 11/02/2014 11/02/2014 Deven Chand MD dexa [id number] 11/02/2014 11/02/2014 Deven Chand MD dexa [id number] 11/02/2014 11/02/2014 Deven Chand MD F/U [id number] 11/08/2014 11/08/2014 Deven Chand MD F/U [id number] 11/08/2014 11/08/2014 Deven Chand MD F/U [id number] 11/08/2014 11/08/2014 Deven Chand MD F/U [id number] 11/08/2014 11/08/2014 Deven Chand MD F/U [id number] 11/08/2014 11/08/2014 Deven Chand MD F/U [id number] 11/08/2014 11/08/2014 Deven Chand MD Unknown [id number] 11/08/19 15 11/08/2014 Deven Chand MD Unknown [id number] 11/08/19 15 11/08/2014 Deven Chand MD Unknown [id number] 11/08/19 15 11/08/2014 Deven Chand MD Unknown [id number] 11/08/19 15 11/08/2014 Deven Chand MD Unknown [id number] 11/08/19 15 11/08/2014 Deven Chand MD Unknown [id number] 11/08/19 15 11/08/2014 Deven Chand MD F/U [id number] 11/08/2014 11/08/2014 Deven Chand MD F/U 51sl777q-7t72-7676-c58u-7xr1k966lmk9 11/08/2014 11/08/2014 Deven Chand MD F/U [id number]-8372-00e3-28l10dm6y62j 11/08/2014 11/08/2014 Deven Chand MD F/U g86364f9-w4a0-5t81-4t84-2rx4dc78t4s1 11/08/2014 11/08/2014 Deven Chand MD F/U [id number]-53el9v788500 11/08/2014 11/08/2014 Deven Chand MD F/U [id number]-57g6-9yx0-20o635w35dg6 11/08/2014 11/08/2014 Deven Chand MD Unknown [id number]-tu2m-8wx0-ove7-63x3vei7195m 11/08/19 15 11/08/2014 eDven Chand MD Unknown [id number] 11/08/19 15 11/08/2014 Deven Chand MD Unknown [id number]-3gi4rbvcx70r 11/08/19 15 11/08/2014 Deven Chand MD Unknown [id number] 11/08/19 15 11/08/2014 Deven Chand MD Unknown [id number]-8k52jkmx585y 11/08/19 15 11/08/2014 Deven Chand MD Unknown [id number]-24i6592tews2 11/08/19 15 11/08/[address] n94u3fv4-5p28-52v7-v18c-m1ad392c253r 11/23/2014 11/23/[address] [id number]-q2j1-7nqw-520m-9it33po759n1 11/23/2014 11/23/[address] 894a251m-08qr-180y-w135-7ugg55h545c0 11/23/2014 11/23/[address] 12x4rs06-4193-0257-931l-0r493bua5r64 11/23/2014 11/23/[address] 79k027xl-36oi-699t-646q-4ajk5333h544 11/23/2014 11/23/[address] [id number]-do9x58v3o738 11/23/2014 11/23/[address] 075g19r0-gc5q-31kh-p235-ugm154vv6q4q 11/23/2014 11/23/[address] [id number]-4u64-inv7-pg798q379g4m 11/23/2014 11/23/[address] [place] [address] 5924x000-2v74-2ga0-v2ze-05853px12002 11/23/2014 11/23/[address] 3k4h941u-w8pc-7368-6z2j-35x4o3o7ygse 11/23/2014 11/23/[address] 8bm2h995-7o41-49c2-q9g9-9y27kanii20n 11/23/2014 11/23/[address] [id number]-567t-[id number] 11/23/2014 11/23/2014 Deven Chand MD /S [facility] [place] 5659s7wx-s491-1286-62s9-33uf52b833fp 12/17/19 15 12/16/2014 Deven Chand MD U/S abdomen [id number]-0520-wm96-1357631z3207 12/17/19 15 12/16/2014 Deven Chand MD U/S abdomen 5l49p3u7-777t-321y-r331-972hs782750g 12/17/19 15 12/16/2014 Deven Chand MD U/S abdomen eh5hoy03-y3f9-5490-3s2x-6241636g8n00 12/17/19 15 12/16/2014 Deven Chand MD U/S abdomen w9a998ep-m961-93z3-d426-16fh0449m268 12/17/19 15 12/16/2014 Deven Chand MD U/S abdomen 02nyk370-6o64-59w3-g5ve-240641855wrq 12/17/19 15 12/16/2014 Deven Chand MD U/S abdomen 51em5eh8-w01t-7989-5256-7fy67738pvmn 12/17/19 15 12/16/2014 Deven Chand MD U/S abdomen [id number]-5gf4-xv116au6g92s 12/17/19 15 12/16/2014 Deven Chand MD U/S abdomen 0j087726-v010-5516-y495-2zq63i7f8103 12/17/19 15 12/16/2014 Deven Chand MD U/S abdomen 414gvmix-o425-7q81w439-7z98-r601-q7g5244964k1 12/17/19 15 12/16/2014 Deven Chand MD U/S abdomen 02k113y6-5299-421c-67t6-c110lal550ka 12/17/19 15 12/16/2014 Deven Chand MD U/S abdomen 56gid09b-19yx-4h4u-8kr8-aw87w941ta03 12/17/19 15 12/16/2014 Deven Chand MD PT Update 46076m0j-rwru-4c1j-865h-2xl65452wfa6 12/28/19 15 12/27/2014 Deven Chand MD PT Update 261230iz-6us2-3psh-il54-5e109982360g 12/28/19 15 12/27/2014 Deven Chand MD PT Update 2414qv5x-992y-7o17-8577-0f040k3d882k 12/28/19 15 12/27/2014 Deven Chand MD PT Update do2a74bn-451g-1603-8k0b-6211df9282s4 12/28/19 15 12/27/2014 Deven Chand MD PT Update iqy5vvnj-1x65-98q3-j27t-366pvh78877n 12/28/19 15 12/27/2014 Deven Chand MD PT Update 0bz9i120-4465-94m2-4k6d-7210t8c55r53 12/28/19 15 12/27/2014 Deven Chand MD PT Update [id number]-813z-mav0-49cw1dw2s606 12/28/19 15 12/27/2014 Deven Chand MD PT Update jmzx73nj-4hgx-0vun-n43j-2yv17s856zu4 12/28/19 15 12/27/2014 Deven Chand MD PT Update 1y4d4365-51gf-26t6-45y6-9ta1ao80ph6e 12/28/19 15 12/27/2014 Deven Chand MD PT Update o0k1aety-00m9-6667-p2v5-e6l20c129l1v 12/28/19 15 12/27/2014 Deven Chand MD PT Update 0g49d12t-3943-8m12-3hd8-ee3w39jk4859 12/28/19 15 12/27/2014 Deven Chand MD PT Update 079l9a6v-2kqo-5p80-iv83-610406ly5awg 12/28/19 15 12/27/2014 Deven Chand MD Unknown [id number]-qka0-1142i1of2h24 01/04/20 15 01/03/2015 Deven Chand MD Unknown [id number] 01/04/20 15 01/03/2015 Deven Chand MD Unknown [id number] 01/04/20 15 01/03/2015 Deven Chand MD Unknown [id number]-195g-2b01f01vb4m3 01/04/20 15 01/03/2015 Deven Chand MD Unknown [id number]-sx1z-[id number] 01/04/20 15 01/03/2015 Deven Chand MD Unknown [id number] 01/04/20 15 01/03/2015 Deven Chand MD Unknown [id number]-340w-ji2m-rz6fy46v1w35 01/04/20 15 01/03/2015 Deven Chand MD Unknown [id number] 01/04/20 15 01/03/2015 Deven Chand MD Unknown [id number]-58f2-vc6n-k223q3ks2u26 01/04/20 15 01/03/2015 Deven Chand MD Unknown [id number]-[id number] 01/04/20 15 01/03/2015 Deven Chand MD Unknown [id number]-288j-7v3cnxbowaea 01/04/20 15 01/03/2015 Deven Chand MD Unknown [id number] 01/04/20 15 01/03/2015 Deven Chand MD Abdominal US/[facility] 4vu46140-3277-5i2d-06o7-qihq4r28040u 01/12/20 15 01/11/2015 Deven Chand MD Abdominal US/[facility] [id number]-b583-3905-go16-vx56329qq6sw 01/12/20 15 01/11/2015 Deven Chand MD Abdominal US/[facility] 28aj5gc5-p3z2-8g53-w0v9-e00pc25n5218 01/12/20 15 01/11/2015 Deven Chand MD Abdominal US/[facility] 1052rj64-l1o5-4c34-0475-i19680518m15 01/12/20 15 01/11/2015 Deven Chand MD Abdominal US/[facility] 1zb3x8re-d9t6-027c-o444-y6cf5s6fw4s4 01/12/20 15 01/11/2015 Deven Chand MD Abdominal US/[facility] 4979c8h3-uc52-3447-6995-6z7926i72g54 01/12/20 15 01/11/2015 Deven Chand MD Abdominal US/[facility] [id number]-b93i60tn92sr 01/12/20 15 01/11/2015 Deven Chand MD Abdominal US/[facility] 3502484b-67q5-962e-8r2g-52xuko28yxii 01/12/20 15 01/11/2015 Deven Chand MD Abdominal US/[facility] 2qt31u0i-2298-1b36-nsf2-879pmp54ei7n 01/12/20 15 01/11/2015 Deven Chand MD Abdominal US/[facility] iz03tt7z-64ml-4o0l-32as-3s8is7d77s59 01/12/20 15 01/11/2015 Deven Chand MD Abdominal US/[facility] l02d2527-14lr-9265-l802-402e28z39t1x 01/12/20 15 01/11/2015 Deven Chand MD Abdominal US/[facility] 052d0m02-97u6-58r5-5q0j-78279h2s81t7 01/12/20 15 01/11/2015 Deven Chand MD [facility] wy440l0y-4z93-5835-67c6-8562zm4b1792 01/18/20 15 01/17/2015 Deven Chand MD [facility] 99207097-5cz3-476t-mp8i-1oj926730z3t 01/18/20 15 01/17/2015 Deven Chand MD [facility] 919uia43-3t72-50s7-59le-9b9435du16a2 01/18/20 15 01/17/2015 Deven Chand MD [facility] 057jkh5d-5267-4ao1-7np4-102113v30860 01/18/20 15 01/17/2015 Deven Chand MD [facility] q86e0j92-xxky-3069-3zz5-7162642hg079 01/18/20 15 01/17/2015 Deven Chand MD [facility] 47ucu41z-0910-9j6b-v5y5-52dqo20x8690 01/18/20 15 01/17/2015 Deven Chand MD [facility] 406e31ig-993b-8056-w8h5-4g9bpx9du37u 01/18/20 15 01/17/2015 MD Alexa Krausexan 1w57db59-k679-0iby-m14z-w4l13400b9in 01/18/20 15 01/17/2015 MD Alexa Krausexan 9447fh83-8391-1539-mp65-vvhx04166624 01/18/20 15 01/17/2015 MD Alexa Krausexan 5z1xx113-4i69-1c7x-qt57-x5vncvz3x61l 01/18/20 15 01/17/2015 Deven Chand MD [facility] 4508o619-5jq4-6ykk-2087-401w039dvjrq 01/18/20 15 01/17/2015 MD James Krausen 5e73q04c-wmq8-83z6-6vj0-5a7777qxv5u8 01/18/20 15 01/17/2015 Deven Chand MD Pt on antibiotics [id number]-475c-1p3u-vd3n31pq31u5 01/29/20 15 01/28/2015 Deven Chand MD Pt on antibiotics 993s53t0-g1lb-7717-1x56-0hj0687p11ij 01/29/20 15 01/28/2015 Deven Chand MD Pt on antibiotics 93k39475-1o62-6ip3-dek1-270jdy66yqt3 01/29/20 15 01/28/2015 Deven Chand MD Pt on antibiotics xm582y82-806v-6qn9-a759-2u56t6s9n203 01/29/20 15 01/28/2015 Deven Chand MD Pt on antibiotics 0aa7av00-471z-4p43-2aeh-luqm1fe8i4a2 01/29/20 15 01/28/2015 Deven Chand MD Pt on antibiotics 4x75r5ng-5193-41q6-1538-60r2dq875ksu 01/29/20 15 01/28/2015 Deven Chand MD Pt on antibiotics 7854gpz6-50ht-32e4-2462-3r8igtq24j13 01/29/20 15 01/28/2015 Deven Chand MD Pt on antibiotics 9g78k7k5-8582-1ulj-1198-97t58fjm189r 01/29/20 15 01/28/2015 Deven Chand MD Pt on antibiotics 804l9g9c-18g4-0g89-l7w6-6215e9hy7ro5 01/29/20 15 01/28/2015 Deven Chand MD Pt on antibiotics u3me737d-8i8a-7t85-q2t2-z322c68a5199 01/29/20 15 01/28/2015 Deven Chand MD Pt on antibiotics v523752n-6w0c-15t4-y652-k9b5r447j121 01/29/20 15 01/28/2015 Deven Chand MD Pt on antibiotics 6524dl7l-iri3-38n7-l77h-t45c516o97v8 01/29/20 15 01/28/2015 Deven Chand MD 1 mo f/u 39994rx3-0699-3136-j545-686q0e5770wr 02/03/20 15 02/02/2015 Deven Chand MD 1 mo f/u 019wvsi4-4340-7x9f-0114-y8mu3rh003t7 02/03/20 15 02/02/2015 Deven Chand MD 1 mo f/u 487bh5s6-y3x3-14lz-p5nl-s01f3336z949 02/03/20 15 02/02/2015 Deven Chand MD 1 mo f/u 73k45676-3913-54m7-ut0f-c2q4s28t24k3 02/03/20 15 02/02/2015 Deven Chand MD 1 mo f/u zj5n763r-w44v-2l63-603e-33992tz3t7lu 02/03/20 15 02/02/2015 Deven Chand MD 1 mo f/u 93f74kpt-020k-4o6y-xw01-12ubq187g84e 02/03/20 15 02/02/2015 Deven Chand MD 1 mo f/u e6v45q2k-v954-95wc-6175-c9u3j1ufx7s7 02/03/20 15 02/02/2015 Deven Chand MD 1 mo f/u 02f7i55q-799k-436o-bm34-618oni1l21l0 02/03/20 15 02/02/2015 Deven Chand MD 1 mo f/u 45677c97-1c29-6712-op6g-9950kn590235 02/03/20 15 02/02/2015 Deven Chand MD 1 mo f/u by9mo9mi-1859-803k-w9p0-885282o42074 02/03/20 15 02/02/2015 Deven Chand MD 1 mo f/u 086p4b11-1j03-9452-z1r8-242600x90109 02/03/20 15 02/02/2015 Deven Chand MD 1 mo f/u 7h138x17-jfgj-22cj-92h2-3pr13sj8939e 02/03/20 15 02/02/2015 Deven Chand MD MRI 025909o2-62f0-1870-qm45-idk45r6bufa9 02/08/2015 02/08/2015 Deven Chand MD MRI n8th4phr-f3sy-4s1l-2dr6-636t03sinw67 02/08/2015 02/08/2015 Deven Chand MD MRI 6n5o7587-08j5-0821-8pi9-25qy40696930 02/08/2015 02/08/2015 Deven Chand MD MRI x0x519h3-f145-9120-985q-3xrk0577ddn0 02/08/2015 02/08/2015 Deven Chand MD MRI 804va22h-702s-865s-45q3-1v9gwpih47zc 02/08/2015 02/08/2015 Deven Chand MD MRI 4a475ujs-8994-8j68-3v5v-mzm408ifj4t8 02/08/2015 02/08/2015 Deven Chand MD MRI 0ppgs591-c115-6419-2657-6078577w8c93 02/08/2015 02/08/2015 Deven Chand MD MRI 561961z8-t780-9t39-m872-269698v3m16g 02/08/2015 02/08/2015 Deven Chand MD MRI 7xw9o170-m18h-1gk4-7617-a25990h072ab 02/08/2015 02/08/2015 Deven Chand MD MRI 7829d503-4j0c-8383-2bb7-zln92x1281f1 02/08/2015 02/08/2015 Deven Chand MD MRI 629d0360-6q13-3503-6v5d-402g3367nez1 02/08/2015 02/08/2015 Deven Chand MD MRI s222ce72-54f0-4rna-8njr-764214e21j36 02/08/2015 02/08/2015 Deven Chand MD MRI 2bea8d77-2778-0n88-n52s-n9n9f4956wqr 02/08/2015 02/08/2015 Deven Chand MD MRI 7i9z1730-96z7-07r1-o47k-9c039s036421 02/08/2015 02/08/2015 Deven Chand MD MRI fbehy2c6-6948-865y-9520-e920dk9e5465 02/08/2015 02/08/2015 Deven Chand MD MRI 9u83166f-8dr2-9101-y495-s3y489008817 02/08/2015 02/08/2015 Deven Chand MD MRI zt7ff20a-s8d4-5b4r-y218-z29393g520c8 02/08/2015 02/08/2015 Deven Chand MD MRI 5zk35551-k3h6-26j9-y44x-785341b766ey 02/08/2015 02/08/2015 Deven Chand MD MRI 79lt666m-f6iw-5v14-ds96-283g1mzexj42 02/08/2015 02/08/2015 Deven Chand MD MRI uc9qgbl8-2515-6199-wc1y-x3kvg479680d 02/08/2015 02/08/2015 Deven Chand MD MRI 9vr52m3y-m541-0045-2b6e-bp26r25or500 02/08/2015 02/08/2015 Deven Chand MD MRI 0622y500-vdp4-0ael-7161-e553159fl410 02/08/2015 02/08/2015 Deven Chand MD MRI 0ib43a9s-l4j5-2f1v-8gsr-sa1475686032 02/08/2015 02/08/2015 Deven Chand MD MRI z100bhfs-7t1x-13h5-vt3i-68efkf6b4974 02/08/2015 02/08/2015 Deven Chand MD Research 46f1p729-xgi1-917u-3751-190a097l13xf 02/22/20 15 02/21/2015 Deven Chand MD Research [id number]-6c59yc4ba79w 02/22/20 15 02/21/2015 Deven Chand MD Research 9lfo1v36-280m-80rs-667d-g4878imx8hsh 02/22/20 15 02/21/2015 Deven Chand MD Research [id number]-h6d28vgo905b 02/22/20 15 02/21/2015 Deven Chand MD Research [id number] 02/22/20 15 02/21/2015 Deven Chand MD Research [id number]-clt2-v11t3v9i126h 02/22/20 15 02/21/2015 Deven Chand MD Right wrist pain and swelling wso9xm0j-5l89-8a0s-rii1-h534c4up083y 02/21/2015 02/21/2015 Deven Chand MD Right wrist pain and swelling a804e441-69qj-1195-3003-nv874m4ek16w 02/21/2015 02/21/2015 Deven Chand MD Right wrist pain and swelling cn1t1e6l-wc87-3493-tl02-g325823d2m48 02/21/2015 02/21/2015 Deven Chand MD Right wrist pain and swelling 1rob1jhu-zj53-0e40-10fc-nu102i1147q9 02/21/2015 02/21/2015 Deven Chand MD Right wrist pain and swelling 84y35o61-79e3-3198-j3q7-un2ae0q4krg7 02/21/2015 02/21/2015 Deven Chand MD Right wrist pain and swelling 220082q8-37a9-99ws-5f02-812mwks5a9c0 02/21/2015 02/21/2015 Deven Chand MD Research 7oe97h5s-m07k-7668-4293-mt4768i8dxpy 02/22/20 15 02/21/2015 Deven Chand MD Research 06oxa156-y92m-9858-0w10-u28j7t771h61 02/22/20 15 02/21/2015 Deven Chand MD Research 2ccxt78w-90qg-2cq2-q4z9-oe811epe2579 02/22/20 15 02/21/2015 Deven Chand MD Research [id number] 02/22/20 15 02/21/2015 Deven Chand MD Research [id number]-[id number] 02/22/20 15 02/21/2015 Deven Chand MD Research 517i6s5y-[id number]-v54k-e1k493mf7163 02/22/20 15 02/21/2015 Deven Chand MD Right wrist pain and swelling 9w83aro8-fd78-6t32-y4e7-dau49nvz8113 02/21/2015 02/21/2015 Deven Chand MD Right wrist pain and swelling 307jfg45-9537-345d-70z3-u25cv2a8dj9p 02/21/2015 02/21/2015 Deven Chand MD Right wrist pain and swelling 752689l8-es72-3754-40ey-0661c9op830l 02/21/2015 02/21/2015 Deven Chand MD Right wrist pain and swelling b07q63i6-5xb0-5926-37ee-635h19iay645 02/21/2015 02/21/2015 Deven Chand MD Right wrist pain and swelling 871oy94a-p5e5-9404-2582-23t601h33ia1 02/21/2015 02/21/2015 Deven Chand MD Right wrist pain and swelling 4sfe3m24-4458-2960-o8c0-5b2d0665h832 02/21/2015 02/21/2015 Deven Chand MD Unknown su76z75f-2196-66c5-6p98-49s9b04cg503 02/23/20 15 02/22/2015 Deven Chand MD Unknown mkc3hhl0-n403-9jj0-7ws7-h7r9tjd7ic0l 02/23/20 15 02/22/2015 Deven Chand MD Unknown 70o081i9-jv7r-0839-4fx0-41rf68a8e9b6 02/23/20 15 02/22/2015 Deven Chand MD Unknown 7t31g324-hv67-5679-31qy-u43nwp5ru9rv 02/23/20 15 02/22/2015 Deven Chand MD Unknown [id number] 02/23/20 15 02/22/2015 Deven Chand MD Unknown 9yn0ubq3-4101-9v94-z3n6-t2g20p265l6n 02/23/20 15 02/22/2015 Deven Chand MD Unknown 5xj8c234-4295-9b8d-f442-097u647297m3 02/23/20 15 02/22/2015 Deven Chand MD Unknown y1v3n76b-qtk8-2954-1401-6xb0x6jtn236 02/23/20 15 02/22/2015 Deven Chand MD Unknown 771y9f6q-[id number]-v347-68v4e4im0o13 02/23/20 15 02/22/2015 Deven Chand MD Unknown 4p8soa45-vo9p-2h39-s6a1-o427z9882o50 02/23/20 15 02/22/2015 Deven Chand MD Unknown 9l8hwt0l-4519-5462-ml5z-o9m41t3r6974 02/23/20 15 02/22/2015 Deven Chand MD Unknown 516tq620-1p5u-8374-154g-k1zx85698ow9 02/23/20 15 02/22/2015 Deven Chand MD [facility] Injection o6kw1e46-l7y1-8vv9-z0ll-n180l0q347k0 03/09/20 15 03/09/2015 Deven Chand MD [facility] Injection v6qp6ghq-iy49-3b34-0hm9-u0601189bkt0 03/09/20 15 03/09/2015 Deven Chand MD [facility] Injection [id number]-5k61f9tz6393 03/09/20 15 03/09/2015 Deven Chand MD [facility] Injection ym88j373-51w5-5c55-l6b0-t652y156lt99 03/09/20 15 03/09/2015 Deven Chand MD [facility] Injection 058qmp8b-s4mg-3v2w-8m26-5f960kot8196 03/09/20 15 03/09/2015 Deven Chand MD [facility] Injection e7j736q3-azs3-6955-d53z-sdr609q300bm 03/09/20 15 03/09/2015 Deven Chand MD [facility] Injection u2lsgd93-itzs-298i-l9r8-l0c5864te33q 03/09/20 15 03/09/2015 Deven Chand MD [facility] Injection 75376s72-64vo-65ud-7887-954554u40g3w 03/09/20 15 03/09/2015 Deven Chand MD [facility] Injection a2n4u0il-9m0g-7317-84a4-eeyxrpb60016 03/09/20 15 03/09/2015 Deven Chand MD [facility] Injection 6t1027p4-tp44-692t-17m4-qs5e8471f811 03/09/20 15 03/09/2015 Deven Chand MD [facility] Injection mg8003v4-98ah-38ay-og35-835e75168789 03/09/20 15 03/09/2015 Deven Chand MD [facility] Injection 7h7379bz-609b-64b0-yf77-5z9dh669n232 03/09/20 15 03/09/2015 Deven Chand MD Refill 5e0s517a-7whs-0by5-bgpl-6h4s745yqnr7 05/05/20 15 05/05/2015 Deven Chand MD Refill [id number]-5318-c830-53i7q3j05f11 05/05/20 15 05/05/2015 Deven Chand MD Refill sra8h611-h0f9-6259-8bt7-88927h5m337x 05/05/20 15 05/05/2015 Deven Chand MD Refill [id number]-4ro3-8t63-orm4-8544j52x4c29 05/05/20 15 05/05/2015 Deven Chand MD Refill [id number]92d 05/05/20 15 05/05/2015 Deven Chand MD Refill m6t53429-0e0h-029e-k979-j7rc4c3162j9 05/05/20 15 05/05/2015 Deven Chand MD add on l7qb4anz-7955-1k54-r6t8-o01303b4lfdd 05/05/20 15 05/05/2015 Deven Chand MD add on y551x0fq-q5pk-666u-vrc3-17i1za35h2xf 05/05/20 15 05/05/2015 Deven Chand MD add on [id number]-132j-5uk2-0u34-7625z7h4127t 05/05/20 15 05/05/2015 Deven Chand MD add on 543nl048-3349-90ca-hf4s-2dbx31h43gh7 05/05/20 15 05/05/2015 Deven Chand MD add on 6v1t1i7m-570d-3u34-c874-88313260x22c 05/05/20 15 05/05/2015 Deven Chand MD add on [id number] 05/05/20 15 05/05/2015 Deven Chand MD Refill [id number] 05/05/20 15 05/05/2015 Deven Chand MD Refill [id number] 05/05/20 15 05/05/2015 Deven Chand MD Refill [id number] 05/05/20 15 05/05/2015 Deven Chand MD Refill [id number] 05/05/20 15 05/05/2015 Deven Chand MD Refill [id number] 05/05/20 15 05/05/2015 Deven Chand MD Refill [id number] 05/05/20 15 05/05/2015 Deven Chand MD add on [id number] 05/05/20 15 05/05/2015 Deven Chand MD add on [id number] 05/05/20 15 05/05/2015 Deven Chand MD add on [id number] 05/05/20 15 05/05/2015 Deven Chand MD add on [id number] 05/05/20 15 05/05/2015 Deven Chand MD add on [id number]-r5nm-[id number] 05/05/20 15 05/05/2015 Deven Chand MD add on [id number]-3t38-7xn4-7xx1-1qs6ep67fq9p 05/05/20 15 05/05/2015 Deven Chand MD Unknown [id number] 05/09/20 15 05/09/2015 Deven Chand MD Unknown [id number] 05/09/20 15 05/09/2015 Deven Chand MD Unknown [id number] 05/09/20 15 05/09/2015 Deven Chand MD Unknown [id number] 05/09/20 15 05/09/2015 Deven Chand MD Unknown [id number] 05/09/20 15 05/09/2015 Deven Chand MD Unknown [id number] 05/09/20 15 05/09/2015 Deven Chand MD Unknown [id number] 05/09/20 15 05/09/2015 Deven Chand MD Unknown [id number] 05/09/20 15 05/09/2015 Deven Chand MD Unknown [id number] 05/09/20 15 05/09/2015 Deven Chand MD Unknown [id number] 05/09/20 15 05/09/2015 Deven Chand MD Unknown [id number] 05/09/20 15 05/09/2015 Deven Chand MD Unknown [id number] 05/09/20 15 05/09/2015 Deven Chand MD Unknown [id number] 05/09/20 15 05/09/2015 Deven Chand MD Unknown [id number] 05/09/20 15 05/09/2015 Deven Chand MD Unknown [id number] 05/09/20 15 05/09/2015 Deven Chand MD Unknown [id number] 05/09/20 15 05/09/2015 Deven Chand MD Unknown [id number] 05/09/20 15 05/09/2015 Deven Chand MD Unknown [id number] 05/09/20 15 05/09/2015 Deven Chand MD Unknown [id number] 05/09/20 15 05/09/2015 Deven Chand MD Unknown [id number] 05/09/20 15 05/09/2015 Deven Chand MD Unknown [id number] 05/09/20 15 05/09/2015 Deven Chand MD Unknown [id number] 05/09/20 15 05/09/2015 Deven Chand MD Unknown [id number] 05/09/20 15 05/09/2015 Deven Chand MD Unknown [id number] 05/09/20 15 05/09/2015 Deven Chand MD Unknown [id number] 05/09/20 15 05/09/2015 Deven Chand MD Unknown [id number] 05/09/20 15 05/09/2015 Deven Chand MD Unknown [id number] 05/09/20 15 05/09/2015 Deven Chand MD Unknown [id number] 05/09/20 15 05/09/2015 Deven Chand MD Unknown [id number] 05/09/20 15 05/09/2015 Deven Chand MD Unknown [id number] 05/09/20 15 05/09/2015 Deven Chand MD Unknown [id number] 05/09/20 15 05/09/2015 Deven Chand MD Unknown [id number] 05/09/20 15 05/09/2015 Deven Chand MD Unknown [id number] 05/09/20 15 05/09/2015 Deven Chand MD Unknown [id number] 05/09/20 15 05/09/2015 Deven Chand MD Unknown [id number] 05/09/20 15 05/09/2015 Deven Chand MD Unknown [id number] 05/09/20 15 05/09/2015 Deven Chand MD sodium [id number] 05/18/20 15 05/18/2015 Deven Chand MD sodium [id number] 05/18/20 15 05/18/2015 Deven Chand MD sodium [id number] 05/18/20 15 05/18/2015 Deven Chand MD sodium [id number] 05/18/20 15 05/18/2015 Deven Chand MD sodium [id number]-vlpc-9vhw05j1d2m2 05/18/20 15 05/18/2015 Deven Chand MD sodium [id number]-nn8g-00gr821h1upr 05/18/20 15 05/18/2015 Deven Chand MD sodium [id number] 05/18/20 15 05/18/2015 Deven Chand MD sodium [id number] 05/18/20 15 05/18/2015 Deven Chand MD sodium [id number] 05/18/20 15 05/18/2015 Deven Chand MD sodium [id number]-[id number] 05/18/20 15 05/18/2015 Deven Chand MD sodium [id number] 05/18/20 15 05/18/2015 Deven Chand MD sodium [id number]-781z-001t-0700-p55ypj6r75js 05/18/20 15 05/18/2015 Deven Chand MD MRI [id number]-[id number] 06/02/2015 06/02/2015 Deven Chand MD MRI [id number] 06/02/2015 06/02/2015 Deven Chand MD MRI [id number] 06/02/2015 06/02/2015 Deven Chand MD MRI [id number] 06/02/2015 06/02/2015 Deven Chand MD MRI [id number] 06/02/2015 06/02/2015 Deven Chand MD MRI [id number] 06/02/2015 06/02/2015 Deven Chand MD MRI [id number] 06/02/2015 06/02/2015 Deven Chand MD MRI [id number]-3tla12w4h7rw 06/02/2015 06/02/2015 Deven Chand MD MRI [id number] 06/02/2015 06/02/2015 Deven Chand MD MRI [id number] 06/02/2015 06/02/2015 Deven Chand MD MRI [id number] 06/02/2015 06/02/2015 Deven Chand MD [facility] [id number] 06/02/2015 06/02/2015 Deven Chand MD Unknown [id number] 06/28/2006/28/2015 Deven Chand MD Unknown [id number] 06/28/2006/28/2015 Deven Chand MD Unknown [id number] 06/28/2006/28/2015 Deven Chand MD Unknown [id number] 06/28/2006/28/2015 Deven Chand MD Unknown [id number] 06/28/2006/28/2015 Deven Chand MD Unknown [id number] 06/28/20 15 06/28/2015 Deven Chand MD Unknown [id number] 06/28/20 15 06/28/2015 Deven Chand MD Unknown [id number] 06/28/20 15 06/28/2015 Deven Chand MD Unknown [id number] 06/28/20 15 06/28/2015 Deven Chand MD Unknown [id number] 06/28/20 15 06/28/2015 Deven Chand MD Unknown [id number] 06/28/20 15 06/28/2015 Deven Chand MD Unknown [id number] 06/28/20 15 06/28/2015 Deven Chand MD Unknown [id number] 09/27/20 15 09/27/2015 Deven Chand MD Unknown [id number] 09/27/20 15 09/27/2015 Deven Chand MD Unknown [id number] 09/27/20 15 09/27/2015 Deven Chand MD Unknown [id number] 09/27/20 15 09/27/2015 Deven Chand MD Unknown [id number] 09/27/20 15 09/27/2015 Deven Chand MD Unknown [id number] 09/27/20 15 09/27/2015 Deven Chand MD Unknown [id number] 09/27/20 15 09/27/2015 Deven Chand MD Unknown [id number] 09/27/20 15 09/27/2015 Deven Chand MD Unknown [id number] 09/27/20 15 09/27/2015 Deven Chand MD Unknown [id number] 09/27/20 15 09/27/2015 Deven Chand MD Unknown [id number] 09/27/20 15 09/27/2015 Deven Chand MD Unknown [id number] 09/27/20 15 09/27/2015 Deven Chand MD Basics lab order [id number] 10/10/20 15 10/10/2015 Deven Chand MD Basics lab order [id number] 10/10/20 15 10/10/2015 Deven Chand MD Basics lab order [id number] 10/10/20 15 10/10/2015 Deven Chand MD Basics lab order [id number] 10/10/20 15 10/10/2015 Deven Chand MD Basics lab order [id number] 10/10/20 15 10/10/2015 Deven Chand MD Basics lab order [id number] 10/10/20 15 10/10/2015 Deven Chand MD Basics lab order [id number] 10/10/20 15 10/10/2015 Deven Chand MD Basics lab order [id number] 10/10/20 15 10/10/2015 Deven Chand MD Basics lab order [id number] 10/10/20 15 10/10/2015 Deven Chand MD Basics lab order [id number] 10/10/20 15 10/10/2015 Deven Chand MD Basics lab order [id number] 10/10/20 15 10/10/2015 Deven Chand MD Basics lab order [id number] 10/10/20 15 10/10/2015 Deven Chand MD [facility] [id number] 10/24/19 16 10/24/2015 Deven Chand MD Refill- MTX [id number] 10/24/19 16 10/24/2015 Deven Chand MD Refill- MTX [id number] 10/24/19 16 10/24/2015 Deven Chand MD Refill- MTX [id number] 10/24/19 16 10/24/2015 Deven Chand MD Refill- MTX [id number] 10/24/19 16 10/24/2015 Deven Chand MD Refill- MTX [id number] 10/24/19 16 10/24/2015 Deven Chand MD Refill- MTX [id number] 10/24/19 16 10/24/2015 Deven Chand MD Refill- MTX [id number] 10/24/19 16 10/24/2015 Deven Chand MD Refill- MTX [id number] 10/24/19 16 10/24/2015 Deven Chand MD Refill- MTX [id number] 10/24/19 16 10/24/2015 Deven Chand MD Refill- MTX [id number] 10/24/19 16 10/24/2015 Deven Chand MD Refill- MTX [id number] 10/24/19 16 10/24/2015 Deven Chand MD repeat cmp [id number] 10/26/19 16 10/26/2015 Deven Chand MD repeat cmp [id number] 10/26/19 16 10/26/2015 Deven Chand MD repeat cmp [id number] 10/26/19 16 10/26/2015 Deven Chand MD repeat cmp [id number] 10/26/19 16 10/26/2015 Deven Chand MD repeat cmp [id number] 10/26/19 16 10/26/2015 Deven Cahnd MD repeat cmp [id number] 10/26/19 16 10/26/2015 Deven Chand MD repeat cmp [id number] 10/26/19 16 10/26/2015 Deven Chand MD repeat cmp [id number] 10/26/19 16 10/26/2015 Deven Chand MD repeat cmp [id number] 10/26/19 16 10/26/2015 Deven Chand MD repeat cmp [id number] 10/26/19 16 10/26/2015 Deven Chand MD [facility] [id number] 10/26/19 16 10/26/2015 Deven Chand MD [facility] [id number] 10/26/19 16 10/26/2015 Deven Chand MD MRI [id number] 10/30/2015 10/30/2015 Deven Chand MD MRI [id number] 10/30/2015 10/30/2015 Deven Chand MD MRI [id number] 10/30/2015 10/30/2015 Deven Chand MD MRI [id number] 10/30/2015 10/30/2015 Deven Chand MD MRI [id number] 10/30/2015 10/30/2015 Deven Chand MD MRI [id number] 10/30/2015 10/30/2015 Deven Chand MD MRI [id number] 10/30/2015 10/30/2015 Deven Chand MD MRI [id number] 10/30/2015 10/30/2015 Deven Chand MD MRI [id number] 10/30/2015 10/30/2015 Deven Chand MD [facility] [id number] 10/30/2015 10/30/2015 Deven Chand MD [facility] [id number] 10/30/2015 10/30/2015 Deven Chand MD MRI [id number] 10/30/2015 10/30/2015 Deven Chand MD Unknown [id number] 01/10/20 16 01/10/2016 Deven Chand MD Unknown [id number] 01/10/20 16 01/10/2016 Deven Chand MD Unknown [id number] 01/10/20 16 01/10/2016 Deven Chand MD Unknown [id number] 01/10/20 16 01/10/2016 Deven Chand MD Unknown [id number] 01/10/20 16 01/10/2016 Deven Chand MD labs [id number] 01/10/2016 01/10/2016 Deven Chand MD labs [id number] 01/10/2016 01/10/2016 Deven Chand MD labs [id number] 01/10/2016 01/10/2016 Deven Chand MD labs [id number] 01/10/2016 01/10/2016 Deven Chand MD labs [id number] 01/10/2016 01/10/2016 Deven Chand MD labs [id number] 01/10/2016 01/10/2016 Deven Chand MD Unknown [id number] 01/10/20 16 01/10/2016 Deven Chand MD Unknown [id number] 01/10/20 16 01/10/2016 Deven Chand MD Unknown [id number] 01/10/20 16 01/10/2016 Deven Chand MD labs [id number] 01/10/2016 01/10/2016 Deven Chand MD labs [id number] 01/10/2016 01/10/2016 Deven Chand MD labs [id number] 01/10/2016 01/10/2016 Deven Chand MD Unknown [id number] 04/11/20 16 04/11/2016 Deven Chand MD Unknown [id number] 04/11/20 16 04/11/2016 Deven Chand MD Unknown [id number] 04/11/20 16 04/11/2016 Deven Chand MD Unknown [id number] 04/11/20 16 04/11/2016 Deven Chand MD Unknown [id number] 04/11/20 16 04/11/2016 Deven Chand MD Unknown [id number] 04/11/20 16 04/11/2016 Deven Chand MD Rituxan [id number] 04/11/20 16 04/11/2016 Deven Chand MD R[facility] [id number] 04/11/20 16 04/11/2016 Deven Chand MD Rituxan [id number] 04/11/20 16 04/11/2016 Deven Chand MD Rituxan [id number] 04/11/20 16 04/11/2016 Deven Chand MD Rituxan [id number] 04/11/20 16 04/11/2016 Deven Chand MD Rituxan [id number] 04/11/20 16 04/11/2016 Deven Chand MD Rituxan [id number] 04/11/20 16 04/11/2016 Deven Chand MD Unknown [id number] 05/29/20 16 05/29/2016 Deven Chand MD Unknown [id number] 05/29/20 16 05/29/2016 Deven Chand MD Unknown [id number] 05/29/20 16 05/29/2016 Deven Chand MD Unknown [id number] 05/29/20 16 05/29/2016 Deven Chand MD 3 mth follow up [id number] 10/03/20 16 10/03/2016 Deven Chand MD 3 mth follow up [id number] 10/03/20 16 10/03/2016 Deven Chand MD 3 mth follow up [id number] 10/03/20 16 10/03/2016 Deven Chand MD NEW INSURANCE [id number] 10/26/19 17 10/26/2016 Deven Chand MD NEW INSURANCE [id number] 10/26/19 17 10/26/2016 Deven Chand MD OV [id number] 10/30/2016 10/30/2016 Deven Chand [facility] Outpatient [facility] - [place] Out[facility] Di[facility] Services [id number] Juve Collins 04/19/2017 04/20/2017 [facility] Outpatient [id number] Alphonso Horner 05/07/2017 05/08/2017 [facility] Outpatient [id number] Gabrielle Carrero 07/11/2017 07/12/2017 [facility] Bedded Outpatient [id number] Ike Casas 09/03/2017 09/03/2017 [facility] Outpatient Imaging - [place] Out[facility] Diag Services [id number] Juve Collins 08/27/2018 08/28/2018 [facility] PreReg [id number] Justice Leslieposuze 9 11/04/2018 [facility] Out[facility] - [place] Out[facility] Di[facility] Services [id number] Juve Collins 11/20/2018 11/21/2018 [facility] Outpatient Imaging - [place] Out[facility] Diag Services [id number] Yesica Rip 02/05/2019 02/06/2019 [facility] [place] [facility] Outpatient [facility] [place] Out[facility] Di[facility] Services [id number] Juve Collins 03/04/2019 03/05/2019 [facility] [place] Outpatient [id number] Godwin Jaimes 03/16/2019 Active [facility] Urology [facility] Outpatient [id number] Godwin Jaimes 03/16/2019 03/17/2019 [facility] Outpatient [id number] - URODYNAMICS, 04/29/2019 [facility] Outpatient [id number] Godwin Jaimes 04/29/2019 04/30/2019 [facility] Outpatient [id number] MED_ASST VISIT 05/05/2019 Active [facility] Outpatient [id number] Godwin Jaimes 05/05/2019 [facility] [place] Outpatient [id number] Godwin Jaimes 05/05/2019 05/06/2019 [facility] [id number] MED_ASST VISIT 05/05/2019 05/06/2019 [facility] Outpatient [id number] Godwin Jaimes 08/04/2019 Active [facility] [id number] Godwin Jaimes 08/04/2019 08/05/2019 [facility] Outpatient [id number] Godwin Jaimes 11/03/2019 Active [facility] Ambulatory Pre-Reg [id number] Godwin Jaimes 11/03/2019 11/03/2019 [facility] Outpatient Imaging - [place] Out[facility] Diag Services [id number] Juve Collins 11/05/2019 11/06/2019 [facility] Procedures Procedure Code Date Perfomer Comments Source Cystourethroscopy, with calibration and/ or dilation of urethral stricture or stenosis, with or without meatotomy, with or without injection procedure for cystography, male or female 93405 05/05/2019 [facility] uroflowmetry (eg, calibrated krys ctronic equipment) 41546 05/05/2019 [facility] Voiding pressure studies, intra-abdomina l (ie, rectal, gastric, intraperitoneal) (List separately in addition to code for primary procedure) 22206 05/05/2019 [facility] Cystourethroscopy (separate procedure) 22307 05/05/2019 [facility] cystometrogram (ie, calibrated e lectronic equipment); with voiding pressure studies (ie, bladder voiding pressure), any technique 60584 05/05/2019 [facility] Electromyography studies (EMG) of anal o r urethral sphincter, other than needle, any technique 69817 05/05/2019 [facility] Right hemicolectomy [id number] 10/14/1989 [facility] , MIKAEL Bianchi,[facility] Colonoscopy [id number] [facility], MIKAEL Bianchi,[facility] Assessment and Plan No Data Provided for This Section Plan of Care Plan of Care Date Source Medication Use 02/09/2014 Routine 02/18/2014 [facility] Social History Social History Date Source Social History TypeResponse Smoking Status Former smoker; Lives with someone who smokes; Cigarette Smoking Last 365 Days No; Reg Smoking Cessation Counseling No entered on: 08/04/19 08/04/2019 [facility] [place] Social History TypeResponse Smoking Status Former smoker; Lives with someone who smokes; Cigarette Smoking Last 365 Days No; Reg Smoking Cessation Counseling No entered on: 08/04/19 08/04/2019 [facility] Social History TypeResponse Smoking Status Former smoker; Lives with someone who smokes; Cigarette Smoking Last 365 Days No; Reg Smoking Cessation Counseling No entered on: 05/05/19 05/05/2019 [facility] Social History TypeResponse Smoking Status Former smoker; Lives with someone who smokes; Cigarette Smoking Last 365 Days No; Reg Smoking Cessation Counseling No 12/03/2016 [facility] Social History TypeResponse Smoking Status Former smoker; Lives with someone who smokes; Cigarette Smoking Last 365 Days No; Reg Smoking Cessation Counseling No entered on: 12/03/16 12/03/2016 MIKAEL Bianchi Social History ElementQualifiersDate Rep orted Illicit Drugs . none Oct 03, 2016 Tobacco Use: . Are you a:: never smoker Oct 03, 2016 Marital Status: . Oct 03, 2016 Caffeine: yes. 1-5 Oct 03, 2016 Exercise: no. Oct 03, 2016 Alcohol: no. 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 Oct 03, 2016 10/03/2016 Deven Chand Former Smoker (V15.82); (Active) Marital History - (Active) Occupation: Retired (Active) 02/18/2014 [facility] Family History Value Date S ource Maternal history of Breast Cancer (V16.3 ); (Active) Sororal history of Pulmonary Fibrosis (Active) Sororal history of Lung Cancer (V16.1); (Active) Fraternal history of Esophageal Cancer (V16.0); (Active) 02/18/2014 [facility] Maternal history of Breast Cancer (V16.3 ); (Active) Sororal history of Pulmonary Fibrosis (Active) Sororal history of Lung Cancer (V16.1); (Active) Fraternal history of Esophageal Cancer (V16.0); (Active) 02/05/2014 [facility] Maternal history of Breast Cancer (V16.3 ); (Active) Sororal history of Pulmonary Fibrosis (Active) Sororal history of Lung Cancer (V16.1); (Active) Fraternal history of Esophageal Cancer (V16.0); (Active) 12/11/2013 [facility] Maternal history of Breast Cancer (V16.3 ); (Active) Sororal history of Pulmonary Fibrosis (Active) Sororal history of Lung Cancer (V16.1); (Active) Fraternal history of Esophageal Cancer (V16.0); (Active) 10/12/2013 [facility] Maternal history of Breast Cancer (V16.3 ); (Active) Sororal history of Pulmonary Fibrosis (Active) Sororal history of Lung Cancer (V16.1); (Active) Fraternal history of Esophageal Cancer (V16.0); (Active) 09/09/2013 [facility] Maternal history of Breast Cancer (V16.3 ); (Active) Sororal history of Pulmonary Fibrosis (Active) Sororal history of Lung Cancer (V16.1); (Active) Fraternal history of Esophageal Cancer (V16.0); (Active) 08/13/2013 [facility] Maternal history of Breast Cancer (V16.3 ); (Active) Sororal history of Pulmonary Fibrosis (Active) Sororal history of Lung Cancer (V16.1); (Active) Fraternal history of Esophageal Cancer (V16.0); (Active) 07/20/2013 [facility] Advance Directives Order Name Results Value Date Source Advance Directives Advance Dir ectives No Advance Directives available. 02/18/2014 [facility] Advance Directives Advance Dir ectives No Advance Directives available. 02/05/2014 [facility] Advance Directives Advance Dir ectives No Advance Directives available. 12/11/2013 [facility] Advance Directives Advance Dir ectives No Advance Directives available. 10/12/2013 [facility] Advance Directives Advance Dir ectives No Advance Directives available. 09/09/2013 [facility] Advance Directives Advance Dir ectives No Advance Directives available. 08/13/2013 [facility] Advance Directives Advance Dir ectives No Advance Directives available. 07/20/2013 [facility] Advance Directives Advance Dir ectives No Advance Directives available. 07/17/2013 [facility] Advance Directives Advance Dir ectives No Advance Directives available. 06/13/2013 [facility] Functional Status No Data Provided for This Section
--- OUTSIDE RECORDS SUMMARY | 2020-02-23 18:15 | XMS REPORT | Summary of Care ---
Author Author [facility] Organization [facility] Address Unknown Phone Unavailable Encounter HQ Tino(FIN) [id number] Date(s): 10/22/18 - 11/04/18 [facility] [address] [place] [address]- Attending Physician: Justice Bello MD Referring Physician: Justice Bello MD Vital Signs No data available for [...]
--- OUTSIDE RECORDS SUMMARY | 2020-02-23 18:15 | XMS REPORT ---
Author Author EDGARDO LOREDO Organization Unknown Address Unknown Phone Care Team Providers Care Gas Line Installer Name Role Phone ETHEL LOREDO PP Unavailable [...] * Age-related Cognitive Decline (780.93); (Active) * Pain During Urination (Dysuria) (788.1); (Active) * Urinary Tract Infection (599.0); (Active) * Vaginitis (616.10); (Active) Medication * ALPRAZolam 0.5 MG Oral Tablet; TAKE 1 TABLET BY MOUTH EVERY 12 HOURS NEEDED FOR ANXIETY; Start Date: 06/12/2013 (Active) * Omeprazole 20 MG Oral Capsule Delayed Release; TAKE 1 CAPSULE DAILY; Start Date: ; End Date: (Active) * Levoxyl 100 MCG Oral Tablet; TAKE 1 TABLET DAILY.; Start Date: ; End Date: (Active) * Furosemide 20 MG Oral Tablet; TAKE 1 TABLET DAILY as needed (Active) * SM Vitamin E 200 UNIT Oral Capsule; TAKE 1 CAPSULE DAILY. (Active) * Desloratadine 5 MG Oral Tablet; TAKE 1 TABLET DAILY (Active) * Carvedilol 3.125 MG Oral Tablet; TAKE ONE TABLET BY MOUTH DAILY; Start Date: ; End Date: (Active) * Venlafaxine HCl ER 75 MG Oral Capsule Extended Release 24 Hour; TAKE 1 CAPSULE DAILY.; Start Date: 07/20/2013 (Active) * Nasonex 50 MCG/ACT Nasal Suspension; USE 1 SPRAY IN EACH NOSTRIL ONCE DAILY.; Start Date: 07/20/2013 (Active) * Fish Oil CAPS; 1400mg TAKE 1 CAPSULE TWICE DAILY (Active) * Ocuvite Oral Tablet; TAKE 1 TABLET DAILY. (Active) * Xeljanz 5 MG Oral Tablet; TAKE 1 TABLET TWICE DAILY (Active) * Xolair 150 MG Subcutaneous Solution Reconstituted; INJECT 150 MG SUBCUTANEOUSLY EVERY 4 WEEKS. (Active) * Vitamin D 2000 UNIT Oral Capsule; TAKE 1 CAPSULE DAILY (Active) * Citracal/Vitamin D TABS; TAKE 1 TABLET TWICE DAILY (Active) * Metamucil POWD; ONCE DAILY (Active) * Tylenol Arthritis Pain 650 MG Oral Tablet Extended Release; TAKE 1 TABLET 4 TIMES DAILY NEEDED. (Active) * Fluconazole 150 MG Oral Tablet; TAKE 1 TABLET 1 TIME ONLY.; Start Date: 02/09/2014; End Date: (Active) * MetroNIDAZOLE 0.75 % Vaginal Gel; Apply to vulvar skin area every night for 7 nights; Start Date: 02/09/2014; End Date: (Active) Allergies and Adverse Reactions * Levaquin [...] Influenza * Fluzone Intramuscular Injectable (Lot #: [id number]) - Administered on: 07/20/2013 Family History * Maternal history of Breast Cancer (V16.3); (Active) * Sororal history of Pulmonary Fibrosis (Active) * Sororal history of Lung Cancer (V16.1); (Active) * Fraternal history of Esophageal Cancer (V16.0); (Active) Social History * Former Smoker (V15.82); (Active) * Marital History - (Active) * Occupation: Retired (Active) Treatment Plan * Medication Use 02/09/2014 Routine Advance Directives * No Advance Directives available. Encounters * AUDIT 02/18/2014 * DANILO, Provider: ETHEL LOREDO, Status: Dieud[place], Time: 9:45 AM 02/24/2014 * DANILO, Provider: JUVE MAK, Status: Dieudonne, Time: 2:45 PM 03/30/2014
--- OUTSIDE RECORDS SUMMARY | 2020-02-23 18:16 | XMS REPORT ---
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
--- OUTSIDE RECORDS SUMMARY | 2020-02-23 18:16 | XMS REPORT ---
Author Author EDGARDO Chand Organization [employer] Address Unknown Phone Unavailable Care Team Providers Care Automotive Service Director Name Role Phone Chuy Chand CP Unavailable [...] Start Date End Date Status Dosage Methotrexate [facility] 81788760906 2.5mg Orally Once a week Jun 01, 2019 Active 2 tablets Results No Known Results Summary Purpose [employer] Submission
--- OUTSIDE RECORDS SUMMARY | 2020-02-23 18:16 | XMS REPORT ---
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
--- OUTSIDE RECORDS SUMMARY | 2020-02-23 18:16 | XMS REPORT ---
Author Author EDGARDO Chand Organization [employer] Address Unknown Phone Unavailable Care Team Providers Care Consulting Business Developer Name Role Phone Chuy Chand CP Unavailable [...] G91.2 Active Problem Osteoarthritis M19.90 Active Medications Medication Code System Code Instructions Start Date End Date Status Dosage Folic Acid [facility] 38074856248 1 MG Orally Once a day Ac tive 1 tablet Methotrexate [facility] 98995029553 2.5mg Orally Once a week Jun 01, 2019 Active 2 tablets Results No Known Results Summary Purpose [employer] Submission
--- OUTSIDE RECORDS SUMMARY | 2020-02-23 18:16 | XMS REPORT ---
Author Author EDGARDO Chand [facility] eClinicalWorks Address Unknown Phone Unavailable Care Team Providers Care Diaper Machine Tender Name Role Phone Chuy Chand CP Unavailable Allergies, Adverse Reactions, Alerts Substance Reaction Event Type Iodine Info Not Available Drug Allergy Daypro Info Not Available Drug Allergy Levaquin Info Not Available Drug Allergy Leflunomide Info Not Available Drug Allergy Fosamax fatigue, dental issues Non Drug Allergy Xeljanz Info Not Available Non [...] Kineret Info Not Available Non Drug Allergy Problems Problem Type Condition [...] Active Problem Pain in throat R07.0 Active Assessment Lumbago with sciatica, unspecified side M54.40 Active Assessment Osteoarthritis M19.90 Active Assessment Encounter for long-term (current) use of other high-risk medications Z79.899 Active Assessment Osteopenia of multiple sites M85.89 Active Assessment 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 Medications Medication Code System Code Instructions Start Date End Date Status Dosage Citracal + D NDC 0 1500-200 MG-IU Orally Twice a day Active 1 tablet with meals Omeprazole NDC 72279743647 40 MG Orally Once a day A ctive 1 capsule Venlafaxine HCl ND 40513141719 37.5 MG Orally Once a day Active 1 tablet with food Tylenol Arthritis Pain ND 11984249849 650 MG Orally every 8 hrs Active 2 tablets as needed BuPROPion HCl ND 17617414608 100 MG Orally once a day Active 1 tablet OneTouch [place]ro[place]ta Lancets 33G [facility] [place] 80515729965 - Active as directed Methotrexate ND 93511352103 2.5mg Orally Once a week March 24, 2018 Active 2 tablets Metamucil ND 73945510878 48.57 % Orally Active as directed Carvedilol ND 68160572646 3.125 MG Orally Twice a day Active 1 tablet with food MiraLax ND 67892759350 - Orally Active as directe d Metformin & Diet Manage Prod NDC 0 500 MG Orally BID Active 1 tablet Famotidine ND 26643544994 20 MG Orally BID Active 1 tablet at bedtime Levothyroxine Sodium ND 69817349461 100 MCG Orally qd Active 1 Desloratadine ND 11111760096 5 MG Orally Once a day Active 1 tablet PredniSONE ND 32414519056 5 MG Orally Once a day Ac tive 1 tablet Ocuvite ND 47257158915 Orally Active as directed Vitamin B12 ND 78600773586 1000 MCG Orally Once a day Active 1 tablet Atorvastatin Calcium ND 92280050093 10 MG Orally Once a day Active 1 tablet Rituxan [facility] [place] 24314962098 500 MG/50ML Intr avenous at day 1 and 15 then repeat q 4 mths Active 1000mg Fish Oil ND 91025830397 1000 MG Orally TWICE DAILY Active 1 CAP Senokot ND 56026974795 8.6 MG Orally Once a day Act amanda 2 tablets at bedtime as needed Alprazolam ND 22887518433 0.5 MG Orally Twice a day Active 1 tablet Mucinex ND 26138971990 600 MG Orally every 12 hrs A ctive 1 tablet as needed Folic Acid ND 46018861251 1 MG Orally Once a day Ac tive 1 tablet Vital Signs Date/Time: February 12, 2019 BMI 31.02 Index Weight 169.6 lbs Height 62 in Temperature 97.3 F Cardiac Monitoring Heart Rate 84 /min Blood Pressure Diastolic 75 mm Hg Blood Pressure Systolic 143 mm Hg Results No Known Results Summary Purpose eClinicalWorks Submission
--- OUTSIDE RECORDS SUMMARY | 2020-02-23 18:16 | XMS REPORT ---
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 Assessment Osteopenia of multiple sites M85.89 Active Assessment Osteoarthritis M19.90 Active Assessment Degenerative arthritis of cervical spine M47.812 Active Assessment Encounter for long-term (current) use of other high-risk medications Z79.899 Active Problem Lumbago with sciatica, unspecified side [...] Date End Date Status Dosage Folic Acid ND 77974137372 1 MG Orally Once a day Ac tive 1 tablet Furosemide ND 90871521251 20 MG Orally Once a day A ctive 1 tablet Levothyroxine Sodium ND 21738111256 100 MCG Orally qd Active 1 Fish Oil ND 62565324489 1000 MG Orally TWICE DAILY Active 1 CAP Citracal + D ND 0 1500-200 MG-IU Orally Twice a day Active 1 tablet with meals Tylenol Arthritis Pain ND 32530047367 650 MG Orally every 8 hrs Active 2 tablets as needed BuPROPion HCl ND 06138564548 100 MG Orally once a day Active 1 tablet PredniSONE ND 11237181561 5 MG Orally q am with food May Active 2 tablets Metformin HCl ND 23723658521 500 MG Orally BID Acti ve 1 tablet with a meal Carvedilol ND 80398117564 3.125 MG Orally Twice a day Active 1 tablet with food Senokot ND 43083176447 8.6 MG Orally Once a day Act amanda 2 tablets at bedtime as needed MiraLax ND 46188404851 - Orally Active as directe d Ocuvite ND 86674444406 Orally Active as directed Metamucil ND 14037539158 48.57 % Orally Active as directed Famotidine ND 82072397244 20 MG Orally BID Active 1 tablet at bedtime OneTouch Delica Lancets 33G [facility] 87041487476 - Active as directed Omeprazole ND 05912705202 40 MG Orally Once a day A ctive 1 capsule Desloratadine ND 68883153285 5 MG Orally Once a day Active 1 tablet Vitamin B12 ND 47578237323 1000 MCG Orally Once a day Active 1 tablet Rituxan [facility] 36032894063 500 MG/50ML Intr avenous at day 1 and 15 then repeat q 4 mths Active 1000mg Alprazolam ND 58072291687 0.5 MG Orally Twice a day Active 1 tablet Methotrexate ND 89734910874 2.5mg Orally Once a week Jun 01, 2019 Active 2 tablets Venlafaxine HCl ND 14920393792 37.5 MG Orally Once a day Active 1 tablet with food Atorvastatin Calcium ND 69631738156 10 MG Orally Once a day Active 1 tablet Vital Signs Date/Time: Nov 17, 2019 BMI 30.96 Index Weight 169.3 lbs Height 62 in Temperature 97.4 F Cardiac Monitoring Heart Rate 81 /min Blood Pressure Diastolic 77 mm Hg Blood Pressure Systolic 135 mm Hg Results No Known Results Summary Purpose eClinicalWorks Submission
--- OUTSIDE RECORDS SUMMARY | 2020-02-23 18:18 | XMS REPORT | Continuity of Care Document ---
Author Author [employer] EDGARDO Lisa Organization [facility] [employer] Address Unknown Phone Unavailable Care Team Providers Care Workforce Development Program Director Name Role Phone [employer] Unavailable Un available Problems Problem Status Onset Date Classification Date Reported Comments Source G91.2 - (IDIOPATHIC) NORMAL PRESSURE H Active 01/21/2019 [facility] Acute bronchitis, unspecified 11/27/2018 06/10/2019 MIKAEL Mckeon J20.9 - ACUTE BRONCHITIS, UNSPECIFIED Active 11/20/2018 [facility] Phlebitis and thrombophlebitis of other sites 09/02/2018 03/17/2019 MIKAEL Mckeon R13.10 Active 08/12/2017 [facility] D64.9 *XRAY ESOPHAGRAM BARIUM SWALLOW W Active 07/05/2017 [facility] D64.9 - "ANEMIA, UNSPECIFIED" Active 06/26/2017 MIKAEL Bianchi DIZZINESS AND GIDDINESS Active 05/06/2017 [facility] R09.89 - OTH SYMPTOMS AND SIGNS INVOLVI Active 04/11/2017 [facility] Anxiety (Symptom) Active 02/18/2014 [facility] Thrombocytopenia Active 02/18/2014 [facility] Rheumatoid Arthritis Active 02/18/2014 [facility] Essential Hypertension Active 02/18/2014 [facility] Hypothyroidism Active 02/18/2014 [facility] Age-related Cognitive Decline Active 02/18/2014 [facility] Allergic Rhinitis Active 02/18/2014 [facility] Vaccines Prophylactic Need Against Influenza Active 02/18/2014 [facility] Fatigue Active 02/18/2014 [facility] Palpitations Active 02/18/2014 [facility] Pain During Urination (Dysuria) Active 02/18/2014 [facility] Urinary Tract Infection Active 02/18/2014 [facility] Vaginitis Active 02/18/2014 [facility] Anemia (disorder) Resolved Problem 11/08/2019 [facility], MIKAEL Bianchi,[facility] MIKAEL Mckeon Anxiety (finding) Resolved Problem 11/08/2019 [facility], [facility] [place] [facility] [place] Constipation (disorder) Resolv ed Problem Medical [facility], [facility] [place] [facility] [place] Diabetes mellitus (disorder) R esolved Problem [facility], [facility] [place], [facility] [place] Gastric reflux (finding) Resol devin Problem Medical [facility], [facility] [place], [facility] [place] Hyperlipidemia (disorder) Reso lved Problem [facility], [facility] [place], [facility] [place] Hypothyroidism (disorder) Reso lved Problem [facility], [facility] [place], [facility] [place] Malignant tumor of colon (disorder) Resolved Problem [facility], [facility] [place], [facility] [place] Depressive disorder (disorder) Resolved Problem [facility], [facility] [place], [facility] [place] Pain in throat Active Problem 08/26/2019 Deven Jagruti Osteoarthritis Active Problem 01/22/2020 Deven Chand Normal pressure hydrocephalus Active Problem 07/2020 Deven Chand Degenerative arthritis of cervical spine Active Problem 01/22/2020 Deven Chand Rheumatoid arthritis of multiple sites w [facility] organ or system involvement with positive rheumatoid [...] Active 5-325 MG [facility] Deven Chand Hydrocodone-Acetaminophen take 1 tablet Orally Active 5-325 MG Orally once a day as needed [facility] 01/23/2017 Deven Chand Hydrocodone-Acetaminophen take 1 tablet by mouth every 6 hours Orally Active 5-325 MG [facility] 05/11/2016 Deven Chand Prilosec OTC [...] Table t Extended Release (Active) A ctive [facility] Mucinex 1 tablet as needed Orally [...] Lancets 33G as directed NA Active - Chand [place] Chand Tylenol Arthritis Pain 2 table [...] 0.5 MG Orally twice a d ay [facility] Chand Naproxen 1 tablet Orally Active [...] Reaction Active 11/17/2019 Deven Chand Not Known [facility] Levaquin TABS drug allergy drug allergy Active [facility] Bacitracin OINT drug allergy drug allergy Active [facility] Gold Sodium Thiomalate PUNEETN dr ug allergy drug aller gy Active [facility] Bacitracin, Topical Assertion Drug allergy Active [facility] iodine Assertion Drug allergy Active [facility] Latex Assertion Drug allergy Active [facility] Immunizations Immunization Date Given Site Status Last Updated Comments Source Fluzone Intramuscular Injectable 07/20/2013 completed [facility] Influenza completed [facility] Results Order Name Results Value Reference Range Date Interpretation Comments Source URINE AND STOOL POC UA LeukEst Negative *NA* (04/29/19 10:43 AM) Negative 04/29/2019 [facility] URINE AND STOOL POC UA Nit Negative *NA* (04/29/19 10:43 AM) Negative 04/29/2019 [facility] URINE AND STOOL POC UA Uro 0.2 0.1 - 1.0 04/29/2019 [facility] URINE AND STOOL POC UA Bld Trace *NA* (04/29/19 10:43 AM) Negative 04/29/2019 [facility] URINE AND STOOL POC UA Bili Negative *NA* (04/29/19 10:43 AM) Negative 04/29/2019 [facility] URINE AND STOOL POC UA Ket Negative mg/dL Negative mg/dL 04/29/2019 [facility] URINE AND STOOL POC UA Glu Negative mg/dL Negative mg/dL 04/29/2019 [facility] URINE AND STOOL POC UA pH 7.0 5.0 - 8.0 04/29/2019 [facility] URINE AND STOOL POC UA Prot Negative mg/dL Negative mg/dL 04/29/2019 [facility] URINE AND STOOL POC UA SG 1.010 <=1.030 04/29/2019 [facility] URINE AND STOOL POC UA Turbidity Clear *NA* (04/29/19 10:43 AM) Clear 04/29/2019 [facility] URINE AND STOOL POC UA Color Yellow *NA* (7/17/19 10:43 AM) Yellow 04/29/2019 [facility] Pathology Reports No Data Provided for This Section Diagnostic Reports Report Value Date Source Abdomen 2 views DX EXAM: XR AB DOMEN 1 VIEW DATE: 11/05/2019 13:07 [employer] INDICATION: - constipation COMPARISON: None. TECHNIQUE: AP view of the abdomen. FINDINGS: Surgical clips in the pelvis. Stomach is partially gas distended. Bowel: No dilated small bowel loops. Moderate volume colonic stool. Solid organs: No organomegaly. Atheromatous vascular calcification seen. Bones: Moderate degenerative changes involving the lumbar spine with the mild dextroscoliosis in the thoracolumbar junction. IMPRESSION: Moderate volume colonic stool. 11/05/2019 [facility] Pelvis w Pelvis Transvaginal US EXAM: US [...] volume is greater than that expected. 03/04/2019 [facility] Brain w/wo contrast MRI Brain w/wo contrast [...] The pituitary gland appears unremarkable. VENTRICLES: Stable wkxi-qe-fplvvjfz lateral ventricular dilatation, slightly disproportionate to the [...] communicating or normal pressure hydrocephalus. 02/05/2019 [facility] [place] Spine cervical wo contrast MRI Spine cervical [...] T 2 VIEWS DATE: 11/20/2018 3:46 PM [employer] INDICATION: - J20.9 Acute bronchitis, unspecified COMPARISON: None TECHNIQUE: PA and lateral chest radiographs FINDINGS: Lungs are symmetrically well expanded. Probable bibasilar atelectasis. No pulmonary or pleural-based abnormality is identified. The cardiomediastinal silhouette is normal. The descending thoracic aorta is ectatic and tortuous. No acute osseous abnormality is identified. IMPRESSION: No acute cardiopulmonary abnormality. Probable bibasilar atelectatic changes. 11/20/2018 [facility] Ext Lower Venous Doppler Unilat US EXAM: US LEFT LOWER EXTREMITY VENOUS DOPPLER DATE: 08/27/2018 9:33 AM [employer] INDICATION: - I80.9 Phlebitis and thrombophlebitis of [...] calf, likely a thrombosed varicose vein. 08/27/2018 [facility] Barium Swallow w Esophagus Function DX Patient Name: EDGARDO HUNTLEY : 1940; Age: 77 years y/o Female MR: [id number] Study: Barium Swallow w Esophagus Function DX [...] in contrast passage in the LPO position. [id number] 07/11/2017 [facility] wo contrast CT EXAM: CT BRAIN [...] pressure hydrocephalus. Clinical correlation is recommended. 04/19/2017 [facility] Carotid artery Doppler bilat US EXAM: US [...] Don CB, Bright GL, et. al. 04/19/2017 [facility] Consultation Notes No Data Provided for This [...] 05/28/2017 Deven Chand Height 157.48 cm 05/07/2017 [facility] BMI Calculated 30.79 05/07/2017 [facility] Weight 76.364 05/07/2017 [facility] Weight 162.4 01/23/2017 Deven Chand Height 62 [...] Deven Chand Height 62 0 04/11/2016 Deven Chadn Temperature Oral (F) 98.1 F 04/11/2016 Deven [...] ADM Date DC Date Status Source AUDIT [id number] 06/13/2013 06/13/2013 [facility] AUDIT [id number] 07/17/2013 07/17/2013 [facility] Rebecca CARRASCO liam: JUVE COLLINS, Status: Pen, Time: 1:15 PM [id number] 07/20/20 13 07/17/2013 [facility] AUDIT [id number] 07/20/2013 07/20/2013 [facility] AUDIT [id number] 08/13/2013 08/13/2013 [facility] AUDIT [id number] 09/09/2013 09/09/2013 [facility] AUDIT [id number] 10/12/2013 10/12/2013 [facility] Rebecca CARRASCO liam: JUVE COLLINS, Status: Pen, Time: 1:15 PM [id number] 11/18/19 14 10/12/2013 [facility] AUDIT [id number] 12/11/2013 12/11/2013 [facility] Rebecca CARRASCO liam: JUVE COLLINS, Status: Pen, Time: 2:15 PM [id number] 12/31/19 14 12/11/2013 [facility] AUDIT [id number] 02/05/2014 02/05/2014 [facility] AUDIT [id number] 02/18/2014 02/18/2014 [facility] Chuy Chand MD 3 month follow up [id number] 02/23/20 14 02/22/2014 Deven Chand MD 3 month follow up [id number] 02/23/20 14 02/22/2014 Deven Chand MD 3 month follow up [id number] 02/23/20 14 02/22/2014 Deven Chand MD 3 month follow up [id number] 02/23/20 14 02/22/2014 Deven Chand MD 3 month follow up [id number] 02/23/20 14 02/22/2014 Deven Chand MD 3 month follow up [id number] 02/23/20 14 02/22/2014 Deven Chand MD 3 month follow up [id number] 02/23/20 14 02/22/2014 Deven Chand MD 3 month follow up [id number] 02/23/20 14 02/22/2014 Deven Chand MD 3 month follow up [id number] 02/23/20 14 02/22/2014 Deven Chand MD 3 month follow up [id number] 02/23/20 14 02/22/2014 Deven Chand MD 3 month follow up [id number] 02/23/20 14 02/22/2014 Deven Chand MD 3 month follow up [id number] 02/23/20 14 02/22/2014 Deven Chand MD START Simcandacei Nika [id number] 02/23/20 14 02/22/2014 Deven Chand MD START Simponi Aria [id number] 02/23/20 14 02/22/2014 Deven Chand MD START Simponi Aria [id number] 02/23/20 14 02/22/2014 Deven Chand MD START Simponi Aria [id number] 02/23/20 14 02/22/2014 Deven Chand MD START Simponi Aria [id number] 02/23/20 14 02/22/2014 Deven Chand MD START Simponi Aria [id number] 02/23/20 14 02/22/2014 Deven Chand MD START Simponi Aria [id number] 02/23/20 14 02/22/2014 Deven Chand MD START Simponi Aria [id number] 02/23/20 14 02/22/2014 Deven Chand MD START Simponi Aria [id number] 02/23/20 14 02/22/2014 Deven Chand MD START Simponi Aria [id number] 02/23/20 14 02/22/2014 Deven Chand MD START Simponi Aria [id number] 02/23/20 14 02/22/2014 Deven Chand MD START Simponi Aria [id number] 02/23/20 14 02/22/2014 Deven GRIFFITH, Provi liam: ETHEL LOREDO, Status: Dieudonne, Time: 9:45 AM [id number] 02/24/2014 02/18/2014 [facility] Chuy Chand MD MTX SCRIPT [id number] 02/25/20 14 02/24/2014 Deven Chand MD MTX SCRIPT [id number] 02/25/20 14 02/24/2014 Deven Chand MD MTX SCRIPT [id number] 02/25/20 14 02/24/2014 Deven Chand MD MTX SCRIPT [id number] 02/25/20 14 02/24/2014 Deven Chand MD MTX SCRIPT [id number] 02/25/20 14 02/24/2014 Deven Chand MD MTX SCRIPT [id number] 02/25/20 14 02/24/2014 Deven Chand MD MTX SCRIPT [id number] 02/25/20 14 02/24/2014 Deven Chand MD MTX SCRIPT [id number] 02/25/20 14 02/24/2014 Deven Chand MD MTX SCRIPT [id number] 02/25/20 14 02/24/2014 Deven Chand MD MTX SCRIPT [id number] 02/25/20 14 02/24/2014 Deven Chand MD MTX SCRIPT [id number] 02/25/20 14 02/24/2014 Deven Chand MD MTX SCRIPT [id number] 02/25/20 14 02/24/2014 Deven Chand MD Vicodin refill [id number] 03/02/20 14 03/02/2014 Deven Chand MD Vicodin refill [id number] 03/02/20 14 03/02/2014 Deven Chand MD Vicodin refill [id number] 03/02/20 14 03/02/2014 Deven Chand MD Vicodin refill [id number] 03/02/20 14 03/02/2014 Deven Chand MD Vicodin refill [id number] 03/02/20 14 03/02/2014 Deven Chand MD Vicodin refill [id number] 03/02/20 14 03/02/2014 Deven Chand MD Vicodin refill [id number] 03/02/20 14 03/02/2014 Deven Chand MD Vicodin refill [id number] 03/02/20 14 03/02/2014 Deven Chand MD Vicodin refill [id number] 03/02/20 14 03/02/2014 Deven Chand MD Vicodin refill [id number] 03/02/20 14 03/02/2014 Deven Chand MD Vicodin refill [id number] 03/02/20 14 03/02/2014 Deven Chand MD Vicodin refill [id number] 03/02/20 14 03/02/2014 Deven Chand MD medication dx code [id number] 03/02/20 14 03/02/2014 Deven Chand MD medication dx code [id number] 03/02/20 14 03/02/2014 Deven Chand MD medication dx code [id number] 03/02/20 14 03/02/2014 Deven Chand MD medication dx code [id number] 03/02/20 14 03/02/2014 Deven Chand MD medication dx code [id number] 03/02/20 14 03/02/2014 Deven Chand MD medication dx code [id number] 03/02/20 14 03/02/2014 Deven Chand MD medication dx code [id number] 03/02/20 14 03/02/2014 Deven Chand MD medication dx code [id number] 03/02/20 14 03/02/2014 Deven Chand MD medication dx code [id number] 03/02/20 14 03/02/2014 Deven Chand MD medication dx code [id number] 03/02/20 14 03/02/2014 Deven Chand MD medication dx code [id number] 03/02/20 14 03/02/2014 Deven Chand MD medication dx code [id number] 03/02/20 14 03/02/2014 Deven Chand MD Done with antibiotics [id number] 03/03/20 14 03/03/2014 Deven Chand MD Done with antibiotics [id number] 03/03/20 14 03/03/2014 Deven Chand MD Done with antibiotics [id number] 03/03/20 14 03/03/2014 Deven Chand MD Done with antibiotics [id number] 03/03/20 14 03/03/2014 Deven Chand MD Done with antibiotics [id number] 03/03/20 14 03/03/2014 Dveen Chand MD Done with antibiotics [id number] 03/03/20 14 03/03/2014 Deven Chand MD Done with antibiotics [id number] 03/03/20 14 03/03/2014 Deven Chand MD Done with antibiotics [id number] 03/03/20 14 03/03/2014 Deven Chand MD Done with antibiotics [id number] 03/03/20 14 03/03/2014 Deven Chand MD Done with antibiotics [id number] 03/03/20 14 03/03/2014 Deven Chand MD Done with antibiotics [id number] 03/03/20 14 03/03/2014 Deven Chand MD Done with antibiotics [id number] 03/03/20 14 03/03/2014 Deven Chand MD MRI Bi- WRist [id number] 03/04/20 14 03/04/2014 Deven Chand MD MRI Bi- [facility]ist [id number] 03/04/20 14 03/04/2014 Deven Chand MD MRI Bi- [facility] [id number] 03/04/20 14 03/04/2014 Deven Chand MD MRI Bi- [facility] [id number] 03/04/20 14 03/04/2014 Deven Chand MD MRI Bi- [facility] [id number] 03/04/20 14 03/04/2014 Deven Chand MD MRI Bi- [facility] [id number] 03/04/20 14 03/04/2014 Deven Chand MD MRI [facility]- [facility] [id number] 03/04/20 14 03/04/2014 Deven Chand MD [facility]- [facility] [id number] 03/04/20 14 03/04/2014 Deven Chand MD MRI [facility]- [facility] [id number] 03/04/20 14 03/04/2014 Deven Chand MD MRI [facility]- [facility] [id number] 03/04/20 14 03/04/2014 Deven Chand MD MRI [facility]- [facility] [id number] 03/04/20 14 03/04/2014 Deven Chand MD MRI [facility]- [facility] [id number] 03/04/20 14 03/04/2014 Deven Chand MD [facility]- xeljanz [id number] 03/04/20 14 03/04/2014 Deven Chand MD Refill- xeljanz [id number] 03/04/20 14 03/04/2014 Deven Chand MD Refill- xeljanz [id number] 03/04/20 14 03/04/2014 Deven Chand MD Refill- xeljanz [id number] 03/04/20 14 03/04/2014 Deven Chand MD Refill- xeljanz [id number] 03/04/20 14 03/04/2014 Deven Chand MD Refill- xeljanz [id number] 03/04/20 14 03/04/2014 Deven Chand MD Refill- xeljanz [id number] 03/04/20 14 03/04/2014 Deven Chand MD Refill- xeljanz [id number] 03/04/20 14 03/04/2014 Deven Chand MD Refill- xeljanz [id number] 03/04/20 14 03/04/2014 Deven Chand MD Refill- xeljanz [id number] 03/04/20 14 03/04/2014 Deven Chand MD Refill- xetiffanie [id number] 03/04/20 14 03/04/2014 MD Casey Krause- xetiffanie [id number] 03/04/20 14 03/04/2014 MD ANTHONY Krause [id number] 03/17/20 14 03/17/2014 MD ANTHONY Krause [id number] 03/17/20 14 03/17/2014 MD ANTHONY Krause [id number] 03/17/20 14 03/17/2014 MD ANTHONY Krause [id number] 03/17/20 14 03/17/2014 MD ANTHONY Krause [id number] 03/17/20 14 03/17/2014 MD ANTHONY Krause [id number] 03/17/20 14 03/17/2014 MD ANTHONY Krause [id number] 03/17/20 14 03/17/2014 MD ANTHONY Krause [id number] 03/17/20 14 03/17/2014 DevenMD ANTHONY Zuluaga [id number] 03/17/20 14 03/17/2014 MD ANTHONY Krause [id number] 03/17/20 14 03/17/2014 MD ANTHONY Krause [id number] 03/17/20 14 03/17/2014 MD ANTHONY Krause [id number] 03/17/20 14 03/17/2014 Deven Chand MD high BP [id number] 03/19/20 14 03/19/2014 Deven Chand MD high BP [id number] 03/19/20 14 03/19/2014 Deven Chand MD high BP [id number] 03/19/20 14 03/19/2014 Deven Chand MD high BP [id number] 03/19/20 14 03/19/2014 Deven Chand MD high BP [id number] 03/19/20 14 03/19/2014 eDven Chand MD high BP [id number] 03/19/20 14 03/19/2014 Deven Chand MD high BP [id number] 03/19/20 14 03/19/2014 Deven Chand MD high BP [id number] 03/19/20 14 03/19/2014 Deven Chand MD high BP [id number] 03/19/20 14 03/19/2014 Deven Chand MD high BP [id number] 03/19/20 14 03/19/2014 Deven Chand MD high BP [id number] 03/19/20 14 03/19/2014 Deven Chand MD high BP [id number] 03/19/20 14 03/19/2014 Deven Chand FU, Provi liam: JUVE COLLINS, Status: Dieudonne, Time: 2:45 PM [id number] 03/30/20 14 02/18/2014 [facility] Chuy Chand MD 3 month follow up [id number] 04/27/20 14 04/27/2014 Deven Chand MD 3 month follow up [id number] 04/27/20 14 04/27/2014 Deven Chand MD 3 month follow up [id number] 04/27/20 14 04/27/2014 Deven Chand MD 3 month follow up [id number] 04/27/20 14 04/27/2014 Deven Chand MD 3 month follow up [id number] 04/27/20 14 04/27/2014 Deven Chand MD 3 month follow up [id number] 04/27/20 14 04/27/2014 Deven Chand MD 3 month follow up [id number] 04/27/20 14 04/27/2014 Deven Chand MD 3 month follow up [id number] 04/27/20 14 04/27/2014 Deven Chand MD 3 month follow up [id number] 04/27/20 14 04/27/2014 Deven Chand MD 3 month follow up [id number] 04/27/20 14 04/27/2014 Deven Chand MD 3 month follow up [id number] 04/27/20 14 04/27/2014 Deven Chand MD 3 month follow up [id number] 04/27/20 14 04/27/2014 Deven Chand MD PATIENT QUESTION [id number] 07/08/20 14 07/08/2014 Deven Chand MD PATIENT QUESTION [id number] 07/08/20 14 07/08/2014 Deven Chand MD PATIENT QUESTION [id number] 07/08/20 14 07/08/2014 Deven Chand MD PATIENT QUESTION [id number] 07/08/20 14 07/08/2014 Deven Chand MD PATIENT QUESTION [id number] 07/08/20 14 07/08/2014 Deven Chand MD PATIENT QUESTION [id number] 07/08/20 14 07/08/2014 Deven Chand MD PATIENT QUESTION [id number] 07/08/20 14 07/08/2014 Deven Chand MD PATIENT QUESTION [id number] 07/08/20 14 07/08/2014 Deven Chand MD PATIENT QUESTION [id number] 07/08/20 14 07/08/2014 Deven Chand MD PATIENT QUESTION [id number] 07/08/20 14 07/08/2014 Deven Chand MD PATIENT QUESTION [id number] 07/08/20 14 07/08/2014 Deven Chand MD PATIENT QUESTION [id number] 07/08/20 14 07/08/2014 Deven Chand MD Unknown [id number] 07/13/20 14 07/13/2014 Deven Chand MD Unknown [id number] 07/13/20 14 07/13/2014 Deven Chand MD Unknown [id number] 07/13/20 14 07/13/2014 Deven Chand MD Unknown [id number] 07/13/20 14 07/13/2014 Deven Chand MD Unknown [id number] 07/13/20 14 07/13/2014 Deven Chand MD Unknown [id number] 07/13/20 14 07/13/2014 Deven Chand MD Unknown [id number] 07/13/20 14 07/13/2014 Deven Chand MD Unknown [id number] 07/13/20 14 07/13/2014 Deven Chand MD Unknown [id number] 07/13/20 14 07/13/2014 Deven Chand MD Unknown [id number] 07/13/20 14 07/13/2014 Deven Chand MD Unknown [id number] 07/13/20 14 07/13/2014 Deven Chand MD Unknown [id number] 07/13/20 14 07/13/2014 Deven Chand MD Prednisone Start [id number] 08/02/20 14 08/02/2014 Deven Chand MD Prednisone Start vx2b0963-t593-8bak-410i-3g17ggj3731d 08/02/20 14 08/02/2014 Deven Chand MD Prednisone Start 2fbmn442-88z6-1096-foa7-z0f2051jm795 08/02/20 14 08/02/2014 Deven Chand MD Prednisone Start h6zh7e11-gl3t-3413-gj3x-04k9t217281g 08/02/20 14 08/02/2014 Deven Chand MD Prednisone Start 4og2z8o3-i24a-4322-61g4-0482ey0t9290 08/02/20 14 08/02/2014 Deven Chand MD Prednisone Start 9m09st5o-380r-24kl-vxd9-2vy54sx21d22 08/02/20 14 08/02/2014 Deven Chand MD Prednisone Start 1644ytzf-696z-98pj-9777-m671xd9v9523 08/02/20 14 08/02/2014 Deven Chand MD Prednisone Start w0j165m0-9464-3422-838o-8yh4n5al4g3q 08/02/20 14 08/02/2014 Deven Chand MD Prednisone Start 0mz196a6-725f-2g71-ks68-477a95bdx708 08/02/20 14 08/02/2014 Deven Chand MD Prednisone Start 4k7546v9-8367-4591-3zw1-qx2788704398 08/02/20 14 08/02/2014 Deven Chand MD Prednisone Start 19i02025-pg5w-3437-hdf2-j0lr83zl8862 08/02/20 14 08/02/2014 Deven Chand MD [facility] s91sh17e-qg86-1t7f-f3y3-9x31bat40c64 08/02/20 14 08/02/2014 Deven Chand MD Predisone Update/ [facility] [id number] 08/09/2014 08/09/2014 Deven Chand MD Predisone Update/ [facility] [id number]-bp8vv4g05211 08/09/2014 08/09/2014 Deven Chand MD Predisone Update/ [facility] [id number]-w56v-g8z50q7p97c9 08/09/2014 08/09/2014 Deven Chand MD Predisone Update/ [facility] [id number]-w4z5-i000120r8532 08/09/2014 08/09/2014 Deven Chand MD Predisone Update/ [facility] [id number]-740w-z935-2881u61v0544 08/09/2014 08/09/2014 Deven Chand MD Predisone Update/ [facility] [id number] 08/09/2014 08/09/2014 Deven Chand MD Predisone Update/ [facility] ud06f9pv-iu29-82u3-7q95-s8c40j796427 08/09/2014 08/09/2014 Deven Chand MD Predisone Update/ [facility] [id number]-li36-ub2j384904m7 08/09/2014 08/09/2014 Deven Chand MD Predisone Update/ [facility] [id number]-[id number]-[id number] 08/09/2014 08/09/2014 Deven Chand MD Predisone Update/ [facility] [id number]-hg9r-1s21-3dkt-1r6wxx7m4uvo 08/09/2014 08/09/2014 Deven Chand MD Predisone Update/ [facility] [id number]-h678-0n76-ex08-sm59721hgl25 08/09/2014 08/09/2014 Deven Chand MD Predisone Update/ [facility] [id number]-3x2wh4974hl7 08/09/2014 08/09/2014 Deven Chand MD F/U 83m8p166-uj4h-057o-r097-49lf741698q3 09/13/2014 09/13/2014 Deven Chand MD F/U 4595c591-g788-778w-4n04-o8t5nw5293x6 09/13/2014 09/13/2014 Deven Chand MD F/U 6we62by9-o98o-2272-721n-8y7l53z0rl83 09/13/2014 09/13/2014 Deven Chand MD F/U z8491g8f-5uc6-793v-m0ne-270ghh6j43wo 09/13/2014 09/13/2014 Deven Chand MD F/U 6h3gn5k9-r403-129b-r8gk-8mc6j0697io0 09/13/2014 09/13/2014 Deven Chand MD F/U jx7p110m-659b-6d18-3127-u2q8792n1k8h 09/13/2014 09/13/2014 Deven Chand MD F/U [id number]-v3z5-24p1-r30i-b484b1i39458 09/13/2014 09/13/2014 Deven Chand MD F/U [id number]-f759-88o9-h1t0-h4x6ro89597m 09/13/2014 09/13/2014 Deven Chand MD F/U 8772m34u-67jd-4116-lo95-36t52amtcee9 09/13/2014 09/13/2014 Deven Chand MD F/U 87f619zt-n6oc-054m-7966-w71s0k7mu763 09/13/2014 09/13/2014 Deven Chand MD F/U 85ma7wm2-ty8a-4i5h-8p30-n8231v0p7242 09/13/2014 09/13/2014 Deven Chand MD F/U ai460dh6-056w-0903-5us5-193ug3bh5u86 09/13/2014 09/13/2014 Deven Chand MD dexa 73g2fux4-uetu-0460-ki49-1v6u0n70a2h6 11/02/2014 11/02/2014 Deven Chand MD dexa 8e6i4l8l-43ci-8136-na4y-716p6p0n83ws 11/02/2014 11/02/2014 Deven Chand MD dexa 906uejra-46wx-4x9j0k0a-g692-405jc1m9vx9k 11/02/2014 11/02/2014 Deven Chand MD dexa 79wc2c24-707m-554i-99o3-4s971j37n5s0 11/02/2014 11/02/2014 Deven Chand MD dexa 03eu6740-2w1j-54m3-91a1-49s20hb3wto7 11/02/2014 11/02/2014 Deven Chand MD dexa [id number]-66l3-0m18-j00b-f8nne36s592z 11/02/2014 11/02/2014 Deven Chand MD dexa 1278j379-8r91-84p1-v870-369thfm6h58v 11/02/2014 11/02/2014 Deven Chand MD dexa [id number]-6958-9934-yf0b-m6yv0uerz62o 11/02/2014 11/02/2014 Deven Chand MD dexa 50da4zk1-f539-7800-2o63-84hdf8p47088 11/02/2014 11/02/2014 Deven Chand MD dexa my474d2l-kvj6-306g-094a-9em77k341365 11/02/2014 11/02/2014 Deven Chand MD dexa [id number]-6z3l-64a8-t9es-83a7p0n8491n 11/02/2014 11/02/2014 Devne Chand MD dexa la2zm8l3-712x-6288-h167-79308o7t63k0 11/02/2014 11/02/2014 Deven Chand MD F/U 22l4tr5u-2775-1b36-11k8-ky010ioo703u 11/08/2014 11/08/2014 Deven Chand MD F/U [id number]-759j-0u4c-5dii1127uz57 11/08/2014 11/08/2014 Deven Chand MD F/U [id number]-f4pj-89kt-3ae9-54wm92330o43 11/08/2014 11/08/2014 Deven Chand MD F/U [id number]-a199-2vv1-03za-8ahbl9neg8fz 11/08/2014 11/08/2014 Deven Chand MD F/U 5lc6wxf9-7794-8493-7ofj-8zo329061o71 11/08/2014 11/08/2014 Deven Chand MD F/U 36ix920x-wmu8-3888-ry9m-l6y099427214 11/08/2014 11/08/2014 Deven Chand MD Unknown [id number] 11/08/19 15 11/08/2014 Deven Chand MD Unknown [id number]-[id number] 11/08/19 15 11/08/2014 Deven Chand MD Unknown [id number] 11/08/19 15 11/08/2014 Deven Chand MD Unknown [id number]-xuk9-l6x7327430n5 11/08/19 15 11/08/2014 Deven Chand MD Unknown [id number] 11/08/19 15 11/08/2014 Deven Chand MD Unknown [id number]-c1l8-5j38-m1gu-7v6v68p28250 11/08/19 15 11/08/2014 Deven Chand MD F/U 9f503i6d-8g42-8t39-6hi9-9pu584pao28w 11/08/2014 11/08/2014 Deven Chand MD F/U 49fd686h-9w44-2861-i96w-7im5m778bdl2 11/08/2014 11/08/2014 Deven Chand MD F/U 50q27552-11ju-5564-25r7-90v86it6u69i 11/08/2014 11/08/2014 Deven Chand MD F/U p02754z3-k0u7-9c97-8k99-7yb6tl43w7q7 11/08/2014 11/08/2014 Deven Chand MD F/U 8723d45a-[id number]-41xt0l556122 11/08/2014 11/08/2014 Deven Chand MD F/U [id number]-35r0-4co8-53o327e65ui8 11/08/2014 11/08/2014 Deven Chand MD Unknown [id number]-wa9k-0iy1-zmh1-70p7xjt8448k 11/08/19 15 11/08/2014 Deven Chand MD Unknown [id number]rv7 11/08/19 15 11/08/2014 Deven Chand MD Unknown [id number]-[id number]-0uy5glwnv28u 11/08/19 15 11/08/2014 Deven Chand MD Unknown [id number]-[id number] 11/08/19 15 11/08/2014 Deven Chand MD Unknown [id number]-5p70-5j23-8rry-6h97ufxx419s 11/08/19 15 11/08/2014 Deven Chand MD Unknown [id number]-[id number]-83u3834ivli4 11/08/19 15 11/08/[address] g06y5lu7-1j13-65e1-k88n-t4dp827f242p 11/23/2014 11/23/[address] fv927e72-r6r7-7xsl-312q-2uy00cx400v3 11/23/2014 11/23/[address] 837r993z-23bu-176j-u043-0gjy89x049o1 11/23/2014 11/23/[address] 35d5qo01-8009-9995-232l-8e851qyc3m70 11/23/2014 11/23/[address] 89p774bf-69nc-418c-021l-0acx9908n887 11/23/2014 11/23/[address] [place] [address] 1006ep66-7n54-6002-873s-rf2d06l5b977 11/23/2014 11/23/[address] 327h85u8-dm4t-75ji-b324-zex885va2k8y 11/23/2014 11/23/[address] [id number]-6w00-uno2-rd478x828h5w 11/23/2014 11/23/[address] [id number]-a5kx-06427uw14122 11/23/2014 11/23/[address] 0s1m488v-i2al-4600-6i2k-67f4q0x9pmpu 11/23/2014 11/23/[address] 2kj8s694-4v66-79g6-q2e6-3s51ullax41w 11/23/2014 11/23/[address] [id number]-[id number] 11/23/2014 11/23/2014 Deven Chand MD /S [facility] 4957p6gm-k710-8989-52g9-18xz88p278cr 12/17/19 15 12/16/2014 Deven Chand MD U/S abdomen [id number]-[id number] 12/17/19 15 12/16/2014 Deven Chand MD U/S abdomen 8y95v1l3-579f-386m-w637-175wy759097n 12/17/19 15 12/16/2014 Deven Chand MD U/S abdomen ts3dxx15-q6o2-0149-8g4r-7427171o7l88 12/17/19 15 12/16/2014 Deven Chand MD U/S abdomen o4v521ek-t060-57k9-d893-15ba3921a232 12/17/19 15 12/16/2014 Deven Chand MD U/S abdomen 92qey297-1p99-65z8-e1ll-462597865vto 12/17/19 15 12/16/2014 Deven Chand MD U/S abdomen 93vf4hg9-d69x-6169-8195-3sk63358toky 12/17/19 15 12/16/2014 Deven Chand MD U/S abdomen [id number]-9vy9-ov116lt5o14g 12/17/19 15 12/16/2014 Deven Chand MD U/S abdomen [id number]-q779-6142-r850-7gv94g2p8206 12/17/19 15 12/16/2014 Deven Chand MD U/S abdomen 325iqwrs-q724-5s91n127-4d96-i146-e1o2958210d6 12/17/19 15 12/16/2014 Deven Chand MD U/S abdomen 53a659b6-1078-553b-30h1-x455okb556ua 12/17/19 15 12/16/2014 Deven Chand MD U/S abdomen 49gdl51j-40kq-4f5j-3tg4-xe37h055gr10 12/17/19 15 12/16/2014 Deven Chand MD PT Update 95072v4f-mkeu-0h2y-360f-4wn06869ddo1 12/28/19 15 12/27/2014 Deven Chand MD PT Update [id number]-0bc9-1adc-oe41-9u814066837t 12/28/19 15 12/27/2014 Deven Chand MD PT Update 4986ci3v-606m-3o81-1881-7i728y9l276t 12/28/19 15 12/27/2014 Deven Chand MD PT Update kb9l88ij-650r-6843-3y1i-8671gn0356l6 12/28/19 15 12/27/2014 Deven Chand MD PT Update njh4faji-3e29-04y9-q72m-179mzd51069z 12/28/19 15 12/27/2014 Deven Chand MD PT Update 0tm8o068-0693-60b1-4c2x-8366e0i56e73 12/28/19 15 12/27/2014 Deven Chand MD PT Update [id number]-219s-bnu3-62rw4ei8a039 12/28/19 15 12/27/2014 Deven Chand MD PT Update ulxv50kx-0nos-1qfr-i03b-9yr25q448vx9 12/28/19 15 12/27/2014 Deven Chand MD PT Update 1f1p2707-31ow-35s7-35b6-9du6cu26eo3s 12/28/19 15 12/27/2014 Deven Chand MD PT Update p6v9klgi-85d0-8064-z5l9-e1e30d948d9e 12/28/19 15 12/27/2014 Deven Chand MD PT Update 2b27k23o-9129-0z11-2cj6-iu9t31wu3082 12/28/19 15 12/27/2014 Deven Chand MD PT Update 539f1t0v-7tjw-9l01-zz81-552703lx2sdx 12/28/19 15 12/27/2014 Deven Chand MD Unknown [id number] 01/04/20 15 01/03/2015 Deven Chand MD Unknown [id number] 01/04/20 15 01/03/2015 Deven Chand MD Unknown [id number] 01/04/20 15 01/03/2015 Deven Chand MD Unknown [id number]-[id number] 01/04/20 15 01/03/2015 Deven Chand MD Unknown [id number] 01/04/20 15 01/03/2015 Deven Chand MD Unknown [id number] 01/04/20 15 01/03/2015 Deven Chand MD Unknown [id number]-351m-cq2y-pk8tp49p8m71 01/04/20 15 01/03/2015 Deven Chand MD Unknown [id number] 01/04/20 15 01/03/2015 Deven Chand MD Unknown [id number]-63z8-oo6b-n248k7fp1p49 01/04/20 15 01/03/2015 Deven Chand MD Unknown [id number] 01/04/20 15 01/03/2015 Deven Chand MD Unknown [id number]-5r6lpayzrfcz 01/04/20 15 01/03/2015 Deven Chand MD Unknown [id number] 01/04/20 15 01/03/2015 Deven Chand MD Abdominal US/[facility] [id number]-90z0-ccux9a29049f 01/12/20 15 01/11/2015 Deven Chand MD Abdominal US/[facility] [id number]-wr04-wc12866dv1wz 01/12/20 15 01/11/2015 Deven Chand MD Abdominal US/[facility] 22oc0fb5-q4t1-1j00-v2v4-r90bw95l8985 01/12/20 15 01/11/2015 Deven Chand MD Abdominal US/[facility] 2343dl11-d0e1-5n24-7970-w27626264k47 01/12/20 15 01/11/2015 Deven Chand MD Abdominal US/[facility] 4no3f4ay-k4k9-117o-o874-v8ju2z8fy9a4 01/12/20 15 01/11/2015 Deven Chand MD Abdominal US/[facility] 0538m2g1-ss15-0762-3080-6h0264o60y37 01/12/20 15 01/11/2015 Deven Chand MD Abdominal US/[facility] [id number]-j79c86zn29yv 01/12/20 15 01/11/2015 Deven Chand MD Abdominal US/[facility] [id number]-82b8-805r-6j9m-19lhyo39bukt 01/12/20 15 01/11/2015 Deven Chand MD Abdominal US/[facility] 2pl05i0m-3946-0w59-uij9-084zdy27pj5y 01/12/20 15 01/11/2015 Deven Chand MD Abdominal US/[facility] ig69qx5b-10ax-7j2k-08xv-8y2ce0h38r65 01/12/20 15 01/11/2015 Deven Chand MD Abdominal US/[facility] y53b3076-45gq-4873-w749-698l50c16j4w 01/12/20 15 01/11/2015 Deven Chand MD Abdominal US/[facility] 610n8t86-35b6-64k1-3v0y-16360i2a26r6 01/12/20 15 01/11/2015 Deven Chand MD [facility] ro865o7p-1d25-8757-43s3-4138cs7x6290 01/18/20 15 01/17/2015 Deven Chand MD [facility] [id number]-mt1m-7og108349d4v 01/18/20 15 01/17/2015 Deven Chand MD [facility] 593xcb42-5m03-66n6-57yi-6f3875fj51k9 01/18/20 15 01/17/2015 Deven Chand MD [facility] 961ecg2v-0667-3uu9-7ms2-172699g82267 01/18/20 15 01/17/2015 Deven Chand MD [facility] t86o4w46-bvly-5131-7pi1-7328806tw715 01/18/20 15 01/17/2015 Deven Chand MD [facility] 98qyy87r-2742-6i7l-v5e9-43csf59r3681 01/18/20 15 01/17/2015 Deven Chand MD [facility] 028w65sh-151g-8259-d1f6-5s4lpm0wz38c 01/18/20 15 01/17/2015 MD Alexa [facility]ex[facility] 7h92lk85-z183-7wiy-u10w-s9y15985j1ft 01/18/20 15 01/17/2015 MD Alexa Krausexan 7662xr13-7835-3869-qv38-fbqc66968067 01/18/20 15 01/17/2015 MD Alexa [facility] 3j6ul588-0l06-4t3a-sz98-p8xlayf5v60x 01/18/20 15 01/17/2015 Deven Chand MD [facility] 5911g416-3tq4-9rgi-3238-628o852otsds 01/18/20 15 01/17/2015 MD James Krausen 6h37e29n-xcq4-52d7-4ur1-4a8795zoo6c9 01/18/20 15 01/17/2015 Deven Chand MD Pt on antibiotics [id number]-182u-1d5p-dj2y06lt08o6 01/29/20 15 01/28/2015 Deven Chand MD Pt on antibiotics 235v17d7-t4kd-6142-0s64-8zk6478u08uz 01/29/20 15 01/28/2015 Deven Chand MD Pt on antibiotics 05i91152-9j54-2ge9-yqz9-617ccl42fsg8 01/29/20 15 01/28/2015 Deven Chand MD Pt on antibiotics vv594s98-882r-3ao0-i625-3x46z3n8w206 01/29/20 15 01/28/2015 Deven Chand MD Pt on antibiotics 2gh3lg16-050y-6d03-0nbr-xbct1ls0v5m4 01/29/20 15 01/28/2015 Deven Chand MD Pt on antibiotics 3f82g9io-2786-65n3-9167-16t4pv401dba 01/29/20 15 01/28/2015 Deven Chand MD Pt on antibiotics 7169pay2-54zc-48k6-7448-2x7ccwa28b16 01/29/20 15 01/28/2015 Deven Chand MD Pt on antibiotics 0c01j0v2-2874-5zjl-7247-66w63toz690r 01/29/20 15 01/28/2015 Deven Chand MD Pt on antibiotics 963g4z1j-19m6-7q92-p9b1-7460x6xy4qc1 01/29/20 15 01/28/2015 Deven Chand MD Pt on antibiotics q1zt984l-2m4j-9i08-d2z4-p758w60s8611 01/29/20 15 01/28/2015 Deven Chand MD Pt on antibiotics g266214n-8i0a-07q4-o050-l9e8j261m310 01/29/20 15 01/28/2015 Deven Chand MD Pt on antibiotics 2574vl5n-snz9-09d2-m39l-h69u105b00e0 01/29/20 15 01/28/2015 Deven Chand MD 1 mo f/u 80553lb6-7910-7922-h646-663s3g2407cv 02/03/20 15 02/02/2015 Deven Chand MD 1 mo f/u 816poue2-4838-8w7w-5658-h7wb2dw691i3 02/03/20 15 02/02/2015 Deven Chand MD 1 mo f/u 224cz3n1-t7z3-21mo-l5my-k56j3600a814 02/03/20 15 02/02/2015 Deven Chand MD 1 mo f/u 18a30767-0491-85c6-bv4j-g2h7o00w96s3 02/03/20 15 02/02/2015 Deven Chand MD 1 mo f/u qk7d767f-u14r-5r04-601j-26403wd3o9vq 02/03/20 15 02/02/2015 Deven Chand MD 1 mo f/u 49a34mqz-296p-9a4c-sb84-74ycu273b71n 02/03/20 15 02/02/2015 Deven Chand MD 1 mo f/u o8m87r8f-m500-86tp-1187-o7b0c3baj0w6 02/03/20 15 02/02/2015 Deven Chand MD 1 mo f/u 77k8r40n-969q-947y-bu08-585nip3b95p2 02/03/20 15 02/02/2015 Deven Chand MD 1 mo f/u 05761y44-3w26-5201-su2w-1822vr626759 02/03/20 15 02/02/2015 Deven Chand MD 1 mo f/u pw0ch0fq-9270-700i-a3t1-904977q36227 02/03/20 15 02/02/2015 Deven Chand MD 1 mo f/u 476q4r65-2a61-2343-f1u5-370060w52399 02/03/20 15 02/02/2015 Deven Chand MD 1 mo f/u 6b066d58-lmsf-96tm-31s6-1wd28ii2208s 02/03/20 15 02/02/2015 Deven Chand MD MRI 876796b6-99n1-6491-md15-vap49y6cejb2 02/08/2015 02/08/2015 Deven Chand MD MRI w7wc6gbe-p7ji-8h2d-9ye2-710n77jibr72 02/08/2015 02/08/2015 Deven Chand MD MRI 1j0g2484-48x9-4854-9kf1-18jd46706941 02/08/2015 02/08/2015 Deven Chand MD MRI q7a250z0-x056-3588-742i-7tnm8202iyl3 02/08/2015 02/08/2015 Deven Chand MD MRI 081on21u-328x-802d-97a3-7s4iyybf24cy 02/08/2015 02/08/2015 Deven Chand MD MRI 6m044pvt-2320-2u09-5j5m-cmo186rje2p2 02/08/2015 02/08/2015 Deven Chand MD MRI 3xvdh959-r846-5623-7940-8671561w2g99 02/08/2015 02/08/2015 Deven Chand MD MRI 108359o7-b394-0y35-c084-609392z8t54b 02/08/2015 02/08/2015 Deven Chand MD MRI 7ps7q902-z47f-1nh5-3965-y25586q247ae 02/08/2015 02/08/2015 Deven Chand MD MRI 7523e126-5v1w-6533-7zt8-idh50l2408d1 02/08/2015 02/08/2015 Deven Chand MD MRI 805i9304-3x95-4054-5w4l-583l4881tqt7 02/08/2015 02/08/2015 Deven Chand MD MRI c594yn66-54f0-0ccs-5cvm-161549q42g01 02/08/2015 02/08/2015 Deven Chand MD MRI 4ohc5j90-6953-4u06-w50e-b5x1f7955bog 02/08/2015 02/08/2015 Deven Chand MD MRI 6w4w9375-97p4-32g5-x08c-5y452s689756 02/08/2015 02/08/2015 Deven Chand MD MRI abguk8j4-1923-707j-2195-x961tx0q9024 02/08/2015 02/08/2015 Deven Chand MD MRI 5j51433d-9zq1-9976-n102-v2s955663211 02/08/2015 02/08/2015 Deven Chand MD MRI ye6ci29z-p5w2-9i6l-v646-c35183a625f8 02/08/2015 02/08/2015 Deven Chand MD MRI 9sz58767-m8r8-02x1-y36t-666930s290vs 02/08/2015 02/08/2015 Deven Chand MD MRI 89wq822r-s3bp-9c64-pj74-789r6eaycv72 02/08/2015 02/08/2015 Deven Chand MD MRI lu8idaq6-1427-4524-nn7u-n2onf781804i 02/08/2015 02/08/2015 Deven Chand MD MRI 2gw50g8x-n884-3917-5i4c-ct07s22ik270 02/08/2015 02/08/2015 Deven Chand MD MRI 9708m159-owr1-3cpt-1980-[id number] 02/08/2015 02/08/2015 Deven Chand MD MRI [id number] 02/08/2015 02/08/2015 Deven Chand MD MRI [id number] 02/08/2015 02/08/2015 Deven Chand MD Research [id number] 02/22/20 15 02/21/2015 Deven Chand MD Research [id number] 02/22/20 15 02/21/2015 Deven Chand MD Research [id number] 02/22/20 15 02/21/2015 Deven Chand MD Research [id number] 02/22/20 15 02/21/2015 Deven Chand MD Research [id number] 02/22/20 15 02/21/2015 Deven Chand MD Research [id number] 02/22/20 15 02/21/2015 Deven Chand MD Right wrist pain and swelling [id number]-zxh8-n048f9vf635d 02/21/2015 02/21/2015 Deven Chand MD Right wrist pain and swelling [id number]-rm772h6uv62l 02/21/2015 02/21/2015 Deven Chand MD Right wrist pain and swelling [id number]-dc88-7880-xv79-[id number] 02/21/2015 02/21/2015 Deven Chand MD Right wrist pain and swelling [id number]-[id number]-ja731v6800l1 02/21/2015 02/21/2015 Deven Chand MD Right wrist pain and swelling [id number]-f5z1-yc9fb2f2bac1 02/21/2015 02/21/2015 Deven Chand MD Right wrist pain and swelling [id number] 02/21/2015 02/21/2015 Deven Chand MD Research [id number] 02/22/20 15 02/21/2015 Deven Chand MD Research [id number] 02/22/20 15 02/21/2015 Deven Chand MD Research [id number] 02/22/20 15 02/21/2015 Deven Chand MD Research [id number] 02/22/20 15 02/21/2015 Deven Chand MD Research [id number] 02/22/20 15 02/21/2015 Deven Chand MD Research [id number] 02/22/20 15 02/21/2015 Deven Chand MD Right wrist pain and swelling [id number]-njm52mpq1774 02/21/2015 02/21/2015 Deven Chand MD Right wrist pain and swelling [id number]-95d8-z67lb1y2mc2y 02/21/2015 02/21/2015 Deven Chand MD Right wrist pain and swelling [id number]-3561u6sv345h 02/21/2015 02/21/2015 Deven Chand MD Right wrist pain and swelling [id number]-018s02ice088 02/21/2015 02/21/2015 Deven Chand MD Right wrist pain and swelling [id number]-n5l5-2923-8079-29j924e94qd0 02/21/2015 02/21/2015 Deven Chand MD Right wrist pain and swelling [id number] 02/21/2015 02/21/2015 Deven Chand MD Unknown [id number] 02/23/20 15 02/22/2015 Deven Chand MD Unknown [id number] 02/23/20 15 02/22/2015 Deven Chand MD Unknown [id number] 02/23/20 15 02/22/2015 Deven Chand MD Unknown [id number] 02/23/20 15 02/22/2015 Deven Chand MD Unknown [id number] 02/23/20 15 02/22/2015 Deven Chand MD Unknown [id number] 02/23/20 15 02/22/2015 Deven Chand MD Unknown [id number] 02/23/20 15 02/22/2015 Deven Chand MD Unknown [id number] 02/23/20 15 02/22/2015 Deven Chand MD Unknown [id number] 02/23/20 15 02/22/2015 Deven Chand MD Unknown [id number] 02/23/20 15 02/22/2015 Deven Chand MD Unknown [id number] 02/23/20 15 02/22/2015 Deven Chand MD Unknown [id number] 02/23/20 15 02/22/2015 Deven Chand MD [facility] Injection [id number] 03/09/20 15 03/09/2015 Deven Chand MD [facility] Injection [id number] 03/09/20 15 03/09/2015 Deven Chand MD [facility] Injection [id number] 03/09/20 15 03/09/2015 Deven Chand MD [facility] Injection [id number] 03/09/20 15 03/09/2015 Deven Chand MD [facility] Injection [id number] 03/09/20 15 03/09/2015 Deven Chand MD [facility] Injection [id number] 03/09/20 15 03/09/2015 Deven Chand MD [facility] Injection [id number]-[id number] 03/09/20 15 03/09/2015 Deven Chand MD [facility] Injection [id number] 03/09/20 15 03/09/2015 Deven Chand MD [facility] Injection [id number] 03/09/20 15 03/09/2015 Deven Chand MD [facility] Injection [id number] 03/09/20 15 03/09/2015 Deven Chand MD [facility] Injection [id number] 03/09/20 15 03/09/2015 Deven Chand MD [facility] Injection [id number] 03/09/20 15 03/09/2015 Deven Chand MD Refill [id number] 05/05/20 15 05/05/2015 Deven Chand MD Refill [id number] 05/05/20 15 05/05/2015 Deven Chand MD Refill [id number] 05/05/20 15 05/05/2015 Deven Chand MD Refill [id number] 05/05/20 15 05/05/2015 Deven Chand MD Refill [id number] 05/05/20 15 05/05/2015 Deven Chand MD Refill [id number] 05/05/20 15 05/05/2015 Deven Chand MD add on [id number]-[id number] 05/05/20 15 05/05/2015 Deven Chand MD add on [id number]-780n-wgq8-74u7wd66p3gj 05/05/20 15 05/05/2015 Deven Chand MD add on [id number] 05/05/20 15 05/05/2015 Deven Chand MD add on [id number] 05/05/20 15 05/05/2015 Deven Chand MD add on [id number] 05/05/20 15 05/05/2015 Deven Chand MD add on [id number] 05/05/20 15 05/05/2015 Deven Chand MD Refill [id number] 05/05/20 15 05/05/2015 Deven Chand MD Refill [id number] 05/05/20 15 05/05/2015 Deven Chand MD Refill [id number] 05/05/20 15 05/05/2015 Deven Chand MD Refill [id number] 05/05/20 15 05/05/2015 Deven Chand MD Refill [id number] 05/05/20 15 05/05/2015 Deven Chand MD Refill [id number] 05/05/20 15 05/05/2015 Deven Chand MD add on [id number] 05/05/20 15 05/05/2015 Deven Chand MD add on [id number] 05/05/20 15 05/05/2015 Deven Chand MD add on [id number] 05/05/20 15 05/05/2015 Deven Chand MD add on [id number] 05/05/20 15 05/05/2015 Deven Chand MD add on [id number] 05/05/20 15 05/05/2015 Deven Chand MD add on [id number] 05/05/20 15 05/05/2015 Deven Chand MD Unknown [id number] 05/09/20 15 05/09/2015 Deven Chand MD Unknown [id number] 05/09/20 15 05/09/2015 Deven Chand MD Unknown [id number] 05/09/20 15 05/09/2015 Deven Chand MD Unknown [id number] 05/09/20 15 05/09/2015 Deven Chand MD Unknown [id number] 05/09/20 15 05/09/2015 Deven Chand MD Unknown [id number] 05/09/20 15 05/09/2015 Deven Chand MD Unknown [id number] 05/09/20 15 05/09/2015 Deven Chand MD Unknown [id number] 05/09/20 15 05/09/2015 Deven Chand MD Unknown [id number] 05/09/20 15 05/09/2015 Deven Chand MD Unknown [id number] 05/09/20 15 05/09/2015 Deven Chand MD Unknown [id number] 05/09/20 15 05/09/2015 Deven Chand MD Unknown [id number] 05/09/20 15 05/09/2015 Deven Chand MD Unknown [id number] 05/09/20 15 05/09/2015 Deven Chand MD Unknown [id number] 05/09/20 15 05/09/2015 Deven Chand MD Unknown [id number] 05/09/20 15 05/09/2015 Deven Chand MD Unknown [id number] 05/09/20 15 05/09/2015 Deven Chand MD Unknown [id number] 05/09/20 15 05/09/2015 Deven Chand MD Unknown [id number] 05/09/20 15 05/09/2015 Deven Chand MD Unknown [id number] 05/09/20 15 05/09/2015 Deven Chand MD Unknown [id number] 05/09/20 15 05/09/2015 Deven Chand MD Unknown [id number] 05/09/20 15 05/09/2015 Deven Chand MD Unknown [id number] 05/09/20 15 05/09/2015 Deven Chand MD Unknown [id number] 05/09/20 15 05/09/2015 Deven Chand MD Unknown [id number] 05/09/20 15 05/09/2015 Deven Chand MD Unknown [id number] 05/09/20 15 05/09/2015 Deven Chand MD Unknown [id number] 05/09/20 15 05/09/2015 Deven Chand MD Unknown [id number] 05/09/20 15 05/09/2015 Deven Chand MD Unknown [id number] 05/09/20 15 05/09/2015 Deven Chand MD Unknown [id number] 05/09/20 15 05/09/2015 Deven Chand MD Unknown [id number] 05/09/20 15 05/09/2015 Deven Chand MD Unknown [id number] 05/09/20 15 05/09/2015 Deven Chand MD Unknown [id number] 05/09/20 15 05/09/2015 Deven Chand MD Unknown [id number] 05/09/20 15 05/09/2015 Deven Chand MD Unknown [id number] 05/09/20 15 05/09/2015 Deven Chand MD Unknown [id number] 05/09/20 15 05/09/2015 Deven Chand MD Unknown [id number] 05/09/20 15 05/09/2015 Deven Chand MD sodium [id number] 05/18/20 15 05/18/2015 Deven Chand MD sodium [id number] 05/18/20 15 05/18/2015 Deven Chand MD sodium [id number] 05/18/20 15 05/18/2015 Deven Chand MD sodium [id number] 05/18/20 15 05/18/2015 Deven Chand MD sodium [id number] 05/18/20 15 05/18/2015 Deven Chand MD sodium [id number] 05/18/20 15 05/18/2015 Deven Chand MD sodium [id number] 05/18/20 15 05/18/2015 Deven Chand MD sodium [id number] 05/18/20 15 05/18/2015 Deven Chand MD sodium [id number] 05/18/20 15 05/18/2015 Deven Chand MD sodium [id number] 05/18/20 15 05/18/2015 Deven Chand MD sodium [id number] 05/18/20 15 05/18/2015 Deven Chand MD sodium [id number] 05/18/20 15 05/18/2015 Deven Chand MD MRI [id number] 06/02/2015 06/02/2015 Deven Chand MD MRI [id number] 06/02/2015 06/02/2015 Deven Chand MD MRI [id number] 06/02/2015 06/02/2015 Deven Chand MD MRI [id number] 06/02/2015 06/02/2015 Deven Chand MD MRI [id number] 06/02/2015 06/02/2015 Deven Chand MD MRI [id number] 06/02/2015 06/02/2015 Deven Chand MD MRI [id number] 06/02/2015 06/02/2015 Deven Chand MD MRI [id number] 06/02/2015 06/02/2015 Deven Chand MD MRI [id number] 06/02/2015 06/02/2015 Deven Chand MD MRI [id number] 06/02/2015 06/02/2015 Deven Chand MD MRI [id number] 06/02/2015 06/02/2015 Deven Chand MD [facility] [id number] 06/02/2015 06/02/2015 Deven Chand MD Unknown [id number] 06/28/2006/28/2015 Deven Chand MD Unknown [id number] 06/28/2006/28/2015 Deven Chand MD Unknown [id number] 06/28/2006/28/2015 Deven Chand MD Unknown [id number] 06/28/2006/28/2015 Deven Chand MD Unknown [id number] 06/28/2006/28/2015 Deven Chand MD Unknown [id number] 06/28/20 15 06/28/2015 Deven Chand MD Unknown [id number] 06/28/20 15 06/28/2015 Deven Chand MD Unknown [id number] 06/28/20 15 06/28/2015 Deven Chand MD Unknown [id number] 06/28/20 15 06/28/2015 Deven Chand MD Unknown [id number] 06/28/20 15 06/28/2015 Deven Chand MD Unknown [id number] 06/28/20 15 06/28/2015 Deven Chand MD Unknown [id number] 06/28/20 15 06/28/2015 Deven Chand MD Unknown [id number] 09/27/20 15 09/27/2015 Deven Chand MD Unknown [id number] 09/27/20 15 09/27/2015 Deven Chand MD Unknown [id number] 09/27/20 15 09/27/2015 Deven Chand MD Unknown [id number] 09/27/20 15 09/27/2015 Deven Chand MD Unknown [id number] 09/27/20 15 09/27/2015 Deven Chand MD Unknown [id number] 09/27/20 15 09/27/2015 Deven Chand MD Unknown [id number] 09/27/20 15 09/27/2015 Deven Chand MD Unknown [id number] 09/27/20 15 09/27/2015 Deven Chand MD Unknown [id number] 09/27/20 15 09/27/2015 Deven Chand MD Unknown [id number] 09/27/20 15 09/27/2015 Deven Chand MD Unknown [id number] 09/27/20 15 09/27/2015 Deven Chand MD Unknown [id number] 09/27/20 15 09/27/2015 Deven Chand MD [facility] order [id number] 10/10/20 15 10/10/2015 Deven Chand MD [facility] lab order [id number] 10/10/20 15 10/10/2015 Deven Chand MD [facility] lab order [id number] 10/10/20 15 10/10/2015 Deven Chand MD [facility] lab order [id number] 10/10/20 15 10/10/2015 Deven Chand MD [facility] lab order [id number] 10/10/20 15 10/10/2015 Deven Chand MD [facility] lab order [id number] 10/10/20 15 10/10/2015 Deven Chand MD [facility] lab order [id number] 10/10/20 15 10/10/2015 Deven Chand MD [facility]ics lab order [id number] 10/10/20 15 10/10/2015 Deven Chand MD Basics lab order [id number] 10/10/20 15 10/10/2015 Deven Chand MD [facility]ics lab order [id number] 10/10/20 15 10/10/2015 Deven Chand MD Basics lab order [id number] 10/10/20 15 10/10/2015 Deven Chand MD Basics lab order [id number] 10/10/20 15 10/10/2015 Deven Chand MD [facility] [id number] 10/24/19 16 10/24/2015 Deven Chand MD Refill- MTX [id number] 10/24/19 16 10/24/2015 Deven Chand MD Refill- MTX [id number] 10/24/19 16 10/24/2015 Deven Chand MD Refill- MTX [id number] 10/24/19 16 10/24/2015 Deven Chand MD Refill- MTX [id number] 10/24/19 16 10/24/2015 Deven Chand MD Refill- MTX [id number] 10/24/19 16 10/24/2015 Deven Chand MD Refill- MTX [id number] 10/24/19 16 10/24/2015 Deven Chand MD Refill- MTX [id number] 10/24/19 16 10/24/2015 Deven Chand MD Refill- MTX [id number] 10/24/19 16 10/24/2015 Deven Chand MD Refill- MTX [id number] 10/24/19 16 10/24/2015 Deven Chand MD Refill- MTX [id number] 10/24/19 16 10/24/2015 Deven Chand MD Refill- MTX [id number] 10/24/19 16 10/24/2015 Deven Chand MD repeat cmp [id number] 10/26/19 16 10/26/2015 Deven Chand MD repeat cmp [id number] 10/26/19 16 10/26/2015 Deven Chand MD repeat cmp [id number] 10/26/19 16 10/26/2015 Deven Chand MD repeat cmp [id number] 10/26/19 16 10/26/2015 Deven Chand MD repeat cmp [id number] 10/26/19 16 10/26/2015 Deven Chand MD repeat cmp [id number] 10/26/19 16 10/26/2015 Deven Chand MD repeat cmp [id number] 10/26/19 16 10/26/2015 Deven Chand MD repeat cmp [id number] 10/26/19 16 10/26/2015 Deevn Chand MD repeat cmp [id number] 10/26/19 16 10/26/2015 Deven Chand MD repeat cmp [id number] 10/26/19 16 10/26/2015 Deven Chand MD repeat [facility] [id number] 10/26/19 16 10/26/2015 Deven Chand MD repeat [facility] [id number] 10/26/19 16 10/26/2015 Deven Chand MD MRI [id number] 10/30/2015 10/30/2015 Deven Chand MD MRI [id number] 10/30/2015 10/30/2015 Deven Chand MD MRI [id number] 10/30/2015 10/30/2015 Deven Chand MD MRI [id number] 10/30/2015 10/30/2015 Deven Chand MD MRI [id number] 10/30/2015 10/30/2015 Deven Chand MD MRI [id number] 10/30/2015 10/30/2015 Deven Chand MD MRI [id number] 10/30/2015 10/30/2015 Deven Chand MD MRI [id number] 10/30/2015 10/30/2015 Deven Chand MD MRI [id number] 10/30/2015 10/30/2015 Deven Chand MD [facility] [id number] 10/30/2015 10/30/2015 Deven Chand MD [facility] [id number] 10/30/2015 10/30/2015 Deven Chand MD MRI [id number] 10/30/2015 10/30/2015 Deven Chand MD Unknown [id number] 01/10/20 16 01/10/2016 Deven Chand MD Unknown [id number] 01/10/20 16 01/10/2016 Deven Chand MD Unknown [id number] 01/10/20 16 01/10/2016 Deven Chand MD Unknown [id number] 01/10/20 16 01/10/2016 Deven Chand MD Unknown [id number] 01/10/20 16 01/10/2016 Deven Chand MD labs [id number] 01/10/2016 01/10/2016 Deven Chand MD labs [id number] 01/10/2016 01/10/2016 Deven Chand MD labs [id number] 01/10/2016 01/10/2016 Deven Chand MD labs [id number] 01/10/2016 01/10/2016 Deven Chand MD labs [id number] 01/10/2016 01/10/2016 Deven Chand MD labs [id number] 01/10/2016 01/10/2016 Deven Chand MD Unknown [id number] 01/10/20 16 01/10/2016 Deven Chand MD Unknown [id number] 01/10/20 16 01/10/2016 Deven Chand MD Unknown [id number] 01/10/20 16 01/10/2016 Deven Chand MD labs [id number] 01/10/2016 01/10/2016 Deven Chand MD labs [id number] 01/10/2016 01/10/2016 Deven Chand MD labs [id number] 01/10/2016 01/10/2016 Deven Chand MD Unknown [id number] 04/11/20 16 04/11/2016 Deven Chand MD Unknown [id number] 04/11/20 16 04/11/2016 Deven Chand MD Unknown [id number] 04/11/20 16 04/11/2016 Deven Chand MD Unknown [id number] 04/11/20 16 04/11/2016 Deven Chand MD Unknown [id number] 04/11/20 16 04/11/2016 Deven Chand MD Unknown [id number] 04/11/20 16 04/11/2016 Deven Chand MD [facility] [id number] 04/11/20 16 04/11/2016 Deven Chand MD [facility] [id number] 04/11/20 16 04/11/2016 Deven Chand MD [facility] [id number] 04/11/20 16 04/11/2016 Deven Chand MD [facility] [id number] 04/11/20 16 04/11/2016 Deven Chand MD [facility] [id number] 04/11/20 16 04/11/2016 Deven Chand MD [facility] [id number] 04/11/20 16 04/11/2016 Deven Chand MD [facility] [id number] 04/11/20 16 04/11/2016 Deven Chand MD Unknown [id number] 05/29/20 16 05/29/2016 Deven Chand MD Unknown [id number] 05/29/20 16 05/29/2016 Deven Chand MD Unknown [id number] 05/29/20 16 05/29/2016 Deven Chand MD Unknown [id number] 05/29/20 16 05/29/2016 Deven Chand MD 3 mth follow up [id number] 10/03/20 16 10/03/2016 Deven Chand MD 3 mth follow up [id number] 10/03/20 16 10/03/2016 Deven Chand MD 3 mth follow up [id number] 10/03/20 16 10/03/2016 Deven Chand MD [employer] INS[employer] [id number] 10/26/19 17 10/26/2016 Deven Chand MD [employer] INS[employer] [id number] 10/26/19 17 10/26/2016 Deven Chand MD OV [id number] 10/30/2016 10/30/2016 Deven Chand [facility] [id number] Juve Collins 04/19/2017 04/20/2017 [facility] Outpatient [id number] Alphonso Horner 05/07/2017 05/08/2017 [facility] Outpatient [id number] Gabrielle Carrero 07/11/2017 07/12/2017 [facility] Outpatient [id number] Ike Casas 09/03/2017 09/03/2017 [facility] [id number] Juve Collins 08/27/2018 08/28/2018 [facility] PreReg [id number] Justice Leslieposuze 9 11/04/2018 [facility] [id number] Juve Collins 11/20/2018 11/21/2018 [facility] [place] [facility] [id number] Yesica Rip 02/05/2019 02/06/2019 [facility] [place] [facility] [id number] Juve Collins 03/04/2019 03/05/2019 [facility] [id number] Godwin Jaimes 03/16/2019 Active [facility] Outpatient [id number] Godwin Jaimes 03/16/2019 03/17/2019 [facility] Outpatient [id number] - URODYNAMICS, 04/29/2019 [facility] Outpatient [id number] Godwin Jaimes 04/29/2019 04/30/2019 [facility] Outpatient [id number] MED_ASST VISIT 05/05/2019 Active [facility] Outpatient [id number] Godwin Jaimes 05/05/2019 [facility] [place] Outpatient [id number] Godwin Jaimes 05/05/2019 05/06/2019 [facility] [id number] MED_ASST VISIT 05/05/2019 05/06/2019 [facility] Outpatient [id number] Godwin Jaimes 08/04/2019 Active [facility] [id number] Godwin Jaimes 08/04/2019 08/05/2019 [facility] Outpatient [id number] Godwin Jaimes 11/03/2019 Active [facility] Pre-Reg [id number] Godwin Jaimes 11/03/2019 11/03/2019 [facility] [id number] Juve Collins 11/05/2019 11/06/2019 [facility] Procedures Procedure Code Date Perfomer Comments Source Cystourethroscopy, with calibration and/ or dilation of urethral stricture or stenosis, with or without meatotomy, with or without injection procedure for cystography, male or female 52276 05/05/2019 [facility] Complex uroflowmetry (eg, calibrated krys ctronic equipment) 75450 05/05/2019 [facility] Voiding pressure studies, intra-abdomina l (ie, rectal, gastric, intraperitoneal) (List separately in addition to code for primary procedure) 74789 05/05/2019 [facility] Cystourethroscopy (separate procedure) 70869 05/05/2019 [facility] Complex cystometrogram (ie, calibrated e lectronic equipment); with voiding pressure studies (ie, bladder voiding pressure), any technique 50998 05/05/2019 [facility] Electromyography studies (EMG) of anal o r urethral sphincter, other than needle, any technique 54910 05/05/2019 [facility] Right hemicolectomy [id number] 10/14/1989 [facility] , MIKAEL Bianchi,[facility] Colonoscopy [id number] [facility], MIKAEL Bianchi,[facility] Assessment and Plan No Data Provided for This Section Plan of Care Plan of Care Date Source Medication Use 02/09/2014 Routine 02/18/2014 [facility] Social History Social History Date Source Social History TypeResponse Smoking Status Former smoker; Lives with someone who smokes; Cigarette Smoking Last 365 Days No; Reg Smoking Cessation Counseling No entered on: 08/04/19 08/04/2019 [facility] Social History TypeResponse Smoking Status Former smoker; Lives with someone who smokes; Cigarette Smoking Last 365 Days No; Reg Smoking Cessation Counseling No entered on: 08/04/19 08/04/2019 [facility] Social History TypeResponse Smoking Status Former smoker; Lives with someone who smokes; Cigarette Smoking Last 365 Days No; Reg Smoking Cessation Counseling No entered on: 05/05/19 05/05/2019 [facility] Social History TypeResponse Smoking Status Former smoker; Lives with someone who smokes; Cigarette Smoking Last 365 Days No; Reg Smoking Cessation Counseling No 12/03/2016 [facility] Social History TypeResponse Smoking Status Former smoker; [...] Oct 03, 2016 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 Oct 03, 2016 10/03/2016 Deven Chand Former Smoker (V15.82); (Active) Marital History - (Active) Occupation: Retired (Active) 02/18/2014 [facility] Family History Value Date S ource Maternal history of Breast Cancer (V16.3 ); (Active) Sororal history of Pulmonary Fibrosis (Active) Sororal history of Lung Cancer (V16.1); (Active) Fraternal history of Esophageal Cancer (V16.0); (Active) 02/18/2014 [facility] Maternal history of Breast Cancer (V16.3 ); (Active) Sororal history of Pulmonary Fibrosis (Active) Sororal history of Lung Cancer (V16.1); (Active) Fraternal history of Esophageal Cancer (V16.0); (Active) 02/05/2014 [facility] Maternal history of Breast Cancer (V16.3 ); (Active) Sororal history of Pulmonary Fibrosis (Active) Sororal history of Lung Cancer (V16.1); (Active) Fraternal history of Esophageal Cancer (V16.0); (Active) 12/11/2013 [facility] Maternal history of Breast Cancer (V16.3 ); (Active) [facility] history of Pulmonary Fibrosis (Active) [facility] history of Lung Cancer (V16.1); (Active) Fraternal history of Esophageal Cancer (V16.0); (Active) 10/12/2013 [facility] Maternal history of Breast Cancer (V16.3 ); (Active) [facility] history of Pulmonary Fibrosis (Active) [facility] history of Lung Cancer (V16.1); (Active) Fraternal history of Esophageal Cancer (V16.0); (Active) 09/09/2013 [facility] Maternal history of Breast Cancer (V16.3 ); (Active) [facility] history of Pulmonary Fibrosis (Active) [facility] history of Lung Cancer (V16.1); (Active) Fraternal history of Esophageal Cancer (V16.0); (Active) 08/13/2013 [facility] Maternal history of Breast Cancer (V16.3 ); (Active) [facility] history of Pulmonary Fibrosis (Active) [facility] history of Lung Cancer (V16.1); (Active) Fraternal history of Esophageal Cancer (V16.0); (Active) 07/20/2013 [facility] Advance Directives Order Name Results Value Date Source Advance Directives Advance Dir ectives No Advance Directives available. 02/18/2014 [facility] Advance Directives Advance Dir ectives No Advance Directives available. 02/05/2014 [facility] Advance Directives Advance Dir ectives No Advance Directives available. 12/11/2013 [facility] Advance Directives Advance Dir ectives No Advance Directives available. 10/12/2013 [facility] Advance Directives Advance Dir ectives No Advance Directives available. 09/09/2013 [facility] Advance Directives Advance Dir ectives No Advance Directives available. 08/13/2013 [facility] Advance Directives Advance Dir ectives No Advance Directives available. 07/20/2013 [facility] Advance Directives Advance Dir ectives No Advance Directives available. 07/17/2013 [facility] Advance Directives Advance Dir ectives No Advance Directives available. 06/13/2013 [facility] Functional Status No Data Provided for This Section
[2020-02-23 19:26] LABS: BASOPHILS % 0.5 % (0.0-1.0); EOSINOPHILS # (AUTO) 0.1 (0.0-0.4); EOSINOPHILS % 0.6 % (0.0-6.0); HEMATOCRIT 42.7 % (34.2-44.1); HEMOGLOBIN 13.6 g/dL (12.0-16.0); LYMPHOCYTES # (AUTO) 1.3 (1.0-3.2); LYMPHOCYTES % 15.3 % (18.0-39.1); MEAN CORPUSCULAR HEMOGLOBIN 29.2 pg (28-32); MEAN CORPUSCULAR HGB CONC 31.9 g/dL (31-35); MEAN CORPUSCULAR VOLUME 91.8 fL (81-99); MONOCYTES # (AUTO) 0.7 (0.2-0.8); MONOCYTES % 8.4 % (4.4-11.3); NEUTROPHILS # (AUTO) 6.6 (2.1-6.9); PLATELET COUNT 196 x10e3/uL (140-360); RED BLOOD COUNT 4.65 x10e6/uL (3.6-5.1); RED CELL DISTRIBUTION WIDTH 15.8 % (11.7-14.4)
[2020-02-23 19:36] LABS: INR 0.97; PARTIAL THROMBOPLASTIN TIME 27.6 seconds (23.8-35.5); PROTHROMBIN TIME 13.5 seconds (11.9-14.5)
[2020-02-23] MEDS: SODIUM CHLORIDE 0.9% 1000ML 1,000 ML IV SCH (19:45)
[2020-02-23] MEDS ORDERED: MORPHINE SULFATE INJ 4 MG/ML INJ 1ML IV PRN (19:45)
[2020-02-23 19:48] LABS: ALANINE AMINOTRANSFERASE 17 IU/L (0-55); ALBUMIN/GLOBULIN RATIO 1.5 (0.8-2.0); ALKALINE PHOSPHATASE 33 IU/L (40-150); ANION GAP 16.5 mmol/L (8-16); BLOOD UREA NITROGEN 12 mg/dL (7-26); BUN/CREATININE RATIO 14 (6-25); CALCIUM 9.5 mg/dL (8.4-10.2); CARBON DIOXIDE 24 mmol/L (22-29); CHLORIDE 103 mmol/L (98-107); CREATINE KINASE 135 IU/L (29-168); CREATININE, SERUM 0.83 mg/dL (0.57-1.11); EST GLOMERULAR FILTRATION RATE > 60 ML/MIN (60-); GLUCOSE 115 mg/dL (74-118); POTASSIUM 4.5 mmol/L (3.5-5.1); SODIUM 139 mmol/L (136-145)
--- NOTE | 2020-02-23 19:57 | Emergency Department Note ---
History of Present Illnes History of Present Illness Chief Complaint: Extremity Trauma/Pain Stated Complaint: FALL, PAIN IN LEFT HIP History of Present Illness This is a 80 year old female . 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 Any updates have been documented here. (JERED OLEARY NP) Past Medical History Recent Fever: No Clinical Suspicion of Infectio: No New/Unexplained Change in Ment: No Past Medical History: Diabetes, Hypothyroidism, GERD Other Medical History: Colon ca Past Surgical History: Appendectomy, Hysterectomy, Knee Replacement Other Surgery: gall blader removal (JERED OLEARY NP) Recent Fever: No Clinical Suspicion of Infectio: No Past Medical History: Hypertension (EDA BALTAZAR DO) Social History Alcohol Use: None Any Illegal Drug Use: No TB Exposure/Symptoms: No Physically hurt or threatened: No (JERED OLEARY NP) Smoking Cessation: Never Smoker Alcohol Use: None Any Illegal Drug Use: No (EDA BALTAZAR DO) Family History Family history of heart diseas: Yes (JERED OLEARY NP) Other Last Tetanus: OUT OF DATE Any Pre-Existing Lines (PICC,: No Is patient up to date on immun: Yes (JERED OLEARY NP) Review of Systems Review of Systems Constitutional: no symptoms EENTM: no symptoms Cardiovascular: no symptoms Respiratory: no symptoms Gastrointestinal: no symptoms Genitourinary: no symptoms Musculoskeletal: other (LEFT HIP PAIN ) Integumentary: no symptoms Neurological: no symptoms Psychological: no symptoms Endocrine: no symptoms Hematological/Lymphatic: no symptoms Review of other systems All other systems reviewed and negative. (JERED OLEARY NP) Constitutional: no symptoms EENTM: no symptoms Cardiovascular: no symptoms Respiratory: no symptoms Gastrointestinal: no symptoms Genitourinary: no symptoms Musculoskeletal: joint pain Integumentary: no symptoms Neurological: no symptoms Psychological: no symptoms Endocrine: no symptoms Hematological/Lymphatic: no symptoms (EDA BALTAZAR DO) Physical Exam Related Data Allergies: Coded Allergies: iodine (Verified Allergy, Mild, IV IODINE-N/V, 09/04/18) levofloxacin (Verified Allergy, Mild, RASH, 09/04/18) bacitracin (Verified Allergy, Unknown, 09/04/18) latex (Verified Allergy, Unknown, 09/04/18) Uncoded Allergies: GOLD (Allergy, Unknown, 09/04/18) Triage Vital Signs Vital Signs Date Time Temp Pulse Resp B/P (MAP) Pulse Ox O2 Delivery O2 Flow Rate FiO2 02/23/20 18:12 98.2 87 14 158/81 97 (JERED OLEARY NP) Exam Narrative Exam Narrative PATIENT IS A 80 YEAR OLD FEMALE THAT PRESENTS VIA EMS WITH LEFT HIP PAIN S/P FALL. PATIENT STATES SHE WAS BACKING UP AND FELL LANDING ON LEFT HIP THAT IS EXTERNALLY ROTATED. PATIENT IS AAOX3. XRAY AND BLOOD WORK ORDERED. (JERED OLEARY NP) Physical Exam CONSTITUTIONAL Constitutional: well-developed, well-nourished HENT HENT: normocephalic, atraumatic HENT - Ear: left TM normal, right TM normal EYES Eyes: PERRL, conjunctivae normal, EOM normal, lids normal NECK Neck: ROM normal, supple PULMONARY Pulmonary: effort normal, breath sounds normal CARDIOVASCULAR GASTROINTESTINAL Abdominal: soft, nontender GENITOURINARY SKIN Skin: warm, dry MUSCULOSKELETAL Musculoskeletal: tenderness (LEFT HIP) NEUROLOGICAL Neurological: alert, oriented x 3, no gross motor or sensory deficits PSYCHOLOGICAL Psychiatric/behavioral: mood/affect normal, behavior normal (JERED OLEARY NP) Musculoskeletal: tenderness (LEFT HIP) (EDA BALTAZAR DO) Results Laboratory Lab results reviewed: Yes (JERED OLEARY NP) Imaging Y: Yes (JERED OLEARY NP) Impressions [place] [address] Patient Name: EDGARDO HUNTLEY MR #: [id number] : 1940 Age/Sex: 80/F Req #: [id number] Adm Physician: LAURY PORTER MD Ordered by: JERED OLEARY NP Report #: [id number] Location: MED/SURG Room/Bed: 101-1 Procedure: [id number] DX/HIP LEFT 2-3 VW (+/- PELVIS) Exam Date: Exam Time: REPORT STATUS: Signed Exam: Left hip and femur 2 views History: Hip fracture, fall Comparison: None. Findings: Comminuted intertrochanteric femur fracture with varus deformity. Fracture lines including the intertrochanteric region, lesser trochanter, and greater trochanter. No distal femur fracture. Intact total knee arthroplasty without complication. Impression: Comminuted intertrochanteric femur fracture Intact left total knee arthroplasty Signed by: Dr. Lia Hdz M.D. on 02/24/2020 9:14 AM Dictated By: LIA HDZ MD 3 Transcribed By: KATHY on 02/24/20913 COPY TO: JERED OLEARY NP~ (EDA BALTAZAR DO) Critical Care Time Subsequent provider I assumed direction of critical care for this patient from another provider of my specialty. (JERED OLEARY NP) Assessment & Plan Assessment & Plan Problems: (1) Fracture of hip, left, closed Assessment & Plan DISCUSSED WITH DR BALTAZAR PATIENT PRESENTATION,EXAM AND PLAN OF CARE. DISCUSSED ADMISSION FOR LEFT HIP FX. ADMISSION TO DR PORTER PLACED (JERED OLEARY NP) Assessment & Plan The patient's history, exam findings, diagnostics, and a summary of any interventions or procedures was reviewed in detail with our TRAVIS. I personally interviewed and examined the patient, and I have reviewed and agree with the HPI andexam. My personal exam shows [ left hip pain TTP. XR findings reviewed and discussed with Dr Logan. Plan to admit to the hospital for pain control ]. I confirm the diagnosis as documented by the TRAVIS. I have reviewed and agree with silvano he care plan articulated in the disposition section. (EDA BALTAZAR DO) Reassessment Reassessment 1954- DR LOGAN AT BEDSIDE. (JERED OLEARY NP) Depart Disposition: ADMITTED Last Vital Signs Date Time Temp Pulse Resp B/P (MAP) Pulse Ox O2 Delivery O2 Flow Rate FiO2 02/23/20 18:12 98.2 87 14 158/81 97 (JERED OLEARY NP) Home Meds Active Scripts Guaifenesin (MUCINEX) 600 Mg Tablet.er, 1 TAB PO DAILY for 10 Days Prov:JUVE MAK MD 01/09/19 Cefuroxime Axetil (CEFUROXIME) 250 Mg Tablet, 250 MG PO Q12H for 5 Days, TAB Prov:JUVE MAK MD 01/09/19 Reported Medications Sennosides (SENNA LAX) 8.6 Mg Tablet, 1 TAB PO DAILY 06/25/18 Polyethylene Glycol 3350 (MIRALAX) 17 Gm Powd.pack, 1 PACKET PO BID 06/25/18 Wendel-3 Fatty Acids/Fish Oil (FISH OIL 1,000 MG SOFTGEL) 1 Each Capsule, 1 CAP PO DAILY 06/25/18 Levothyroxine Sodium (LEVOXYL) 88 Mcg Tablet, 1 TAB PO DAILY 06/25/18 Iron Ag&Fum/C/Fa/Mv Cmb11/Ca-T (FERREX 28 TABLET) 1 Each Tablet, 1 TAB PO DAILY 06/25/18 Cyanocobalamin (VITAMIN B-12) 1,000 Mcg Tab, 1000 MCG PO DAILY, #30 TAB 06/25/18 Calcium Carbonate/Vitamin D3 (CALTRATE 600 W-D TABLET) 1 Each Tablet, 1 TAB PO DAILY 06/25/18 Vit A,C & E/Lutein/Minerals (OCUVITE TABLET) 1 Each Tablet, 1 EACH PO DAILY, TAB 06/25/18 Desloratadine (DESLORATADINE) 5 Mg Tablet, 1 TAB PO DAILY, #90 06/25/18 Venlafaxine Hcl (VENLAFAXINE HCL) 37.5 Mg Tablet, 1 TAB PO DAILY, #30 06/25/18 Bupropion Hcl (BUPROPION HCL) 100 Mg Tablet, 50 MG PO DAILY, #90 06/25/18 Omeprazole (OMEPRAZOLE) 40 Mg Capsule.dr, 1 CAP PO DAILY, #30 06/25/18 Methotrexate Sodium (METHOTREXATE) 2.5 Mg Tablet, 5 MG PO Q7DAYS, #8 Patient takes on mondays. 06/25/18 Atorvastatin Calcium (ATORVASTATIN CALCIUM) 10 Mg Tablet, 1 TAB PO HS, #90 06/25/18 Carvedilol (CARVEDILOL) 3.125 Mg Tablet, 1 TAB PO BID, #180 06/25/18 Metformin Hcl (METFORMIN HCL) 500 Mg Tablet, 500 MG PO BID, #60 06/25/18 Famotidine (FAMOTIDINE) 20 Mg Tab, 1 TAB PO BID, #60 06/25/18 Prednisone (PREDNISONE) 5 Mg Tablet, 1 TAB PO DAILY, #30 06/25/18 Alprazolam (ALPRAZOLAM) 0.5 Mg Tablet, 1 TAB PO Q12H PRN for ANXIETY, #60 06/25/18 Folic Acid (FOLIC ACID) 1 Mg Tablet, 1 TAB PO DAILY, #30 06/25/18 JERED OLEARY NP February 23, 2020 18:57 EDA BALTAZAR DO February 27, 2020 11:54
--- OUTSIDE RECORDS SUMMARY | 2020-02-23 20:02 | XMS REPORT | Continuity of Care Document ---
Author Author [facility] EDGARDO Lisa Organization [facility] Compliance Science Information [employer] Address Unknown Phone Unavailable Care Team Providers Care Expediter Service Order Name Role Phone [employer] Information Exchange Unavailable Un available Problems Problem Status Onset Date Classification Date Reported Comments Source G91.2 - (IDIOPATHIC) NORMAL PRESSURE H Active 01/21/2019 [facility] Ramón Acute bronchitis, unspecified 11/27/2018 06/10/2019 MIKAEL Mckeon J20.9 - ACUTE BRONCHITIS, UNSPECIFIED Active 11/20/2018 [facility] Ramón Phlebitis and thrombophlebitis of other sites 09/02/2018 03/17/2019 MIKAEL Mckeon R13.10 Active 08/12/2017 [facility] D64.9 *XRAY ESOPHAGRAM BARIUM SWALLOW W Active 07/05/2017 [facility] D64.9 - "ANEMIA, UNSPECIFIED" Active 06/26/2017 MIKAEL Bianchi DIZZINESS AND GIDDINESS Active 05/06/2017 [facility] R09.89 - OTH SYMPTOMS AND SIGNS INVOLVI Active 04/11/2017 [facility] Anxiety (Symptom) Active 02/18/2014 [facility] Thrombocytopenia Active 02/18/2014 [facility] Rheumatoid Arthritis Active 02/18/2014 [facility] Essential Hypertension Active 02/18/2014 [facility] Hypothyroidism Active 02/18/2014 [facility] Age-related Cognitive Decline Active 02/18/2014 [facility] Allergic Rhinitis Active 02/18/2014 [facility] Vaccines Prophylactic Need Against Influenza Active 02/18/2014 [facility] Fatigue Active 02/18/2014 [facility] Palpitations Active 02/18/2014 [facility] Pain During Urination (Dysuria) Active 02/18/2014 [facility] Urinary Tract Infection Active 02/18/2014 [facility] Vaginitis Active 02/18/2014 [facility] Anemia (disorder) Resolved Problem 11/08/2019 [facility], MIKAEL Bianchi,[facility] MIKAEL Mckeon Anxiety (finding) Resolved Problem 11/08/2019 [facility], [facility] [place] [place], [facility] Constipation (disorder) Resolv ed Problem Medical Group,[facility], [facility] [place], [facility] Diabetes mellitus (disorder) R esolved Problem [facility], [facility] [place] [place], [facility] Gastric reflux (finding) Resol devin Problem Medical Group,[facility], [facility] [place], [facility] Hyperlipidemia (disorder) Reso lved Problem [facility] Group,[facility], [facility] [place] [place], [facility] Hypothyroidism (disorder) Reso lved Problem [facility], [facility] [place] [place], [facility] Malignant tumor of colon (disorder) Resolved Problem [facility], [facility] [place] [place], [facility] [place] Depressive disorder (disorder) Resolved Problem [facility], [facility] [place] [place], [facility] Pain in throat Active Problem 08/26/2019 Deven Jagruti Osteoarthritis Active Problem 01/22/2020 Deven Chand Normal pressure hydrocephalus Active Problem 07/2020 Deven Chand Degenerative arthritis of cervical spine Active Problem 01/22/2020 Deven Chand 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 Active Problem 07/2020 Deven Chand Encounter for long-term (current) use of other high-risk medications Active Prob uche 01/22/2020 Deven Chand Pharyngitis Active Problem 03/07/2017 Deven Chand Neck pain Active Problem 01/22/2020 Deven Chand Lumbago with sciatica, unspecified side Active Problem 01/22/2020 Deven Cahnd Osteopenia of multiple sites A ctive Problem [...] Active 5-325 MG Orally every 6 hrs [facility] 01/23/2017 Deven Chand Hydrocodone-Acetaminophen take 1 tablet Orally Active 5-325 MG Orally once a day as needed [facility] 01/23/2017 Deven Chand Hydrocodone-Acetaminophen take 1 tablet by mouth every 6 hours Orally Active 5-325 MG Orally every 6 hrs [facility] 05/11/2016 Deven Chand Prilosec OTC 1 tablet [...] Table t Extended Release (Active) A ctive [facility] Mucinex 1 tablet as needed Orally [...] Subcutaneous Active 150 MG Subcutaneous EVERY MONTH Jarguti Chand Calcium + D 1 tablet Orally [...] 0.5 MG Orally twice a d ay [facility] Chand Naproxen 1 tablet Orally Active [...] Reaction Active 11/17/2019 Deven Chand Not Known [facility] Levaquin TABS drug allergy drug allergy Active [facility] Bacitracin OINT drug allergy drug allergy Active [facility] Gold Sodium Thiomalate PUNEETN dr ug allergy drug aller gy Active [facility] Bacitracin, Topical Assertion Drug allergy Active [facility] iodine Assertion Drug allergy Active [facility] Latex Assertion Drug allergy Active [facility] Immunizations Immunization Date Given Site Status Last Updated Comments Source Fluzone Intramuscular Injectable 07/20/2013 completed [facility] Influenza completed [facility] Results Order Name Results Value Reference Range Date Interpretation Comments Source URINE AND STOOL POC UA LeukEst Negative *NA* (04/29/19 10:43 AM) Negative 04/29/2019 [facility] URINE AND STOOL POC UA Nit Negative *NA* (04/29/19 10:43 AM) Negative 04/29/2019 [facility] URINE AND STOOL POC UA Uro 0.2 0.1 - 1.0 04/29/2019 [facility] URINE AND STOOL POC UA Bld Trace *NA* (04/29/19 10:43 AM) Negative 04/29/2019 [facility] URINE AND STOOL POC UA Bili Negative *NA* (04/29/19 10:43 AM) Negative 04/29/2019 [facility] URINE AND STOOL POC UA Ket Negative mg/dL Negative mg/dL 04/29/2019 [facility] URINE AND STOOL POC UA Glu Negative mg/dL Negative mg/dL 04/29/2019 [facility] URINE AND STOOL POC UA pH 7.0 5.0 - 8.0 04/29/2019 [facility] URINE AND STOOL POC UA Prot Negative mg/dL Negative mg/dL 04/29/2019 [facility] URINE AND STOOL POC UA SG 1.010 <=1.030 04/29/2019 [facility] URINE AND STOOL POC UA Turbidity Clear *NA* (04/29/19 10:43 AM) Clear 04/29/2019 [facility] URINE AND STOOL POC UA Color Yellow *NA* (7/17/19 10:43 AM) Yellow 04/29/2019 [facility] Pathology Reports No Data Provided for This Section Diagnostic Reports Report Value Date Source Abdomen 2 views DX EXAM: XR AB DOMEN 1 VIEW DATE: 11/05/2019 13:07 REPORTING MANAGER INDICATION: - constipation COMPARISON: None. TECHNIQUE: AP view of the abdomen. FINDINGS: Surgical clips in the pelvis. Stomach is partially gas distended. Bowel: No dilated small bowel loops. Moderate volume colonic stool. Solid organs: No organomegaly. Atheromatous vascular calcification seen. Bones: Moderate degenerative changes involving the lumbar spine with the mild dextroscoliosis in the thoracolumbar junction. IMPRESSION: Moderate volume colonic stool. 11/05/2019 [facility] Pelvis w Pelvis Transvaginal US EXAM: US [...] volume is greater than that expected. 03/04/2019 [facility] Brain w/wo contrast MRI Brain w/wo contrast [...] The pituitary gland appears unremarkable. VENTRICLES: Stable owsa-qq-neeqxonu lateral ventricular dilatation, slightly disproportionate to the [...] communicating or normal pressure hydrocephalus. 02/05/2019 [facility] Spine cervical wo contrast MRI Spine cervical [...] T 2 VIEWS DATE: 11/20/2018 3:46 PM REPORTING MANAGER INDICATION: - J20.9 Acute bronchitis, unspecified COMPARISON: None TECHNIQUE: PA and lateral chest radiographs FINDINGS: Lungs are symmetrically well expanded. Probable bibasilar atelectasis. No pulmonary or pleural-based abnormality is identified. The cardiomediastinal silhouette is normal. The descending thoracic aorta is ectatic and tortuous. No acute osseous abnormality is identified. IMPRESSION: No acute cardiopulmonary abnormality. Probable bibasilar atelectatic changes. 11/20/2018 [facility] Ext Lower Venous Doppler Unilat US EXAM: US LEFT LOWER EXTREMITY VENOUS DOPPLER DATE: 08/27/2018 9:33 AM REPORTING MANAGER INDICATION: - I80.9 Phlebitis and thrombophlebitis [...] calf, likely a thrombosed varicose vein. 08/27/2018 [facility] Barium Swallow w Esophagus Function DX Patient Name: EDGARDO HUNTLEY : 1940; Age: 77 years y/o Female MR: [id number] Study: Barium Swallow w Esophagus Function DX [...] in contrast passage in the LPO position. [id number] 07/11/2017 [facility] wo contrast CT EXAM: CT BRAIN [...] pressure hydrocephalus. Clinical correlation is recommended. 04/19/2017 [facility] Carotid artery Doppler bilat US EXAM: US [...] Don CB, Bright GL, et. al. 04/19/2017 [facility] Consultation Notes No Data Provided for This [...] Deven Chand Diastolic (mm Hg) 81 10/02/2018 Devne Chand Systolic (mm Hg) 140 10/02/2018 Deven [...] 05/28/2017 Deven Chand Height 157.48 cm 05/07/2017 [facility] BMI Calculated 30.79 05/07/2017 [facility] Weight 76.364 05/07/2017 [facility] Weight 162.4 01/23/2017 Deven Chand Height 62 0 01/23/2017 Deven Chand Temperature Oral (F) 99.4 F 01/23/2017 Deven Chand Heart Rate 88 01/23/2017 Deven Chand Diastolic (mm Hg) 72 01/23/2017 Deven Chand Systolic (mm Hg) 128 01/23/2017 Deven Chand Diastolic (mm Hg) 80 05/29/2016 Edven Chand Systolic (mm Hg) 150 05/29/2016 Deven Chand Weight 167 05/29/2016 Deven Chand Temperature Oral (F) 97.6 F 05/29/2016 Deven Chand Heart Rate 78 05/29/2016 Deven Chand Weight 162 04/11/2016 Deven Cahnd Height 62 0 04/11/2016 Deven Chand Temperature Oral (F) 98.1 F 04/11/2016 Deven Chand Heart Rate 80 04/11/2016 Deven Chand Diastolic (mm Hg) 67 01/10/2016 Deven Chand Systolic (mm Hg) 145 01/10/2016 Deven Chand Weight 160 01/10/2016 Deevn Chand Temperature Oral (F) 97.4 F 01/10/2016 [...] ADM Date DC Date Status Source AUDIT [id number] 06/13/2013 06/13/2013 [facility] AUDIT [id number] 07/17/2013 07/17/2013 [facility] Rebecca CARRASCO liam: JUVE COLLINS, Status: Pen, Time: 1:15 PM [id number] 07/20/20 13 07/17/2013 [facility] AUDIT [id number] 07/20/2013 07/20/2013 [facility] AUDIT [id number] 08/13/2013 08/13/2013 [facility] AUDIT [id number] 09/09/2013 09/09/2013 [facility] AUDIT [id number] 10/12/2013 10/12/2013 [facility] Rebecca CARRASCO liam: JUVE COLLINS, Status: Pen, Time: 1:15 PM [id number] 11/18/19 14 10/12/2013 [facility] AUDIT [id number] 12/11/2013 12/11/2013 [facility] Rebecca CARRASCO liam: JUVE COLLINS, Status: Pen, Time: 2:15 PM [id number] 12/31/19 14 12/11/2013 [facility] AUDIT [id number] 02/05/2014 02/05/2014 [facility] AUDIT [id number] 02/18/2014 02/18/2014 [facility] Chuy Chand MD 3 month follow up [id number] 02/23/20 14 02/22/2014 Deven Chand MD 3 month follow up [id number] 02/23/20 14 02/22/2014 Deven Chand MD 3 month follow up [id number] 02/23/20 14 02/22/2014 Deven Chand MD 3 month follow up [id number] 02/23/20 14 02/22/2014 Deven Chand MD 3 month follow up [id number] 02/23/20 14 02/22/2014 Deven Chand MD 3 month follow up [id number] 02/23/20 14 02/22/2014 Deven Chand MD 3 month follow up [id number] 02/23/20 14 02/22/2014 Deven Chand MD 3 month follow up [id number] 02/23/20 14 02/22/2014 Deven Chand MD 3 month follow up [id number] 02/23/20 14 02/22/2014 Deven Chand MD 3 month follow up [id number] 02/23/20 14 02/22/2014 Deven Chand MD 3 month follow up [id number] 02/23/20 14 02/22/2014 Deven Chand MD 3 month follow up [id number] 02/23/20 14 02/22/2014 Deven Chand MD START Simcandacei Nika [id number] 02/23/20 14 02/22/2014 Deven Chand MD START Simponi Aria [id number] 02/23/20 14 02/22/2014 Deven Chand MD START Simponi Aria [id number] 02/23/20 14 02/22/2014 Deven Chand MD START Simponi Aria [id number] 02/23/20 14 02/22/2014 Deven Chand MD START Simponi Aria [id number] 02/23/20 14 02/22/2014 Deven Chand MD START Simponi Aria [id number] 02/23/20 14 02/22/2014 Deven Chand MD START Simponi Aria [id number] 02/23/20 14 02/22/2014 Deven Chand MD START Simponi Aria [id number] 02/23/20 14 02/22/2014 Deven Chand MD START Simponi Aria [id number] 02/23/20 14 02/22/2014 Deven Chand MD START Simponi Aria [id number] 02/23/20 14 02/22/2014 Deven Chand MD START Simponi Aria [id number] 02/23/20 14 02/22/2014 Deven Chand MD START Simponi Aria [id number] 02/23/20 14 02/22/2014 Deven GRIFFITH, Provi liam: ETHEL LOREDO, Status: Dieudonne, Time: 9:45 AM [id number] 02/24/2014 02/18/2014 [facility] Chuy Chand MD MTX SCRIPT [id number] 02/25/20 14 02/24/2014 Deven Chand MD MTX SCRIPT [id number] 02/25/20 14 02/24/2014 Deven Chand MD MTX SCRIPT [id number] 02/25/20 14 02/24/2014 Deven Chand MD MTX SCRIPT [id number] 02/25/20 14 02/24/2014 Deven Chand MD MTX SCRIPT [id number] 02/25/20 14 02/24/2014 Deven Chand MD MTX SCRIPT [id number] 02/25/20 14 02/24/2014 Deven Chand MD MTX SCRIPT [id number] 02/25/20 14 02/24/2014 Deven Chand MD MTX SCRIPT [id number] 02/25/20 14 02/24/2014 Deven Chand MD MTX SCRIPT [id number] 02/25/20 14 02/24/2014 Deven Chand MD MTX SCRIPT [id number] 02/25/20 14 02/24/2014 Deven Chand MD MTX SCRIPT [id number] 02/25/20 14 02/24/2014 Deven Chand MD MTX SCRIPT [id number] 02/25/20 14 02/24/2014 Deven Chand MD Vicodin refill [id number] 03/02/20 14 03/02/2014 Deven Chand MD Vicodin refill [id number] 03/02/20 14 03/02/2014 Deven Chand MD Vicodin refill [id number] 03/02/20 14 03/02/2014 Deven Chand MD Vicodin refill [id number] 03/02/20 14 03/02/2014 Deven Chand MD Vicodin refill [id number] 03/02/20 14 03/02/2014 Deven Chand MD Vicodin refill [id number] 03/02/20 14 03/02/2014 Deven Chand MD Vicodin refill [id number] 03/02/20 14 03/02/2014 Deven Chand MD Vicodin refill [id number] 03/02/20 14 03/02/2014 Deven Chand MD Vicodin refill [id number] 03/02/20 14 03/02/2014 Deven Chand MD Vicodin refill [id number] 03/02/20 14 03/02/2014 Deven Chand MD Vicodin refill [id number] 03/02/20 14 03/02/2014 Deven Chand MD Vicodin refill [id number] 03/02/20 14 03/02/2014 Deven Chand MD medication dx code [id number] 03/02/20 14 03/02/2014 Deven Chand MD medication dx code [id number] 03/02/20 14 03/02/2014 Deven Chand MD medication dx code [id number] 03/02/20 14 03/02/2014 Deven Chand MD medication dx code [id number] 03/02/20 14 03/02/2014 Deven Chand MD medication dx code [id number] 03/02/20 14 03/02/2014 Deven Chand MD medication dx code [id number] 03/02/20 14 03/02/2014 Deven Chand MD medication dx code [id number] 03/02/20 14 03/02/2014 Deven Chand MD medication dx code [id number] 03/02/20 14 03/02/2014 Deven Chand MD medication dx code [id number] 03/02/20 14 03/02/2014 Deven Chand MD medication dx code [id number] 03/02/20 14 03/02/2014 Deven Chand MD medication dx code [id number] 03/02/20 14 03/02/2014 Deven Chand MD medication dx code [id number] 03/02/20 14 03/02/2014 Deven Chand MD Done with antibiotics [id number] 03/03/20 14 03/03/2014 Deven Chand MD Done with antibiotics [id number] 03/03/20 14 03/03/2014 Deven Chand MD Done with antibiotics [id number] 03/03/20 14 03/03/2014 Deven Chand MD Done with antibiotics [id number] 03/03/20 14 03/03/2014 Deven Chand MD Done with antibiotics [id number] 03/03/20 14 03/03/2014 Deven Chand MD Done with antibiotics [id number] 03/03/20 14 03/03/2014 Deven Chand MD Done with antibiotics [id number] 03/03/20 14 03/03/2014 Deven Chand MD Done with antibiotics [id number] 03/03/20 14 03/03/2014 Deven Chand MD Done with antibiotics [id number] 03/03/20 14 03/03/2014 Deven Chand MD Done with antibiotics [id number] 03/03/20 14 03/03/2014 Deven Chand MD Done with antibiotics [id number] 03/03/20 14 03/03/2014 Deven Chand MD Done with antibiotics [id number] 03/03/20 14 03/03/2014 Deven Chand MD MRI Bi- WRist [id number] 03/04/20 14 03/04/2014 Deven Chand MD MRI Bi- [facility] [id number] 03/04/20 14 03/04/2014 Deven Chand MD MRI Bi- [facility]ist [id number] 03/04/20 14 03/04/2014 Deven Chand MD MRI Bi- [facility]ist [id number] 03/04/20 14 03/04/2014 Deven Chand MD MRI Bi- [facility] [id number] 03/04/20 14 03/04/2014 Deven Chand MD MRI Bi- [facility] [id number] 03/04/20 14 03/04/2014 Deven Chand MD MRI Bi- [facility] [id number] 03/04/20 14 03/04/2014 Deven Chand MD MRI Bi- [facility] [id number] 03/04/20 14 03/04/2014 Deven Chand MD MRI [facility]- [facility] [id number] 03/04/20 14 03/04/2014 Deven Chand MD MRI Bi- [facility] [id number] 03/04/20 14 03/04/2014 Deven Chand MD MRI Bi- [facility] [id number] 03/04/20 14 03/04/2014 Deven Chand MD MRI Bi- [facility]ist [id number] 03/04/20 14 03/04/2014 Deven Chand MD [facility]- xeljanz [id number] 03/04/20 14 03/04/2014 Deven Chand MD Refill- xeljanz [id number] 03/04/20 14 03/04/2014 Deven Chand MD Refill- xeljanz [id number] 03/04/20 14 03/04/2014 Deven Chand MD Refill- xeljanz [id number] 03/04/20 14 03/04/2014 Deven Chand MD Refill- xeljanz [id number] 03/04/20 14 03/04/2014 Deven Chand MD Refill- xeljanz [id number] 03/04/20 14 03/04/2014 Deven Chand MD Refill- xeljanz [id number] 03/04/20 14 03/04/2014 Deven Chand MD Refill- xeljanz [id number] 03/04/20 14 03/04/2014 Deven Chand MD Refill- xeljanz [id number] 03/04/20 14 03/04/2014 Deven Chand MD Refill- xeljanz [id number] 03/04/20 14 03/04/2014 Deven Chand MD Refill- xetiffanie [id number] 03/04/20 14 03/04/2014 MD aCsey Krause- xetiffanie [id number] 03/04/20 14 03/04/2014 MD ANTHONY Krause [id number] 03/17/20 14 03/17/2014 MD ANTHONY Krause [id number] 03/17/20 14 03/17/2014 MD ANTHONY Krause [id number] 03/17/20 14 03/17/2014 MD ANTHONY Krause [id number] 03/17/20 14 03/17/2014 MD ANTHONY Krause [id number] 03/17/20 14 03/17/2014 MD ANTHONY Krause [id number] 03/17/20 14 03/17/2014 MD ANTHONY Krause [id number] 03/17/20 14 03/17/2014 MD ANTHONY Krause [id number] 03/17/20 14 03/17/2014 DevenMD ANTHONY Zuluaga [id number] 03/17/20 14 03/17/2014 MD ANTHONY Krause [id number] 03/17/20 14 03/17/2014 MD ANTHONY Krause [id number] 03/17/20 14 03/17/2014 MD ANTHONY Krause [id number] 03/17/20 14 03/17/2014 Deven Chand MD high BP [id number] 03/19/20 14 03/19/2014 Deven Chand MD high BP [id number] 03/19/20 14 03/19/2014 Deven Chand MD high BP [id number] 03/19/20 14 03/19/2014 Deven Chand MD high BP [id number] 03/19/20 14 03/19/2014 Deven Chand MD high BP [id number] 03/19/20 14 03/19/2014 Deven Chand MD high BP [id number] 03/19/20 14 03/19/2014 Deven Chand MD high BP [id number] 03/19/20 14 03/19/2014 Deven Chand MD high BP [id number] 03/19/20 14 03/19/2014 Deven Chand MD high BP [id number] 03/19/20 14 03/19/2014 Deven Chand MD high BP [id number] 03/19/20 14 03/19/2014 Deven Chand MD high BP [id number] 03/19/20 14 03/19/2014 Deven Chand MD high BP [id number] 03/19/20 14 03/19/2014 Deven Chand FU, Provi liam: JUVE COLLINS, Status: Dieudonne, Time: 2:45 PM [id number] 03/30/20 14 02/18/2014 [facility] Chuy Chand MD 3 month follow up [id number] 04/27/20 14 04/27/2014 Deven Chand MD 3 month follow up [id number] 04/27/20 14 04/27/2014 Deven Chand MD 3 month follow up [id number] 04/27/20 14 04/27/2014 Deven Chand MD 3 month follow up [id number] 04/27/20 14 04/27/2014 Deven Chand MD 3 month follow up [id number] 04/27/20 14 04/27/2014 Deven Chand MD 3 month follow up [id number] 04/27/20 14 04/27/2014 Deven Chand MD 3 month follow up [id number] 04/27/20 14 04/27/2014 Deven Chand MD 3 month follow up [id number] 04/27/20 14 04/27/2014 Deven Chand MD 3 month follow up [id number] 04/27/20 14 04/27/2014 Deven Chand MD 3 month follow up [id number] 04/27/20 14 04/27/2014 Deven Chand MD 3 month follow up [id number] 04/27/20 14 04/27/2014 Deven Chand MD 3 month follow up [id number] 04/27/20 14 04/27/2014 Deven Chand MD PATIENT QUESTION [id number] 07/08/20 14 07/08/2014 Deven Chand MD PATIENT QUESTION [id number] 07/08/20 14 07/08/2014 Deven Chand MD PATIENT QUESTION [id number] 07/08/20 14 07/08/2014 Deven Chand MD PATIENT QUESTION [id number] 07/08/20 14 07/08/2014 Deven Chand MD PATIENT QUESTION [id number] 07/08/20 14 07/08/2014 Deven Chand MD PATIENT QUESTION [id number] 07/08/20 14 07/08/2014 Deven Chand MD PATIENT QUESTION [id number] 07/08/20 14 07/08/2014 Deven Chand MD PATIENT QUESTION [id number] 07/08/20 14 07/08/2014 Deven Chand MD PATIENT QUESTION [id number] 07/08/20 14 07/08/2014 Deven Chand MD PATIENT QUESTION [id number] 07/08/20 14 07/08/2014 Deven Chand MD PATIENT QUESTION [id number] 07/08/20 14 07/08/2014 Deven Chand MD PATIENT QUESTION [id number] 07/08/20 14 07/08/2014 Deven Chand MD Unknown [id number] 07/13/20 14 07/13/2014 Deven Chand MD Unknown [id number] 07/13/20 14 07/13/2014 Deven Chand MD Unknown [id number] 07/13/20 14 07/13/2014 Deven Chand MD Unknown [id number] 07/13/20 14 07/13/2014 Deven Chand MD Unknown [id number] 07/13/20 14 07/13/2014 Deven Chand MD Unknown [id number] 07/13/20 14 07/13/2014 Deven Chand MD Unknown [id number] 07/13/20 14 07/13/2014 Deven Chand MD Unknown [id number] 07/13/20 14 07/13/2014 Deven Chand MD Unknown [id number] 07/13/20 14 07/13/2014 Deven Chand MD Unknown [id number] 07/13/20 14 07/13/2014 Deven Chnad MD Unknown [id number] 07/13/20 14 07/13/2014 Deven Chand MD Unknown [id number] 07/13/20 14 07/13/2014 Deven Chand MD Prednisone Start 1o8p6td1-m49k-5638-rlbi-hppmr9wf8wz9 08/02/20 14 08/02/2014 Deven Chand MD Prednisone Start xn1l7193-l641-8ozz-830t-3t82ayv7237e 08/02/20 14 08/02/2014 Deven Chand MD Prednisone Start 6acng719-26k8-7459-sde6-t9g4042gi191 08/02/20 14 08/02/2014 Deven Chand MD Prednisone Start t1ll0i24-di1h-8559-bk3m-85y4n952636k 08/02/20 14 08/02/2014 Deven Chand MD Prednisone Start 4vf6o0x4-c20g-4387-89w5-8683ug7d6995 08/02/20 14 08/02/2014 Deven Chand MD Prednisone Start 1y77wa8u-867u-57kc-kbs8-1kq99mg35h37 08/02/20 14 08/02/2014 Deven Chand MD Prednisone Start 0516mzgg-323f-41pw-9777-n207zx2q3982 08/02/20 14 08/02/2014 Deven Chand MD Prednisone Start h4x226j8-5177-3528-322i-8ru8v9zx3e6y 08/02/20 14 08/02/2014 Deven Chand MD Prednisone Start 4vx152p0-265a-9n01-pw94-466f60mka402 08/02/20 14 08/02/2014 Deven Chand MD Prednisone Start 7h0484g4-2049-9635-9gn8-qi1702554507 08/02/20 14 08/02/2014 Deven Chand MD Prednisone Start 54b19065-nd3v-9563-vct2-u0pe23ss1933 08/02/20 14 08/02/2014 Deven Chand MD [facility] [id number]-s3y8-6h35nzx23f43 08/02/20 14 08/02/2014 Deven Chand MD Predisone Update/ [facility] [place] [id number] 08/09/2014 08/09/2014 Deven Chand MD Predisone Update/ [facility] [place] [id number] 08/09/2014 08/09/2014 Deven Chand MD Predisone Update/ [facility] [place] [id number] 08/09/2014 08/09/2014 Deven Chand MD Predisone Update/ [facility] [place] [id number] 08/09/2014 08/09/2014 Deven Chand MD Predisone Update/ [facility] [place] [id number] 08/09/2014 08/09/2014 Deven Chand MD Predisone Update/ [facility] [place] [id number] 08/09/2014 08/09/2014 Deven Chand MD Predisone Update/ [facility] [place] [id number] 08/09/2014 08/09/2014 Deven Chand MD Predisone Update/ [facility] [place] [id number] 08/09/2014 08/09/2014 Deven Chand MD Predisone Update/ [facility] [place] [id number] 08/09/2014 08/09/2014 Deven Chand MD Predisone Update/ [facility] [place] [id number] 08/09/2014 08/09/2014 Deven Chand MD Predisone Update/ [facility] [place] [id number] 08/09/2014 08/09/2014 Deven Chand MD Predisone Update/ [facility] [place] [id number] 08/09/2014 08/09/2014 Deven Chand MD F/U [id number]-qh2x-113e-x076-24oj701935x7 09/13/2014 09/13/2014 Deven Chand MD F/U 7700u593-m482-573e-7s51-e9a7hb0752o9 09/13/2014 09/13/2014 Deven Chand MD F/U 4pq42yx3-t78l-1524-246w-4f3q91y4xc97 09/13/2014 09/13/2014 Deven Chand MD F/U p1970b0v-6qi9-022k-g4mz-081xfm2c66oj 09/13/2014 09/13/2014 Deven Chand MD F/U 1x4yp4o5-w597-023j-b9rh-0qm1x9013qv4 09/13/2014 09/13/2014 Deven Chand MD F/U av8i211v-318s-4g40-6388-h8b2160v3j5k 09/13/2014 09/13/2014 Deven Chand MD F/U [id number]-k1v7-16a3-a86r-d578l0d87999 09/13/2014 09/13/2014 Deven Chand MD F/U [id number]-c9l5-p8i1oe10133q 09/13/2014 09/13/2014 Deven Chand MD F/U 9295f67n-76tt-6962-on59-14j40axpimo8 09/13/2014 09/13/2014 Deven Chand MD F/U 37d358pw-l0lc-264r-1710-c41b8k2pe572 09/13/2014 09/13/2014 Deven Chand MD F/U 11mq6mq2-gb7j-6q2j-6p90-w0237u7g2471 09/13/2014 09/13/2014 Deven Chand MD F/U ir168hy3-439a-4808-8kv8-211nr9wi2s76 09/13/2014 09/13/2014 Deven Chand MD dexa 76v9yif5-bcqv-6834-tx30-1g7i8g29g7d4 11/02/2014 11/02/2014 Deven Chand MD dexa 9s3n7a9t-60sv-1148-dc2q-213o3m1p61gx 11/02/2014 11/02/2014 Deven Chand MD dexa [id number]-85uh-1r1x1s2h-i573-884xa4u5uf7a 11/02/2014 11/02/2014 Deven Chand MD dexa [id number]-678r-93w5-7g461h02y2e1 11/02/2014 11/02/2014 Deven Chand MD dexa [id number]-01y0-48a3-48j96zz0pml5 11/02/2014 11/02/2014 Deven Chand MD dexa [id number]-u28h-s2wzv98k783c 11/02/2014 11/02/2014 Deven Chand MD dexa [id number]-e895-746qdcv6z58m 11/02/2014 11/02/2014 Deven Chand MD dexa 5s7ce62n-7826-5186-cr6n-e3eg2gutn13t 11/02/2014 11/02/2014 Deven Chand MD dexa [id number]-s242-5940-4w71-06sph1c52461 11/02/2014 11/02/2014 Deven Chand MD dexa [id number]-fag9-077t-237e-2uk76d080682 11/02/2014 11/02/2014 Deven Chand MD dexa 999k4qnf-0e6r-05c8-m8hy-11l2y0h1199m 11/02/2014 11/02/2014 Deven Chand MD dexa bc6wv4w4-712o-1079-f348-01041l8j30y8 11/02/2014 11/02/2014 Deven Chand MD F/U 91s1jr2k-9739-5b51-00m2-pb727ktu439s 11/08/2014 11/08/2014 Deven Chand MD F/U w7a6f297-302t-132y-0l2o-6azt3131hk37 11/08/2014 11/08/2014 Deven Chand MD F/U n4m1318y-b1lr-21ou-6qu0-26ip93277x40 11/08/2014 11/08/2014 Deven Chand MD F/U [id number]-m093-4rv7-37wy-2svqf7wwz1kn 11/08/2014 11/08/2014 Deven Chand MD F/U 6ww2zvf6-3212-5139-1fos-7za053436r39 11/08/2014 11/08/2014 Deven Chand MD F/U 77zf578b-ina1-4652-pv0i-r7c421619559 11/08/2014 11/08/2014 Deven Chand MD Unknown [id number]-4370l55t8h4p 11/08/19 15 11/08/2014 Deven Chand MD Unknown [id number]-c71k-91mv-a2n6-4410nc6545rx 11/08/19 15 11/08/2014 Deven Chand MD Unknown [id number] 11/08/19 15 11/08/2014 Deven Chand MD Unknown [id number]-[id number] 11/08/19 15 11/08/2014 Deven Chand MD Unknown [id number] 11/08/19 15 11/08/2014 Deven Chand MD Unknown [id number] 11/08/19 15 11/08/2014 Deven Chand MD F/U 0p794f2i-5s51-6z50-8yb2-2jh369soy95a 11/08/2014 11/08/2014 Deven Chand MD F/U 15pb519o-8t32-6231-b17i-1sc8x677sja8 11/08/2014 11/08/2014 Deven Chand MD F/U 89d81498-12ux-9256-71c0-07i34to5n34a 11/08/2014 11/08/2014 Deven Chand MD F/U [id number]-a7p7-4d05-4v30-7np3yb36h8u1 11/08/2014 11/08/2014 Deven Chand MD F/U 1443k03m-0334-5436-0z0r-28gq4b203495 11/08/2014 11/08/2014 Deven Chand MD F/U [id number]-57e7-9hs5-74l502e33rf7 11/08/2014 11/08/2014 Deven Chand MD Unknown [id number]-dl5r-8zs2-txf7-82l5iqr9222b 11/08/19 15 11/08/2014 Deven Chand MD Unknown [id number]dv5 11/08/19 15 11/08/2014 Deven Chand MD Unknown [id number]-[id number]-3vp5ycndg14y 11/08/19 15 11/08/2014 Deven Chand MD Unknown [id number]-[id number] 11/08/19 15 11/08/2014 Deven Chand MD Unknown [id number]-7o65opiq131e 11/08/19 15 11/08/2014 Deven Chand MD Unknown [id number]-74kl-2uu1-5k1h-09w0119iccj3 11/08/19 15 11/08/[address] w16k4gy9-0q52-82f4-s28y-o7fm393m484b 11/23/2014 11/23/[address] tz187b14-s8t8-1ogx-056h-5yp98pp104v6 11/23/2014 11/23/[address] 627i341f-86ls-860r-k903-5fia58m024g6 11/23/2014 11/23/[address] 16j5tc63-2163-4779-352w-7s565fte7b84 11/23/2014 11/23/[address] 10y469pn-98rc-101w-927o-9tyn5566i841 11/23/2014 11/23/[address] 6738wy23-1l86-9249-382q-ab6v30m7x030 11/23/2014 11/23/[address] 878c30j9-mh7z-50gv-m388-vtj317sc1o2i 11/23/2014 11/23/[address] [id number]-9s28-djw6-qd579u634z6z 11/23/2014 11/23/[address] [id number]-j6kw-29431be96752 11/23/2014 11/23/[address] 5i3o667i-z7zr-7917-5o4q-18r7y9l3eanr 11/23/2014 11/23/[address] 1wa3m626-0g57-27i9-f6f0-8h02rvebc29x 11/23/2014 11/23/[address] [id number]-776y-[id number] 11/23/2014 11/23/2014 Deven Chand MD /S [facility] 1398n7id-l711-0200-06g8-24ij74s025ln 12/17/19 15 12/16/2014 Deven Chand MD U/S abdomen p2n32924-17bc-4513-mk07-1140264f8089 12/17/19 15 12/16/2014 Deven Chand MD U/S abdomen 3m86c9f3-487y-150j-p931-961ll223758s 12/17/19 15 12/16/2014 Deven Chand MD U/S abdomen lh0kzu45-q9p6-5352-7y4r-6890271u0q49 12/17/19 15 12/16/2014 Deven Chand MD U/S abdomen a8x886bq-n070-73r1-a686-45sy1719y594 12/17/19 15 12/16/2014 Deven Chand MD U/S abdomen 74axw912-4z16-43s7-v3ul-209026569erp 12/17/19 15 12/16/2014 Deven Chand MD U/S abdomen 36lo3rq8-h03v-7023-4213-8fi07912rllu 12/17/19 15 12/16/2014 Deven Chand MD U/S abdomen [id number]-3hv9-yd660qj5e39y 12/17/19 15 12/16/2014 Deven Chand MD U/S abdomen [id number]-x170-5091-m334-2ks67g9a0467 12/17/19 15 12/16/2014 Deven Chand MD U/S abdomen 328chtyg-r528-4d17u356-7b96-y122-g8s9454171k3 12/17/19 15 12/16/2014 Deven Chand MD U/S abdomen 04r027y2-5967-009g-70x0-h786frv369rh 12/17/19 15 12/16/2014 Deven Chand MD U/S abdomen 95hby07q-80cf-9j5l-3aj4-oe84c603kp26 12/17/19 15 12/16/2014 Deven Chand MD PT Update 37622c3h-hhln-7z1y-353f-0ua61762zvl2 12/28/19 15 12/27/2014 Deven Chand MD PT Update 389221gx-0so0-4cdc-ai66-3e627201145h 12/28/19 15 12/27/2014 Deven Chand MD PT Update 7900rn8m-812e-4p09-5706-1m538i2e680p 12/28/19 15 12/27/2014 Deven Chand MD PT Update vg0v11wy-697y-2915-1m9r-1157at3204u7 12/28/19 15 12/27/2014 Deven Chand MD PT Update ebo6mpwo-5o50-67l3-j34j-766zro31383g 12/28/19 15 12/27/2014 Deven Chand MD PT Update 4ig4a690-8290-41a5-4o0b-2674u1r67z85 12/28/19 15 12/27/2014 Deven Chand MD PT Update [id number]-495n-zkb0-18ik0tu6h959 12/28/19 15 12/27/2014 Deven Chand MD PT Update uvex27oe-6xqd-2uwo-m20q-2pm26r399aw0 12/28/19 15 12/27/2014 Deven Chand MD PT Update 4s5r8333-54pl-59r5-75a0-5jy4eu66dd4p 12/28/19 15 12/27/2014 Deven Chand MD PT Update j5b9giur-04n6-4002-g7z4-a3p41i254m1d 12/28/19 15 12/27/2014 Deven Chand MD PT Update 9v70h84w-4198-7d44-2ai9-ug0n34ku4682 12/28/19 15 12/27/2014 Deven Chand MD PT Update 390g2m4l-1rji-7m09-ef64-148271fl5rmu 12/28/19 15 12/27/2014 Deven Chand MD Unknown [id number] 01/04/20 15 01/03/2015 Deven Chand MD Unknown [id number] 01/04/20 15 01/03/2015 Deven Chand MD Unknown [id number] 01/04/20 15 01/03/2015 Deven Chand MD Unknown [id number]-482o-4m69v16pw2q1 01/04/20 15 01/03/2015 Deven Chand MD Unknown [id number]-a062fv92mr22 01/04/20 15 01/03/2015 Deven Chand MD Unknown [id number] 01/04/20 15 01/03/2015 Deven Chand MD Unknown [id number]-080h-yf9z-ah6ry64m6i48 01/04/20 15 01/03/2015 Deven Chand MD Unknown [id number] 01/04/20 15 01/03/2015 Deven Chand MD Unknown jxqzx5r4-8y8t-41t0-vz3w-g504s3xv3a76 01/04/20 15 01/03/2015 Deven Chand MD Unknown [id number]-9f0m-[id number] 01/04/20 15 01/03/2015 Deven Chand MD Unknown [id number]-858u-0m7rnxuljpxe 01/04/20 15 01/03/2015 Deven Chand MD Unknown [id number]-sa516y469u6f 01/04/20 15 01/03/2015 Deven Chand MD Abdominal US/[facility] [id number]-28h6-jvug0r59069o 01/12/20 15 01/11/2015 Deven Chand MD Abdominal US/[facility] 147561i5-r603-0633-uc05-kv30992fn2ym 01/12/20 15 01/11/2015 Deven Chand MD Abdominal US/[facility] 59ws8bw6-s3g0-5b25-l4n6-c79ug43i6070 01/12/20 15 01/11/2015 Deven Chand MD Abdominal US/[facility] [id number]-b91899679r13 01/12/20 15 01/11/2015 Deven Chand MD Abdominal US/[facility] 4xv7u6jv-t1s7-629p-o501-i3ok0t8wj0r8 01/12/20 15 01/11/2015 Deven Chand MD Abdominal US/[facility] 3650n0w2-zr02-8164-7239-4y0781h20i18 01/12/20 15 01/11/2015 Deven Chand MD Abdominal US/[facility] [id number]-u69x25il83ig 01/12/20 15 01/11/2015 Deven Chand MD Abdominal US/[facility] 6971253e-92c7-510q-9m1q-60ovzs23itwm 01/12/20 15 01/11/2015 Deven Chand MD Abdominal US/[facility] 4em21t9h-1817-3v57-dhn4-229qyo63sx6o 01/12/20 15 01/11/2015 Deven Chand MD Abdominal US/[facility] hv36pa9m-93qq-0z4g-43ii-9b7bp2s32f77 01/12/20 15 01/11/2015 Deven Chand MD Abdominal US/[facility] m15q6239-74fc-5642-s069-731x46p09u8e 01/12/20 15 01/11/2015 Deven Chand MD Abdominal US/[facility] 231p3y66-05s0-18b6-3z0s-02736i7f81o7 01/12/20 15 01/11/2015 Deven Chand MD [facility] gd499s5q-3v37-0369-53m8-8821mp7q7696 01/18/20 15 01/17/2015 Deven Chand MD [facility] [id number]-hx7n-3sq018910j4y 01/18/20 15 01/17/2015 Deven Chand MD [facility] 238aci03-1y16-24e6-55eg-6f7405ra85g6 01/18/20 15 01/17/2015 Deven Chand MD [facility] 915gsp4q-8160-6pv5-8ft9-987605v91457 01/18/20 15 01/17/2015 Deven Chand MD [facility] q47n5f30-jpul-2769-3vu8-9361798dm534 01/18/20 15 01/17/2015 Deven Chand MD [facility] 35dos49p-6146-7u7c-a0a8-85bhb95y0026 01/18/20 15 01/17/2015 Deven Chand MD [facility] 037w08tc-083a-5919-m1r1-4w3bhi5wm37j 01/18/20 15 01/17/2015 MD Alexa Krausexan 7h23gs86-k133-6enz-n16c-r5i51616o2rs 01/18/20 15 01/17/2015 MD Alexa Krausexan 5007ht13-7119-3123-pt18-ipmc03395807 01/18/20 15 01/17/2015 MD Alexa Krausexan 5d1tz081-6z39-4g7y-my79-j9firpy8m01z 01/18/20 15 01/17/2015 Deven Chand MD [facility] 5034j276-5vo3-8chu-6869-762x390soavi 01/18/20 15 01/17/2015 MD James Krausen 4z91v34c-mzi3-39o3-9fo9-0t6740vis3h8 01/18/20 15 01/17/2015 Deven Chand MD Pt on antibiotics [id number]-214y-6l0a-mh2m96lq37p2 01/29/20 15 01/28/2015 Deven Chand MD Pt on antibiotics 776y57p1-s8oq-6203-8a11-0ab5926a85ne 01/29/20 15 01/28/2015 Deven Chand MD Pt on antibiotics [id number]-vaq8-138own88ygp2 01/29/20 15 01/28/2015 Deven Chand MD Pt on antibiotics nt568d47-205j-8ix8-a061-0v01h6o6y595 01/29/20 15 01/28/2015 Deven Chand MD Pt on antibiotics 5qw2ok04-447f-2k95-5xdo-qavy5do9m2v7 01/29/20 15 01/28/2015 Deven Chand MD Pt on antibiotics 7x69y2np-3968-64j9-0766-04u6qp820zfp 01/29/20 15 01/28/2015 Deven Chand MD Pt on antibiotics 6820shk9-33el-55o3-0605-7x7nxgr02k80 01/29/20 15 01/28/2015 Deven Chand MD Pt on antibiotics 8o60r3n7-9733-2hud-0097-10m77jkx517k 01/29/20 15 01/28/2015 Deven Chand MD Pt on antibiotics 873l5e7m-93i7-5x51-v5s9-0462j5wf4dr7 01/29/20 15 01/28/2015 Deven Chand MD Pt on antibiotics a8yl258r-7h3u-9u45-i2a1-g585g36u1640 01/29/20 15 01/28/2015 Deven Chand MD Pt on antibiotics n668488a-5o7i-70x2-l591-e3u7m337f962 01/29/20 15 01/28/2015 Deven Chand MD Pt on antibiotics 7031my1g-hdr1-97q2-w79w-w50c192l96y4 01/29/20 15 01/28/2015 Deven Chand MD 1 mo f/u 17822xz4-9345-1032-d499-678c5k0365ya 02/03/20 15 02/02/2015 Deven Chand MD 1 mo f/u 080wdms1-8359-0q4f-4691-y5gk1vz455z9 02/03/20 15 02/02/2015 Deven Chand MD 1 mo f/u 527hi5d7-f0a7-06nx-u5cj-s25p9071a631 02/03/20 15 02/02/2015 Deven Chand MD 1 mo f/u 22w54853-2771-07d2-ra2b-o5u9c83h39k2 02/03/20 15 02/02/2015 Deven Chand MD 1 mo f/u of7l687t-v51e-2a81-147e-25385xx1l2ph 02/03/20 15 02/02/2015 Deven Chand MD 1 mo f/u 77n06dfh-069v-0d7g-eg37-60aow840e31h 02/03/20 15 02/02/2015 Deven Chand MD 1 mo f/u n2w26k3v-e925-18zv-8651-t0w3o0dyg7l4 02/03/20 15 02/02/2015 Deven Chand MD 1 mo f/u 97z8g81k-897i-896w-aj12-527any3w72y1 02/03/20 15 02/02/2015 Deven Chand MD 1 mo f/u 08241e51-9i96-6467-ij9g-2366wv059341 02/03/20 15 02/02/2015 Deven Chand MD 1 mo f/u eg4xp5va-3468-351q-c0j8-481620e72698 02/03/20 15 02/02/2015 Deven Chand MD 1 mo f/u 481o5q39-3r06-9316-s1i7-889267d21135 02/03/20 15 02/02/2015 Deven Chand MD 1 mo f/u 8a231t74-vovb-97sx-52y4-3qp71wi8372q 02/03/20 15 02/02/2015 Deven Chand MD MRI 779024a4-71c4-2193-ur62-puc71h5cuds4 02/08/2015 02/08/2015 Deven Chand MD MRI z3eg9kjw-t6gr-0o0o-8ve2-044p35iznj65 02/08/2015 02/08/2015 Deven Chand MD MRI 0p1u4845-10n8-5286-3kx0-43wr86228662 02/08/2015 02/08/2015 Deven Chand MD MRI b6w780a1-u294-8929-576e-5pmo8696xgt7 02/08/2015 02/08/2015 Deven Chand MD MRI 174ec33l-481f-081s-96q1-6t5bajor05vj 02/08/2015 02/08/2015 Deven Chand MD MRI 2g708rya-7356-3i27-6s4q-sju823oof0k0 02/08/2015 02/08/2015 Deven Chand MD MRI 7gnab818-[id number] 02/08/2015 02/08/2015 Deven Chand MD MRI 614884h5-f439-1t15-u118-527581i1f41l 02/08/2015 02/08/2015 Deven Chand MD MRI 9pt0u028-v76z-6sr2-0354-g19818c027kd 02/08/2015 02/08/2015 Deven Chand MD MRI [id number] 02/08/2015 02/08/2015 Deven Chand MD MRI [id number] 02/08/2015 02/08/2015 Deven Chand MD MRI [id number] 02/08/2015 02/08/2015 Deven Chand MD MRI [id number] 02/08/2015 02/08/2015 Deven Chand MD MRI [id number] 02/08/2015 02/08/2015 Deven Chand MD MRI [id number] 02/08/2015 02/08/2015 Deven Chand MD MRI [id number] 02/08/2015 02/08/2015 Deven Chand MD MRI [id number] 02/08/2015 02/08/2015 Deven Chand MD MRI [id number] 02/08/2015 02/08/2015 Deven hCand MD MRI [id number] 02/08/2015 02/08/2015 Deven Chand MD MRI [id number] 02/08/2015 02/08/2015 Deven Chand MD MRI [id number] 02/08/2015 02/08/2015 Deven Chand MD MRI [id number] 02/08/2015 02/08/2015 Deven Chand MD MRI [id number] 02/08/2015 02/08/2015 Deven Chand MD MRI [id number] 02/08/2015 02/08/2015 Deven Chand MD Research [id number] 02/22/20 15 02/21/2015 Deven Chand MD Research [id number] 02/22/20 15 02/21/2015 Deven Chand MD Research [id number] 02/22/20 15 02/21/2015 Deven Chand MD Research [id number] 02/22/20 15 02/21/2015 Deven Chand MD Research [id number] 02/22/20 15 02/21/2015 Deven Chand MD Research [id number] 02/22/20 15 02/21/2015 Deven Chand MD Right wrist pain and swelling [id number]-uea5-m234q1um825z 02/21/2015 02/21/2015 Deven Chand MD Right wrist pain and swelling [id number]-xq832u2gt40s 02/21/2015 02/21/2015 Deven Chand MD Right wrist pain and swelling hq4v9p7b-[id number]-[id number] 02/21/2015 02/21/2015 Deven Chand MD Right wrist pain and swelling [id number]-[id number]-zh196f9320v9 02/21/2015 02/21/2015 Deven Chand MD Right wrist pain and swelling [id number]-kj2ct0l2lsg7 02/21/2015 02/21/2015 Deven Chand MD Right wrist pain and swelling [id number] 02/21/2015 02/21/2015 Deven Chand MD Research [id number] 02/22/20 15 02/21/2015 Deven Chand MD Research [id number] 02/22/20 15 02/21/2015 Deven Chand MD Research [id number] 02/22/20 15 02/21/2015 Deven Chand MD Research [id number] 02/22/20 15 02/21/2015 Deven Chand MD Research [id number] 02/22/20 15 02/21/2015 Deven Chand MD Research [id number] 02/22/20 15 02/21/2015 Deven Chand MD Right wrist pain and swelling [id number]-[id number] 02/21/2015 02/21/2015 Deven Chand MD Right wrist pain and swelling [id number] 02/21/2015 02/21/2015 Deven Chand MD Right wrist pain and swelling [id number] 02/21/2015 02/21/2015 Deven Chand MD Right wrist pain and swelling [id number]-[id number] 02/21/2015 02/21/2015 Deven Chand MD Right wrist pain and swelling [id number] 02/21/2015 02/21/2015 Deven Chand MD Right wrist pain and swelling [id number] 02/21/2015 02/21/2015 Deven Chand MD Unknown [id number] 02/23/20 15 02/22/2015 Deven Chand MD Unknown [id number] 02/23/20 15 02/22/2015 Deven Chand MD Unknown [id number] 02/23/20 15 02/22/2015 Deven Chand MD Unknown [id number] 02/23/20 15 02/22/2015 Deven Chand MD Unknown [id number] 02/23/20 15 02/22/2015 Deven Chand MD Unknown [id number] 02/23/20 15 02/22/2015 Deven Chand MD Unknown [id number] 02/23/20 15 02/22/2015 Deven Chand MD Unknown [id number] 02/23/20 15 02/22/2015 Deven Chand MD Unknown [id number] 02/23/20 15 02/22/2015 Deven Chand MD Unknown [id number] 02/23/20 15 02/22/2015 Deven Chand MD Unknown [id number] 02/23/20 15 02/22/2015 Deven Chand MD Unknown [id number] 02/23/20 15 02/22/2015 Deven Chand MD [facility] Injection [id number] 03/09/20 15 03/09/2015 Deven Chand MD [facility] Injection [id number] 03/09/20 15 03/09/2015 Deven Chand MD [facility] Injection [id number] 03/09/20 15 03/09/2015 Deven Chand MD [facility] Injection [id number] 03/09/20 15 03/09/2015 Deven Chand MD [facility] Injection [id number] 03/09/20 15 03/09/2015 Deven Chand MD [facility] Injection [id number]-[id number] 03/09/20 15 03/09/2015 Deven Chand MD [facility] Injection [id number] 03/09/20 15 03/09/2015 Deven Chand MD [facility] Injection [id number] 03/09/20 15 03/09/2015 Deven Chand MD [facility] Injection [id number] 03/09/20 15 03/09/2015 Deven Chand MD [facility] Injection [id number] 03/09/20 15 03/09/2015 Deven Chand MD [facility] Injection [id number] 03/09/20 15 03/09/2015 Deven Chand MD [facility] Injection [id number] 03/09/20 15 03/09/2015 Deven Chand MD Refill [id number] 05/05/20 15 05/05/2015 Deven Chand MD Refill [id number] 05/05/20 15 05/05/2015 Deven Chand MD Refill [id number] 05/05/20 15 05/05/2015 Deven Chand MD Refill [id number] 05/05/20 15 05/05/2015 Deven Chand MD Refill [id number] 05/05/20 15 05/05/2015 Deven Chand MD Refill [id number] 05/05/20 15 05/05/2015 Deven Chand MD add on [id number] 05/05/20 15 05/05/2015 Deven Chand MD add on [id number]-[id number]-911r-kvi9-90i0eb71y7sa 05/05/20 15 05/05/2015 Deven Chand MD add on [id number] 05/05/20 15 05/05/2015 Deven Chand MD add on [id number] 05/05/20 15 05/05/2015 Deven Chand MD add on [id number] 05/05/20 15 05/05/2015 Deven Chand MD add on [id number] 05/05/20 15 05/05/2015 Deven Chand MD Refill [id number] 05/05/20 15 05/05/2015 Deven Chand MD Refill [id number] 05/05/20 15 05/05/2015 Deven Chand MD Refill [id number] 05/05/20 15 05/05/2015 Deven Chand MD Refill [id number] 05/05/20 15 05/05/2015 Deven Chand MD Refill [id number] 05/05/20 15 05/05/2015 Deven Chand MD Refill [id number] 05/05/20 15 05/05/2015 Deven Chand MD add on [id number] 05/05/20 15 05/05/2015 Deven Chand MD add on [id number] 05/05/20 15 05/05/2015 Deven Chand MD add on [id number] 05/05/20 15 05/05/2015 Deven Chand MD add on [id number]-hpr3-[id number] 05/05/20 15 05/05/2015 Deven Chand MD add on [id number] 05/05/20 15 05/05/2015 Deven Chand MD add on [id number] 05/05/20 15 05/05/2015 Deven Chand MD Unknown [id number] 05/09/20 15 05/09/2015 Deven Chand MD Unknown [id number] 05/09/20 15 05/09/2015 Deven Chand MD Unknown [id number] 05/09/20 15 05/09/2015 Deven Chand MD Unknown [id number] 05/09/20 15 05/09/2015 Deven Chand MD Unknown [id number] 05/09/20 15 05/09/2015 Deven Chand MD Unknown [id number] 05/09/20 15 05/09/2015 Deven Chand MD Unknown [id number] 05/09/20 15 05/09/2015 Deven Chand MD Unknown [id number] 05/09/20 15 05/09/2015 Deven Chand MD Unknown [id number] 05/09/20 15 05/09/2015 Deven Chand MD Unknown [id number] 05/09/20 15 05/09/2015 Deven Chand MD Unknown [id number] 05/09/20 15 05/09/2015 Deven Chand MD Unknown [id number] 05/09/20 15 05/09/2015 Deven Chand MD Unknown [id number] 05/09/20 15 05/09/2015 Deven Chand MD Unknown [id number] 05/09/20 15 05/09/2015 Deven Chand MD Unknown [id number] 05/09/20 15 05/09/2015 Deven Chand MD Unknown [id number] 05/09/20 15 05/09/2015 Deven Chand MD Unknown [id number] 05/09/20 15 05/09/2015 Deven Chand MD Unknown [id number] 05/09/20 15 05/09/2015 Deven Chand MD Unknown [id number] 05/09/20 15 05/09/2015 Deven Chand MD Unknown [id number] 05/09/20 15 05/09/2015 Deven Chand MD Unknown [id number] 05/09/20 15 05/09/2015 Deven Chand MD Unknown [id number] 05/09/20 15 05/09/2015 Deven Chand MD Unknown [id number] 05/09/20 15 05/09/2015 Deven Chand MD Unknown [id number] 05/09/20 15 05/09/2015 Deven Chand MD Unknown [id number] 05/09/20 15 05/09/2015 Deven Chand MD Unknown [id number] 05/09/20 15 05/09/2015 Deven Chand MD Unknown [id number] 05/09/20 15 05/09/2015 Deven Chand MD Unknown [id number] 05/09/20 15 05/09/2015 Deven Chand MD Unknown [id number] 05/09/20 15 05/09/2015 Deven Chand MD Unknown [id number] 05/09/20 15 05/09/2015 Deven Chand MD Unknown [id number] 05/09/20 15 05/09/2015 Deven Chand MD Unknown [id number] 05/09/20 15 05/09/2015 Deven Chand MD Unknown [id number] 05/09/20 15 05/09/2015 Deven Chand MD Unknown [id number] 05/09/20 15 05/09/2015 Deven Chand MD Unknown [id number] 05/09/20 15 05/09/2015 Deven Chand MD Unknown [id number] 05/09/20 15 05/09/2015 Deven Chand MD sodium [id number] 05/18/20 15 05/18/2015 Deven Chand MD sodium [id number] 05/18/20 15 05/18/2015 Deven Chand MD sodium [id number] 05/18/20 15 05/18/2015 Deven Chand MD sodium [id number] 05/18/20 15 05/18/2015 Deven Chand MD sodium [id number] 05/18/20 15 05/18/2015 Deven Chand MD sodium [id number] 05/18/20 15 05/18/2015 Deven Chand MD sodium [id number] 05/18/20 15 05/18/2015 Deven Chand MD sodium [id number] 05/18/20 15 05/18/2015 Deven Chand MD sodium [id number] 05/18/20 15 05/18/2015 Deven Chand MD sodium [id number] 05/18/20 15 05/18/2015 Deven Chand MD sodium [id number] 05/18/20 15 05/18/2015 Deven Chand MD sodium [id number]-[id number] 05/18/20 15 05/18/2015 Deven Chand MD MRI [id number]-[id number] 06/02/2015 06/02/2015 Deven Chand MD MRI [id number] 06/02/2015 06/02/2015 Deven Chand MD MRI [id number] 06/02/2015 06/02/2015 Deven Chand MD MRI [id number] 06/02/2015 06/02/2015 Deven Chand MD MRI [id number] 06/02/2015 06/02/2015 Deven Chand MD MRI [id number] 06/02/2015 06/02/2015 Deven Chand MD MRI [id number] 06/02/2015 06/02/2015 Deven Chand MD MRI [id number] 06/02/2015 06/02/2015 Deven Chand MD MRI [id number] 06/02/2015 06/02/2015 Deven Chand MD MRI [id number] 06/02/2015 06/02/2015 Deven Chand MD MRI [id number] 06/02/2015 06/02/2015 Deven Chand MD [facility] [id number] 06/02/2015 06/02/2015 Deven Chand MD Unknown [id number] 06/28/2006/28/2015 Deven Chand MD Unknown [id number] 06/28/2006/28/2015 Deven Chand MD Unknown [id number] 06/28/2006/28/2015 Deven Chand MD Unknown [id number] 06/28/2006/28/2015 Deven Chand MD Unknown [id number] 06/28/2006/28/2015 Deven Chand MD Unknown [id number] 06/28/20 15 06/28/2015 Deven Chand MD Unknown [id number] 06/28/20 15 06/28/2015 Deven Chand MD Unknown [id number] 06/28/20 15 06/28/2015 Deven Chand MD Unknown [id number] 06/28/20 15 06/28/2015 Deven Chand MD Unknown [id number] 06/28/20 15 06/28/2015 Deven Chand MD Unknown [id number] 06/28/20 15 06/28/2015 Deven Chand MD Unknown [id number] 06/28/20 15 06/28/2015 Deven Chand MD Unknown [id number] 09/27/20 15 09/27/2015 Deven Chand MD Unknown [id number] 09/27/20 15 09/27/2015 Deven Chand MD Unknown [id number] 09/27/20 15 09/27/2015 Deven Chand MD Unknown [id number] 09/27/20 15 09/27/2015 Deven hCand MD Unknown [id number] 09/27/20 15 09/27/2015 Deven Chand MD Unknown [id number] 09/27/20 15 09/27/2015 Deven Chand MD Unknown [id number] 09/27/20 15 09/27/2015 Deven Chand MD Unknown [id number] 09/27/20 15 09/27/2015 Deven Chand MD Unknown [id number] 09/27/20 15 09/27/2015 Deven Chand MD Unknown [id number] 09/27/20 15 09/27/2015 Deven Chand MD Unknown [id number] 09/27/20 15 09/27/2015 Deven Chand MD Unknown [id number] 09/27/20 15 09/27/2015 Deven Chand MD [facility] order [id number] 10/10/20 15 10/10/2015 Deven Chand MD [facility]ics lab order [id number] 10/10/20 15 10/10/2015 Deven Chand MD [facility]ics lab order [id number] 10/10/20 15 10/10/2015 Deven Chand MD [facility]ics lab order [id number] 10/10/20 15 10/10/2015 Deven Chand MD Basics lab order [id number] 10/10/20 15 10/10/2015 Deven Chand MD Basics lab order [id number] 10/10/20 15 10/10/2015 Deven Chand MD Basics lab order [id number] 10/10/20 15 10/10/2015 Deven Chand MD Basics lab order [id number] 10/10/20 15 10/10/2015 Deven Chand MD Basics lab order [id number] 10/10/20 15 10/10/2015 Deven Chand MD Basics lab order [id number] 10/10/20 15 10/10/2015 Deven Chand MD Basics lab order [id number] 10/10/20 15 10/10/2015 Deven Chand MD Basics lab order [id number] 10/10/20 15 10/10/2015 Deven Chand MD [facility] [id number] 10/24/19 16 10/24/2015 Deven Chand MD Refill- MTX [id number] 10/24/19 16 10/24/2015 Deven Chand MD Refill- MTX [id number] 10/24/19 16 10/24/2015 Deven Chand MD Refill- MTX [id number] 10/24/19 16 10/24/2015 Deven Chand MD Refill- MTX [id number] 10/24/19 16 10/24/2015 Deven Chand MD Refill- MTX [id number] 10/24/19 16 10/24/2015 Deven Chand MD Refill- MTX [id number] 10/24/19 16 10/24/2015 Deven Chand MD Refill- MTX [id number] 10/24/19 16 10/24/2015 Deven Chand MD Refill- MTX [id number] 10/24/19 16 10/24/2015 Deven Chand MD Refill- MTX [id number] 10/24/19 16 10/24/2015 Deven Chand MD Refill- MTX [id number] 10/24/19 16 10/24/2015 Deven Chand MD Refill- MTX [id number] 10/24/19 16 10/24/2015 Deven Chand MD repeat cmp [id number]-kmna-r9h4m2v1747m 10/26/19 16 10/26/2015 Deven Chand MD repeat cmp [id number] 10/26/19 16 10/26/2015 Deven Chand MD repeat cmp [id number] 10/26/19 16 10/26/2015 Deven Chand MD repeat cmp [id number] 10/26/19 16 10/26/2015 Deven Chand MD repeat cmp [id number] 10/26/19 16 10/26/2015 Deven Chand MD repeat cmp [id number] 10/26/19 16 10/26/2015 Deven Chand MD repeat cmp [id number] 10/26/19 16 10/26/2015 Deven Chand MD repeat cmp [id number] 10/26/19 16 10/26/2015 Deven Chand MD repeat cmp [id number] 10/26/19 16 10/26/2015 Deven Chand MD repeat cmp [id number] 10/26/19 16 10/26/2015 Deven Chand MD repeat [facility] [id number] 10/26/19 16 10/26/2015 Deven Chand MD repeat [facility] [id number] 10/26/19 16 10/26/2015 Deven Chand MD MRI [id number] 10/30/2015 10/30/2015 Deven Chand MD MRI [id number] 10/30/2015 10/30/2015 Deven Chand MD MRI [id number] 10/30/2015 10/30/2015 Deven Chand MD MRI [id number] 10/30/2015 10/30/2015 Deven Chand MD MRI [id number] 10/30/2015 10/30/2015 Deven Chand MD MRI [id number] 10/30/2015 10/30/2015 Deven Chand MD MRI [id number] 10/30/2015 10/30/2015 Deven Chand MD MRI [id number] 10/30/2015 10/30/2015 Deven Chand MD MRI [id number] 10/30/2015 10/30/2015 Deven Chand MD [facility] [id number] 10/30/2015 10/30/2015 Deven Chand MD [facility] [id number] 10/30/2015 10/30/2015 Deven Chand MD MRI [id number] 10/30/2015 10/30/2015 Deven Chand MD Unknown [id number] 01/10/20 16 01/10/2016 Deven Chand MD Unknown [id number] 01/10/20 16 01/10/2016 Deven Chand MD Unknown [id number] 01/10/20 16 01/10/2016 Deven Chand MD Unknown [id number] 01/10/20 16 01/10/2016 Deven Chand MD Unknown [id number] 01/10/20 16 01/10/2016 Deven Chand MD labs [id number] 01/10/2016 01/10/2016 Deven Chand MD labs [id number] 01/10/2016 01/10/2016 Deven Chand MD labs [id number] 01/10/2016 01/10/2016 Deven Chand MD labs [id number] 01/10/2016 01/10/2016 Deven Chand MD labs [id number] 01/10/2016 01/10/2016 Deven Chand MD labs [id number] 01/10/2016 01/10/2016 Deven Chand MD Unknown [id number] 01/10/20 16 01/10/2016 Deven Chand MD Unknown [id number] 01/10/20 16 01/10/2016 Deven Chand MD Unknown [id number] 01/10/20 16 01/10/2016 Deven Chand MD labs [id number] 01/10/2016 01/10/2016 Deven Chand MD labs [id number] 01/10/2016 01/10/2016 Deven Chand MD labs [id number] 01/10/2016 01/10/2016 Deven Chand MD Unknown [id number] 04/11/20 16 04/11/2016 Deven Chand MD Unknown [id number] 04/11/20 16 04/11/2016 Deven Chand MD Unknown [id number] 04/11/20 16 04/11/2016 Deven Chand MD Unknown [id number] 04/11/20 16 04/11/2016 Deven Chand MD Unknown [id number] 04/11/20 16 04/11/2016 Deven Chand MD Unknown [id number] 04/11/20 16 04/11/2016 Deven Chand MD [facility] [id number] 04/11/20 16 04/11/2016 Deven Chand MD [facility] [id number] 04/11/20 16 04/11/2016 Deven Chand MD [facility] [id number] 04/11/20 16 04/11/2016 Deven Chand MD [facility] [id number] 04/11/20 16 04/11/2016 Deven Chand MD [facility] [id number] 04/11/20 16 04/11/2016 Deven Chand MD [facility] [id number] 04/11/20 16 04/11/2016 Deven Chand MD [facility] [id number] 04/11/20 16 04/11/2016 Deven Chand MD Unknown [id number] 05/29/20 16 05/29/2016 Deven Chand MD Unknown [id number] 05/29/20 16 05/29/2016 Deven Chand MD Unknown [id number] 05/29/20 16 05/29/2016 Deven Chand MD Unknown [id number] 05/29/20 16 05/29/2016 Deven Chand MD 3 mth follow up [id number] 10/03/20 16 10/03/2016 Deven Chand MD 3 mth follow up [id number] 10/03/20 16 10/03/2016 Deven Chand MD 3 mth follow up [id number] 10/03/20 16 10/03/2016 Deven Chand MD NEW INSUR[employer] [id number] 10/26/19 17 10/26/2016 Deven Chand MD [employer] INS[employer] [id number] 10/26/19 17 10/26/2016 Deven Chand MD OV [id number] 10/30/2016 10/30/2016 Deven Chand [facility] [id number] 00 Juve Collins 04/19/2017 04/20/2017 [facility] Outpatient [id number] Alphonso Horner 05/07/2017 05/08/2017 [facility] Outpatient [id number] Gabrielle Carrero 07/11/2017 07/12/2017 [facility] Bedded Outpatient [id number] Ike Casas 09/03/2017 09/03/2017 [facility] [id number] Juve Collins 08/27/2018 08/28/2018 [facility] PreReg [id number] Justice Leslieposuze 9 11/04/2018 [facility] [id number] 03 Juve Collins 11/20/2018 11/21/[address] [facility] [place] [facility] [id number] 06 Yesica Rip 02/05/2019 02/06/2019 [facility] [place] [id number] Juve Collins 03/04/2019 03/05/2019 [facility] [id number] Godwin Jaimes 03/16/2019 Active [facility] Out[facility] [id number] Godwin Jaimes 03/16/2019 03/17/2019 [facility] [id number] - URODYNAMICS, 04/29/2019 [facility] Outpatient [id number] Godwin Jaimes 04/29/2019 04/30/2019 [facility] Outpatient [id number] MED_ASST VISIT 05/05/2019 Active [facility] Outpatient [id number] Godwin Jaimes 05/05/2019 [facility] [place] Outpatient [id number] Godwin Jaimes 05/05/2019 05/06/2019 [facility] [id number] MED_ASST VISIT 05/05/2019 05/06/2019 [facility] Outpatient [id number] Godwin Jaimes 08/04/2019 Active [facility] [id number] Godwin Jaimes 08/04/2019 08/05/2019 [facility] Outpatient [id number] Godwin Jaimes 11/03/2019 Active [facility] Ambulatory Pre-Reg [id number] Godwin Jaimes 11/03/2019 11/03/2019 [facility] [id number] 08 Juve Collins 11/05/2019 11/06/2019 [facility] Procedures Procedure Code Date Perfomer Comments Source Cystourethroscopy, with calibration and/ or dilation of urethral stricture or stenosis, with or without meatotomy, with or without injection procedure for cystography, male or female 93962 05/05/2019 [facility] Complex uroflowmetry (eg, calibrated krys ctronic equipment) 44523 05/05/2019 [facility] Voiding pressure studies, intra-abdomina l (ie, rectal, gastric, intraperitoneal) (List separately in addition to code for primary procedure) 57426 05/05/2019 [facility] Cystourethroscopy (separate procedure) 77169 05/05/2019 [facility] Complex cystometrogram (ie, calibrated e lectronic equipment); with voiding pressure studies (ie, bladder voiding pressure), any technique 19576 05/05/2019 [facility] Electromyography studies (EMG) of anal o r urethral sphincter, other than needle, any technique 34211 05/05/2019 [facility] Right hemicolectomy [id number] 10/14/1989 [facility] , MIKAEL Bianchi,[facility] Colonoscopy [id number] [facility], MIKAEL Bianchi,[facility] Assessment and Plan No Data Provided for This Section Plan of Care Plan of Care Date Source Medication Use 02/09/2014 Routine 02/18/2014 [facility] Social History Social History Date Source Social History TypeResponse Smoking Status Former smoker; Lives with someone who smokes; Cigarette Smoking Last 365 Days No; Reg Smoking Cessation Counseling No entered on: 08/04/19 08/04/2019 [facility] Social History TypeResponse Smoking Status Former smoker; Lives with someone who smokes; Cigarette Smoking Last 365 Days No; Reg Smoking Cessation Counseling No entered on: 08/04/19 08/04/2019 [facility] Social History TypeResponse Smoking Status Former smoker; Lives with someone who smokes; Cigarette Smoking Last 365 Days No; Reg Smoking Cessation Counseling No entered on: 05/05/19 05/05/2019 [facility] Social History TypeResponse Smoking Status Former smoker; Lives with someone who smokes; Cigarette Smoking Last 365 Days No; Reg Smoking Cessation Counseling No 12/03/2016 [facility] Social History TypeResponse Smoking Status Former smoker; [...] Oct 03, 2016 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 Oct 03, 2016 10/03/2016 Deven Chand Former Smoker (V15.82); (Active) Marital History - (Active) Occupation: Retired (Active) 02/18/2014 [facility] Family History Value Date S ource Maternal history of Breast Cancer (V16.3 ); (Active) Sororal history of Pulmonary Fibrosis (Active) Sororal history of Lung Cancer (V16.1); (Active) Fraternal history of Esophageal Cancer (V16.0); (Active) 02/18/2014 [facility] Maternal history of Breast Cancer (V16.3 ); (Active) Sororal history of Pulmonary Fibrosis (Active) Sororal history of Lung Cancer (V16.1); (Active) Fraternal history of Esophageal Cancer (V16.0); (Active) 02/05/2014 [facility] Maternal history of Breast Cancer (V16.3 ); (Active) Sororal history of Pulmonary Fibrosis (Active) Sororal history of Lung Cancer (V16.1); (Active) Fraternal history of Esophageal Cancer (V16.0); (Active) 12/11/2013 [facility] Maternal history of Breast Cancer (V16.3 ); (Active) Sororal history of Pulmonary Fibrosis (Active) Sororal history of Lung Cancer (V16.1); (Active) Fraternal history of Esophageal Cancer (V16.0); (Active) 10/12/2013 [facility] Maternal history of Breast Cancer (V16.3 ); (Active) Sororal history of Pulmonary Fibrosis (Active) Sororal history of Lung Cancer (V16.1); (Active) Fraternal history of Esophageal Cancer (V16.0); (Active) 09/09/2013 [facility] Maternal history of Breast Cancer (V16.3 ); (Active) Sororal history of Pulmonary Fibrosis (Active) Sororal history of Lung Cancer (V16.1); (Active) Fraternal history of Esophageal Cancer (V16.0); (Active) 08/13/2013 [facility] Maternal history of Breast Cancer (V16.3 ); (Active) Sororal history of Pulmonary Fibrosis (Active) Sororal history of Lung Cancer (V16.1); (Active) Fraternal history of Esophageal Cancer (V16.0); (Active) 07/20/2013 [facility] Advance Directives Order Name Results Value Date Source Advance Directives Advance Dir ectives No Advance Directives available. 02/18/2014 [facility] Advance Directives Advance Dir ectives No Advance Directives available. 02/05/2014 [facility] Advance Directives Advance Dir ectives No Advance Directives available. 12/11/2013 [facility] Advance Directives Advance Dir ectives No Advance Directives available. 10/12/2013 [facility] Advance Directives Advance Dir ectives No Advance Directives available. 09/09/2013 [facility] Advance Directives Advance Dir ectives No Advance Directives available. 08/13/2013 [facility] Advance Directives Advance Dir ectives No Advance Directives available. 07/20/2013 [facility] Advance Directives Advance Dir ectives No Advance Directives available. 07/17/2013 [facility] Advance Directives Advance Dir ectives No Advance Directives available. 06/13/2013 [facility] Functional Status No Data Provided for This Section
--- NOTE | 2020-02-23 20:12 | NUR ---
ORTHOPEDIC CONSULTATION 80 year old female presents to the ED after a mechanical fall with left hip pain. Denies pain in any other extremity. Denies numbness, paresthesias or loss of distal motor function. Unable to ambulate PMdHx: HTN, HLD, DM, Bladder Prolapse, Pneumonia, Colon Cancer SurgHx: Hysterectomy, Colon Cancer Surgery, Knee Arthroscopy, Left & Right Total Knee Arthroplasty Hemorrhoid Surgery, Allergies: Gold, Bacitracin, Iodine, Latex, Levofloxacin FamHx: Non-contributory SocHx: Neg Tob, EtOH, Drugs VS T 98.1 HR 76 RR 16 BP 138/72 O2 100% Gen: In pain, NAD, AAOx3 Left Lower Extremity No open lesions or sores, shortened, flexed, externally rotated Motor: + EHL, FHL, TA, G/S Sensation grossly intact Pulses + DP, Post tib Compartments soft Negative calf tenderness Xrays: Displaced Left Intertrochanteric Hip Fracture 80 year old female with left intertrochanteric hip fracture Plan for OR tomorrow for hip IMN Analgesics DVT Prophylaxis Bedrest NPO except meds after midnight IVF while NPO Luzmaria Dash, DO [facility]
[2020-02-23 20:47] LABS: COLOR,URINE YELLOW (YELLOW)
[2020-02-23 20:48] LABS: BILIRUBIN,URINE NEGATIVE (NEGATIVE); CLARITY,URINE SL CLOUDY (CLEAR); KETONES,URINE TRACE (NEGATIVE); LEUKOCYTE ESTERASE ,URINE TRACE (NEGATIVE); NITRITE,URINE NEGATIVE (NEGATIVE); PROTEIN,URINE DIPSTICK NEGATIVE (NEGATIVE); URINE UROBILINOGEN 0.2 mg/dL (0.2 - 1)
[2020-02-23 21:00] LABS: BACTERIA,URINE MODERATE /HPF; EPITHELIAL CELLS,URINE MODERATE /LPF; RENAL EPITHELIAL CELLS,URINE RARE; WBC,URINE (MAN) 0-5 /HPF (0-5)
[2020-02-23 21:18] VITALS: BP 142/61
[2020-02-24] VITALS (8 sets, daily range): BP systolic 105–172; BP diastolic 56–77
[2020-02-24] MEDS: SODIUM CHLORIDE 0.9% 1000ML 1,000 ML IV SCH (03:45)
[2020-02-24 05:29] LABS: BASOPHILS % 0.4 % (0.0-1.0); EOSINOPHILS % 0.3 % (0.0-6.0); HEMATOCRIT 40.5 % (34.2-44.1); HEMOGLOBIN 12.7 g/dL (12.0-16.0); LYMPHOCYTES # (AUTO) 1.1 (1.0-3.2); LYMPHOCYTES % 13.5 % (18.0-39.1); MEAN CORPUSCULAR HEMOGLOBIN 29.2 pg (28-32); MEAN CORPUSCULAR HGB CONC 31.4 g/dL (31-35); MEAN CORPUSCULAR VOLUME 93.1 fL (81-99); MONOCYTES % 11.9 % (4.4-11.3); NEUTROPHILS # (AUTO) 5.9 (2.1-6.9); NEUTROPHILS % 73.6 % (38.7-80.0); PLATELET COUNT 179 x10e3/uL (140-360); RED BLOOD COUNT 4.35 x10e6/uL (3.6-5.1); RED CELL DISTRIBUTION WIDTH 15.6 % (11.7-14.4)
[2020-02-24 06:05] LABS: ALANINE AMINOTRANSFERASE 13 IU/L (0-55); ALBUMIN 3.3 g/dL (3.5-5.0); ALBUMIN/GLOBULIN RATIO 1.2 (0.8-2.0); ALKALINE PHOSPHATASE 29 IU/L (40-150); ANION GAP 12.6 mmol/L (8-16); BLOOD UREA NITROGEN 10 mg/dL (7-26); BUN/CREATININE RATIO 14 (6-25); CALCIUM 8.3 mg/dL (8.4-10.2); CARBON DIOXIDE 26 mmol/L (22-29); CHLORIDE 103 mmol/L (98-107); CREATININE, SERUM 0.71 mg/dL (0.57-1.11); EST GLOMERULAR FILTRATION RATE > 60 ML/MIN (60-); GLUCOSE 123 mg/dL (74-118); POTASSIUM 3.6 mmol/L (3.5-5.1); SODIUM 138 mmol/L (136-145)
--- NOTE | 2020-02-24 07:00 | NUR ---
Received bedside shift report from off going nurse. Patient in richard condition, no s/s of distress noted. Telemetry applied and working. IV assessed asymptomatic and patient, Fluids running NS at 100ml/hr. Transparent dressing C/D/I. Bed in lowest position and locked. Call light within reach.
--- NOTE | 2020-02-24 07:53 | NUR ---
Patient went to surgery at 0753. Patient in stable condition, no s/s of distress noted. Telemetry applied and working. IV assessed asymptomatic and patient, Fluids running NSD at 100ml/hr. Transparent dressing C/D/I. Bed in lowest position and locked. Call light within reach.
[2020-02-24] MEDS ORDERED: BUPIVACAINE HCL 0.5% INJ 30 ML VIAL INJ ONE (08:31)
[2020-02-24] MEDS ORDERED: BACITRACIN 50,000 UNIT VIAL ONE (08:31)
--- NOTE | 2020-02-24 09:22 | Diagnostic Imaging Report ---
Exam: Left hip and femur 2 views History: Hip fracture, fall Comparison: None. Findings: Comminuted intertrochanteric femur fracture with varus deformity. Fracture lines including the intertrochanteric region, lesser trochanter, and greater trochanter. No distal femur fracture. Intact total knee arthroplasty without complication. Impression: Comminuted intertrochanteric femur fracture Intact left total knee arthroplasty Signed by: Dr. Bud Mora M.D. on 02/24/2020 9:14 AM
--- NOTE | 2020-02-24 09:45 | NUR ---
Pt out of room and no family at bedside. A card was left at the bedside to indicate a missed visit from a member of the Spiritual Care team and to inform the pt and family of the availability of a [facility] 24 hours a day/7 days a week. A product applications scientist will follow up as able. SUPRIYA BACA [facility] Spiritual [facility] Department O: [phone]
--- NOTE | 2020-02-24 10:37 | NUR ---
OPERATIVE NOTE - ORTHOPEDICS ORTHOPEDIC OPERATIVE NOTE PREOPERATIVE DIAGNOSIS: Left Hip Intertrochanteric hip fracture. POSTOPERATIVE DIAGNOSIS: Left Hip Intertrochanteric hip fracture. OPERATION PERFORMED: Left Hip Intramedullary Nailing with Flouroscopic Interpretation ESTIMATED BLOOD LOSS: Approximately 100 cc. DRAINS: None. ANESTHESIA GIVEN: General COMPLICATIONS: None. IMPLANTS: [place] Gamma 3 system Trochanteric Nail Kit 10 x 380 mm x 125 degree, 10.5 x 100 mm Lag Screw, 5 x 45 mm & 5 X 60 mm Locking Fully Threaded Screw INDICATIONS FOR PROCEDURE: The patient is a 80-year-old female, who sustained a Left intertrochanteric hip fracture after a fall. She was admitted for a preoperative medical clearance and to be taken to the operating room for an intramedullary nailing of Left hip fracture. Consent is signed on the chart. All risks and benefits regarding the procedure were explained: Risks of , infection, nerve or blood vessel injury or bleeding, need for blood transfusion, blood clots, failure to heal, need for further surgery were all explained and consent was signed. DESCRIPTION OF OPERATIVE PROCEDURE: The patient was given Ancef 2 gram intravenously in the holding area. She with then taken to the operating room where general anesthetic was placed by the anesthesia service on the hospital bed.She was then transferred over to the fracture table in the supine position where a well-padded post was positioned. The Right lower extremity with a SCD wa s placed into the thigh/leg support with foam padding over all bony prominences. The Left lower extremity had abundant padding placed around the foot and ankle region and was then placed in the foot and ankle support. Next, the Left hip was visualized under AP and lateral fluoroscopic views. The femoral head and neck were well-visualized in both planes at this time. Next, the Left hip was prepped and draped in the usual sterile fashion utilizing Alcohol then Chloroprep followed by toweling out, followed by drying, followed by placement of a shower curtain. Next, a guidepin was placed over the hip and an AP fluoroscopic view taken to demarcate the height of the greater trochanter and a lateral to demarcate the direction of the femoral shaft. Next, the proposed skin incision of approximately 6 cm in length was marked on the skin. The skin incision was then made with a #10 blade, going down through the skin and subcutaneous tissue. The IT-band and hip abductors were split to the greater trochanter. A guide pin was inserted in adequate position which was confirmed on AP and lateral imaging. An opening reamer was placed over the g uide wire and pushed down to the lesser trochanter. Next a long guide wire was placed distally towards the total knee implant and subsequent reaming was performed. The above mentioned nail was introduced into the canal. Next a guide wire was placed in preparation for the lag screw. The wire was visualized in proper AP and Lateral position. The guidewire was measured and the neck and head were reamed over the guidewire. The above mentioned lag Screw was placed in adequate position. The set screw was then placed. The distal screws were then focused on. Through perfect [place] technique the distal screws was drilled and the above mentioned screws were introduced to lock the nail distally. The guides were then removed, final imaging was obtained demonstrating the hardware in adequate position. The incisions were closed deep with vicryl and monocryl on the skin. The incisions were cleaned and dressed with Aquacel. The patient was then gently transferred back to the [facility] bed and transferred to recovery without difficulty. Luzmaria Dash DO
--- NOTE | 2020-02-24 10:38 | Diagnostic Imaging Report ---
EXAMINATION: CHEST SINGLE (NOT PORTABLE) INDICATION: Trauma COMPARISON: Chest radiograph 01/05/2019 FINDINGS: LINES/TUBES:None LUNGS:The lungs are well-inflated. No focal consolidation or pulmonary edema. PLEURA:No pleural effusion or pneumothorax. MEDIASTINUM:The cardiomediastinal silhouette appears normal in size and shape. Atherosclerotic calcifications of the thoracic aorta. BONES/SOFT TISSUES:No acute osseous injury. Status post cholecystectomy. ABDOMEN:No free air under the diaphragm. IMPRESSION: No focal pneumonia or pulmonary edema. No radiographic evidence of acute traumatic injury to the thorax. Signed by: Jr Hirsch MD on 02/24/2020 10:34 AM
[2020-02-24] MEDS ORDERED: FENTANYL CITRATE/PF 100MCG/2 ML INJ ONE ×2 (10:59→19:00)
--- NOTE | 2020-02-24 11:34 | NUR ---
Received patient from the OR @ [id number]. Patient in stable condition, no s/s of distress noted. No pain voice. Telemetry applied and working. IV site asymptomatic and patent, IV fluids running. Bed low and locked. Call light within reach.
--- NOTE | 2020-02-24 12:18 | NUR ---
OPERATIVE NOTE ADDENDUM- ORTHOPEDICS ORTHOPEDIC OPERATIVE NOTE PREOPERATIVE DIAGNOSIS: Left Hip Intertrochanteric hip fracture. POSTOPERATIVE DIAGNOSIS: Left Hip Intertrochanteric hip fracture. OPERATION PERFORMED: Left Hip Intramedullary Nailing with Flouroscopic Interpretation ESTIMATED BLOOD LOSS: Approximately 100 cc. DIRECTOR OF PRODUCT DEVELOPMENT: SEAN Thomason DRAINS: None. ANESTHESIA GIVEN: General COMPLICATIONS: None. IMPLANTS: [place] Gamma 3 system Trochanteric Nail Kit 10 x 380 mm x 125 degree, 10.5 x 100 mm Lag Screw, 5 x 45 mm & 5 X 60 mm Locking Fully Threaded Screw INDICATIONS FOR PROCEDURE: The patient is a 80-year-old female, who sustained a Left intertrochanteric hip fracture after a fall. She was admitted for a preoperative medical clearance and to be taken to the operating room for an intramedullary nailing of Left hip fracture. Consent is signed on the chart. All risks and benefits regarding the procedure were explained: Risks of , infection, nerve or blood vessel injury or bleeding, need for blood transfusion, blood clots, failure to heal, need for further surgery were all explained and consent was signed. DESCRIPTION OF OPERATIVE PROCEDURE: The patient was given Ancef 2 gram intravenously in the holding area. She with then taken to the operating room where general anesthetic was placed by the anesthesia service on the hospital bed.She was then transferred over to the fracture table in the supine position where a well-padded post was positioned. The Right lower extremity with a SCD wa s placed into the thigh/leg support with foam padding over all bony prominences. The Left lower extremity had abundant padding placed around the foot and ankle region and was then placed in the foot and ankle support. Next, the Left hip was visualized under AP and lateral fluoroscopic views. The femoral head and neck were well-visualized in both planes at this time. Next, the Left hip was prepped and draped in the usual sterile fashion utilizing Alcohol then Chloroprep followed by toweling out, followed by drying, followed by placement of a shower curtain. Next, a guidepin was placed over the hip and an AP fluoroscopic view taken to demarcate the height of the greater trochanter and a lateral to demarcate the direction of the femoral shaft. Next, the proposed skin incision of approximately 6 cm in length was marked on the skin. The skin incision was then made with a #10 blade, going down through the skin and subcutaneous tissue. The IT-band and hip abductors were split to the greater trochanter. A guide pin was inserted in adequate position which was confirmed on AP and lateral imaging. An opening reamer was placed over the g uide wire and pushed down to the lesser trochanter. Next a long guide wire was placed distally towards the total knee implant and subsequent reaming was performed. The above mentioned nail was introduced into the canal. Next a guide wire was placed in preparation for the lag screw. The wire was visualized in proper AP and Lateral position. The guidewire was measured and the neck and head were reamed over the guidewire. The above mentioned lag Screw was placed in adequate position. The set screw was then placed. The distal screws were then focused on. Through perfect [place] technique the distal screws was drilled and the above mentioned screws were introduced to lock the nail distally. The guides were then removed, final imaging was obtained demonstrating the hardware in adequate position. The incisions were closed deep with vicryl and monocryl on the skin. The incisions were cleaned and dressed with Aquacel. The patient was then gently transferred back to the [facility] bed and transferred to recovery without difficulty. Luzmaria Dash DO
[2020-02-24] MEDS ORDERED: GUAIFENESIN 600 MG TAB PO PRN (14:00)
[2020-02-24 14:12] LABS: BASOPHILS % 0.2 % (0.0-1.0); HEMATOCRIT 42.4 % (34.2-44.1); HEMOGLOBIN 13.2 g/dL (12.0-16.0); LYMPHOCYTES # (AUTO) 0.8 (1.0-3.2); LYMPHOCYTES % 4.9 % (18.0-39.1); MEAN CORPUSCULAR HEMOGLOBIN 29.7 pg (28-32); MEAN CORPUSCULAR HGB CONC 31.1 g/dL (31-35); MEAN CORPUSCULAR VOLUME 95.3 fL (81-99); MONOCYTES # (AUTO) 1.3 (0.2-0.8); MONOCYTES % 8.2 % (4.4-11.3); NEUTROPHILS % 86.3 % (38.7-80.0); PLATELET COUNT 166 x10e3/uL (140-360); RED BLOOD COUNT 4.45 x10e6/uL (3.6-5.1); RED CELL DISTRIBUTION WIDTH 15.6 % (11.7-14.4)
[2020-02-24 14:30] LABS: ALANINE AMINOTRANSFERASE 15 IU/L (0-55); ALBUMIN 3.6 g/dL (3.5-5.0); ALBUMIN/GLOBULIN RATIO 1.2 (0.8-2.0); ALKALINE PHOSPHATASE 30 IU/L (40-150); ANION GAP 14.8 mmol/L (8-16); BLOOD UREA NITROGEN 9 mg/dL (7-26); BUN/CREATININE RATIO 12 (6-25); CALCIUM 8.2 mg/dL (8.4-10.2); CARBON DIOXIDE 25 mmol/L (22-29); CHLORIDE 102 mmol/L (98-107); CREATININE, SERUM 0.73 mg/dL (0.57-1.11); EST GLOMERULAR FILTRATION RATE > 60 ML/MIN (60-); GLUCOSE 139 mg/dL (74-118); POTASSIUM 3.8 mmol/L (3.5-5.1); SODIUM 138 mmol/L (136-145)
[2020-02-24] MEDS: CEFAZOLIN SOD 1 GM/NS 50ML 50 ML IV SCH ×2 (15:01→21:57)
[2020-02-24] MEDS: MORPHINE SULFATE INJ 4 MG/ML INJ 1ML IV PRN ×2 (15:07→21:57)
[2020-02-24] MEDS ORDERED: SODIUM CHLORIDE 0.9% 1000ML 0 ML ONE (15:17)
--- NOTE | 2020-02-24 16:58 | NUR ---
Paged d/t the WBC-16.17, the WBC increased from this morning (7.95). Awaiting a return call.
[2020-02-24] MEDS: POLYETHYLENE GLYCOL 3350 17 GM PACK PO SCH (17:09)
[2020-02-24] MEDS: CARVEDILOL 3.125 MG TAB PO SCH (17:09)
[2020-02-24] MEDS: METFORMIN HCL 500 MG TAB PO SCH (17:09)
[2020-02-24] MEDS: FAMOTIDINE 20 MG TAB PO SCH (17:11)
[2020-02-24] MEDS ORDERED: LIDOCAINE HCL 2% LOCAL INJ 5 ML SDV VIAL INJ ONE (18:26)
[2020-02-24] MEDS ORDERED: SEVOFLURANE INHAL SOLN 250 ML PEN BTL ONE (18:26)
[2020-02-24] MEDS ORDERED: PROPOFOL IV EMULSION 10 MG/ML 20 ML VIAL ONE (18:26)
[2020-02-24] MEDS ORDERED: ONDANSETRON HCL INJ 2MG/ML 2ML 2 MG/ML VIAL ONE (18:26)
[2020-02-24] MEDS ORDERED: NEOSTIGMINE 1 MG/ML 10ML VIAL ONE (18:26)
[2020-02-24] MEDS ORDERED: DEXAMETHASONE SOD PHOS INJ 4 MG/ML VIAL ONE (18:26)
[2020-02-24] MEDS ORDERED: CEFAZOLIN SOD 1 GM VIAL ONE (18:26)
[2020-02-24] MEDS ORDERED: GLYCOPYRROLATE INJ 0.2 MG/ML VIAL ONE (18:26)
--- NOTE | 2020-02-24 19:10 | NUR ---
Patient in stable condition, no s/s of distress noted. Telemetry applied and working. IV assessed asymptomatic and patient, Transparent dressing C/D/I. Dressing to the left hip C/D/I. Bed in lowest position and locked. Call light within reach.
[2020-02-24] MEDS: ENOXAPARIN SOD INJ 40 MG/0.4 ML SYR SC SCH (20:20)
--- NOTE | 2020-02-24 21:35 | History and Physical ---
ADDENDUM: The patient is now diagnosed with possible UTI. We are awaiting for her urine culture. MD TAWANA Kaur/[place] /[id number]
[2020-02-24] MEDS: ATORVASTATIN 10 MG TAB PO SCH (21:57)
--- NOTE | 2020-02-24 22:06 | History and Physical ---
HISTORY OF PRESENT ILLNESS: An 80-year-old female with past medical history positive for hypertension and hypothyroidism she was found to have left hip fracture. She underwent a hip fracture repair. REVIEW OF SYSTEMS: CARDIOVASCULAR: No chest pain or palpitations. RESPIRATORY: No shortness of breath. No cough. GASTROINTESTINAL: No nausea or vomiting. No diarrhea. GENITOURINARY: No frequency or dysuria. ALLERGIES: ALLERGIC TO GOLD, BACITRACIN, IODINE, LATEX, AND LEVOFLOXACIN. SOCIAL HISTORY: She does not smoke. She does not drink. PAST MEDICAL HISTORY: Mainly positive for hypothyroidism, hypertension. She claims that she has diabetes. PHYSICAL EXAMINATION: HEART: Showed regular rhythm. Normal S1, S2 sound. LUNGS: Clear bilaterally. ABDOMEN: Soft. EXTREMITIES: Show an incision on the left hip. 1+ bilateral pedal edema. IMAGING: Chest x-ray showed no focal pneumonia or pulmonary edema. No radiographic evidence of acute traumatic injury into the thorax. The hip x-ray showed a comminuted intertrochanteric femur fracture, intact left total knee arthroplasty. IMPRESSION: 1. Closed left hip fracture. 2. Hypertension. 3. Diabetes. 4. Hypothyroidism. 5. Possible urinary tract infection. PLAN OF TREATMENT: The patient will continue current antibiotic regimen. Continue pain control. Continue weightbearing as tolerated on left hip. Continue with she taking Ancef 1 g IV every 8 hours x3. Going to discontinue the fluids. Continue alprazolam 0.5 mg twice a day as needed for anxiety. Continue Lipitor 20 mg at bedtime. Continue beta-carotene one tablet daily. Continue bupropion 50 mg daily. Continue Coreg twice a day. We are going to clarify the dose. Continue vitamin B12 of 1000 mcg p.o. daily. Continue Pepcid 20 mg twice a day. Continue folic acid 1 mg daily, guaifenesin 600 mg twice a day as needed for cough. Continue Rocky 5/325 mg tablet every 4 hours as needed for pain or two tablets of the [place] every 4 hours as needed for nspjuovc-jv-wqqrie pain. Continue levothyroxine. The dose is going to be clarified by nursing staff. Continue Lovenox 40 mg subcu daily for DVT prophylaxis. She is taking methotrexate 5 mg once a week. She is taking morphine 4 mg IV every 6 hours as needed for severe pain. Continue omega-3 fatty acid 1000 mg daily, Zofran 4 mg IV every 4 hours as needed for nausea and vomiting, Protonix 40 mg daily, MiraLAX 17 g twice a day, Senokot one tablet daily, calcium carbonate, vitamin 3 one tablet daily, loratadine one tablet daily, multivitamin with iron once a day. We are going to discontinue Protonix because the patient is already taking Pepcid. We are going to discontinue Senokot because the patient is already taking MiraLAX. The patient is going to start physical and occupational therapy. We are going to refer the patient to an inpatient rehab facility if okay with the orthopedic surgeon. Diet, diabetic diet. MD TAWANA Kaur/[place] /[id number]
[2020-02-25] VITALS (7 sets, daily range): BP systolic 94–120; BP diastolic 50–59
[2020-02-25 05:19] LABS: BASOPHILS % 0.2 % (0.0-1.0); EOSINOPHILS % 0.4 % (0.0-6.0); HEMATOCRIT 35.3 % (34.2-44.1); HEMOGLOBIN 11.1 g/dL (12.0-16.0); LYMPHOCYTES # (AUTO) 1.3 (1.0-3.2); LYMPHOCYTES % 14.5 % (18.0-39.1); MEAN CORPUSCULAR HEMOGLOBIN 29.4 pg (28-32); MEAN CORPUSCULAR HGB CONC 31.4 g/dL (31-35); MEAN CORPUSCULAR VOLUME 93.6 fL (81-99); MONOCYTES # (AUTO) 1.7 (0.2-0.8); MONOCYTES % 18.1 % (4.4-11.3); NEUTROPHILS # (AUTO) 6.1 (2.1-6.9); NEUTROPHILS % 66.5 % (38.7-80.0); PLATELET COUNT 152 x10e3/uL (140-360); RED BLOOD COUNT 3.77 x10e6/uL (3.6-5.1); RED CELL DISTRIBUTION WIDTH 15.9 % (11.7-14.4)
[2020-02-25] MEDS: CEFAZOLIN SOD 1 GM/NS 50ML 50 ML IV SCH (05:21)
[2020-02-25] MEDS: LEVOTHYROXINE SODIUM 88 MCG TAB PO SCH (05:21)
[2020-02-25] MEDS: HYDROCODONE/APAP 5MG-325MG TAB PO PRN ×2 (05:22→07:57)
[2020-02-25 05:47] LABS: ALANINE AMINOTRANSFERASE 10 IU/L (0-55); ALBUMIN/GLOBULIN RATIO 1.2 (0.8-2.0); ALKALINE PHOSPHATASE 25 IU/L (40-150); ANION GAP 12.1 mmol/L (8-16); BLOOD UREA NITROGEN 11 mg/dL (7-26); BUN/CREATININE RATIO 16 (6-25); CALCIUM 8.4 mg/dL (8.4-10.2); CARBON DIOXIDE 24 mmol/L (22-29); CHLORIDE 102 mmol/L (98-107); CREATININE, SERUM 0.69 mg/dL (0.57-1.11); EST GLOMERULAR FILTRATION RATE > 60 ML/MIN (60-); GLUCOSE 124 mg/dL (74-118); POTASSIUM 4.1 mmol/L (3.5-5.1); SODIUM 134 mmol/L (136-145)
--- NOTE | 2020-02-25 07:00 | NUR ---
Received bedside shift report from off going nurse. Patient in richard condition, no s/s of distress noted. Telemetry applied and working. IV assessed asymptomatic and patient. Transparent dressing C/D/I. Bed in lowest position and locked. Call light within reach.
[2020-02-25] MEDS: CARVEDILOL 3.125 MG TAB PO SCH ×2 (07:55→17:03)
[2020-02-25] MEDS: LORATADINE 10 MG TAB PO SCH (07:55)
[2020-02-25] MEDS: METFORMIN HCL 500 MG TAB PO SCH ×2 (07:55→17:03)
[2020-02-25] MEDS: FOLIC ACID 1 MG TAB PO SCH (07:55)
[2020-02-25] MEDS: FAMOTIDINE 20 MG TAB PO SCH ×2 (07:55→17:03)
[2020-02-25] MEDS: CYANOCOBALAMIN 1,000 MCG TAB PO SCH (07:56)
[2020-02-25] MEDS: OYST-CAL-D 500MG TABLET PO SCH (07:56)
[2020-02-25] MEDS: OCUVITE PRESERVISION TABLET PO SCH (07:56)
[2020-02-25] MEDS: POLYETHYLENE GLYCOL 3350 17 GM PACK PO SCH ×2 (07:56→17:04)
[2020-02-25] MEDS: IRON-VITAMIN-MINERAL CAPSULE PO SCH (07:56)
[2020-02-25] MEDS: BUPROPION HCL 100 MG TAB PO SCH (07:57)
[2020-02-25 08:37] LABS: ANISOCYTOSIS SLIGHT; LYMPHOCYTES % (MANUAL) 16 % (19-48); MONOCYTES % (MANUAL) 16 % (3.4-9.0); NEUTROPHILS % (MANUAL) 68 % (40-74); PLATELET ESTIMATE ADEQUATE; PLATELET MORPHOLOGY COMMENT NORMAL; RBC MORPHOLOGY COMMENT NORMAL
[2020-02-25] MEDS ORDERED: PANTOPRAZOLE SOD 40 MG TABEC PO SCH (09:00)
[2020-02-25] MEDS ORDERED: SENNOSIDES 8.6 MG TAB PO SCH (09:00)
[2020-02-25] MEDS ORDERED: OMEGA 3 POLYUNSAT FATTY ACIDS 1000 MG SOFTGEL PO SCH (09:00)
--- NOTE | 2020-02-25 10:44 | Progress Note ---
DATE: Internal Medicine Progress Note SUBJECTIVE: The patient underwent elective surgery, doing well. PHYSICAL EXAMINATION: VITAL SIGNS: Blood pressure 112/53, temperature 98.1, heart rate 105 per minute, respiratory rate 18 per minute, oxygen saturation 96%. HEART: Showed regular rhythm. Normal S1, S2 sound. LUNGS: Clear bilaterally. ABDOMEN: Soft. EXTREMITIES: Showed incision on the hip. LABORATORY DATA: CBC; white blood count 9.16, hemoglobin 9.1, hematocrit 35.3, platelet count 152,000. On the BMP; sodium 134, potassium 4.1, chloride 102, CO2 24, BUN 11, creatinine 0.69, GFR is more than 60, glucose 124, calcium 8.4, total bilirubin 1.0, AST 16, ALT 10, alkaline phosphatase 25, total protein 5.6, albumin 3.0, globulin 2.6. Coronavirus tests have been done is negative. PLAN OF TREATMENT: We are going to continue physical and occupational therapy. She is able to put some weight on the left hip, which she had surgery according to Dr. Dash, the orthopedic surgeon. Awaiting also on the evaluation for [facility] for a possible transfer. In the meantime, continue alprazolam 0.5 mg twice a day as needed for anxiety, Lipitor 20 mg at bedtime, beta-carotene one tablet daily, bupropion 50 mg daily, calcium carbonate 500 mg daily, carvedilol 6.25 mg twice a day. She is taking vitamin B12 of 1000 mcg daily, Pepcid 20 mg twice a day, folic acid 1 mg daily, guaifenesin 600 mg daily as needed for cough, [place] 5/325 mg tab q.4 hours as needed for severe pain or one or two tablets every 4-6 hours as needed for pain. one tablet daily, levothyroxine 88 mcg daily, Claritin 10 mg daily, Lovenox 40 mg two times daily for DVT prophylaxis, metformin 1000 mg twice a day, methotrexate 5 mg once a week on Mondays, morphine 4 mg IV q.6 hours as needed for severe pain only, which is -07/23. Continue omega-3 fatty acids 1000 mg daily, Zofran 4 mg IV as needed for nausea and vomiting, MiraLAX 17 g twice a day. We are going to change the omega-3 fatty acids to 2000 mg twice a day, which is right dose. She will be DNR. . MD TAWANA Kaur/[place] /[id number]
--- NOTE | 2020-02-25 12:56 | NUR ---
CALLED [facility] AND SPOKE WITH EMELYN ABOUT MISSING ID. THE DAUGHTER STATES GAVE TO SENIOR INTERACTIVE DEVELOPER BUT WAS NOT PRESENTED TO THE ED AND NOT GIVEN BACK TO HER EITHER. THEY WILL CALL BACK AFTER THEY CONTACT THE DRIVERS AND SEARCH THE TRUCK.
[2020-02-25] MEDS: ENOXAPARIN SOD INJ 40 MG/0.4 ML SYR SC SCH (17:04)
[2020-02-25] MEDS: ONDANSETRON HCL INJ 2MG/ML 2ML 2 MG/ML VIAL IV PRN (17:13)
--- NOTE | 2020-02-25 19:25 | NUR ---
Completed bedside shift report and rounding with oncoming night nurse. Patient in stable condition, no s/s of distress noted. No pain voiced. IV fluids running, IV site asymptomatic and patient. Transparent dressing C/D/I. Bed in lowest position and locked. Call light within reach.
[2020-02-25] MEDS: ATORVASTATIN 10 MG TAB PO SCH (21:10)
[2020-02-26] VITALS (9 sets, daily range): BP systolic 107–125; BP diastolic 50–66
[2020-02-26] MEDS: LEVOTHYROXINE SODIUM 88 MCG TAB PO SCH (05:09)
[2020-02-26 05:12] LABS: BASOPHILS % 0.3 % (0.0-1.0); EOSINOPHILS # (AUTO) 0.1 (0.0-0.4); EOSINOPHILS % 1.5 % (0.0-6.0); HEMATOCRIT 28.5 % (34.2-44.1); HEMOGLOBIN 9.2 g/dL (12.0-16.0); LYMPHOCYTES # (AUTO) 1.1 (1.0-3.2); LYMPHOCYTES % 11.6 % (18.0-39.1); MEAN CORPUSCULAR HEMOGLOBIN 30.2 pg (28-32); MEAN CORPUSCULAR HGB CONC 32.3 g/dL (31-35); MEAN CORPUSCULAR VOLUME 93.4 fL (81-99); MONOCYTES # (AUTO) 1.6 (0.2-0.8); MONOCYTES % 16.7 % (4.4-11.3); NEUTROPHILS # (AUTO) 6.7 (2.1-6.9); NEUTROPHILS % 69.6 % (38.7-80.0); PLATELET COUNT 137 x10e3/uL (140-360); RED BLOOD COUNT 3.05 x10e6/uL (3.6-5.1); RED CELL DISTRIBUTION WIDTH 15.9 % (11.7-14.4)
[2020-02-26 05:41] LABS: ALANINE AMINOTRANSFERASE 10 IU/L (0-55); ALBUMIN 2.7 g/dL (3.5-5.0); ALKALINE PHOSPHATASE 26 IU/L (40-150); ANION GAP 11.5 mmol/L (8-16); BLOOD UREA NITROGEN 17 mg/dL (7-26); BUN/CREATININE RATIO 24 (6-25); CALCIUM 8.9 mg/dL (8.4-10.2); CARBON DIOXIDE 26 mmol/L (22-29); CHLORIDE 99 mmol/L (98-107); CREATININE, SERUM 0.72 mg/dL (0.57-1.11); EST GLOMERULAR FILTRATION RATE > 60 ML/MIN (60-); GLUCOSE 129 mg/dL (74-118); POTASSIUM 4.5 mmol/L (3.5-5.1); SODIUM 132 mmol/L (136-145)
[2020-02-26 06:40] LABS: ANISOCYTOSIS SLIGHT; LYMPHOCYTES % (MANUAL) 12 % (19-48); MONOCYTES % (MANUAL) 13 % (3.4-9.0); NEUTROPHILS % (MANUAL) 75 % (40-74); PLATELET ESTIMATE SLIGHTLY DECREASED; PLATELET MORPHOLOGY COMMENT NORMAL; RBC MORPHOLOGY COMMENT NORMAL
[2020-02-26] MEDS: FAMOTIDINE 20 MG TAB PO SCH ×2 (08:26→17:00)
[2020-02-26] MEDS: CARVEDILOL 3.125 MG TAB PO SCH ×3 (08:26→21:10)
[2020-02-26] MEDS: LORATADINE 10 MG TAB PO SCH (08:26)
[2020-02-26] MEDS: METFORMIN HCL 500 MG TAB PO SCH ×2 (08:26→17:00)
[2020-02-26] MEDS: FOLIC ACID 1 MG TAB PO SCH (08:27)
[2020-02-26] MEDS: IRON-VITAMIN-MINERAL CAPSULE PO SCH (08:27)
[2020-02-26] MEDS: OMEGA 3 POLYUNSAT FATTY ACIDS 1000 MG SOFTGEL PO SCH ×2 (08:28→17:00)
[2020-02-26] MEDS: CYANOCOBALAMIN 1,000 MCG TAB PO SCH (08:29)
[2020-02-26] MEDS: BUPROPION HCL 100 MG TAB PO SCH (08:29)
[2020-02-26] MEDS: OYST-CAL-D 500MG TABLET PO SCH (08:29)
[2020-02-26] MEDS: POLYETHYLENE GLYCOL 3350 17 GM PACK PO SCH ×2 (08:29→17:00)
[2020-02-26] MEDS: OCUVITE PRESERVISION TABLET PO SCH (08:29)
--- NOTE | 2020-02-26 08:44 | NUR ---
02/25/2020 ORTHOPEDIC PROGRESS NOTE Patient seen & examined at bedside. Patient did not participate in PT yesterday because she was feeling too weak after surgery. No fevers or chills. Pain controlled. VS T 99.1 HR 105 RR 18 O2 96% Left Hip - Dressing clean, dry and intact Motor: + EHL, FHL, TA, G/S Sensation grossly intact Pulses + DP, Post tib Compartments soft Negative calf tenderness H/H 11.1/35.3 80 year old F s/p Left hip IMN POD #2 Analgesics DVT Prophylaxis PT WBAT Luzmaria Dash, DO [facility] [place]
--- NOTE | 2020-02-26 08:46 | NUR ---
ORTHOPEDIC PROGRESS NOTE Patient seen & examined at bedside. More alert and eating breakfast. Pain controlled. No fevers or chills. Feeling fatigued VS T 99.2 HR 101 RR 21 BP 120/56 O2 95% Left Hip - Dressing clean, dry and intact Motor: + EHL, FHL, TA, G/S Sensation grossly intact Pulses + DP, Post tib Compartments soft Negative calf tenderness H/H 9.2/28.5 80 year old F s/p Left hip IMN POD #2 Analgesics DVT Prophylaxis PT WBAT Luzmaria Dash, DO [facility] [place]
[2020-02-26] MEDS: ONDANSETRON HCL INJ 2MG/ML 2ML 2 MG/ML VIAL IV PRN (11:15)
[2020-02-26] MEDS: HYDROCODONE/APAP 5MG-325MG TAB PO PRN ×2 (11:15→21:14)
[2020-02-26] MEDS: CEFTRIAXONE SOD 1 GM/NS 50 ML 50 ML IV SCH (15:16)
--- NOTE | 2020-02-26 15:41 | NUR ---
SPOKE WITH ALEXANDER [phone] FROM [facility], STATES STILL PENDING AUTH, LEFT PACKET AT NURSES STATION AND HOUSE SUPER HAS MOT. LET ALEXANDER KNOW THAT MARY IS DIALYSIS RN FOR WEEKEND.
[2020-02-26] MEDS: ENOXAPARIN SOD INJ 40 MG/0.4 ML SYR SC SCH (17:00)
--- NOTE | 2020-02-26 18:04 | Progress Note ---
DATE: Internal Medicine Progress Note SUBJECTIVE: The patient is doing well. No significant complaint except for difficulty walking. PHYSICAL EXAMINATION: VITAL SIGNS: Blood pressure 107/51, temperature 98.3, heart rate 102 per minute, respiratory rate 18 per minute, ox saturation 97%. HEART: Showed regular rhythm. Normal S1, S2 sound. LUNGS: Clear bilaterally. ABDOMEN: Soft. EXTREMITIES: Show an incision on the left hip. LABORATORY DATA: The jovel virus test came back negative. On the CBC; white blood count is normal at 9.58, hemoglobin 9.2 is down from 13.6, hematocrit 28.5, platelet count 137,000 which is lower. On the BMP; sodium 132, which is lower than before, potassium 4.5, chloride 99, CO2 26, BUN is 17, creatinine 0.72, GFR 60, glucose 129, calcium 8.9, total bilirubin 1.0, AST 19, ALT 10, alkaline phosphatase 26, total protein 5.5, albumin 2.7, globulin 2.8. Urinalysis showed ketones and trace leukocytes, moderate bacteria. FINAL IMPRESSION: 1. Left hip fracture. 2. Acute anemia. 3. Hyponatremia. 4. Urinary tract infection. 5. Uncontrolled diabetes mellitus type 2. 6. Hypertension. PLAN OF TREATMENT: We are going to start Rocephin 1 g IV daily because of the UTI. The patient was started on the antibiotics before the urine culture was done, so therefore, most likely she does have a UTI. She does have symptoms of burning on urination also. Also, we are going to continue physical and occupational therapy. We are trying to refer the patient to an inpatient rehab facility. We are waiting on the insurance approval from [facility]. The reason for the transfer is the patient had a drop in hemoglobin. She had other medical condition like hyponatremia, hypertension, UTI. She is on IV antibiotic. She has difficulty walking. She will benefit from an inpatient rehab due to the fact, however, the patient was independent before and inpatient rehab hospitals are much more effective than acute nursing facilities in obtaining a quicker outcome, the patient after left hip fracture with having hip fractures. Other medications that we will continue are the following medications Xanax 0.5 mg twice a day as needed for anxiety, Lipitor 20 mg daily, bupropion 50 mg daily, calcium carbonate 500 mg daily, carvedilol 6.25 mg twice a day, vitamin B12 1000 mcg daily, Pepcid 20 mg twice a day, folic acid 1 mg daily, guaifenesin 600 mg daily as needed for cough, [place] 5/325 q.4 hours as needed for mild pain or 2 tablets with the same amount of [place] every 4 hours as needed for nmumwpuq-px-xluhya pain. Hemocyte Plus one tablet daily, levothyroxine 88 mcg daily, Claritin 10 mg daily, Lovenox 40 mg subcutaneously daily for DVT prophylaxis, metformin 1000 mg twice a day, methotrexate 5 mg once a week on Saturday, morphine 4 mg IV q.6 hours as needed for severe pain, [place] 3 fatty acids 2000 mg twice a day, Zofran 4 mg IV q.4 hours as needed for nausea and vomiting, MiraLAX 17 g twice a day. We are going to also order a CBC and a BMP for tomorrow to monitor especially the sodium and the hemoglobin, make sure there is not any in the hemoglobin or the sodium associated while waiting to see if we can get an approval from insurance to go to an inpatient rehab. Case was discussed with the patient and daughter at the bedside. Time spent around 35 minutes. MD TAWANA Kaur/[place] /[id number]
[2020-02-26] MEDS: ATORVASTATIN 10 MG TAB PO SCH (21:10)
[2020-02-27] VITALS (10 sets, daily range): BP systolic 108–128; BP diastolic 44–68
[2020-02-27 05:45] LABS: BASOPHILS % 0.3 % (0.0-1.0); EOSINOPHILS # (AUTO) 0.2 (0.0-0.4); EOSINOPHILS % 2.3 % (0.0-6.0); HEMATOCRIT 24.5 % (34.2-44.1); HEMOGLOBIN 7.7 g/dL (12.0-16.0); LYMPHOCYTES % 13.1 % (18.0-39.1); MEAN CORPUSCULAR HEMOGLOBIN 28.9 pg (28-32); MEAN CORPUSCULAR HGB CONC 31.4 g/dL (31-35); MEAN CORPUSCULAR VOLUME 92.1 fL (81-99); MONOCYTES # (AUTO) 1.4 (0.2-0.8); MONOCYTES % 19.2 % (4.4-11.3); NEUTROPHILS # (AUTO) 4.9 (2.1-6.9); NEUTROPHILS % 64.7 % (38.7-80.0); PLATELET COUNT 157 x10e3/uL (140-360); RED BLOOD COUNT 2.66 x10e6/uL (3.6-5.1); RED CELL DISTRIBUTION WIDTH 15.9 % (11.7-14.4)
[2020-02-27] MEDS: LEVOTHYROXINE SODIUM 88 MCG TAB PO SCH (05:52)
[2020-02-27 06:09] LABS: ALANINE AMINOTRANSFERASE 11 IU/L (0-55); ALBUMIN 2.4 g/dL (3.5-5.0); ALBUMIN/GLOBULIN RATIO 0.8 (0.8-2.0); ALKALINE PHOSPHATASE 29 IU/L (40-150); ANION GAP 11.6 mmol/L (8-16); BLOOD UREA NITROGEN 21 mg/dL (7-26); BUN/CREATININE RATIO 30 (6-25); CALCIUM 8.8 mg/dL (8.4-10.2); CARBON DIOXIDE 24 mmol/L (22-29); CHLORIDE 99 mmol/L (98-107); CREATININE, SERUM 0.71 mg/dL (0.57-1.11); EST GLOMERULAR FILTRATION RATE > 60 ML/MIN (60-); GLUCOSE 131 mg/dL (74-118); POTASSIUM 4.6 mmol/L (3.5-5.1); SODIUM 130 mmol/L (136-145)
[2020-02-27] MEDS: METFORMIN HCL 500 MG TAB PO SCH ×2 (08:31→16:15)
[2020-02-27] MEDS: LORATADINE 10 MG TAB PO SCH (08:31)
[2020-02-27] MEDS: FOLIC ACID 1 MG TAB PO SCH (08:31)
[2020-02-27] MEDS: CARVEDILOL 3.125 MG TAB PO SCH ×2 (08:31→21:51)
[2020-02-27] MEDS: IRON-VITAMIN-MINERAL CAPSULE PO SCH (08:31)
[2020-02-27] MEDS: FAMOTIDINE 20 MG TAB PO SCH ×2 (08:31→16:15)
[2020-02-27] MEDS: BUPROPION HCL 100 MG TAB PO SCH (08:32)
[2020-02-27] MEDS: OMEGA 3 POLYUNSAT FATTY ACIDS 1000 MG SOFTGEL PO SCH ×2 (08:32→16:15)
[2020-02-27] MEDS: CYANOCOBALAMIN 1,000 MCG TAB PO SCH (08:32)
[2020-02-27] MEDS: OCUVITE PRESERVISION TABLET PO SCH (08:32)
[2020-02-27] MEDS: OYST-CAL-D 500MG TABLET PO SCH (08:32)
[2020-02-27] MEDS: POLYETHYLENE GLYCOL 3350 17 GM PACK PO SCH ×2 (08:32→16:16)
--- NOTE | 2020-02-27 09:30 | NUR ---
UPDATED NURSE THAT AUTH IS STILL PENDING AT THIS TIME, FOR [facility]
[2020-02-27] MEDS: HYDROCODONE/APAP 5MG-325MG TAB PO PRN ×2 (11:44→19:33)
--- NOTE | 2020-02-27 14:51 | NUR ---
ORTHOPEDIC PROGRESS NOTE Patient seen & examined resting at bedside. Pain controlled. No fevers or chills VS 98.4 HR 59 RR 18 BP 122/44 O2 97% Left Hip Dressing clean, dry and intact Motor: + EHL, FHL,TA,G/S Sensation grossly intact Pulses + DP, Post tib Compartments soft Negative calf tenderness Hgb 7.7/24.5 80 yo F s/p Left Hip IMN POD#3 Analgesics DVT Prophylaxis PT WBAT Orthopedically stable for discharge Keep dressings on until follow up Follow up in office in 2 weeks. Luzmaria Dash, DO [facility] [place]
[2020-02-27] MEDS: CEFTRIAXONE SOD 1 GM/NS 50 ML 50 ML IV SCH (15:54)
[2020-02-27] MEDS: ENOXAPARIN SOD INJ 40 MG/0.4 ML SYR SC SCH (16:15)
--- NOTE | 2020-02-27 18:48 | Progress Note ---
DATE: Internal Medicine Progress Note. SUBJECTIVE: The patient had left hip fracture repair, we are waiting for the transfer to an inpatient rehab hospital, but [facility] medical management trainer deny that possibility so we are going to file an appeal on Saturday. They also denied a peer to peer on top of everything else. The patient is aware of that. PHYSICAL EXAMINATION: HEART: Regular rhythm. Normal S1, S2 sound. LUNGS: Clear bilaterally. ABDOMEN: Soft. EXTREMITIES: No edema. LABORATORY DATA: On the CBC, white blood count 7.50, hemoglobin 7.7, hematocrit 24.5, platelet count 157,000. On the BMP; sodium 130, potassium 4.6, chloride 99, CO2 24, BUN 21, creatinine 0.71, glucose 131, calcium 8.8, total bilirubin 0.7, AST 21, ALT 11, alkaline phosphatase 29, total protein 5.3, albumin 2.4, globulin 2.9. Coagulation showed PT 13.5, INR 0.97, PTT 27.6. John virus test is not detected, showed no evidence of coronary virus. IMPRESSION: 1. Left hip fracture, status post repair. 2. Hypertension. 3. Uncontrolled diabetes mellitus type 2. 4. UTI. PLAN OF TREATMENT: She will continue with ceftriaxone 1 g IV daily, alprazolam 0.5 mg twice a day as needed for anxiety, Lipitor 20 mg daily, beta-carotene one tablet daily, bupropion 50 mg daily, calcium carbonate 500 mg daily, Coreg 6.25 mg twice a day, vitamin B12 1000 mcg p.o. daily, Pepcid 20 mg twice a day, folic acid 1 mg daily, guaifenesin 600 mg daily as needed for cough, [place] 5/325 mg tablet q.4 hours as needed for cuqqcrbk-ln-obhxwf pain, hydrocodone 5/325 two tablets every 4 hours for iaqmzcxu-op-npmwxs pain, Hemocyte Plus one tablet daily, levothyroxine 88 mcg daily, Claritin 10 mg daily, Lovenox 40 mg subcutaneously daily for DVT prophylaxis. Continue metformin also 1000 mg twice a day, continue methotrexate 5 mg once a week on Mondays, morphine 4 mg IV q.6 hours as needed for severe pain, [place]-3 fatty acid 2000 mg twice a day, Zofran 4 mg IV q.4 hours as needed, MiraLAX 17 g twice a day. As I said [employer] H[employer] has denied the patient to go to an inpatient rehab, which will be the best choice for this patient hip fracture repair and has multiple medical conditions, also anemia and hyponatremia. We are going to file an appeal on Saturday to see if we can get approval to go to inpatient rehab, which will be the best choice for this patient. MD TAWANA Kaur/CAMILLE /[id number]
--- NOTE | 2020-02-27 19:38 | NUR ---
BSSR RECEIVED FROM YANCY LINN, PATIENT AWAKE ALERT, VERBALIZE PAIN LEVEL 9/10, LEFT LEG/LEFT HIP, LIGHT UPPER THIGH DRESSING INTACT, NO DRAINAGE NOTED, PATIENT SCD IN PLACE, PATIENT UP WITH PT TODAY PER TEMITOPE HAINES, PATIENT REQUESTING PRN PAIN MEDICATION AND REQUESTING TO BRUSH HER TEETH, PATIENT GIVEN PRN PAIN MEDICATION FOR SEVERE PAIN PO TOLERATED WELL, VITALS STABLE AFEBRILE, CALL LIGHT WITHIN REACH, GIVEN ASSISTANCE WITH BRUSHING TEETH/GUMS, PARTIAL TAKEN OUT PLACED IN DENTURE CUP AT BEDSIDE WITHIN REACH
[2020-02-27] MEDS: ATORVASTATIN 10 MG TAB PO SCH (21:51)
[2020-02-28] VITALS (12 sets, daily range): BP systolic 113–126; BP diastolic 47–63
[2020-02-28 05:13] LABS: HEMATOCRIT 23.2 % (34.2-44.1); HEMOGLOBIN 7.4 g/dL (12.0-16.0); RED BLOOD COUNT 2.52 x10e6/uL (3.6-5.1)
[2020-02-28 05:14] LABS: BASOPHILS % 0.3 % (0.0-1.0); EOSINOPHILS # (AUTO) 0.3 (0.0-0.4); EOSINOPHILS % 3.9 % (0.0-6.0); LYMPHOCYTES # (AUTO) 0.9 (1.0-3.2); MEAN CORPUSCULAR HEMOGLOBIN 29.4 pg (28-32); MEAN CORPUSCULAR HGB CONC 31.9 g/dL (31-35); MEAN CORPUSCULAR VOLUME 92.1 fL (81-99); MONOCYTES # (AUTO) 1.1 (0.2-0.8); MONOCYTES % 15.8 % (4.4-11.3); NEUTROPHILS # (AUTO) 4.7 (2.1-6.9); NEUTROPHILS % 66.6 % (38.7-80.0); PLATELET COUNT 200 x10e3/uL (140-360); RED CELL DISTRIBUTION WIDTH 16.1 % (11.7-14.4)
--- NOTE | 2020-02-28 06:21 | NUR ---
Spoke with [facility] liaison yesterday. No auth at this time. Notified pt nurse
[2020-02-28] MEDS: LEVOTHYROXINE SODIUM 88 MCG TAB PO SCH (06:54)
--- NOTE | 2020-02-28 06:55 | NUR ---
BSSR GIVEN TO YANCY LINN, PT SEEN AWAKE ALERT, LYING ON LEFT SIDE IN BED, REMAIN q2T, CALL LIGHT WITHIN REACH BED ALARM ACTIVATED
[2020-02-28] MEDS: FAMOTIDINE 20 MG TAB PO SCH ×2 (07:37→16:30)
[2020-02-28] MEDS: METFORMIN HCL 500 MG TAB PO SCH ×2 (07:37→17:39)
[2020-02-28] MEDS: OMEGA 3 POLYUNSAT FATTY ACIDS 1000 MG SOFTGEL PO SCH ×2 (08:08→17:39)
[2020-02-28] MEDS: LORATADINE 10 MG TAB PO SCH (08:08)
[2020-02-28] MEDS: FOLIC ACID 1 MG TAB PO SCH (08:08)
[2020-02-28] MEDS: OYST-CAL-D 500MG TABLET PO SCH (08:08)
[2020-02-28] MEDS: IRON-VITAMIN-MINERAL CAPSULE PO SCH (08:08)
[2020-02-28] MEDS: OCUVITE PRESERVISION TABLET PO SCH (08:08)
[2020-02-28] MEDS: BUPROPION HCL 100 MG TAB PO SCH (08:08)
[2020-02-28] MEDS: POLYETHYLENE GLYCOL 3350 17 GM PACK PO SCH ×2 (08:08→17:39)
[2020-02-28] MEDS: CYANOCOBALAMIN 1,000 MCG TAB PO SCH (08:08)
[2020-02-28] MEDS: CARVEDILOL 3.125 MG TAB PO SCH ×2 (08:08→19:57)
--- NOTE | 2020-02-28 13:57 | Progress Note ---
DATE: Internal Medicine Progress Note SUBJECTIVE: The patient is doing well. PHYSICAL EXAMINATION: HEART: Showed regular rhythm. Normal S1 and S2 sound. LUNGS: Clear bilateral. EXTREMITIES: Show no edema. VITAL SIGNS: Heart rate 90 per minute, respiratory rate 18 per minute, blood pressure 122/63, temperature 98 degrees. LABORATORY DATA: On the CBC; white blood count 7.10, hemoglobin 7.4, hematocrit 33.2, platelet count 200,000. We have BMP; sodium 130, potassium 4.6, chloride 99, CO2 24, BUN 21, creatinine 0.71, glucose 131, and calcium 9.8. Total bilirubin 0.7, AST 21, ALT 11, and alkaline phosphatase 29. Total protein 5.3, albumin 2.4, and globulin 2.9. On the coagulation; PT 13.5, INR 0.97, and PTT 27.6. Coronavirus test not detected. FINAL IMPRESSION: 1. Left hip fracture, status post surgical repair. 2. Hypertension. 3. Uncontrolled diabetes mellitus type 2. 4. Urinary tract infection. 5. Acute anemia, most likely postsurgical. PLAN OF TREATMENT: Continue monitoring hemoglobin and hematocrit. Transfuse if hemoglobin less than 7.0. Continue ceftriaxone 1 g IV once a day, alprazolam 0.5 mg twice a day as needed for anxiety, Lipitor 20 mg daily, beta-carotene one tablet daily, bupropion 50 mg daily, calcium carbonate 500 mg daily, carvedilol 6.25 mg twice a day, vitamin B12 1000 mcg daily, Pepcid 20 mg twice a day, folic acid 1 mg daily, guaifenesin 600 mg daily, [place] 5/325 q.4 hours as needed for mild pain, [place] 5/325 mg tablet 2 tablets every 4 hours as needed for severe pain, Hemocyte Plus one tablet daily, levothyroxine 88 mcg daily, Claritin 10 mg daily, Lovenox 40 subcutaneously daily for DVT prophylaxis, Glucophage 1000 mg twice a day, methotrexate 5 mg once a week on Saturday, morphine 4 mg IV q.6 hours as needed for severe pain, [place]-3 fatty acids 2000 mg twice a day, Zofran 4 mg IV q.4 hours as needed for nausea and vomiting, and MiraLAX 17 g twice a day. We are going to do a CBC for tomorrow just to make sure the hemoglobin does not go below 7.0. Continue physical and occupational therapy. We are still waiting on [employer], which restricted the patient from going to an acute inpatient rehab, which would be the best option for the patient, so we filed an appeal, we are waiting for that. MD TAWANA Kaur/CAMILLE /[id number]
[2020-02-28] MEDS: HYDROCODONE/APAP 5MG-325MG TAB PO PRN ×3 (14:47→22:29)
[2020-02-28] MEDS: CEFTRIAXONE SOD 1 GM/NS 50 ML 50 ML IV SCH (14:58)
[2020-02-28] MEDS: ENOXAPARIN SOD INJ 40 MG/0.4 ML SYR SC SCH (17:39)
[2020-02-28] MEDS: ATORVASTATIN 10 MG TAB PO SCH (19:57)
[2020-02-29] VITALS (11 sets, daily range): BP systolic 120–137; BP diastolic 53–65
--- NOTE | 2020-02-29 01:39 | NUR ---
PATIENT SEEN RESTING/SLEEPING, RESP EVEN AND UNLABORED, SKIN WARM DRY, CALL LIGHT WITHIN REACH, INCONTINENCE CARE GIVEN, BARRIER CREAM APPLIED, ALLEVYN FOAM DRESSING APPLIED TO COCCYX TO PREVENT SKIN BREAKDOWN
[2020-02-29] MEDS: LEVOTHYROXINE SODIUM 88 MCG TAB PO SCH (04:32)
[2020-02-29] MEDS: HYDROCODONE/APAP 5MG-325MG TAB PO PRN ×3 (04:32→15:24)
[2020-02-29 05:48] LABS: BASOPHILS % 0.4 % (0.0-1.0); EOSINOPHILS # (AUTO) 0.4 (0.0-0.4); EOSINOPHILS % 5.1 % (0.0-6.0); HEMATOCRIT 23.9 % (34.2-44.1); HEMOGLOBIN 7.6 g/dL (12.0-16.0); MEAN CORPUSCULAR HEMOGLOBIN 29.5 pg (28-32); MEAN CORPUSCULAR HGB CONC 31.8 g/dL (31-35); MEAN CORPUSCULAR VOLUME 92.6 fL (81-99); MONOCYTES % 13.5 % (4.4-11.3); NEUTROPHILS # (AUTO) 4.8 (2.1-6.9); NEUTROPHILS % 66.6 % (38.7-80.0); PLATELET COUNT 250 x10e3/uL (140-360); RED BLOOD COUNT 2.58 x10e6/uL (3.6-5.1); RED CELL DISTRIBUTION WIDTH 16.2 % (11.7-14.4)
[2020-02-29 06:05] LABS: ALANINE AMINOTRANSFERASE 16 IU/L (0-55); ALBUMIN 2.3 g/dL (3.5-5.0); ALBUMIN/GLOBULIN RATIO 0.7 (0.8-2.0); ALKALINE PHOSPHATASE 30 IU/L (40-150); ANION GAP 11.4 mmol/L (8-16); BLOOD UREA NITROGEN 13 mg/dL (7-26); BUN/CREATININE RATIO 21 (6-25); CALCIUM 8.9 mg/dL (8.4-10.2); CARBON DIOXIDE 27 mmol/L (22-29); CHLORIDE 100 mmol/L (98-107); CREATININE, SERUM 0.61 mg/dL (0.57-1.11); EST GLOMERULAR FILTRATION RATE > 60 ML/MIN (60-); GLUCOSE 103 mg/dL (74-118); POTASSIUM 4.4 mmol/L (3.5-5.1); SODIUM 134 mmol/L (136-145)
--- NOTE | 2020-02-29 06:43 | NUR ---
REPORT GIVEN TO DAYSHIFT RN, UPDATED WITH PATIENT PLAN OF CARE, NO DISTRESS NOTED, CALL LIGHT WITHIN REACH
--- NOTE | 2020-02-29 07:37 | NUR ---
Pt received in bed. Aox3 and able to verbalize needs. Denies any pain at this time. 0 s/s of acute distress noted.
[2020-02-29] MEDS: METFORMIN HCL 500 MG TAB PO SCH ×2 (08:09→17:24)
[2020-02-29] MEDS: OMEGA 3 POLYUNSAT FATTY ACIDS 1000 MG SOFTGEL PO SCH ×2 (08:10→17:25)
[2020-02-29] MEDS: FOLIC ACID 1 MG TAB PO SCH (08:10)
[2020-02-29] MEDS: LORATADINE 10 MG TAB PO SCH (08:10)
[2020-02-29] MEDS: IRON-VITAMIN-MINERAL CAPSULE PO SCH (08:10)
[2020-02-29] MEDS: OCUVITE PRESERVISION TABLET PO SCH (08:10)
[2020-02-29] MEDS: POLYETHYLENE GLYCOL 3350 17 GM PACK PO SCH ×2 (08:10→17:00)
[2020-02-29] MEDS: CARVEDILOL 3.125 MG TAB PO SCH ×2 (08:10→21:28)
[2020-02-29] MEDS: CYANOCOBALAMIN 1,000 MCG TAB PO SCH (08:11)
[2020-02-29] MEDS: OYST-CAL-D 500MG TABLET PO SCH (08:11)
[2020-02-29] MEDS: BUPROPION HCL 100 MG TAB PO SCH (08:11)
[2020-02-29] MEDS: FAMOTIDINE 20 MG TAB PO SCH ×2 (08:19→17:24)
[2020-02-29] MEDS ORDERED: METHOTREXATE SOD 2.5 MG TAB PO SCH (09:00)
--- NOTE | 2020-02-29 11:09 | NUR ---
UPDATED CLINICAL FAXED TO [facility] IF DENIAL UPHELD WITH INITIATE SNF SPOKE WITH DR PORTER RE PLAN
--- NOTE | 2020-02-29 11:19 | Progress Note ---
DATE: Internal Medicine Progress Note SUBJECTIVE: The patient is doing well. PHYSICAL EXAMINATION: HEART: Showed regular rhythm. Normal S1, S2 sound. LUNGS: Clear bilaterally. ABDOMEN: Soft. EXTREMITIES: Show no edema. VITAL SIGNS: Blood pressure 132/59, temperature 98.3, heart rate 92 per minute, respiratory rate 17 per minute, oxygen saturation 98%. LABORATORY DATA: On the CBC, white blood count 7.24, hemoglobin 7.6, hematocrit 23.9, platelet count 250,000. On the BMP; sodium 134, potassium 4.4, chloride 100, CO2 27, BUN 13, creatinine 0.61, glucose 103. FINAL IMPRESSION: 1. Left hip fracture, status post repair. 2. Hypertension. 3. Acute anemia. PLAN OF TREATMENT: Continue ceftriaxone 1 g IV once a day, alprazolam 0.5 mg twice a day as needed for anxiety, Lipitor 20 mg daily, beta-carotene one tablet daily, bupropion 50 mg daily, calcium carbonate 500 mg daily, carvedilol 6.25 mg twice a day. Continue vitamin B12 1000 mcg daily, Pepcid 20 mg twice a day, folic acid 1 mg daily, guaifenesin 600 mg daily as needed for cough, [place] 5/325 q.4 hours as needed for severe pain, Hemocyte Plus one tablet daily, levothyroxine 88 mcg daily. Continue Lovenox 40 mg daily for DVT prophylaxis, Claritin 10 mg daily. Continue metformin 1000 mg twice a day. Continue methotrexate 5 mg once a week, morphine 4 mg IV q.6 hours as needed for severe pain, omega-3 fatty acid 2000 mg twice a day, Zofran 4 mg IV q.4 hours as needed for nausea and vomiting, MiraLAX 17 g twice a day. [employer] [facility] has denied the patient access to inpatient rehab facility, which is the best option for the patient who was independent before, who is dependent on IV narcotics. She had a drop in hemoglobin. She had a medical condition that require inpatient rehab facility. We are filing appeal today with [employer] [facility] to see enough to allow the patient to get aggressive care, which would be an inpatient rehab. BarryMD TAWANA Samaniego/CAMILLE /[id number]
--- NOTE | 2020-02-29 14:59 | NUR ---
CM to pt's bedside. Spoke to pt and daughter in law. Gave list of in network SNFs, in case denial for inpatient rehab is upheld. CM business card given to daughter in law for any questions/concerns.
[2020-02-29] MEDS: CEFTRIAXONE SOD 1 GM/NS 50 ML 50 ML IV SCH (15:00)
[2020-02-29] MEDS: ENOXAPARIN SOD INJ 40 MG/0.4 ML SYR SC SCH (17:25)
[2020-02-29] MEDS: ATORVASTATIN 10 MG TAB PO SCH (21:28)
[2020-03-01] VITALS (8 sets, daily range): BP systolic 107–128; BP diastolic 40–68
[2020-03-01] MEDS: LEVOTHYROXINE SODIUM 88 MCG TAB PO SCH (04:51)
[2020-03-01] MEDS: METFORMIN HCL 500 MG TAB PO SCH ×2 (08:15→16:25)
[2020-03-01] MEDS: CARVEDILOL 3.125 MG TAB PO SCH ×2 (08:16→21:54)
[2020-03-01] MEDS: FOLIC ACID 1 MG TAB PO SCH (08:16)
[2020-03-01] MEDS: IRON-VITAMIN-MINERAL CAPSULE PO SCH (08:16)
[2020-03-01] MEDS: LORATADINE 10 MG TAB PO SCH (08:16)
[2020-03-01] MEDS: POLYETHYLENE GLYCOL 3350 17 GM PACK PO SCH ×2 (08:16→16:26)
[2020-03-01] MEDS: OMEGA 3 POLYUNSAT FATTY ACIDS 1000 MG SOFTGEL PO SCH ×2 (08:17→16:26)
[2020-03-01] MEDS: OYST-CAL-D 500MG TABLET PO SCH (08:17)
[2020-03-01] MEDS: CYANOCOBALAMIN 1,000 MCG TAB PO SCH (08:17)
[2020-03-01] MEDS: OCUVITE PRESERVISION TABLET PO SCH (08:17)
[2020-03-01] MEDS: BUPROPION HCL 100 MG TAB PO SCH (08:17)
[2020-03-01] MEDS: ALPRAZOLAM 0.5 MG TAB PO PRN (08:20)
[2020-03-01] MEDS: OMEPRAZOLE 20 MG CAP PO SCH ×2 (09:15→16:25)
--- NOTE | 2020-03-01 09:59 | Progress Note ---
DATE: Internal Medicine Progress Note SUBJECTIVE: The patient is doing well. PHYSICAL EXAMINATION: HEART: Showed regular rhythm. Normal S1, S2 sound. LUNGS: Clear bilaterally. ABDOMEN: Soft. VITAL SIGNS: Blood pressure 107/57, temperature , heart rate 96 per minute, respiratory rate 18 per minute, oxygen saturation 96%. EXTREMITIES: Show no edema. LABORATORY STUDIES: CBC; white blood count 7.24, hemoglobin 7.6, hematocrit 23.9, platelet count 250,000. On the BMP; sodium 134, potassium 4.4, chloride 100, CO2 27, BUN 13 and creatinine 0.61, glucose 103, calcium 8.9, total bilirubin 1.1, AST 24, ALT 16, alkaline phosphatase of 30, total protein 5.4, albumin 2.3. COVID test negative. IMPRESSION: 1. Left hip fracture, status post repair. 2. Hypertension. 3. Acute anemia. 4. Hypercholesterolemia. 5. Hypothyroidism. 6. Uncontrolled diabetes mellitus type 2. PLAN OF TREATMENT: Continue physical and occupational therapy. We are going to consult Dr. Del Rio for physical therapy. [employer] H[employer] has denied the patient access to an inpatient rehab facility. We are filing an appeal insurance. In the meantime, we will continue physical therapy. Start continue ceftriaxone 1 g IV daily for UTI, alprazolam 0.5 mg twice a day as needed for anxiety. Lipitor 20 mg daily, beta-carotene one tablet daily, bupropion 50 mg daily, calcium carbonate 500 mg daily, carvedilol 6.25 mg twice a day, vitamin B12 1000 mcg p.o. daily, Pepcid has been discontinued. Continue folic acid 1 mg daily, guaifenesin 600 mg daily as needed for cough, [place] 5/325 q.4 hours as needed for mild pain. Continue one tab daily, which is Hemocyte Plus one tablet daily, Synthroid 88 mcg daily, Claritin 10 mg daily, Lovenox 40 mg subcutaneously daily, methotrexate 5 mg once a week on Mondays, morphine 4 mg IV q.6 hours as needed for kxsqktay-ah-imhqep pain, omega-3 fatty acids 2000 mg twice a day, Prilosec 20 mg twice a day, Zofran 4 mg IV q.4 hours as needed, MiraLAX 17 g twice a day. We will continue physical therapy in house in the meantime. MD TAWANA Kaur/CAMILLE /[id number]
[2020-03-01] MEDS ORDERED: ONDANSETRON HCL 4 MG ORAL DISINTEGRATING TAB PO PRN (11:00)
--- NOTE | 2020-03-01 12:52 | NUR ---
THIAGO SPOKE WITH ALEXANDER AT [facility] REGARDING APPEAL PROCESS WITH [employer] SHE STATES IT IS STILL IN PEER REVIEW 72 HRS UP TOMORROW 03/02 FOR DECISION IF APPROVED WILL TRANSFER; IF DENIED WILL INITIATE SNF EVAL
[2020-03-01] MEDS: HYDROCODONE/APAP 5MG-325MG TAB PO PRN (14:55)
--- NOTE | 2020-03-01 15:16 | NUR ---
Nutrition Screen Note RD Recommendation for Physician: - Continue current diet Plan of Care: RD following, monitoring for tolerance and adequacy Nutrition reason for involvement: LOS Primary Diagnose(s):L hip fx PMH: HTN, hypothyroidism, DM Ht: 62 in Wt: 168.19 lb BMI: 30.8 kg/m2 IBW: [address] Assessment: (03/01) 80 YOF admitted for L hip fx, s/p repair. Pt seen today for LOS. 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 Noted 50-100% meal intake per chart. Pt denies any N/V/C/D. Pt reports UBW of 165#, no wt loss noted. Pt with no questions or concerns at time of visit. Chart reviewed. Labs and meds reviewed. Will continue to monitor. Current Diet: 1800 ADA Malnutrition Evaluation (03/01/20) The patient does not meet criteria for a specified degree of malnutrition at this time. Will re-evaluate at follow-up as appropriate. Diet Education Needs Assessment: Diet education not indicated. Diet tolerance: tolerating po Nutrition Care Level: low Signed: Latricia Meadows RD, LD, CNSC
[2020-03-01] MEDS: CEFTRIAXONE SOD 1 GM/NS 50 ML 50 ML IV SCH (16:25)
[2020-03-01] MEDS: ENOXAPARIN SOD INJ 40 MG/0.4 ML SYR SC SCH (16:26)
--- NOTE | 2020-03-01 19:31 | NUR ---
Received bedside report from day nurse. Patient resting in bed, respirations even and unlabored, no s/s of distress at this time. Bed locked and in low position, side rails up x3, alarm on, call light placed within reach. All safety measures in place. Will continue to monitor.
--- NOTE | 2020-03-01 19:41 | Consultation ---
DATE OF CONSULTATION: 03/01/2020 REFERRING PHYSICIANS: . REASON FOR CONSULTATION: 1. Status post left hip fracture secondary to fall. 2. Possible every 2-3 weeks. HISTORY OF PRESENT ILLNESS: An 80-year-old female with history of hypertension, hypothyroidism, she might have some hydrocephalus, but nothing requiring any current interventions. The patient is in normal state of health. She tends to fall about once every three weeks. At this time, she just at home, fractured her left hip, underwent repair, but she has made very significant and slow progression with therapy . PAST MEDICAL HISTORY: 1. Hypothyroidism. 2. Hypertension. 3. Diabetes. 4. She notes possible hydrocephalus . SOCIAL HISTORY: Lives with her family in a one-story home, ambulatory was able to do home bills. HABITS: Nonsmoker, nondrinker. ALLERGIES: GOLD, BACITRACIN, IODINE, LATEX, AND LEVAQUIN. FAMILY HISTORY: Noncontributory. LABORATORY DATA: White cell count of 7.3, hemoglobin 7.6, hematocrit 23.9, platelets 350. Sodium is 134, potassium 4.4, BUN is 13 and creatinine 0.6. PHYSICAL EXAMINATION: GENERAL: The patient is awake and alert, very pleasant, awake and oriented x3. She knows it is 2020 and says the Trdelmer is the [employer] Support Specialist. Currently, she seems to be pretty well intact. EYES: Gaze conjugate. ORAL: Tongue is midline. NECK: Supple. HEART: Regular. LUNGS: Diminished breath sounds. ABDOMEN: Nontender, nondistended. EXTREMITIES: left leg. She has some difficulty secondary to pain and recent surgery. NEURO: Sensory lorenzo, denies . IMPRESSION: 1. Left hip fracture secondary to fall. 2. Impaired gait and mobility. 3. She had some history of possible hydrocephalus, but she is not really demented, but she does tend to fall once every 2 to 3 weeks per report. It has been happening quite often for quite sometime. 4. She notes diabetes. 5. Hypertension. 6. Hypothyroidism. 7. . Thank you once again for allowing me to participate in the care of this very interesting patient. Casey Del Rio DO RPL/MODL /[id number]
[2020-03-01] MEDS: ATORVASTATIN 10 MG TAB PO SCH (21:54)
--- NOTE | 2020-03-01 22:19 | NUR ---
Spoke to Dr. Patel and received orders to renew [place] 5 two tablets Q4H PRN as previously ordered.
[2020-03-02] VITALS: BP 141/62
[2020-03-02] MEDS ORDERED: HYDROCODONE/APAP 5MG-325MG TAB PO PRN (00:15)
[2020-03-02 04:00] VITALS: BP 134/57
[2020-03-02] MEDS: LEVOTHYROXINE SODIUM 88 MCG TAB PO SCH (05:41)
--- NOTE | 2020-03-02 06:56 | NUR ---
Bedside report given to day nurse. Patient resting in bed, respirations even and unlabored, no s/s of distress at this time. All safety measures in place.
--- NOTE | 2020-03-02 07:00 | NUR ---
RECEIVED PATIENT RESTING IN BED NO S/S OF DISTRESS. BED LOW, WHEELS LOCKED, SIDE RAILS X2. CALL LIGHT IN REACH WILL CONTINUE TO MONITOR PATIENT.
[2020-03-02 07:34] VITALS: BP 117/59
[2020-03-02] MEDS: CYANOCOBALAMIN 1,000 MCG TAB PO SCH (07:59)
[2020-03-02] MEDS: FOLIC ACID 1 MG TAB PO SCH (07:59)
[2020-03-02] MEDS: OMEGA 3 POLYUNSAT FATTY ACIDS 1000 MG SOFTGEL PO SCH (07:59)
[2020-03-02] MEDS: OMEPRAZOLE 20 MG CAP PO SCH (07:59)
[2020-03-02] MEDS: METFORMIN HCL 500 MG TAB PO SCH (07:59)
[2020-03-02] MEDS: POLYETHYLENE GLYCOL 3350 17 GM PACK PO SCH (07:59)
[2020-03-02] MEDS: IRON-VITAMIN-MINERAL CAPSULE PO SCH (07:59)
[2020-03-02] MEDS: OYST-CAL-D 500MG TABLET PO SCH (07:59)
[2020-03-02] MEDS: BUPROPION HCL 100 MG TAB PO SCH (07:59)
[2020-03-02] MEDS: LORATADINE 10 MG TAB PO SCH (07:59)
[2020-03-02] MEDS: OCUVITE PRESERVISION TABLET PO SCH (07:59)
[2020-03-02] MEDS: CARVEDILOL 3.125 MG TAB PO SCH (07:59)
[2020-03-02 09:38] VITALS: BP 117/59
[2020-03-02] MEDS: ALPRAZOLAM 0.5 MG TAB PO PRN (10:57)
--- NOTE | 2020-03-02 11:25 | NUR ---
REPORT GIVEN TO BEV AT [facility]. SUMMARY OF CARE GIVEN.
--- NOTE | 2020-03-02 12:35 | NUR ---
PT APPROVED TO GO TO [facility] MOT: DR DREW MESA ACCEPTING [facility] [employer] SERVICE COUNSELOR CALL REPORT TO [phone] [id number] NOTIFIED PT'S DTR IN LAW OF ACCEPTANCE ALEXUS [phone] MOT INITIATED AND SIGNED BY PT DC ORDERS SECURED
[2020-03-02 13:18] VITALS: BP 107/83
--- NOTE | 2020-03-02 13:20 | NUR ---
REMOVED PATIENTS IV. CATHETER TIP INTACT AND PRESSURE DRESSING APPLIED.
--- NOTE | 2020-03-02 13:48 | NUR ---
PATIENT DISCHARGED FROM FACILITY. PATIENT GATHERED ALL PERSONAL BELONGINGS, DISCHARGE INSTRUCTIONS, AND FOLLOW UP INFORMATION. PATIENT LEFT UNIT IN STRETCHER WITH EMS AND DISCHARGED TO [facility]. NO S/S OF DISTRESS WHEN LEAVING FACILITY.
--- NOTE | 2020-03-02 21:00 | Progress Note ---
DATE: 03/02/2020 SUBJECTIVE: Ms. Rainey is seen on rounds today. She is doing well. According to daughter, insurance has agreed to allow her to go to inpatient rehab upon appeal and rehab evaluation. OBJECTIVE: VITAL SIGNS: Temperature 98.6, respirations 18, heart rate 96, blood pressure 107/57. ASSESSMENT AND PLAN: The patient clinically is improving, making progress towards goals and will be. She is feeling better and family, however, plans to transition to [facility]. Discussed with daughter. I think she will be able to go to an inpatient rehab. Casey Del Rio DO RPL/MODL /[id number]
--- NOTE | 2020-03-02 22:46 | Discharge Summary ---
HISTORY: The patient is an 80-year-old female with past medical history positive for hypertension, history of hypothyroidism, found to have a hip fracture. She underwent left hip fracture repair by Dr. Dash. The patient was finally approved after admission denied by the [employer] H[employer]. She is going to [facility] for physical therapy. PHYSICAL EXAMINATION: HEART: Showed regular rhythm. Normal S1 and S2 sound. LUNGS: Clear bilaterally. ABDOMEN: Soft. FINAL IMPRESSION: 1. Closed left hip fracture, status post hip fracture repair. 2. Hypertension. 3. Diabetes mellitus type 2. 4. Hypothyroidism. 5. Urinary tract infection. PLAN OF TREATMENT: The patient will be transferred to [facility] for physical and occupational therapy. She will continue alprazolam 0.5 mg twice a day as needed for anxiety, Lipitor 20 mg daily, beta-carotene one tablet daily, bupropion 50 mg daily, calcium carbonate 500 mg daily, Coreg 6.25 mg twice a day, vitamin B12 of 1000 mcg daily, folic acid 1 mg daily, guaifenesin 600 mg daily as needed for cough, [place] 5/325 one or two tablets every 4 hours as needed for knyl-vw-ooyqjggo pain. Continue with Hemocyte Plus one tablet daily, levothyroxine 88 mcg daily, Claritin 10 mg daily, Lovenox 40 mg subcutaneously daily for DVT prophylaxis, Glucophage 1000 mg p.o. twice a day, methotrexate 5 mg once a week on Mondays, morphine 4 mg IV q.6 hours as needed for eoyrcwki-no-kiruao pain, omega-3 fatty acids 2000 mg twice a day, Prilosec 20 mg twice a day, Zofran 4 mg p.o. q.4 hours as needed for nausea and vomiting, and MiraLAX 17 g twice a day. The patient is going to go to [facility] for physical therapy. MD TAWANA Kaur/CAMILLE /[id number]
== END 2020-03-02 13:48 | disposition home or self-care (01) | DRG 516 ==
LOC: ER 18:13 → ERHOLD 19:44 → MED/SURG 21:18 → OBSVTOIN 02-24 08:06
PROVIDERS: ADMIT Internal Medicine; ATTEND Internal Medicine
PROC: 0QH534Z Insertion of Internal Fixation Device into Left Acetabulum, Percutaneous Approach (ICD-10-PCS; principal; 2020-02-24 10:00)
DX: M84.459A Pathological fracture, hip, unspecified, initial encounter for fracture (principal); N39.0 Urinary tract infection, site not specified; D62 Acute posthemorrhagic anemia; I10 Essential (primary) hypertension; E03.9 Hypothyroidism, unspecified; E11.9 Type 2 diabetes mellitus without complications; E78.00 Pure hypercholesterolemia, unspecified; E11.65 Type 2 diabetes mellitus with hyperglycemia; Z79.4 Long term (current) use of insulin; Z11.59 Encounter for screening for other viral diseases; Z96.653 Presence of artificial knee joint, bilateral
CPT/HCPCS: 36415; 71045; 80053; 81001; 82550; 82553; 84484; 85025; 85610; 85730; 86850; 86900; 87086; 87635; 93005; 93306; 97139; 99251; 99284; G0378; J0690; J0696; J1100; J1650; J2001; J2270; J2405; J2710; J3010; J7030; J8610

== ENCOUNTER 2021-05-10 17:00 | Inpatient (IN) | payer MEDICARE ==
[~2021-05-10] VITALS: Ht 157.5 cm; Wt 72.1 kg
[2021-05-10 18:43] LABS: BASOPHILS % 0.3 % (0.0-1.0); HEMATOCRIT 45.3 % (34.2-44.1); HEMOGLOBIN 14.6 g/dL (12.0-16.0); LYMPHOCYTES # (AUTO) 1.3 (1.0-3.2); LYMPHOCYTES % 16.2 % (18.0-39.1); MEAN CORPUSCULAR HEMOGLOBIN 29.7 pg (28-32); MEAN CORPUSCULAR HGB CONC 32.2 g/dL (31-35); MEAN CORPUSCULAR VOLUME 92.3 fL (81-99); MONOCYTES # (AUTO) 0.6 (0.2-0.8); MONOCYTES % 7.6 % (4.4-11.3); NEUTROPHILS % 75.4 % (38.7-80.0); PLATELET COUNT 134 x10e3/uL (140-360); RED BLOOD COUNT 4.91 x10e6/uL (3.6-5.1); RED CELL DISTRIBUTION WIDTH 15.5 % (11.7-14.4)
[2021-05-10 19:00] LABS: ALBUMIN 3.5 g/dL (3.5-5.0); ALBUMIN/GLOBULIN RATIO 1.1 (0.8-2.0); ANION GAP 16.7 mmol/L (8-16); CALCIUM 8.3 mg/dL (8.4-10.2); CREATININE, SERUM 0.78 mg/dL (0.57-1.11); POTASSIUM 3.7 mmol/L (3.5-5.1)
[2021-05-10 19:07] LABS: CREATINE KINASE MB 3.6 ng/mL (0-5.0)
[2021-05-10] MEDS: CEFTRIAXONE 2 GM in SODIUM CHLORIDE 0.9% 100 ML IV SCH (19:30)
[2021-05-10] MEDS ORDERED: ONDANSETRON HCL INJ 2MG/ML 2ML 2 MG/ML VIAL IV PRN (19:45)
[2021-05-10 19:51] LABS: CLARITY,URINE SL CLOUDY (CLEAR); COLOR,URINE AMBER (YELLOW); KETONES,URINE 1+ (NEGATIVE); LEUKOCYTE ESTERASE ,URINE NEGATIVE (NEGATIVE); NITRITE,URINE POSITIVE (NEGATIVE); PROTEIN,URINE DIPSTICK >=300 (NEGATIVE); URINE UROBILINOGEN 0.2 mg/dL (0.2 - 1)
[2021-05-10 20:00] LABS: BACTERIA,URINE MANY /HPF
[2021-05-10] MEDS: DEXAMETHASONE SOD PHOS 10 MG/1 ML VIAL IV SCH (20:29)
[2021-05-10] MEDS: SODIUM CHLORIDE 0.9% 1000ML 1,000 ML IV SCH (20:31)
[2021-05-10 23:00] VITALS: BP 139/58
[2021-05-10 23:23] VITALS: BP 139/58
[2021-05-11] VITALS (8 sets, daily range): BP systolic 116–140; BP diastolic 56–78
[2021-05-11] MEDS: SODIUM CHLORIDE 0.9% 1000ML 1,000 ML IV SCH (04:10)
[2021-05-11 06:54] LABS: HEMATOCRIT 41.8 % (34.2-44.1); HEMOGLOBIN 13.4 g/dL (12.0-16.0); LYMPHOCYTES # (AUTO) 0.9 (1.0-3.2); LYMPHOCYTES % 12.6 % (18.0-39.1); MEAN CORPUSCULAR HGB CONC 32.1 g/dL (31-35); MEAN CORPUSCULAR VOLUME 93.7 fL (81-99); MONOCYTES # (AUTO) 0.3 (0.2-0.8); MONOCYTES % 3.7 % (4.4-11.3); NEUTROPHILS # (AUTO) 5.8 (2.1-6.9); NEUTROPHILS % 83.3 % (38.7-80.0); PLATELET COUNT 110 x10e3/uL (140-360); RED BLOOD COUNT 4.46 x10e6/uL (3.6-5.1); RED CELL DISTRIBUTION WIDTH 15.4 % (11.7-14.4)
[2021-05-11 07:07] LABS: ALBUMIN 2.7 g/dL (3.5-5.0); ANION GAP 12.6 mmol/L (8-16); CALCIUM 7.4 mg/dL (8.4-10.2); CREATININE, SERUM 0.61 mg/dL (0.57-1.11); POTASSIUM 3.6 mmol/L (3.5-5.1)
[2021-05-11] MEDS: ZINC SULFATE 220 MG CAP PO SCH (09:11)
[2021-05-11] MEDS: ASCORBIC ACID 500 MG TAB PO SCH ×2 (09:11→17:16)
[2021-05-11] MEDS: ENOXAPARIN 30 MG/0.3 ML SYR SC SCH ×2 (09:11→21:29)
[2021-05-11] MEDS: DEXAMETHASONE SOD PHOS 10 MG/1 ML VIAL IV SCH (09:11)
[2021-05-11] MEDS ORDERED: DEXTROSE 50% SYRINGE 50 ML IV PRN (15:45)
[2021-05-11] MEDS: INSULIN LISPRO 100 UNIT/1 ML 3ML VIAL SQ SCH ×2 (16:30→21:00)
[2021-05-11] MEDS: CARVEDILOL 3.125 MG TAB PO SCH (17:15)
[2021-05-11] MEDS: FAMOTIDINE 20 MG TAB PO SCH (17:16)
[2021-05-11] MEDS: METFORMIN HCL 500 MG TAB PO SCH (17:16)
[2021-05-11] MEDS: ACETAMINOPHEN 325 MG TAB PO PRN (18:10)
[2021-05-11] MEDS ORDERED: REMDESIVIR 200MG/NS 100ML 200 MG in SODIUM CHLORIDE 0.9% 100 ML 100 ML IV ONE (18:30)
[2021-05-11] MEDS: ATORVASTATIN 10 MG TAB PO SCH (21:29)
[2021-05-11] MEDS: CEFTRIAXONE 2 GM in SODIUM CHLORIDE 0.9% 100 ML IV SCH (21:47)
[2021-05-12] VITALS (8 sets, daily range): BP systolic 120–150; BP diastolic 63–98
[2021-05-12] MEDS: ACETAMINOPHEN 325 MG TAB PO PRN (00:54)
[2021-05-12] MEDS: LEVOTHYROXINE SODIUM 50 MCG TAB PO SCH (05:31)
[2021-05-12] MEDS: INSULIN LISPRO 100 UNIT/1 ML 3ML VIAL SQ SCH ×4 (07:30→21:06)
[2021-05-12] MEDS: CARVEDILOL 3.125 MG TAB PO SCH ×2 (08:54→17:00)
[2021-05-12] MEDS: DEXAMETHASONE SOD PHOS 10 MG/1 ML VIAL IV SCH (08:54)
[2021-05-12] MEDS: FAMOTIDINE 20 MG TAB PO SCH ×2 (08:54→17:00)
[2021-05-12] MEDS: METFORMIN HCL 500 MG TAB PO SCH ×2 (08:54→17:00)
[2021-05-12] MEDS: ZINC SULFATE 220 MG CAP PO SCH (08:54)
[2021-05-12] MEDS: ASCORBIC ACID 500 MG TAB PO SCH ×2 (08:54→17:01)
[2021-05-12] MEDS: ENOXAPARIN 30 MG/0.3 ML SYR SC SCH ×2 (08:54→20:44)
[2021-05-12 09:44] LABS: BASOPHILS % 0.1 % (0.0-1.0); HEMOGLOBIN 14.1 g/dL (12.0-16.0); LYMPHOCYTES # (AUTO) 1.4 (1.0-3.2); LYMPHOCYTES % 14.8 % (18.0-39.1); MEAN CORPUSCULAR HEMOGLOBIN 29.6 pg (28-32); MEAN CORPUSCULAR VOLUME 92.2 fL (81-99); MONOCYTES # (AUTO) 0.6 (0.2-0.8); MONOCYTES % 6.6 % (4.4-11.3); NEUTROPHILS # (AUTO) 7.4 (2.1-6.9); NEUTROPHILS % 78.3 % (38.7-80.0); PLATELET COUNT 133 x10e3/uL (140-360); RED BLOOD COUNT 4.77 x10e6/uL (3.6-5.1); RED CELL DISTRIBUTION WIDTH 15.5 % (11.7-14.4)
[2021-05-12 10:11] LABS: ALBUMIN 2.8 g/dL (3.5-5.0); ANION GAP 10.3 mmol/L (8-16); CALCIUM 7.7 mg/dL (8.4-10.2); CREATININE, SERUM 0.58 mg/dL (0.57-1.11); POTASSIUM 3.3 mmol/L (3.5-5.1)
[2021-05-12] MEDS ORDERED: POTASSIUM CHLORIDE 20 MEQ TAB CR PO ONE (11:30)
[2021-05-12] MEDS: BENZONATATE 100 MG CAP PO PRN (14:40)
[2021-05-12] MEDS: REMDESIVIR 100MG/NS 100ML 100 MG in SODIUM CHLORIDE 0.9% 100 ML 100 ML IV SCH (18:25)
[2021-05-12] MEDS: CEFTRIAXONE 2 GM in SODIUM CHLORIDE 0.9% 100 ML IV SCH (20:07)
[2021-05-12] MEDS: ALPRAZOLAM 0.5 MG TAB PO PRN (20:44)
[2021-05-12] MEDS: ATORVASTATIN 10 MG TAB PO SCH (20:44)
[2021-05-13] VITALS (8 sets, daily range): BP systolic 120–154; BP diastolic 62–86
[2021-05-13] MEDS: LEVOTHYROXINE SODIUM 50 MCG TAB PO SCH (05:21)
[2021-05-13 06:18] LABS: BASOPHILS % 0.1 % (0.0-1.0); HEMOGLOBIN 13.7 g/dL (12.0-16.0); LYMPHOCYTES # (AUTO) 1.1 (1.0-3.2); LYMPHOCYTES % 11.6 % (18.0-39.1); MEAN CORPUSCULAR HEMOGLOBIN 29.6 pg (28-32); MEAN CORPUSCULAR HGB CONC 31.9 g/dL (31-35); MEAN CORPUSCULAR VOLUME 92.9 fL (81-99); MONOCYTES # (AUTO) 0.7 (0.2-0.8); MONOCYTES % 7.6 % (4.4-11.3); NEUTROPHILS # (AUTO) 7.8 (2.1-6.9); NEUTROPHILS % 80.5 % (38.7-80.0); PLATELET COUNT 147 x10e3/uL (140-360); RED BLOOD COUNT 4.63 x10e6/uL (3.6-5.1); RED CELL DISTRIBUTION WIDTH 15.7 % (11.7-14.4)
[2021-05-13 06:38] LABS: ALBUMIN 2.8 g/dL (3.5-5.0); ANION GAP 11.1 mmol/L (8-16); CALCIUM 8.1 mg/dL (8.4-10.2); CREATININE, SERUM 0.57 mg/dL (0.57-1.11); POTASSIUM 4.1 mmol/L (3.5-5.1)
[2021-05-13] MEDS: INSULIN LISPRO 100 UNIT/1 ML 3ML VIAL SQ SCH ×4 (07:30→20:57)
[2021-05-13] MEDS: METFORMIN HCL 500 MG TAB PO SCH ×2 (08:00→16:39)
[2021-05-13] MEDS: ZINC SULFATE 220 MG CAP PO SCH (08:41)
[2021-05-13] MEDS: CARVEDILOL 3.125 MG TAB PO SCH ×2 (08:41→16:39)
[2021-05-13] MEDS: DEXAMETHASONE SOD PHOS 10 MG/1 ML VIAL IV SCH (08:41)
[2021-05-13] MEDS: ENOXAPARIN 30 MG/0.3 ML SYR SC SCH ×2 (08:41→20:46)
[2021-05-13] MEDS: FAMOTIDINE 20 MG TAB PO SCH ×2 (08:41→16:39)
[2021-05-13] MEDS: ASCORBIC ACID 500 MG TAB PO SCH ×2 (08:41→16:39)
[2021-05-13] MEDS ORDERED: SODIUM CHLORIDE 0.9% 500ML 500 ML ONE (11:20)
[2021-05-13] MEDS: ALPRAZOLAM 0.5 MG TAB PO PRN (13:11)
[2021-05-13] MEDS: REMDESIVIR 100MG/NS 100ML 100 MG in SODIUM CHLORIDE 0.9% 100 ML 100 ML IV SCH (18:10)
[2021-05-13] MEDS: BENZONATATE 100 MG CAP PO PRN (18:10)
[2021-05-13] MEDS: CEFTRIAXONE 2 GM in SODIUM CHLORIDE 0.9% 100 ML IV SCH (19:30)
[2021-05-13] MEDS: ATORVASTATIN 10 MG TAB PO SCH (20:46)
[2021-05-14] VITALS (8 sets, daily range): BP systolic 125–158; BP diastolic 65–77
[2021-05-14] MEDS: ACETAMINOPHEN 325 MG TAB PO PRN (05:06)
[2021-05-14] MEDS: LEVOTHYROXINE SODIUM 50 MCG TAB PO SCH (05:06)
[2021-05-14 07:11] LABS: BASOPHILS % 0.1 % (0.0-1.0); HEMATOCRIT 41.9 % (34.2-44.1); HEMOGLOBIN 13.3 g/dL (12.0-16.0); LYMPHOCYTES # (AUTO) 1.1 (1.0-3.2); LYMPHOCYTES % 10.7 % (18.0-39.1); MEAN CORPUSCULAR HEMOGLOBIN 29.8 pg (28-32); MEAN CORPUSCULAR HGB CONC 31.7 g/dL (31-35); MEAN CORPUSCULAR VOLUME 93.9 fL (81-99); MONOCYTES # (AUTO) 1.1 (0.2-0.8); MONOCYTES % 10.6 % (4.4-11.3); NEUTROPHILS # (AUTO) 8.3 (2.1-6.9); NEUTROPHILS % 78.1 % (38.7-80.0); PLATELET COUNT 152 x10e3/uL (140-360); RED BLOOD COUNT 4.46 x10e6/uL (3.6-5.1); RED CELL DISTRIBUTION WIDTH 15.4 % (11.7-14.4)
[2021-05-14] MEDS: INSULIN LISPRO 100 UNIT/1 ML 3ML VIAL SQ SCH ×4 (07:30→21:00)
[2021-05-14 07:36] LABS: ALBUMIN 2.7 g/dL (3.5-5.0); ALBUMIN/GLOBULIN RATIO 1.1 (0.8-2.0); ANION GAP 11.3 mmol/L (8-16); CALCIUM 7.9 mg/dL (8.4-10.2); CREATININE, SERUM 0.61 mg/dL (0.57-1.11); POTASSIUM 4.3 mmol/L (3.5-5.1)
[2021-05-14] MEDS: CARVEDILOL 3.125 MG TAB PO SCH ×2 (08:35→16:39)
[2021-05-14] MEDS: DEXAMETHASONE SOD PHOS 10 MG/1 ML VIAL IV SCH (08:35)
[2021-05-14] MEDS: FAMOTIDINE 20 MG TAB PO SCH ×2 (08:35→16:28)
[2021-05-14] MEDS: ZINC SULFATE 220 MG CAP PO SCH (08:35)
[2021-05-14] MEDS: ENOXAPARIN 30 MG/0.3 ML SYR SC SCH ×2 (08:35→20:53)
[2021-05-14] MEDS: METFORMIN HCL 500 MG TAB PO SCH ×2 (08:35→16:39)
[2021-05-14] MEDS: ASCORBIC ACID 500 MG TAB PO SCH ×2 (08:35→16:29)
[2021-05-14] MEDS: ALPRAZOLAM 0.5 MG TAB PO PRN (10:30)
[2021-05-14] MEDS: BENZONATATE 100 MG CAP PO PRN (12:39)
[2021-05-14] MEDS: REMDESIVIR 100MG/NS 100ML 100 MG in SODIUM CHLORIDE 0.9% 100 ML 100 ML IV SCH (17:26)
[2021-05-14] MEDS: CEFTRIAXONE 2 GM in SODIUM CHLORIDE 0.9% 100 ML IV SCH (19:30)
[2021-05-14] MEDS ORDERED: SODIUM CHLORIDE 0.9% 250ML 250 ML ONE (20:33)
[2021-05-14] MEDS: ATORVASTATIN 10 MG TAB PO SCH (20:53)
[2021-05-15] VITALS (8 sets, daily range): BP systolic 129–161; BP diastolic 64–75
[2021-05-15] MEDS: LEVOTHYROXINE SODIUM 50 MCG TAB PO SCH (05:19)
[2021-05-15 06:13] LABS: BASOPHILS % 0.1 % (0.0-1.0); HEMATOCRIT 41.9 % (34.2-44.1); HEMOGLOBIN 13.3 g/dL (12.0-16.0); LYMPHOCYTES % 8.4 % (18.0-39.1); MEAN CORPUSCULAR HEMOGLOBIN 29.2 pg (28-32); MEAN CORPUSCULAR HGB CONC 31.7 g/dL (31-35); MEAN CORPUSCULAR VOLUME 92.1 fL (81-99); MONOCYTES # (AUTO) 1.2 (0.2-0.8); MONOCYTES % 10.8 % (4.4-11.3); NEUTROPHILS # (AUTO) 9.1 (2.1-6.9); NEUTROPHILS % 80.1 % (38.7-80.0); PLATELET COUNT 181 x10e3/uL (140-360); RED BLOOD COUNT 4.55 x10e6/uL (3.6-5.1)
[2021-05-15 06:36] LABS: ANION GAP 12.9 mmol/L (8-16); CALCIUM 8.3 mg/dL (8.4-10.2); CREATININE, SERUM 0.55 mg/dL (0.57-1.11); POTASSIUM 3.9 mmol/L (3.5-5.1)
[2021-05-15] MEDS: INSULIN LISPRO 100 UNIT/1 ML 3ML VIAL SQ SCH ×4 (07:30→19:55)
[2021-05-15] MEDS: METFORMIN HCL 500 MG TAB PO SCH ×2 (08:00→17:20)
[2021-05-15 08:44] LABS: ALBUMIN 2.7 g/dL (3.5-5.0); ALBUMIN/GLOBULIN RATIO 1.1 (0.8-2.0); ANION GAP 14.9 mmol/L (8-16); CALCIUM 8.4 mg/dL (8.4-10.2); CREATININE, SERUM 0.57 mg/dL (0.57-1.11); POTASSIUM 3.9 mmol/L (3.5-5.1)
[2021-05-15] MEDS: ASCORBIC ACID 500 MG TAB PO SCH ×2 (09:23→17:20)
[2021-05-15] MEDS: FAMOTIDINE 20 MG TAB PO SCH ×2 (09:23→17:20)
[2021-05-15] MEDS: ZINC SULFATE 220 MG CAP PO SCH (09:23)
[2021-05-15] MEDS: DEXAMETHASONE SOD PHOS 10 MG/1 ML VIAL IV SCH (09:23)
[2021-05-15] MEDS: ENOXAPARIN 30 MG/0.3 ML SYR SC SCH ×2 (09:23→19:56)
[2021-05-15] MEDS: CARVEDILOL 3.125 MG TAB PO SCH ×2 (09:23→17:20)
[2021-05-15] MEDS ORDERED: ASCORBIC ACID500 MG PO (10:32)
[2021-05-15] MEDS ORDERED: VITAMIN B-1100 M1 PO (10:32)
[2021-05-15] MEDS ORDERED: ZINC SULFATE50 M1 PO (10:32)
[2021-05-15] MEDS ORDERED: TESSALON PERLE100 MG PO (10:32)
[2021-05-15] MEDS ORDERED: DEXAMETHASONE4 MG PO (10:41)
[2021-05-15] MEDS ORDERED: ONDANSETRON HCL 4 MG ORAL DISINTEGRATING TAB PO PRN (13:15)
[2021-05-15] MEDS: ALPRAZOLAM 0.5 MG TAB PO PRN (15:27)
[2021-05-15] MEDS: REMDESIVIR 100MG/NS 100ML 100 MG in SODIUM CHLORIDE 0.9% 100 ML 100 ML IV SCH (18:11)
[2021-05-15] MEDS: ATORVASTATIN 10 MG TAB PO SCH (19:56)
[2021-05-16] VITALS (8 sets, daily range): BP systolic 121–151; BP diastolic 60–68
[2021-05-16] MEDS: LEVOTHYROXINE SODIUM 50 MCG TAB PO SCH (05:13)
[2021-05-16 06:42] LABS: BASOPHILS % 0.2 % (0.0-1.0); EOSINOPHILS # (AUTO) 0.1 (0.0-0.4); EOSINOPHILS % 0.7 % (0.0-6.0); HEMATOCRIT 42.6 % (34.2-44.1); HEMOGLOBIN 13.6 g/dL (12.0-16.0); LYMPHOCYTES # (AUTO) 1.2 (1.0-3.2); LYMPHOCYTES % 9.5 % (18.0-39.1); MEAN CORPUSCULAR HEMOGLOBIN 29.4 pg (28-32); MEAN CORPUSCULAR HGB CONC 31.9 g/dL (31-35); MEAN CORPUSCULAR VOLUME 92.2 fL (81-99); MONOCYTES # (AUTO) 1.7 (0.2-0.8); MONOCYTES % 13.6 % (4.4-11.3); NEUTROPHILS # (AUTO) 9.4 (2.1-6.9); PLATELET COUNT 224 x10e3/uL (140-360); RED BLOOD COUNT 4.62 x10e6/uL (3.6-5.1); RED CELL DISTRIBUTION WIDTH 14.9 % (11.7-14.4)
[2021-05-16 07:03] LABS: ALBUMIN 2.7 g/dL (3.5-5.0); ANION GAP 11.7 mmol/L (8-16); CALCIUM 8.1 mg/dL (8.4-10.2); CREATININE, SERUM 0.56 mg/dL (0.57-1.11); POTASSIUM 3.7 mmol/L (3.5-5.1)
[2021-05-16] MEDS: INSULIN LISPRO 100 UNIT/1 ML 3ML VIAL SQ SCH ×4 (07:30→20:23)
[2021-05-16] MEDS: METFORMIN HCL 500 MG TAB PO SCH ×2 (08:53→17:30)
[2021-05-16] MEDS: FAMOTIDINE 20 MG TAB PO SCH ×2 (09:01→17:30)
[2021-05-16] MEDS: CARVEDILOL 3.125 MG TAB PO SCH ×2 (09:01→17:30)
[2021-05-16] MEDS: DEXAMETHASONE SOD PHOS 10 MG/1 ML VIAL IV SCH (09:01)
[2021-05-16] MEDS: ASCORBIC ACID 500 MG TAB PO SCH ×2 (09:01→17:30)
[2021-05-16] MEDS: ZINC SULFATE 220 MG CAP PO SCH (09:01)
[2021-05-16] MEDS: ENOXAPARIN 30 MG/0.3 ML SYR SC SCH ×2 (09:01→20:32)
[2021-05-16] MEDS: BENZONATATE 100 MG CAP PO PRN (12:29)
[2021-05-16] MEDS: ALPRAZOLAM 0.5 MG TAB PO PRN (18:12)
[2021-05-16] MEDS: ATORVASTATIN 10 MG TAB PO SCH (20:32)
[2021-05-17 00:31] VITALS: BP 129/87
[2021-05-17] MEDS: LEVOTHYROXINE SODIUM 50 MCG TAB PO SCH (05:49)
[2021-05-17 05:52] VITALS: BP 139/69
[2021-05-17] MEDS: INSULIN LISPRO 100 UNIT/1 ML 3ML VIAL SQ SCH (07:30)
[2021-05-17 07:55] VITALS: BP 143/73
[2021-05-17 08:00] VITALS: BP 143/73
[2021-05-17] MEDS: ZINC SULFATE 220 MG CAP PO SCH (08:42)
[2021-05-17] MEDS: ENOXAPARIN 30 MG/0.3 ML SYR SC SCH (08:42)
[2021-05-17] MEDS: METFORMIN HCL 500 MG TAB PO SCH (08:42)
[2021-05-17] MEDS: FAMOTIDINE 20 MG TAB PO SCH (08:42)
[2021-05-17] MEDS: ASCORBIC ACID 500 MG TAB PO SCH (08:42)
[2021-05-17] MEDS: CARVEDILOL 3.125 MG TAB PO SCH (08:43)
[2021-05-17 09:23] LABS: BASOPHILS % 0.3 % (0.0-1.0); EOSINOPHILS # (AUTO) 0.2 (0.0-0.4); EOSINOPHILS % 2.3 % (0.0-6.0); HEMATOCRIT 44.7 % (34.2-44.1); HEMOGLOBIN 14.2 g/dL (12.0-16.0); LYMPHOCYTES # (AUTO) 1.2 (1.0-3.2); LYMPHOCYTES % 12.4 % (18.0-39.1); MEAN CORPUSCULAR HEMOGLOBIN 29.4 pg (28-32); MEAN CORPUSCULAR HGB CONC 31.8 g/dL (31-35); MEAN CORPUSCULAR VOLUME 92.5 fL (81-99); MONOCYTES # (AUTO) 1.5 (0.2-0.8); MONOCYTES % 15.9 % (4.4-11.3); NEUTROPHILS # (AUTO) 6.4 (2.1-6.9); NEUTROPHILS % 66.9 % (38.7-80.0); PLATELET COUNT 297 x10e3/uL (140-360); RED BLOOD COUNT 4.83 x10e6/uL (3.6-5.1); RED CELL DISTRIBUTION WIDTH 15.2 % (11.7-14.4)
[2021-05-17 09:42] LABS: ALBUMIN 2.8 g/dL (3.5-5.0); ANION GAP 12.8 mmol/L (8-16); CALCIUM 8.4 mg/dL (8.4-10.2); CREATININE, SERUM 0.63 mg/dL (0.57-1.11); POTASSIUM 3.8 mmol/L (3.5-5.1)
[2021-05-17] MEDS ORDERED: ALPRAZOLAM0.25 MG PO (09:46)
== END 2021-05-17 11:35 | DRG 177 ==
LOC: ER 18:02 → ERHOLD 19:48 → MED/SURG3 22:20 → IMCU 05-16 21:06
PROVIDERS: ADMIT Internal Medicine; ATTEND Internal Medicine
PROC: 8E0ZXY6 Isolation (ICD-10-PCS; principal; 2021-05-10)
PROC: XW033E5 Introduction of Remdesivir Anti-infective into Peripheral Vein, Percutaneous Approach, New Technology Group 5 (ICD-10-PCS; 2021-05-11)
DX: U07.1 COVID-19 (principal); J12.82 Pneumonia due to coronavirus disease 2019; J96.01 Acute respiratory failure with hypoxia; A37.91 Whooping cough, unspecified species with pneumonia; N39.0 Urinary tract infection, site not specified; B17.8 Other specified acute viral hepatitis; E11.9 Type 2 diabetes mellitus without complications; E03.9 Hypothyroidism, unspecified; I11.9 Hypertensive heart disease without heart failure; D69.59 Other secondary thrombocytopenia
CPT/HCPCS: 36415; 71045; 80048; 80053; 81001; 82550; 82553; 82728; 82948; 83735; 83880; 84484; 85025; 86140; 93005; 93306; 97139; 99251; 99285; J0456; J0696; J1100; J1650; J2405; J7030; J7040; J7050

== ENCOUNTER 2022-06-17 20:42 | Emergency (ER) | payer MEDICARE, OTHER ==
[~2022-06-17] VITALS: Ht 157.5 cm; Wt 69.4 kg
[~2022-06-17 20:42] MED LIST changes: +ALPRAZOLAM0.25 MG PO; +ASCORBIC ACID500 MG PO; +DEXAMETHASONE4 MG PO; +TESSALON PERLE100 MG PO; +VITAMIN B-1100 M1 PO; +ZINC SULFATE50 M1 PO
[2022-06-17] MEDS ORDERED: AUGMENTIN 500-1 EACH PO (20:56)
== END 2022-06-17 22:01 | disposition home or self-care (01) ==
LOC: ER 20:44
DX: S00.81XA Abrasion of other part of head, initial encounter (principal); W55.03XA Scratched by cat, initial encounter; Y92.89 Other specified places as the place of occurrence of the external cause; I10 Essential (primary) hypertension; E11.9 Type 2 diabetes mellitus without complications; E78.5 Hyperlipidemia, unspecified; Z85.038 Personal history of other malignant neoplasm of large intestine
CPT/HCPCS: 99283

== ENCOUNTER 2022-11-25 11:40 | Emergency (ER) | payer MEDICARE ==
[~2022-11-25] VITALS: Ht 157.5 cm; Wt 69.4 kg
[~2022-11-25 11:40] MED LIST changes: +AUGMENTIN 500-1 EACH PO
[2022-11-25 12:16] LABS: BASOPHILS % 0.5 % (0.0-1.0); EOSINOPHILS % 0.5 % (0.0-6.0); HEMATOCRIT 50.5 % (34.2-44.1); HEMOGLOBIN 15.3 g/dL (12.0-16.0); LYMPHOCYTES # (AUTO) 1.4 (1.0-3.2); MEAN CORPUSCULAR HEMOGLOBIN 30.9 pg (28-32); MEAN CORPUSCULAR HGB CONC 30.3 g/dL (31-35); MONOCYTES # (AUTO) 0.4 (0.2-0.8); MONOCYTES % 5.6 % (4.4-11.3); NEUTROPHILS % 76.3 % (38.7-80.0); PLATELET COUNT 187 x10e3/uL (140-360); RED BLOOD COUNT 4.95 x10e6/uL (3.6-5.1); RED CELL DISTRIBUTION WIDTH 14.1 % (11.7-14.4)
[2022-11-25 12:42] LABS: ALBUMIN 4.2 g/dL (3.5-5.0); ALBUMIN/GLOBULIN RATIO 1.3 (0.8-2.0); ANION GAP 12.4 mmol/L (8-16); CALCIUM 10.1 mg/dL (8.4-10.2); CREATININE, SERUM 0.75 mg/dL (0.57-1.11); POTASSIUM 4.4 mmol/L (3.5-5.1)
[2022-11-25 13:00] LABS: CLARITY,URINE CLEAR (CLEAR); COLOR,URINE YELLOW (YELLOW); LEUKOCYTE ESTERASE ,URINE MODERATE (NEGATIVE); NITRITE,URINE NEGATIVE (NEGATIVE); PROTEIN,URINE DIPSTICK NEGATIVE (NEGATIVE)
[2022-11-25 13:01] LABS: KETONES,URINE NEGATIVE (NEGATIVE); URINE UROBILINOGEN 0.2 mg/dL (0.2 - 1)
[2022-11-25 13:05] LABS: WBC,URINE (MAN) 21-50 /HPF (0-5)
[2022-11-25 13:06] LABS: BACTERIA,URINE MODERATE /HPF; EPITHELIAL CELLS,URINE MODERATE /LPF; RBC,URINE 0-5 /HPF (0-5)
[2022-11-25] MEDS ORDERED: CEPHALEXIN500 MG PO (13:13)
== END 2022-11-25 13:47 | disposition home or self-care (01) ==
LOC: ER 11:48
DX: R42 Dizziness and giddiness (principal); N39.0 Urinary tract infection, site not specified; I10 Essential (primary) hypertension; E11.9 Type 2 diabetes mellitus without complications; E78.5 Hyperlipidemia, unspecified; F41.9 Anxiety disorder, unspecified; Z85.038 Personal history of other malignant neoplasm of large intestine
CPT/HCPCS: 36415; 70450; 71045; 80053; 81001; 84484; 85025; 87086; 93005; 99284

== ENCOUNTER 2024-11-25 19:08 | Observation (INO) | payer MEDICARE ==
[~2024-11-25] VITALS: Ht 157.5 cm; Wt 59.0 kg
[~2024-11-25 19:08] MED LIST changes: +ACETAMINOPHEN325 M1 PO; +AZITHROMYCIN250 MG PO; +CEFDINIR300 MG PO; +CEPHALEXIN500 MG PO; +MAG-OXIDE400 MG PO; +MIRTAZAPINE7.5 MG PO; +NAPROXEN250 MG PO; +ONDANSETRON ODT4 MG PO; +PAXLOVID 300-11 EACH PO
[2024-11-25 19:16] VITALS: TEMP 97.9
[2024-11-25 19:55] LABS: BASOPHILS % 0.5 % (0.0-1.0); EOSINOPHILS # (AUTO) 0.1 (0.0-0.4); EOSINOPHILS % 0.8 % (0.0-6.0); HEMATOCRIT 42.9 % (34.2-44.1); HEMOGLOBIN 13.8 g/dL (12.0-16.0); LYMPHOCYTES # (AUTO) 1.4 (1.0-3.2); LYMPHOCYTES % 17.3 % (18.0-39.1); MEAN CORPUSCULAR HEMOGLOBIN 30.7 pg (28-32); MEAN CORPUSCULAR HGB CONC 32.2 g/dL (31-35); MEAN CORPUSCULAR VOLUME 95.3 fL (81-99); MONOCYTES % 12.2 % (4.4-11.3); NEUTROPHILS # (AUTO) 5.7 (2.1-6.9); PLATELET COUNT 217 x10e3/uL (140-360); RED CELL DISTRIBUTION WIDTH 14.6 % (11.7-14.4); WHITE BLOOD COUNT 8.26 x10e3/uL (4.8-10.8)
[2024-11-25 20:08] LABS: ALBUMIN 4.1 g/dL (3.5-5.0); ALBUMIN/GLOBULIN RATIO 1.5 (0.8-2.0); ANION GAP 16.3 mmol/L (8-16); BILIRUBIN,TOTAL 0.5 mg/dL (0.2-1.2); CALCIUM 9.7 mg/dL (8.4-10.2); CREATININE, SERUM 0.83 mg/dL (0.57-1.11); POTASSIUM 4.3 mmol/L (3.5-5.1); TOTAL PROTEIN 6.8 g/dL (6.5-8.1)
[2024-11-25 20:55] LABS: CLARITY,URINE CLEAR (CLEAR); COLOR,URINE YELLOW (YELLOW)
[2024-11-25 20:56] LABS: BILIRUBIN,URINE NEGATIVE (NEGATIVE); GLUCOSE, URINE NEGATIVE (NEGATIVE); KETONES,URINE NEGATIVE (NEGATIVE); LEUKOCYTE ESTERASE ,URINE MODERATE (NEGATIVE); NITRITE,URINE NEGATIVE (NEGATIVE); PH,URINE 7 (5 - 7); PROTEIN,URINE DIPSTICK NEGATIVE (NEGATIVE); URINE UROBILINOGEN 0.2 mg/dL (0.2 - 1)
[2024-11-25 21:14] LABS: BACTERIA,URINE MANY /HPF; EPITHELIAL CELLS,URINE MANY /LPF; RENAL EPITHELIAL CELLS,URINE FEW; TRANSITIONAL EPI CELLS,URINE MODERATE; WBC,URINE (MAN) >50 /HPF (0-5)
[2024-11-25] MEDS ORDERED: DEXTROSE 50% SYRINGE 50 ML IV PRN (21:30)
[2024-11-25] MEDS ORDERED: ONDANSETRON HCL INJ 2MG/ML 2ML 2 MG/ML VIAL IV PRN (21:30)
[2024-11-25] MEDS ORDERED: SODIUM CHLORIDE FLUSH 10 ML SYR INJ PRN (21:30)
[2024-11-25] MEDS: ASPIRIN 325 MG TAB PO ONE (21:38)
[2024-11-25 21:40] VITALS: PULSE 82; RESP 18; O2SAT 98
[2024-11-25 21:41] VITALS: PULSE 82; RESP 19
[2024-11-25 22:27] VITALS: BP 188/82; PULSE 84; RESP 18; TEMP 97.6; O2SAT 100
[2024-11-25] MEDS: ACETAMINOPHEN 325 MG TAB PO PRN (23:36)
[2024-11-26] VITALS (8 sets, daily range): BP systolic 143–187; BP diastolic 69–89; PULSE 80–84; RESP 18–20; TEMP 97.4–97.6; O2SAT 95–100
[2024-11-26] MEDS ORDERED: ALPRAZOLAM0.5 M1 PO (01:18)
[2024-11-26 06:57] LABS: BASOPHILS % 0.4 % (0.0-1.0); EOSINOPHILS # (AUTO) 0.1 (0.0-0.4); EOSINOPHILS % 1.7 % (0.0-6.0); HEMATOCRIT 45.2 % (34.2-44.1); HEMOGLOBIN 14.5 g/dL (12.0-16.0); LYMPHOCYTES # (AUTO) 1.1 (1.0-3.2); LYMPHOCYTES % 13.7 % (18.0-39.1); MEAN CORPUSCULAR HEMOGLOBIN 30.6 pg (28-32); MEAN CORPUSCULAR HGB CONC 32.1 g/dL (31-35); MEAN CORPUSCULAR VOLUME 95.4 fL (81-99); MONOCYTES # (AUTO) 0.8 (0.2-0.8); NEUTROPHILS % 73.8 % (38.7-80.0); PLATELET COUNT 221 x10e3/uL (140-360); RED BLOOD COUNT 4.74 x10e6/uL (3.6-5.1); RED CELL DISTRIBUTION WIDTH 14.6 % (11.7-14.4); WHITE BLOOD COUNT 8.17 x10e3/uL (4.8-10.8)
[2024-11-26] MEDS: INSULIN REGULAR, HUMAN 100 UNIT/1 ML SQ SCH (07:30)
[2024-11-26 07:34] LABS: ALBUMIN 3.9 g/dL (3.5-5.0); ALBUMIN/GLOBULIN RATIO 1.3 (0.8-2.0); ANION GAP 14.7 mmol/L (8-16); BILIRUBIN,TOTAL 0.8 mg/dL (0.2-1.2); CALCIUM 9.5 mg/dL (8.4-10.2); CREATININE, SERUM 0.77 mg/dL (0.57-1.11); POTASSIUM 3.7 mmol/L (3.5-5.1); TOTAL PROTEIN 6.9 g/dL (6.5-8.1)
[2024-11-26 07:47] LABS: CREATINE KINASE 36 IU/L (29-168)
[2024-11-26 07:59] LABS: TROPONIN I < 0.001 ng/mL (0-0.300)
[2024-11-26] MEDS: ASPIRIN 325 MG TAB EC PO SCH (08:58)
[2024-11-26] MEDS ORDERED: CEFUROXIME250 MG PO (13:10)
[2024-11-26] MEDS ORDERED: ACETAMINOPHEN 325 MG TAB PO PRN (13:15)
[2024-11-26] MEDS ORDERED: CARVEDILOL 3.125 MG TAB PO SCH (17:00)
[2024-11-26] MEDS ORDERED: ALPRAZOLAM 0.5 MG TAB PO SCH (17:00)
[2024-11-26] MEDS ORDERED: MIRTAZAPINE 15 MG TAB PO SCH (21:00)
[2024-11-26] MEDS ORDERED: ATORVASTATIN 20 MG TAB PO SCH (21:00)
[2024-11-27] MEDS ORDERED: LEVOTHYROXINE SODIUM 88 MCG TAB PO SCH (06:00)
[2024-11-27] MEDS ORDERED: PANTOPRAZOLE SOD 40 MG TABEC PO SCH (07:30)
[2024-11-27] MEDS ORDERED: METHOTREXATE SOD 2.5 MG TAB PO SCH (09:00)
[2024-11-27] MEDS ORDERED: PREDNISONE 5 MG TAB PO SCH (09:00)
== END 2024-11-26 15:20 | disposition home or self-care (01) ==
LOC: ER 19:41 → ERHOLD 21:32 → MED/SURG3 22:09
PROVIDERS: ADMIT Internal Medicine; ATTEND Internal Medicine
DX: G45.9 Transient cerebral ischemic attack, unspecified (principal); N39.0 Urinary tract infection, site not specified; I10 Essential (primary) hypertension; E78.5 Hyperlipidemia, unspecified; E11.9 Type 2 diabetes mellitus without complications; Z79.84 Long term (current) use of oral hypoglycemic drugs; C18.9 Malignant neoplasm of colon, unspecified; F41.9 Anxiety disorder, unspecified; M06.9 Rheumatoid arthritis, unspecified; R94.31 Abnormal electrocardiogram [ECG] [EKG]; Z79.52 Long term (current) use of systemic steroids; Z79.899 Other long term (current) drug therapy
CPT/HCPCS: 36415 ×2; 70450; 70544; 70551; 71045; 80053 ×2; 81001; 82550; 82948; 84484 ×2; 85025 ×2; 87086; 93005; 93306; 94799 ×2; 99252; 99284; G0378 ×2; J0696; J8610

== ENCOUNTER 2025-04-29 19:48 | Emergency (ER) | payer MEDICARE ==
[~2025-04-29] VITALS: Ht 157.5 cm; Wt 63.5 kg
[~2025-04-29 19:48] MED LIST changes: +ALPRAZOLAM0.5 M1 PO
[2025-04-29 21:01] VITALS: TEMP 97.8
[2025-04-29 21:56] LABS: BASOPHILS % 0.4 % (0.0-1.0); EOSINOPHILS % 1.7 % (0.0-6.0); LYMPHOCYTES % 25.2 % (18.0-39.1); MONOCYTES % 12.7 % (4.4-11.3); NEUTROPHILS % 59.7 % (38.7-80.0); RED CELL DISTRIBUTION WIDTH 15.3 % (11.7-14.4)
[2025-04-29 22:04] LABS: EST GLOMERULAR FILTRATION RATE 67.0 ML/MIN (>=60)
[2025-04-29 22:39] LABS: LEUKOCYTE ESTERASE ,URINE LARGE (NEGATIVE); PROTEIN,URINE DIPSTICK NEGATIVE (NEGATIVE); URINE UROBILINOGEN 0.2 mg/dL (0.2 - 1)
[2025-04-29 23:11] LABS: EPITHELIAL CELLS,URINE FEW /LPF; WBC,URINE (MAN) >50 /HPF (0-5)
[2025-04-29 23:42] VITALS: PULSE 68; RESP 18; O2SAT 98
[2025-04-29] MEDS ORDERED: ONDANSETRON ODT4 MG SL (23:48)
[2025-04-29] MEDS ORDERED: CEFDINIR300 MG PO (23:48)
[2025-04-30 00:16] VITALS: BP 169/69; PULSE 58; RESP 18; TEMP 98.2
== END 2025-04-30 00:17 | disposition home or self-care (01) ==
LOC: ER 21:12
DX: R53.83 Other fatigue (principal); N39.0 Urinary tract infection, site not specified; I10 Essential (primary) hypertension; E11.9 Type 2 diabetes mellitus without complications; E78.5 Hyperlipidemia, unspecified; F41.9 Anxiety disorder, unspecified; Z85.038 Personal history of other malignant neoplasm of large intestine
CPT/HCPCS: 36415; 80053; 81001; 85025; 99283; J0696

== ENCOUNTER 2025-07-12 11:24 | Inpatient (IN) | payer MEDICARE ==
[~2025-07-12] VITALS: Ht 157.5 cm; Wt 68.0 kg
[~2025-07-12 11:24] MED LIST changes: +ONDANSETRON ODT4 MG SL
[2025-07-12 12:09] VITALS: TEMP 98.7
[2025-07-12 12:50] LABS: BASOPHILS % 0.5 % (0.0-1.0); EOSINOPHILS % 1.7 % (0.0-6.0); LYMPHOCYTES % 11.3 % (18.0-39.1); MONOCYTES % 9.9 % (4.4-11.3); NEUTROPHILS % 76.2 % (38.7-80.0); RED CELL DISTRIBUTION WIDTH 14.9 % (11.7-14.4)
[2025-07-12 12:58] LABS: INR 1.07
[2025-07-12] MEDS: ONDANSETRON HCL INJ 2MG/ML 2ML 2 MG/ML VIAL IV STA (13:00)
[2025-07-12 13:05] LABS: EST GLOMERULAR FILTRATION RATE 71.0 ML/MIN (>=60)
[2025-07-12] MEDS ORDERED: SODIUM CHLORIDE 0.9% 1000ML 1,000 ML ONE (14:10)
[2025-07-12] MEDS: SODIUM CHLORIDE 0.9% 1000ML 1,000 ML IV STA (14:18)
[2025-07-12 14:30] LABS: LEUKOCYTE ESTERASE ,URINE NEGATIVE (NEGATIVE); PROTEIN,URINE DIPSTICK NEGATIVE (NEGATIVE); URINE UROBILINOGEN 1 mg/dL (0.2 - 1)
[2025-07-12 16:47] VITALS: PULSE 97; RESP 16
[2025-07-12 17:00] VITALS: BP 167/68; PULSE 89; RESP 18; TEMP 97.9; O2SAT 95
[2025-07-12] MEDS: SODIUM CHLORIDE 0.9% 1000ML 1,000 ML IV SCH (18:05)
[2025-07-12] MEDS ORDERED: FUROSEMIDE20 MG PO (18:55)
[2025-07-12] MEDS ORDERED: NYSTOP60 GM TOP (19:04)
[2025-07-12] MEDS ORDERED: FOLIC PO (19:04)
[2025-07-12] MEDS ORDERED: OMEPRAZOLE20 M2 PO (19:04)
[2025-07-12] MEDS ORDERED: PRAVASTATIN SOD20 MG PO (19:04)
[2025-07-12] MEDS ORDERED: ESTRADIOL42.5 GM VG (19:48)
[2025-07-12] MEDS ORDERED: VITAMIN B-1100 M1 PO (19:48)
[2025-07-12] MEDS ORDERED: CALTRATE 600 W1 EACH PO (19:48)
[2025-07-12] MEDS ORDERED: PRESERVISION A1 EAC4 PO (19:48)
[2025-07-12] MEDS ORDERED: UNISOM50 MG (19:48)
[2025-07-12] MEDS ORDERED: VITAMIN C500 M1 (19:48)
[2025-07-12] MEDS ORDERED: METHOTREXATE2.5 MG PO (19:48)
[2025-07-12] MEDS ORDERED: PEPTO-BISMOL262 M1 PO (19:48)
[2025-07-12] MEDS ORDERED: RITUXAN10 MG/1 ML SC (19:48)
[2025-07-12 20:00] VITALS: BP 138/89; PULSE 90; RESP 18; TEMP 98.6; O2SAT 97
[2025-07-12] MEDS ORDERED: ACETAMINOPHEN-COD PO (20:01)
[2025-07-12] MEDS: CARVEDILOL 3.125 MG TAB PO STA (23:40)
[2025-07-12] MEDS: ACETAMINOPHEN/CODEINE 300MG - 30MG TAB PO PRN (23:44)
[2025-07-13] VITALS (8 sets, daily range): BP systolic 130–184; BP diastolic 56–81; PULSE 90–101; RESP 16–18; TEMP 97.9–99.2; O2SAT 91–96
[2025-07-13 05:44] LABS: BASOPHILS % 0.4 % (0.0-1.0); EOSINOPHILS % 2.4 % (0.0-6.0); LYMPHOCYTES % 12.9 % (18.0-39.1); MONOCYTES % 11.7 % (4.4-11.3); NEUTROPHILS % 72.3 % (38.7-80.0); RED CELL DISTRIBUTION WIDTH 14.5 % (11.7-14.4)
[2025-07-13 06:27] LABS: EST GLOMERULAR FILTRATION RATE 89.0 ML/MIN (>=60)
[2025-07-13 06:56] LABS: CHOL/HDL RATIO 4.4 (3.0-3.6); LDL CHOLESTEROL 75.0 MG/DL (60-130)
[2025-07-13 07:25] LABS: T3 UPTAKE 37.44 % (22.5-37.0)
[2025-07-13] MEDS: ALPRAZOLAM 0.5 MG TAB PO SCH (08:13)
[2025-07-13] MEDS ORDERED: HYDRALAZINE HCL 20 MG/ML VIAL IV PRN (13:30)
[2025-07-13] MEDS ORDERED: LIDOCAINE HCL 2% LOCAL INJ 5 ML SDV VIAL INJ ONE (14:04)
[2025-07-13] MEDS ORDERED: PROPOFOL IV EMULSION 10 MG/ML 20 ML VIAL ONE ×2 (14:04→15:11)
[2025-07-13] MEDS ORDERED: FENTANYL CITRATE/PF 100MCG/2 ML INJ ONE (15:14)
[2025-07-13] MEDS ORDERED: PHENYLEPHRINE HCL 1% 10 MG/ML VIAL ONE (15:21)
[2025-07-13] MEDS: ACETAMINOPHEN 325 MG TAB PO PRN (16:36)
[2025-07-14 04:00] VITALS: BP 120/56; PULSE 95; RESP 20; TEMP 97.5; O2SAT 93
[2025-07-14] MEDS: LEVOTHYROXINE SODIUM 88 MCG TAB PO SCH (05:54)
[2025-07-14 07:54] VITALS: BP 138/53; PULSE 88; RESP 18; TEMP 97.8; O2SAT 96
[2025-07-14] MEDS: FUROSEMIDE 20 MG TAB PO SCH (08:06)
[2025-07-14 08:15] VITALS: BP 138/53; PULSE 88; RESP 18; TEMP 97.8; O2SAT 96
[2025-07-14 08:23] LABS: BASOPHILS % 0.3 % (0.0-1.0); EOSINOPHILS % 1.0 % (0.0-6.0); LYMPHOCYTES % 12.0 % (18.0-39.1); MONOCYTES % 13.2 % (4.4-11.3); NEUTROPHILS % 73.2 % (38.7-80.0); RED CELL DISTRIBUTION WIDTH 14.5 % (11.7-14.4)
[2025-07-14 08:52] LABS: CHOL/HDL RATIO 4.1 (3.0-3.6); EST GLOMERULAR FILTRATION RATE 85.0 ML/MIN (>=60); LDL CHOLESTEROL 64.0 MG/DL (60-130)
[2025-07-14 11:28] VITALS: BP 144/51; PULSE 98; RESP 19; TEMP 97.2; O2SAT 94
[2025-07-14 15:24] VITALS: BP 155/60; PULSE 98; RESP 17; TEMP 98.5; O2SAT 95
[2025-07-14 20:00] VITALS: BP 146/63; PULSE 92; RESP 17; TEMP 98.5; O2SAT 93; O2SAT 98
[2025-07-14] MEDS: MIRTAZAPINE 15 MG TAB PO SCH (20:10)
[2025-07-14] MEDS: Morphine 2mg Syringe 2 MG/ML SYR IV PRN (20:11)
[2025-07-14] MEDS: ONDANSETRON HCL INJ 2MG/ML 2ML 2 MG/ML VIAL IV PRN (20:11)
[2025-07-15] VITALS (7 sets, daily range): BP systolic 107–153; BP diastolic 52–65; PULSE 96–112; RESP 17–20; TEMP 97.6–98.9; O2SAT 93–96
[2025-07-15 05:52] LABS: BASOPHILS % 0.2 % (0.0-1.0); EOSINOPHILS % 0.5 % (0.0-6.0); LYMPHOCYTES % 8.3 % (18.0-39.1); MONOCYTES % 10.5 % (4.4-11.3); NEUTROPHILS % 80.2 % (38.7-80.0); RED CELL DISTRIBUTION WIDTH 14.3 % (11.7-14.4)
[2025-07-15 06:16] LABS: EST GLOMERULAR FILTRATION RATE 89.0 ML/MIN (>=60)
[2025-07-15] MEDS: PRAVASTATIN 20 MG TAB PO SCH (08:03)
[2025-07-15] MEDS: KCL 20 MEQ PACKET/ ORAL SOLN NG STA (17:09)
[2025-07-16] VITALS (8 sets, daily range): BP systolic 120–148; BP diastolic 56–71; PULSE 95–112; RESP 16–20; TEMP 97.7–99.4; O2SAT 96–100
[2025-07-16] MEDS: CARVEDILOL 3.125 MG TAB PO SCH (17:17)
[2025-07-17] VITALS (9 sets, daily range): BP systolic 107–136; BP diastolic 49–65; PULSE 81–105; RESP 18–22; TEMP 97.7–99.3; O2SAT 93–98
[2025-07-17 06:40] LABS: BASOPHILS % 0.5 % (0.0-1.0); EOSINOPHILS % 0.7 % (0.0-6.0); LYMPHOCYTES % 10.8 % (18.0-39.1); MONOCYTES % 10.9 % (4.4-11.3); NEUTROPHILS % 76.6 % (38.7-80.0); RED CELL DISTRIBUTION WIDTH 14.4 % (11.7-14.4)
[2025-07-17] MEDS: ARTIFICIAL TEARS (OPTH) 15 ML BTL OU PRN (07:18)
[2025-07-17 07:32] LABS: EST GLOMERULAR FILTRATION RATE 87.0 ML/MIN (>=60)
[2025-07-17] MEDS: SODIUM CHLORIDE 0.9% 1000ML 1,000 ML IV SCH (18:17)
[2025-07-18] VITALS (8 sets, daily range): BP systolic 116–141; BP diastolic 54–76; PULSE 82–93; RESP 15–20; TEMP 97.1–98.1; O2SAT 95–100
[2025-07-18] MEDS: POTASSIUM CHLORIDE 10MEQ EA PO STA ×2 (03:33)
[2025-07-19 00:31] VITALS: BP 136/64; PULSE 88; RESP 16; TEMP 98.6; O2SAT 98
[2025-07-19] MEDS ORDERED: POTASSIUM CHLORIDE 20 MEQ TAB CR PO STA (02:43)
[2025-07-19 04:36] VITALS: BP 135/63; PULSE 88; RESP 16; TEMP 98.2; O2SAT 99
[2025-07-19] MEDS: POTASSIUM CHLORIDE 20 MEQ TAB CR PO ONE (06:31)
[2025-07-19 08:30] VITALS: BP 135/63; PULSE 88; RESP 16; TEMP 98.2; O2SAT 99
[2025-07-19 09:05] VITALS: BP 158/98; PULSE 92; RESP 18; TEMP 98.1; O2SAT 98
[2025-07-19 12:10] VITALS: BP 162/80; PULSE 93; RESP 18; TEMP 98.4; O2SAT 100
== END 2025-07-19 15:00 | disposition other institution (70) | DRG 392 ==
LOC: ER 12:35 → ERHOLD 15:43 → MED/SURG3 17:48
PROVIDERS: ADMIT Internal Medicine; ATTEND Internal Medicine
PROC: 0DB78ZX Excision of Stomach, Pylorus, Via Natural or Artificial Opening Endoscopic, Diagnostic (ICD-10-PCS; 2025-07-13)
PROC: 0D758ZZ Dilation of Esophagus, Via Natural or Artificial Opening Endoscopic (ICD-10-PCS; principal; 2025-07-13 15:06)
PROC: 0DB68ZX Excision of Stomach, Via Natural or Artificial Opening Endoscopic, Diagnostic (ICD-10-PCS; 2025-07-13 15:06)
PROC: 0T9B70Z Drainage of Bladder with Drainage Device, Via Natural or Artificial Opening (ICD-10-PCS; 2025-07-15)
DX: R13.10 Dysphagia, unspecified (principal); N39.0 Urinary tract infection, site not specified; E87.1 Hypo-osmolality and hyponatremia; K22.2 Esophageal obstruction; E11.9 Type 2 diabetes mellitus without complications; B96.20 Unspecified Escherichia coli [E. coli] as the cause of diseases classified elsewhere; E03.9 Hypothyroidism, unspecified; E87.6 Hypokalemia; E86.0 Dehydration; E78.5 Hyperlipidemia, unspecified; I10 Essential (primary) hypertension; K21.9 Gastro-esophageal reflux disease without esophagitis; R53.81 Other malaise; R32 Unspecified urinary incontinence; R33.9 Retention of urine, unspecified; N31.9 Neuromuscular dysfunction of bladder, unspecified; F41.9 Anxiety disorder, unspecified; R09.02 Hypoxemia; R53.1 Weakness; Z79.890 Hormone replacement therapy; Z85.038 Personal history of other malignant neoplasm of large intestine; Z90.49 Acquired absence of other specified parts of digestive tract; Z90.710 Acquired absence of both cervix and uterus; Z91.041 Radiographic dye allergy status; Z91.040 Latex allergy status; Z88.1 Allergy status to other antibiotic agents; Z91.048 Other nonmedicinal substance allergy status; E66.9 Obesity, unspecified; Z68.27 Body mass index [BMI] 27.0-27.9, adult
CPT/HCPCS: 36415; 43239; 43450; 51701; 71045; 80048; 80053; 80061; 81001; 82550; 83036; 83690; 83735; 83880; 84436; 84443; 84479; 84484; 85025; 85610; 85730; 87086; 87186; 88305; 93005; 99252; 99284; J0696; J2003; J2270; J2371; J2405; J2470; J7030